=== PATIENT | female | born 1995 | race Hispanic/Latino ===

== ENCOUNTER 2022-07-09 05:54 | Emergency (ER) | payer OTHER, SELFPAY ==
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
[2022-07-09 06:00] VITALS: BP 100/67; PULSE 68; RESP 18; TEMP 36.7; O2SAT 98
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
--- NOTE | 2022-07-09 06:35 | PC.NURSE ---
verbal order for short arm splint left arm.
[2022-07-09 06:43] LABS: Basophils Percent Auto 0.6 % (0.2-1.2); Eosinophils Absolute Auto 0.1 K/mm3 (0-0.3); Eosinophils Percent Auto 1.9 % (0-4.4); Hemoglobin 12.2 g/dL (12.0-15.0); Immature Granulocyte Absolute 0.02 K/mm3 (0.00-0.031); Immature Granulocyte Percent A 0.3 % (0-0.5); Lymphocytes Absolute Auto 1.51 K/mm3 (0.9-3.2); Lymphocytes Percent Auto 23.5 % (18.3-44.2); Mean Corpuscular HGB Conc 32.1 g/dl (32-36); Mean Corpuscular Hemoglobin 30.5 pg (26-34); Mean Platelet Volume 10.9 fl (7.4-10.4); Monocytes Absolute Auto 0.7 K/mm3 (0.1-0.6); Monocytes Percent Auto 10.7 % (2.6-8.5); Platelet Count Result 208 k/mm3 (150-375); Red Cell Distribution Width 14.3 % (11.5-14.5); White Blood Count 6.4 K/mm3 (4.5-10.0)
[2022-07-09] MEDS: HYDROmorphone HCL INJ (*CRX) 1 MG/ML SYR 0.5 MG IV PUSH (06:44)
[2022-07-09 07:00] LABS: Alanine Aminotransferase 31 U/L (6-35); Albumin Level 4.2 g/dL (3.5-5.1); Alkaline Phosphatase 49 U/L (38-126); Anion Gap 11 mmol/L (8-16); Aspartate Amino Transferase 52 U/L (14-36); Bilirubin,Total 0.8 mg/dL (0.2-1.3); Blood Urea Nitrogen 12 mg/dL (7-17); Calcium 8.6 mg/dL (8.4-10.2); Carbon Dioxide 27 mmol/L (22-30); Chloride 101 mmol/L (98-107); Estimated CRCL calculation 108 ml/min; Estimated Glomerular Filt Rate > 60; Glucose 106 mg/dL (65-110); Potassium 3.9 mmol/L (3.4-5.0); Sodium 139 mmol/L (137-145)
[2022-07-09 07:12] VITALS: BP 101/70; PULSE 59; RESP 18; O2SAT 98
[2022-07-09 08:14] VITALS: BP 99/67; PULSE 88; RESP 16; O2SAT 99
== END 2022-07-09 08:15 | disposition home or self-care (01) ==
PROVIDERS: Emergency Medicine; Emergency Provider Family Medicine; PCP Registered Nurse
DX: S52.615A Nondisplaced fracture of left ulna styloid process, initial encounter for closed fracture (principal); S06.9X9A Unspecified intracranial injury with loss of consciousness of unspecified duration, initial encounter; V47.6XXA Car passenger injured in collision with fixed or stationary object in traffic accident, initial encounter
CPT/HCPCS: 29125; 36415; 70450; 71275; 73080; 73110; 74174; 80053; 81025; 85025; 96374; 99284; A4565; J1170; Q9967

== ENCOUNTER 2023-04-29 15:24 | Outpatient (CLI) | payer OTHER, SELFPAY ==
--- NOTE | ~2023-04-29 | US_ITS ---
EXAMINATION: US OB <=14 wk fetus w TV DATE: 04/29/2023 16:02 INDICATION: Spotting. First trimester . TECHNIQUE: Real-time transabdominal and transvaginal pelvic ultrasound was performed. COMPARISON: None. FINDINGS: TRANSABDOMINAL ULTRASOUND: The uterus measures 9.9 x 6.5 x 5.3 cm. TRANSVAGINAL ULTRASOUND: There is an intrauterine gestational sac. A yolk sac is identified. The fet al crown rump length measures 1.5 cm, which correlates with an estimated gestational age of 7 weeks a nd 6 day(s). heart motion is not identified by M-mode Doppler. The ovaries are not visualized. There is no free fluid in the pelvis. IMPRESSION: 1. demise. Reviewed, dictated and finalized at location L. IMPRESSION: 1. demise.
== END 2023-04-29 15:25 | disposition home or self-care (01) ==
PROVIDERS: PCP Physician Assistant; Visit Provider Obstetrics & Gynecology
DX: O26.851 Spotting complicating pregnancy, first trimester (principal); Z3A.00 Weeks of gestation of pregnancy not specified; O02.1 Missed abortion
CPT/HCPCS: 76801; 76817

== ENCOUNTER 2023-07-04 21:27 | Emergency (ER) | payer OTHER, SELFPAY ==
[2023-07-04] VITALS (9 sets, daily range): BP systolic 115–124; BP diastolic 61–76; PULSE 67–98; RESP 15–17; TEMP 36.3; O2SAT 99–100
--- NOTE | ~2023-07-04 | US_ITS ---
EXAMINATION: US OB <= 14 weeks fetus DATE: 07/04/2023 23:58 INDICATION: Pelvic pain and bleeding. . TECHNIQUE: Real-time transabdominal pelvic ultrasound was performed. COMPARISON: Ultrasound 04/29/2023 FINDINGS: The uterus measures 9.5 x 4.2 x 4.8 cm. The endometrial complex is heterogeneous with thickness of 9 mm. There is a cyst in the endometrial complex with mean diameter of 7 mm . If this finding is a gest ational sac, it correlates with an estimated gestational age of 5 weeks and 3 days +/- 3 days. No yol k sac or pole is identified. The right ovary measures 2.2 x 1.4 x 1.8 cm. The left ovary measur es 3.7 x 2.1 x 2.8 cm. There is no free fluid in the pelvis. IMPRESSION: 1. Cyst in the endometrial complex that may be a gestational sac with estimated date of delivery of 04/01/2024. Spontaneous and ectopic are not excluded. Serial beta hCGs are recommend ed. Reviewed, dictated and finalized at location E. IMPRESSION: 1. Cyst in the endometrial complex that may be a gestational sac with estimate d date of delivery of 04/01/2024. Spontaneous and ectopic are not excluded. Serial beta hCGs are recommended.
--- NOTE | 2023-07-04 21:54 | ED.PREGNANCY ---
HPI - General Chief complaint: Vaginal Bleeding <Christin Chow APRN - Last Filed: 07/05/23 03:18> Stated complaint: vaginal bleeding <Christin Chow APRN - Last Filed: 07/05/23 03:18> Time Seen by Provider: 07/04/23 21:53 <Christin Chow APRN - Last Filed: 07/05/23 03:18> Source: patient and family (spouse at bedside) <Christin Chow APRN - Last Filed: 07/05/23 03:18> Mode of arrival: ambulatory <Christin Chow APRN - Last Filed: 07/05/23 03:18> Limitations: no limitations <Christin Chow APRN - Last Filed: 07/05/23 03:18> History of Present Illness HPI Narrative: Patient is a very pleasant 27-year-old female with a past medical history of anxiety, anemia, miscarriage who presents to the emergency department today ambulatory with a steady gait with spouse for evaluation of a having an episode of vaginal bleeding with pain. Patient states that she had a miscarriage at the end of March beginning of May. She ended up having to take the pills as she could not deliver the products of conception by herself. She states that she then bleed for about 2-3 weeks on and off. She states that she did not have a cycle at all in May. She states that the small amount of bleeding started tonight after coughing along with lower abdominal discomfort. She denies any fever or chills. Denies chest pain, shortness of breath, dizziness, urinary symptoms, flank pain. <Christin Chow APRN - Last Filed: 07/05/23 03:18> Related Data Home medications: Home Medications Medication Instructions Recorded Confirmed prenat.vits,alicia,[id number] 1 tablet PO DAILY 04/22/23 05/01/23 <Christin Chow APRN - Last Filed: 07/05/23 03:18> Allergies/Adverse reactions: Allergies Allergy/AdvReac Type Severity Reaction Status Date / Time No Known Allergies Allergy Unknown Verified 07/04/23 21:31 <Christin Chow APRN - Last Filed: 07/05/23 03:18> Review of Systems Review of Systems: CONSTITUTIONAL: Denies fever, chills, or sweats. EYES: Denies visual changes, redness, or discharge. ENT: Denies rhinorrhea, congestion, sore throat, or otalgia. CARDIOVASCULAR: Denies chest pain, palpitations, or edema. RESPIRATORY: Denies cough or dyspnea. GASTROINTESTINAL: Denies, nausea, vomiting, or diarrhea. +lower abdominal cramping GENITOURINARY: Denies dysuria or hematuria. +vaginal bleeding/lower abdomen cramping. SKIN: Denies rash or itching. MUSCULOSKELETAL: Denies back pain, joint pain, or myalgia. NEUROLOGIC: Denies headache, numbness, or weakness. PSYCHIATRIC: Denies anxiety or depression. <Christin Chow APRN - Last Filed: 07/05/23 03:18> All systems reviewed & are unremarkable except as noted in HPI and below <Christin Chow APRN - Last Filed: 07/05/23 03:18> [facility] Past Medical History Medical History: Medical History Anemia Anxiety Heart disease History of miscarriage <Christin Chow APRN - Last Filed: 07/05/23 03:18> Surgical History Surgical History: Surgical History History of 2 History of cholecystectomy <Christin Chow APRN - Last Filed: 07/05/23 03:18> Family History Family History: Family History Mother Family history of diabetes mellitus in first degree relative Sibling Family history of diabetes mellitus in first degree relative <Christin Chow APRN - Last Filed: 07/05/23 03:18> Social History Social History: Social History Smoking status: Current every day smoker Tobacco type: e-cigarettes/vaping Alcohol intake: never Substance use: former Substance use type: marijuana Lack of Transportation: No Lack of Food: Never True Current Housing: I Have Housing Concerned About Future Ho
[2023-07-04 22:17] LABS: Basophils Percent Auto 0.4 % (0.2-1.2); Eosinophils Absolute Auto 0.3 K/mm3 (0-0.3); Eosinophils Percent Auto 3.1 % (0-4.4); Hematocrit 39.7 % (37.0-47.0); Hemoglobin 13.2 g/dL (12.0-15.0); Immature Granulocyte Absolute 0.03 K/mm3 (0.00-0.031); Immature Granulocyte Percent A 0.3 % (0-0.5); Lymphocytes Absolute Auto 2.85 K/mm3 (0.9-3.2); Lymphocytes Percent Auto 31.4 % (18.3-44.2); Mean Corpuscular HGB Conc 33.2 g/dl (32-36); Mean Corpuscular Hemoglobin 30.5 pg (26-34); Mean Corpuscular Volume 91.7 fl (80-100); Mean Platelet Volume 10.6 fl (7.4-10.4); Monocytes Absolute Auto 0.6 K/mm3 (0.1-0.6); Monocytes Percent Auto 6.5 % (2.6-8.5); Neutrophils Absolute Auto 5.3 K/mm3 (1.3-6.7); Neutrophils Percent Auto 58.3 % (45.5-73.1); Platelet Count Result 253 k/mm3 (150-375); Red Blood Count 4.33 M/mm3 (4.2-5.4); Red Cell Distribution Width 13.1 % (11.5-14.5); White Blood Count 9.1 K/mm3 (4.5-10.0)
[2023-07-04 22:29] LABS: Alanine Aminotransferase 63 U/L (6-35); Albumin Level 4.6 g/dL (3.5-5.1); Alkaline Phosphatase 62 U/L (38-126); Anion Gap 10 mmol/L (8-16); Aspartate Amino Transferase 46 U/L (14-36); Bilirubin,Total 0.4 mg/dL (0.2-1.3); Blood Urea Nitrogen 10 mg/dL (7-17); Calcium 9.5 mg/dL (8.4-10.2); Carbon Dioxide 27 mmol/L (22-30); Chloride 101 mmol/L (98-107); Estimated CRCL calculation 122 ml/min; Estimated Glomerular Filt Rate > 60; Glucose 114 mg/dL (65-110); Potassium 3.6 mmol/L (3.4-5.0); Sodium 138 mmol/L (137-145)
[2023-07-04 23:04] LABS: Bacteria Urine None Seen /hpf; Non Pathogenic Casts 0-2; RBC Urine >100 /hpf (0-2); Squamous Epithelial Cell Urine None seen /hpf (Few)
[2023-07-04 23:18] LABS: Appearance Urine Turbid (Clear); Bilirubin Urine Negative (Negative); Blood Urine 3+ (Negative); Color Urine Orange (Yellow); Glucose Urine UA Negative (Negative); Ketones Urine Negative (Negative); Leukocyte Esterase Ur 1+ LEU/UL (Negative); Nitrate Urine Negative (Negative); Protein Urine 1+ mg/dL (Negative); Specific Grav Ur 1.023 (1.001-1.035)
--- NOTE | 2023-07-04 23:18 | PC.NURSE ---
Patient taken to ultrasound at this time via w/c.
[2023-07-04 23:19] LABS: Add Urine Microscopic? YES
[2023-07-05] VITALS (23 sets, daily range): BP systolic 99–123; BP diastolic 64–79; PULSE 58–90; RESP 14–17; O2SAT 98–100
[2023-07-05] MEDS: ACETAMINOPHEN 500 MG TABLET 1000 MG PO (01:33)
[2023-07-05] MEDS: LACTATED RINGERS 1,000 ML 999 ML IV CONT (02:01)
== END 2023-07-05 07:06 | disposition home or self-care (01) ==
PROVIDERS: Nurse Practitioner; Emergency Provider Emergency Medicine; PCP Physician Assistant
DX: O20.0 Threatened abortion (principal); O99.411 Diseases of the circulatory system complicating pregnancy, first trimester; I51.9 Heart disease, unspecified; O99.331 Smoking (tobacco) complicating pregnancy, first trimester; F17.290 Nicotine dependence, other tobacco product, uncomplicated; Z86.2 Personal history of diseases of the blood and blood-forming organs and certain disorders involving the immune mechanism; Z90.49 Acquired absence of other specified parts of digestive tract; Z3A.01 Less than 8 weeks gestation of pregnancy
CPT/HCPCS: 36415; 76801; 80053; 81001; 84702; 85025; 85461; 86850; 86900; 86901; 87077; 87086; 87186; 96360; 99284; A9270; J7120

== ENCOUNTER 2023-08-21 09:33 | Outpatient (CLI) | payer OTHER, SELFPAY ==
[2023-08-21 11:08] LABS: Beta HCG Quantitative < 2.39 mIU/ML
== END 2023-08-21 09:34 | disposition home or self-care (01) ==
LOC: ANHLAB 09:34
PROVIDERS: PCP Physician Assistant; Visit Provider Emergency Medicine
DX: O20.0 Threatened abortion (principal); Z3A.00 Weeks of gestation of pregnancy not specified
CPT/HCPCS: 36415; 84702

== ENCOUNTER 2023-10-19 03:18 | Emergency (ER) | payer OTHER, SELFPAY ==
[2023-10-19 03:25] VITALS: BP 117/67; PULSE 91; RESP 18; TEMP 36.7; O2SAT 99
--- NOTE | 2023-10-19 06:07 | PC.NURSE ---
0548 - Pt called for room, no answer 0607 - pt called for room, no answer
== END 2023-10-19 06:16 | disposition left against medical advice (07) ==
LOC: ANHED 06:09
PROVIDERS: PCP Physician Assistant
DX: J02.9 Acute pharyngitis, unspecified (principal)
CPT/HCPCS: 99199

== ENCOUNTER 2023-10-22 15:03 | Outpatient (CLI) | payer OTHER, SELFPAY ==
[2023-10-22 15:47] LABS: Alanine Aminotransferase 21 U/L (6-35); Albumin Level 4.2 g/dL (3.5-5.1); Alkaline Phosphatase 76 U/L (38-126); Anion Gap 8 mmol/L (8-16); Aspartate Amino Transferase 25 U/L (14-36); Bilirubin,Total 0.5 mg/dL (0.2-1.3); Blood Urea Nitrogen 9 mg/dL (7-17); Calcium 8.7 mg/dL (8.4-10.2); Carbon Dioxide 26 mmol/L (22-30); Chloride 106 mmol/L (98-107); Estimated Glomerular Filt Rate > 60; Glucose 100 mg/dL (65-110); Potassium 3.9 mmol/L (3.4-5.0); Sodium 140 mmol/L (137-145)
[2023-10-22 16:54] LABS: Thyroid Stimulating Hormone Reflex 0.915 uIU/mL (0.465-4.68)
[2023-10-29 10:50] LABS: Anti Cardio Antibody IgM <2.0 MPL-U/mL (<20.0); Anti Cardiolipin Antibody IgA <2.0 APL-U/mL (<20.0); Anti Cardiolipin Antibody IgG <2.0 GPL-U/mL (<20.0)
== END 2023-10-22 15:04 | disposition home or self-care (01) ==
LOC: ANHLAB 15:04
PROVIDERS: PCP Physician Assistant; Visit Provider Obstetrics & Gynecology
DX: N96 Recurrent pregnancy loss (principal)
CPT/HCPCS: 36415; 80053; 84443; 86147

== ENCOUNTER 2024-02-03 11:16 | Outpatient (CLI) | payer OTHER, SELFPAY ==
[2024-02-07 07:45] LABS: Progesterone 43.7 ng/mL (***)
== END 2024-02-03 11:17 | disposition home or self-care (01) ==
LOC: ANHLAB 11:17
PROVIDERS: PCP Physician Assistant; Visit Provider Nurse Practitioner Family
DX: N91.2 Amenorrhea, unspecified (principal)
CPT/HCPCS: 36415; 84144; 84702

== ENCOUNTER 2024-02-03 11:32 | Emergency (ER) | payer OTHER, SELFPAY ==
--- NOTE | ~2024-02-03 | US_ITS ---
CORRECTED REPORT corrected examination description [facility] [place] 02/04/24 This report was recreated on 02/04/24. 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 The interpreting radiologist was not present for the study. COMPARISON: None. FINDINGS: The uterus measures 8.9 x 4.9 x 5.5 cm. There is an intrauterine gestational sac with double decidual sign but no discernible internal yolk sac or pole likely due to early stage of .The mean sac diameter measures 5 mm which correlates with an estimated gestational age of 5 weeks and 2 days. Several anechoic nabothian cysts at the cervix the largest measuring up to 1 cm in maximal diameter. Likely section scar at the anterior lower uterine segment. The right ovary measures 2.7 x 2.1 x 3.1 cm. The left ovary measures 2.9 x 1.4 x 3.4 cm. After flow identified at both ovaries on color Doppler. There is small amount of anechoic free fluid in the cul-de-sac and at the right adnexa. IMPRESSION: 1. Single intrauterine gestational sac without evident yolk sac or pole likely due to early stage of . 2. Gestational age by ultrasound based on mean sac diameter of 5 weeks 2 day(s) +/- 3 day(s) with ultrasound estimated date of delivery (SUNDAY) of 10/03/2024. 3. Small amount of likely physiologic free fluid in the cul-de-sac and at the right adnexa. Reviewed, dictated and finalized at location A. TING SUPERVISOR MTDD IMPRESSION: 1. Single intrauterine gestational sac without evident yolk sac or pole l ikely due to early stage of . 2. Gestational age by ultrasound based on mean sac diameter of 5 weeks 2 day(s ) +/- 3 day(s) with ultrasound estimated date of delivery (SUNDAY) of 10/03/2024. 3. Small amount of likely physiologic free fluid in the cul-de-sac and at the r ight adnexa.
[2024-02-03 11:44] VITALS: BP 129/72; PULSE 71; RESP 20; TEMP 36.2; O2SAT 100
[2024-02-03 13:19] LABS: Basophils Percent Auto 0.4 % (0.2-1.2); Eosinophils Absolute Auto 0.2 K/mm3 (0-0.3); Eosinophils Percent Auto 2.1 % (0-4.4); Hematocrit 39.7 % (37.0-47.0); Hemoglobin 12.9 g/dL (12.0-15.0); Immature Granulocyte Absolute 0.04 K/mm3 (0.00-0.031); Immature Granulocyte Percent A 0.4 % (0-0.5); Lymphocytes Absolute Auto 2.52 K/mm3 (0.9-3.2); Lymphocytes Percent Auto 26.3 % (18.3-44.2); Mean Corpuscular HGB Conc 32.5 g/dl (32-36); Mean Corpuscular Hemoglobin 29.7 pg (26-34); Mean Corpuscular Volume 91.3 fl (80-100); Mean Platelet Volume 10.7 fl (7.4-10.4); Monocytes Absolute Auto 0.7 K/mm3 (0.1-0.6); Monocytes Percent Auto 7.5 % (2.6-8.5); Neutrophils Absolute Auto 6.1 K/mm3 (1.3-6.7); Neutrophils Percent Auto 63.3 % (45.5-73.1); Platelet Count Result 269 k/mm3 (150-375); Red Blood Count 4.35 M/mm3 (4.2-5.4); Red Cell Distribution Width 13.5 % (11.5-14.5); White Blood Count 9.6 K/mm3 (4.5-10.0)
--- NOTE | 2024-02-03 13:22 | ED.ABDPAIN ---
HPI - Abdominal Pain General Chief Complaint: Abdominal Pain <Fernando Aponte APRN - Last Filed: 02/03/24 13:26> Stated Complaint: lower abdominal pain, 4 weeks <Fernando Aponte APRN - Last Filed: 02/03/24 13:26> Time Seen by Provider: 02/03/24 13:20 <Fernando Aponte APRN - Last Filed: 02/03/24 13:26> MSE in triage was performed a 1320 Focused HPI: Alexandrea is a 28-year-old female patient presenting to the ER today with complaints of right lower quadrant abdominal pain/pelvic pain times 4-5 days. She reports that she is approximately 4 weeks . Rates pain currently a 4-5 out of 10 and is sharp in nature and comes and goes. Last menstrual period was finishing up on December 25, 2025. States she had done a urine test and it was positive. Also reporting some associated nausea, vomiting, and diarrhea. Denies any chest pain, shortness of breath, or URI symptoms. Denies any vaginal bleeding, discharge, or odor. GENERAL: Well-appearing, well-nourished, and in no acute distress. HEAD: Normocephalic, atraumatic. CHEST: Clear to auscultation. No respiratory distress. HEART: Regular rate and rhythm. NEURO: Alert and oriented x3. Abdomen: Soft, pliable, nondistended, bowel sounds present all 4 quadrants, no organomegaly, mild tenderness to palpation over the right lower quadrant/pelvis, reporting sharp pain radiating into the left lower abdomen Patient screened in triage and initial orders placed. Labs, urine, and transvaginal ultrasound ordered to rule out ectopic . Additional care and disposition to be based upon diagnostic testing and treatment. <Fernando Aponte APRN - Last Filed: 02/03/24 13:26> MSE in triage was performed a 1320 Focused HPI: Alexandrea GENERAL: Well-appearing, well-nourished, and in no acute distress. HEAD: Normocephalic, atraumatic. CHEST: Clear to auscultation. No respiratory distress. HEART: Regular rate and rhythm. NEURO: Alert and oriented x3. Abdomen: Soft, pliable, nondistended, bowel sounds present all 4 quadrants, no organomegaly, mild tenderness to palpation over the right lower quadrant/pelvis, reporting sharp pain radiating into the left lower abdomen Patient screened in triage and initial orders placed. Labs, urine, and transvaginal ultrasound ordered to rule out ectopic . Additional care and disposition to be based upon diagnostic testing and treatment. <Ashtyn Baltazar MD - Last Filed: 02/03/24 16:47> Source: patient <Fernando Aponte APRN - Last Filed: 02/03/24 13:26> Mode of arrival: ambulatory <Fernando Aponte APRN - Last Filed: 02/03/24 13:26> Limitations: no limitations <Fernando Aponte APRN - Last Filed: 02/03/24 13:26> History of Present Illness HPI narrative: Patient is a 28-year-old female who presented to the ER today with complaints of right lower quadrant abdominal pain and pelvic pain for the past 4-5 days. The pain is located on her right adnexal region and seems to be present when she sleeps on her left side however she has had an intermittent pains also on her left side in a similar location. She reports that she is approximately 4 weeks , is established with an OBGYN, has an appointment upcoming this month. Last menstrual period was finished at 12/25/23. States had a positive urine test. Denies any chest pain, shortness of breath. Denies any vaginal bleeding, discharge, or odor. No concern for STI. She has had some increased urinary frequency, no dysuria or hematuria. <Ashtyn Baltazar MD - Last Filed: 02/03/24 16:47> Related Data Allergies/Adverse Reactions: Allergies Allergy/AdvReac Type Severity Reaction Status Date / Time No Known Allergies Allergy Unknown Verified 08/28/23 13:37 <Fernando Aponte APRN - Last Filed: 02/03/24 13:26> Review of Systems Review of Systems: All systems reviewed & are unremarkable except as noted in H
[2024-02-03 13:28] LABS: Alanine Aminotransferase 22 U/L (6-35); Alkaline Phosphatase 77 U/L (38-126); Anion Gap 7 mmol/L (8-16); Aspartate Amino Transferase 26 U/L (14-36); Bilirubin,Total 0.4 mg/dL (0.2-1.3); Blood Urea Nitrogen 9 mg/dL (7-17); Calcium 8.9 mg/dL (8.4-10.2); Carbon Dioxide 22 mmol/L (22-30); Chloride 106 mmol/L (98-107); Estimated CRCL calculation 114 ml/min; Estimated Glomerular Filt Rate > 60; Glucose 136 mg/dL (65-110); Sodium 135 mmol/L (137-145)
[2024-02-03 13:35] LABS: Prothrombin Time 13.5 Seconds (11.1-14.7)
[2024-02-03 13:36] LABS: Partial Thromboplastin Time 28.1 SECONDS (22.3-36.8)
[2024-02-03 13:40] LABS: Appearance Urine Clear (Clear); Bacteria Urine 4+ /hpf; Bilirubin Urine Negative (Negative); Blood Urine Negative (Negative); Color Urine Yellow (Yellow); Glucose Urine UA Negative (Negative); Ketones Urine Negative (Negative); Leukocyte Esterase Ur 1+ LEU/UL (Negative); Need Manual Microscopic Reviewed; Nitrate Urine Positive (Negative); Non Pathogenic Casts 0-2; Protein Urine Negative (Negative); RBC Urine 0-2 /hpf (0-2); Specific Grav Ur 1.019 (1.001-1.035); Squamous Epithelial Cell Urine Occasional /hpf (Few); Urobilinogen Urine 0.2 mg/dL (<2.0); WBC Urine 0-5 /hpf
[2024-02-03 13:42] LABS: Add Urine Microscopic? YES
[2024-02-03 17:08] VITALS: BP 115/77; PULSE 88; RESP 18; TEMP 36.7; O2SAT 99
== END 2024-02-03 17:10 | disposition home or self-care (01) ==
PROVIDERS: Nurse Practitioner Family; Emergency Provider Student in an Organized Health Care Education/Training Program; PCP Physician Assistant
DX: O23.41 Unspecified infection of urinary tract in pregnancy, first trimester (principal); N39.0 Urinary tract infection, site not specified; O26.891 Other specified pregnancy related conditions, first trimester; R10.31 Right lower quadrant pain; I51.9 Heart disease, unspecified; Z86.2 Personal history of diseases of the blood and blood-forming organs and certain disorders involving the immune mechanism; Z90.49 Acquired absence of other specified parts of digestive tract; Z3A.01 Less than 8 weeks gestation of pregnancy
CPT/HCPCS: 36415; 76801; 76817; 80053; 81001; 84144; 84702; 85025; 85461; 85610; 85730; 86850; 86900; 86901; 99284

== ENCOUNTER 2024-02-05 11:50 | Outpatient (CLI) | payer OTHER, SELFPAY | END 2024-02-05 11:51 | disposition home or self-care (01) | LOC: ANHLAB 11:51 | PROVIDERS: PCP Physician Assistant; Visit Provider Nurse Practitioner Family | DX: O09.299 Supervision of pregnancy with other poor reproductive or obstetric history, unspecified trimester (principal); Z3A.00 Weeks of gestation of pregnancy not specified | CPT/HCPCS: 36415; 84702 ==

== ENCOUNTER 2024-02-11 14:33 | Outpatient (CLI) | payer OTHER, SELFPAY ==
--- NOTE | ~2024-02-11 | US_ITS ---
EXAMINATION: US OB <=14 wk fetus w TV DATE: 02/11/2024 15:45 INDICATION: with inconclusive viability. TECHNIQUE: Real-time transabdominal and transvaginal pelvic ultrasound was performed. COMPARISON: Ultrasound 02/03/2024 FINDINGS: TRANSABDOMINAL ULTRASOUND: The uterus measures 9.6 x 4.5 x 5.0 cm. TRANSVAGINAL ULTRASOUND: There is fluid in the endometrial complex with mean diameter of 8 mm. No yol k sac or pole identified. The right ovary measures 2.4 x 1.8 x 3.0 cm. The left ovary measures 2.6 x 2.2 x 1.8 cm. There is physiologic free fluid in the pelvis. IMPRESSION: 1. Fluid in the endometrial complex that may be a gestational sac with estimated gestational age of 5 weeks and 4 days. Spontaneous and ectopic are not excluded. Serial beta hCGs are recommended. Reviewed, dictated and finalized at location A. IMPRESSION: 1. Fluid in the endometrial complex that may be a gestational sac with estimat ed gestational age of 5 weeks and 4 days. Spontaneous and ectopic preg shawn are not excluded. Serial beta hCGs are recommended.
== END 2024-02-11 14:34 | disposition home or self-care (01) ==
LOC: ANHIMG 14:35
PROVIDERS: PCP Physician Assistant; Visit Provider Obstetrics & Gynecology
DX: O36.80X0 Pregnancy with inconclusive fetal viability, not applicable or unspecified (principal); Z3A.00 Weeks of gestation of pregnancy not specified; O20.9 Hemorrhage in early pregnancy, unspecified
CPT/HCPCS: 76801; 76817

== ENCOUNTER 2024-02-11 16:11 | Outpatient (CLI) | payer OTHER, SELFPAY | END 2024-02-11 16:12 | disposition home or self-care (01) | LOC: ANHLAB 16:12 | PROVIDERS: PCP Physician Assistant; Visit Provider Obstetrics & Gynecology | DX: O20.9 Hemorrhage in early pregnancy, unspecified (principal); Z3A.00 Weeks of gestation of pregnancy not specified | CPT/HCPCS: 36415; 84702 ==

== ENCOUNTER 2024-02-11 20:11 | Emergency (ER) | payer OTHER, SELFPAY ==
[2024-02-11 20:10] VITALS: BP 122/65; PULSE 62; RESP 12; O2SAT 100
--- NOTE | 2024-02-11 20:19 | ECG_ITS ---
Measurements Intervals [place] Rate: 61 P: 36 AL: 132 QRS: 60 QRSD: 102 T: 53 QT: 430 QTc: 435 Interpretive Statements SINUS RHYTHM NORMAL ECG NO PREVIOUS ECG AVAILABLE FOR COMPARISON Electronically Signed On 02-12-2024 6:19:18 CDT by Pramod Jones D.O.
[2024-02-11 20:41] LABS: Basophils Percent Auto 0.3 % (0.2-1.2); Eosinophils Absolute Auto 0.2 K/mm3 (0-0.3); Eosinophils Percent Auto 1.5 % (0-4.4); Hematocrit 36.3 % (37.0-47.0); Immature Granulocyte Absolute 0.04 K/mm3 (0.00-0.031); Immature Granulocyte Percent A 0.3 % (0-0.5); Lymphocytes Absolute Auto 2.46 K/mm3 (0.9-3.2); Lymphocytes Percent Auto 21.4 % (18.3-44.2); Mean Corpuscular HGB Conc 33.1 g/dl (32-36); Mean Corpuscular Hemoglobin 29.5 pg (26-34); Mean Corpuscular Volume 89.2 fl (80-100); Mean Platelet Volume 10.9 fl (7.4-10.4); Monocytes Absolute Auto 0.6 K/mm3 (0.1-0.6); Neutrophils Absolute Auto 8.2 K/mm3 (1.3-6.7); Neutrophils Percent Auto 71.5 % (45.5-73.1); Platelet Count Result 255 k/mm3 (150-375); Red Blood Count 4.07 M/mm3 (4.2-5.4); Red Cell Distribution Width 13.4 % (11.5-14.5); White Blood Count 11.5 K/mm3 (4.5-10.0)
[2024-02-11 20:53] LABS: Alanine Aminotransferase 31 U/L (6-35); Albumin Level 3.7 g/dL (3.5-5.1); Alkaline Phosphatase 69 U/L (38-126); Anion Gap 5 mmol/L (8-16); Aspartate Amino Transferase 31 U/L (14-36); Bilirubin,Total 0.4 mg/dL (0.2-1.3); Blood Urea Nitrogen 8 mg/dL (7-17); Carbon Dioxide 26 mmol/L (22-30); Chloride 105 mmol/L (98-107); Estimated CRCL calculation 115 ml/min; Estimated Glomerular Filt Rate > 60; Glucose 200 mg/dL (65-110); Potassium 3.5 mmol/L (3.4-5.0); Sodium 136 mmol/L (137-145)
--- NOTE | 2024-02-11 21:28 | ED.FEMALEGU ---
HPI - Female Genitourinary General Chief complaint: Vaginal Bleeding Stated complaint: syncope, vag bleed Time Seen by Provider: 02/11/24 21:00 History of Present Illness HPI Narrative: Patient at 6wk preg with confirmed IUP on US presenting with vaginal bleeding; she was sitting on toilet, looked down as she passed a large blood clot, and then passed out. Feeling well now; no chest pain or trouble breathing, no unilateral leg swelling/pain or h/o blood clots. Vaginal bleeding has lightened. Related Data Allergies Allergy/AdvReac Type Severity Reaction Status Date / Time No Known Allergies Allergy Unknown Verified 02/11/24 20:21 Review of Systems Review of Systems: CONST: No fever. HEENT: No sore throat C/V: No chest pain RESP: No cough GI: Reports mild pelvic cramping : vaginal bleeding M/S: No joint pain. SKIN: No rash. NEURO: Syncope PSYCH: [No depression] PMFSH Past Medical History Medical History Anemia Anxiety Heart disease History of miscarriage Surgical History Surgical History History of 2 History of cholecystectomy Family History Family History Mother Family history of diabetes mellitus in first degree relative Sibling Family history of diabetes mellitus in first degree relative Social History Social History Smoking status: Current every day smoker Tobacco type: e-cigarettes/vaping Alcohol intake: never Substance use: former Substance use type: marijuana Lack of Transportation: No Lack of Food: Never True Current Housing: I Have Housing Concerned About Future Housing: No Difficulty Paying Gas/Electric Bills: No Difficulty Paying for Meds: No Currently Unemployed: No Education: High School Diploma/GED Difficulty w/ Childcare or Family Care: No Occupation/Education: occupation Gender identity (if verbalized by the patient): Female Sexual Orientation (if Verbalized by the Patient): Straight or Heterosexual Spiritual care concerns: No Exam Narrative: EXAMINATION OF ORGAN SYSTEMS/BODY AREAS: Constitutional: Vital signs per nursing GENERAL:[No acute distress, non-toxic appearing.] HEAD: Normal with no signs of head trauma. EYES: EOMI, conjunctiva normal ENT: Hearing grossly intact LUNGS: Nonlabored breathing. HEART: [Regular rate and rhythm] ABD: [Soft], [nontender to palpation] EXT: Normal range of motion : Scant blood; no active serious hemorrhage SKIN: [No rashes or lesions.] NEURO: [Alert and oriented x 3. No gross focal sensory or strength deficits.] PSYCH: Normal affect Course Vital Signs Vital signs: Vital Signs Pulse Rate 62 02/11/24 20:10 Respiratory Rate 12 02/11/24 20:10 Blood Pressure 122/65 02/11/24 20:10 Pulse Oximetry 100 02/11/24 20:10 Oxygen Delivery Room Air 02/11/24 20:10 Pulse Rate 78 02/11/24 21:34 Respiratory Rate 22 H 02/11/24 21:34 Blood Pressure 118/57 L 02/11/24 21:34 Pulse Oximetry 100 02/11/24 21:34 Oxygen Delivery Room Air 02/11/24 20:10 MDM - Female Genitourinary MDM Narrative Medical decision making narrative: 1) Differential diagnosis: Vasovagal syncope, unlikely cardiac syncope, (threatened) miscarriage 2) Comorbidities: n/a 3) External notes reviewed: Prior OB note 4) History sources independently obtained from: Patient, 5) Discussion of management with: n/a 6) Independent interpretation of: EKG showing normal sinus rhythm rate 61, normal KS, QRS, QTC intervals, normal axis. No acute ischemia or arrhythmia. 7) Diagnostic tests or therapies considered but not ordered: n/a 8) Social determinants of health: n/a 9) Shared decision makinF p/w VB, threatened miscarriage; her bHcg has decreased from la
[2024-02-11 21:34] VITALS: BP 118/57; PULSE 78; RESP 22; O2SAT 100
[2024-02-11] MEDS: LACTATED RINGERS 1,000 ML 999 ML IV CONT (21:35)
[2024-02-11 22:36] VITALS: BP 100/53; PULSE 80; RESP 22; O2SAT 100
== END 2024-02-11 22:36 | disposition home or self-care (01) ==
LOC: ANHED 21:47
PROVIDERS: Emergency Medicine; Emergency Provider Emergency Medicine; PCP Physician Assistant
DX: O03.9 Complete or unspecified spontaneous abortion without complication (principal)
CPT/HCPCS: 36415; 76801; 76817; 80053; 84702; 85025; 86850; 86900; 86901; 93005; 96360; 99284; J7120

== ENCOUNTER 2024-02-14 15:36 | Emergency (ER) | payer OTHER, SELFPAY ==
--- NOTE | ~2024-02-14 | US_ITS ---
CORRECTED REPORT corrected examination description [facility] 02/18/24 This report was recreated on 02/18/24. Original report was EXAMINATION: US OB transvaginal INDICATION: vaginal bleeding TECHNIQUE: Sonography of the pelvis was performed by field comp techniques. COMPARISON: 02/11/2024. RESULT: Uterus: 9.5 x 4.2 x 5.2 cm. Anteverted. Homogenous myometrium. Intrauterine gestational sac: Not seen. Right ovary: 2.5 x 1.7 x 1.4 cm. Vascular flow is present. No adnexal mass. Left ovary: Not visualized. Pelvis free fluid: None. IMPRESSION: No intrauterine gestational sac visualized. Findings represent of unknown location. Differential diagnosis includes early normal, failed early, or ectopic . Failed early is favored, given the possible gestational sac identified in the prior study. Recommend correlation with and follow-up serial beta-hCG values. Ultrasound follow-up should be considered as clinically warranted. Reviewed, dictated and finalized at location K. MTDD IMPRESSION: No intrauterine gestational sac visualized. Findings represent of un known location. Differential diagnosis includes early normal, failed early, or ectopic . Failed early is favored, given the possible gesta tional sac identified in the prior study. Recommend correlation with and follow -up serial beta-hCG values. Ultrasound follow-up should be considered as clini clarke warranted.
[2024-02-14 16:35] VITALS: BP 115/75; PULSE 90; RESP 18; TEMP 36.3; O2SAT 99
--- NOTE | 2024-02-14 18:31 | ED.FEMALEGU ---
HPI - Female Genitourinary General Chief complaint: Vaginal Bleeding Stated complaint: 7 weeks preg with bleeding Time Seen by Provider: 02/14/24 18:21 History of Present Illness HPI Narrative: Patient is a , expected to be approximately 7 weeks from LMP here with vaginal bleeding. On 02/02 patient was seen in this emergency department for lower abdominal pain and a home positive test. She was found to have an intrauterine gestational sac and a correlating beta hCG. She was advised pelvic rest and close follow-up with her OBGYN, Dr. Swartz. They performed an HCG in the clinic on 02/10 which appeared to be appropriately increasing. On 02/10 she began having abdominal cramping and passage of clots. She presented to this emergency department, had a repeat ultrasound performed which continues to show a possible intrauterine gestational sac however her beta-hCG had decreased significantly. She was told she had a threatened are expected miscarriage, was advised to follow-up with her OBGYN. On and Friday she had minimal bleeding, today she began having some increased bleeding, filling about 1/2 of a pad in approximately 2 hours this afternoon. She has been feeling a pressure-like sensation as well as cramping abdominal pain. Since arrival to the emergency department her cramping and pain have significantly improved. She notes that her current vaginal bleeding is minimal at this time. Her pain is well controlled. Denies any lightheadedness or near-syncope today. Related Data Allergies Allergy/AdvReac Type Severity Reaction Status Date / Time No Known Allergies Allergy Unknown Verified 02/14/24 16:39 Review of Systems Review of Systems: All systems reviewed & are unremarkable except as noted in HPI and below PMFSH Past Medical History Medical History Anemia Anxiety Heart disease History of miscarriage Surgical History Surgical History History of 2 History of cholecystectomy Family History Family History Mother Family history of diabetes mellitus in first degree relative Sibling Family history of diabetes mellitus in first degree relative Social History Social History Smoking status: Current every day smoker Tobacco type: e-cigarettes/vaping Alcohol intake: never Substance use: former Substance use type: marijuana Lack of Transportation: No Lack of Food: Never True Current Housing: I Have Housing Concerned About Future Housing: No Difficulty Paying Gas/Electric Bills: No Difficulty Paying for Meds: No Currently Unemployed: No Education: High School Diploma/GED Difficulty w/ Childcare or Family Care: No Occupation/Education: occupation Gender identity (if verbalized by the patient): Female Sexual Orientation (if Verbalized by the Patient): Straight or Heterosexual Spiritual care concerns: No Exam Narrative: GENERAL: Well-appearing, well-nourished, and in no acute distress. HEAD: Normocephalic, atraumatic. EYES: PERRLA and EOMI. ENT: Nares clear. Mucous membranes moist. NECK: Supple. CHEST: Clear to auscultation. No respiratory distress. HEART: Regular rate and rhythm. Normal peripheral pulses. ABDOMEN: Soft, mild suprapubic tenderness, no rebound or guarding, nondistended. EXTREMITIES: Normal range of motion. No edema. SKIN: Warm, dry, no rash. NEURO: No focal deficits. Alert and oriented x3. PSYCH: Normal mood and affect. Course Course Emergency Course: Chart review performed. Patient here with vaginal bleeding. Triage vitals normal. She was seen here on 02/11/24. She is a with confirmed IUP, had been seen for vaginal bleeding. bHCG was downtrending at that visit. US showed gestational sac with estimated
[2024-02-14 18:39] VITALS: BP 108/69; PULSE 70; RESP 14; TEMP 36.8; O2SAT 99
[2024-02-14 19:06] LABS: Basophils Absolute Auto 0.1 K/mm3 (0.0-0.1); Basophils Percent Auto 0.5 % (0.2-1.2); Eosinophils Absolute Auto 0.2 K/mm3 (0-0.3); Eosinophils Percent Auto 1.5 % (0-4.4); Hemoglobin 12.5 g/dL (12.0-15.0); Immature Granulocyte Absolute 0.02 K/mm3 (0.00-0.031); Immature Granulocyte Percent A 0.2 % (0-0.5); Lymphocytes Percent Auto 20.9 % (18.3-44.2); Mean Corpuscular HGB Conc 33.8 g/dl (32-36); Mean Corpuscular Hemoglobin 30.3 pg (26-34); Mean Corpuscular Volume 89.8 fl (80-100); Mean Platelet Volume 10.8 fl (7.4-10.4); Monocytes Percent Auto 8.8 % (2.6-8.5); Neutrophils Absolute Auto 7.5 K/mm3 (1.3-6.7); Neutrophils Percent Auto 68.1 % (45.5-73.1); Platelet Count Result 251 k/mm3 (150-375); Red Blood Count 4.12 M/mm3 (4.2-5.4); Red Cell Distribution Width 13.4 % (11.5-14.5)
--- NOTE | 2024-02-14 19:15 | PC.NURSE ---
Report given to Cat RN, all questions answered
[2024-02-14 19:21] LABS: Alanine Aminotransferase 42 U/L (6-35); Albumin Level 4.3 g/dL (3.5-5.1); Alkaline Phosphatase 76 U/L (38-126); Anion Gap 9 mmol/L (8-16); Aspartate Amino Transferase 44 U/L (14-36); Bilirubin,Total 0.4 mg/dL (0.2-1.3); Blood Urea Nitrogen 14 mg/dL (7-17); Calcium 9.1 mg/dL (8.4-10.2); Carbon Dioxide 25 mmol/L (22-30); Chloride 106 mmol/L (98-107); Estimated CRCL calculation 88 ml/min; Estimated Glomerular Filt Rate > 60; Glucose 101 mg/dL (65-110); Potassium 3.7 mmol/L (3.4-5.0); Sodium 140 mmol/L (137-145)
--- NOTE | 2024-02-14 19:26 | PC.NURSE ---
Report received from YANNA Martin. Assumed care of patient at this time.
[2024-02-14 19:37] VITALS: BP 120/69; PULSE 74; RESP 17; O2SAT 98
== END 2024-02-14 20:30 | disposition home or self-care (01) ==
PROVIDERS: Emergency Provider Student in an Organized Health Care Education/Training Program; PCP Obstetrics & Gynecology
DX: O03.9 Complete or unspecified spontaneous abortion without complication (principal); I51.9 Heart disease, unspecified; F17.290 Nicotine dependence, other tobacco product, uncomplicated; Z86.2 Personal history of diseases of the blood and blood-forming organs and certain disorders involving the immune mechanism; Z90.49 Acquired absence of other specified parts of digestive tract
CPT/HCPCS: 36415; 76801; 76817; 80053; 84702; 85025; 99284

== ENCOUNTER 2024-02-18 15:28 | Outpatient (CLI) | payer OTHER, SELFPAY ==
[2024-02-18 16:21] LABS: Beta HCG Quantitative 125.22 mIU/ML
== END 2024-02-18 15:29 | disposition home or self-care (01) ==
LOC: ANHLAB 15:28
PROVIDERS: PCP Obstetrics & Gynecology; Visit Provider Obstetrics & Gynecology
DX: O03.9 Complete or unspecified spontaneous abortion without complication (principal); Z3A.00 Weeks of gestation of pregnancy not specified
CPT/HCPCS: 36415; 84702

== ENCOUNTER 2024-11-22 11:53 | Outpatient (CLI) | payer OTHER, SELFPAY ==
[2024-11-23 07:58] LABS: Progesterone 5.1 ng/mL
== END 2024-11-22 11:54 | disposition home or self-care (01) ==
LOC: ANHLAB 11:56
PROVIDERS: PCP Physician Assistant; Visit Provider Obstetrics & Gynecology
DX: O09.299 Supervision of pregnancy with other poor reproductive or obstetric history, unspecified trimester (principal); Z3A.00 Weeks of gestation of pregnancy not specified
CPT/HCPCS: 36415; 84144; 84702

== ENCOUNTER 2024-12-07 16:52 | Outpatient (CLI) | payer OTHER, SELFPAY ==
--- NOTE | ~2024-12-07 | US_ITS ---
EXAMINATION: US OB <=14 wk fetus w TV DATE: 12/07/2024 21:53 MILITARY ADMINISTRATIVE TECHNICIAN INDICATION: Amenorrhea COMPARISON: None TECHNIQUE: Real-time transabdominal obstetric ultrasound. FINDINGS: 6 para 2 Last menstrual period is unknown. The uterus measures 12.5 x 5.9 x 7.1 cm. The uterus is retroverted and retroflexed. A gestational sac is identified within the fundus of the uterus with a mean sac diameter of 4.05 cm. A yolk sac is not visualized. Anterior to the gestational sac is an irregular focus of decreased echogenicity measuring 2.4 x 1.5 x 2.2 cm, consistent with a perigestational hemorrhage. A pole is identified, with a crown-rump length that measures 3.03 cm, corresponding to an appro ximate gestational age of 10 weeks and 0 days. cardiac activity is identified at a rate of 167 bpm. The right ovary measures 4.9 x 2.8 x 2.4 cm. Despite prolonged interrogation, the left ovary was not visualized. Estimated date of delivery by ultrasound is 07/05/2025 IMPRESSION: Single intrauterine gestation with an approximate gestational age of 10 weeks and 0 days, with cardiac activity identified. Perigestational hemorrhage measuring 2.4 cm in greatest dimension, for which short-term follow-up is recommended, to ensure resolution. Reviewed, dictated and finalized at location A. TARY ADMINISTRATIVE TECHNICIAN IMPRESSION: Single intrauterine gestation with an approximate gestational age of 10 weeks a nd 0 days, with cardiac activity identified. Perigestational hemorrhage measuring 2.4 cm in greatest dimension, for which sh ort-term follow-up is recommended, to ensure resolution.
== END 2024-12-07 16:53 | disposition home or self-care (01) ==
LOC: ANHIMG 16:53
PROVIDERS: PCP Physician Assistant; Visit Provider Nurse Practitioner Obstetrics & Gynecology
DX: N91.2 Amenorrhea, unspecified (principal)
CPT/HCPCS: 76801; 76817

== ENCOUNTER 2024-12-22 10:41 | Outpatient (CLI) | payer OTHER, SELFPAY ==
[2024-12-22 11:13] LABS: Basophils Percent Auto 0.3 % (0.2-1.2); Eosinophils Absolute Auto 0.2 K/mm3 (0-0.3); Eosinophils Percent Auto 1.7 % (0-4.4); Hemoglobin 12.3 g/dL (12.0-15.0); Immature Granulocyte Absolute 0.03 K/mm3 (0.00-0.031); Immature Granulocyte Percent A 0.3 % (0-0.5); Lymphocytes Absolute Auto 2.38 K/mm3 (0.9-3.2); Mean Corpuscular HGB Conc 33.2 g/dl (32-36); Mean Corpuscular Hemoglobin 29.2 pg (26-34); Mean Corpuscular Volume 87.9 fl (80-100); Mean Platelet Volume 10.9 fl (7.4-10.4); Monocytes Absolute Auto 0.6 K/mm3 (0.1-0.6); Monocytes Percent Auto 6.1 % (2.6-8.5); Neutrophils Absolute Auto 6.7 K/mm3 (1.3-6.7); Neutrophils Percent Auto 67.6 % (45.5-73.1); Platelet Count Result 239 k/mm3 (150-375); Red Blood Count 4.21 M/mm3 (4.2-5.4); White Blood Count 9.9 K/mm3 (4.5-10.0)
[2024-12-22 11:19] LABS: Add Urine Microscopic? YES; Appearance Urine Clear (Clear); Bacteria Urine Rare /hpf; Bilirubin Urine Negative (Negative); Blood Urine Negative (Negative); Color Urine Yellow (Yellow); Glucose Urine UA Negative (Negative); Ketones Urine Negative (Negative); Leukocyte Esterase Ur Trace LEU/UL (Negative); Nitrate Urine Negative (Negative); Non Pathogenic Casts 0-2; Protein Urine Trace mg/dL (Negative); RBC Urine 0-2 /hpf (0-2); Specific Grav Ur 1.023 (1.001-1.035); Squamous Epithelial Cell Urine Few /hpf (Few); Urobilinogen Urine 0.2 mg/dL (<2.0); WBC Urine 0-5 /hpf (0-3)
[2024-12-22 12:04] LABS: HIV 1/2 Ab P24 Ag Result Negative (Negative)
[2024-12-22 12:06] LABS: Hepatitis B Surface Antigen Negative (Negative)
[2024-12-22 12:23] LABS: Hepatitis C Virus Antibody Negative (Negative)
[2024-12-22 12:43] LABS: Rapid Plasma Reagin Non-Reactive (NonReactive)
[2024-12-23 21:19] LABS: Varicella IgG Antibody 6.35 S/CO
[2024-12-24 00:54] LABS: Hematocrit 37.3 % (35.0-45.0); Hemoglobin 12.3 g/dL (11.7-15.5); MCH 29.2 pg (27.0-33.0); MCV 88.6 fL (80.0-100.0); RDW 14.2 % (11.0-15.0); Red Blood Cell Count 4.21 Million/uL (3.80-5.10)
== END 2024-12-22 10:42 | disposition home or self-care (01) ==
LOC: ANHLAB 10:42
PROVIDERS: PCP Physician Assistant; Visit Provider Obstetrics & Gynecology
DX: O09.299 Supervision of pregnancy with other poor reproductive or obstetric history, unspecified trimester (principal); Z3A.00 Weeks of gestation of pregnancy not specified
CPT/HCPCS: 36415; 81001; 83021; 84702; 85025; 86592; 86703; 86762; 86787; 86803; 86850; 86900; 86901; 87086; 87340; G0432

== ENCOUNTER 2025-01-12 15:11 | Emergency (ER) | payer OTHER, SELFPAY ==
--- OUTSIDE RECORDS SUMMARY | 2025-01-12 15:13 | XMS_ITS | Clinical Summary ---
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 Gender Identity Not on file Sexual Orientation Not on file Plan of Treatment Upcoming Encounters Date Type Department Care Team (Late st Contact Info) Description 02/24/2025 3:00 PM CDT Appointment [facility] [address] [place] [address] Jez Swartz MD [address] [facility] [address] [facility] [address] [place] [address] Health Maintenance Due Date Last Done Comments DTAP/TDAP/TD VACCINES (1 - Tdap) 2015 HEPATITIS B VACCINES (1 of 3 - 19+ 3-dose series) 2015 Preventative Visit-Managed Medicaid 2015 CERVICAL CANCER SCREENING 2017 INFLUENZA VACCINE (#1) 2024 HPV VACCINES Aged Out No longer eligi ble based on patient's age to complete this topic Insurance PLAN MEDICAID Care Teams Fuel Operator Relationship Specialty Start Date End Date Karla Godfrey NP [address] [place] [address] PCP - General NURSE PRACTITIONER 02/09/15
--- OUTSIDE RECORDS SUMMARY | 2025-01-12 15:13 | XMS_ITS | Continuity of Care Document ---
Author Organization [facility] Address [address] [place] [address] Phone Care Team Providers Care Stereotype Caster Name Role Phone Unavailable Unavailable Unavailable Advance Directives Directive Yes / No Effective Date File Name No Information Encounters Encounter Description Practice Location Reason(s) For Visit Diagnoses Date Provider Providers Copied on Encounter [facility], [address] [facility], [place], [place], [id number], [place] tel:[phone] [facility] No Information No Information Referring Provider: REFERRAL SELF. Family History Family Member Type Diagnosis Age At Onset No Information Payers Payer name Insurance type Covered constitution party ID Authoriza joseph(s) Eve [employer] [place] [id number] CI [id number] Social History Type Description Quantity Date Captured Comments Sex Female Smoking Status No Information Chief Complaint And Reason For Visit No Information History Of Present Illness Encounter Date Complaint History Of Prese nt Illness No Information Instructions Date Instruction Additional Infor mation No Information Assessments Type Assessment Date No Information
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
--- OUTSIDE RECORDS SUMMARY | 2025-01-12 15:13 | XMS_ITS | Continuity of Care Document ---
Author Organization [facility] Address [address] [place] [address] Care Team Providers Care Delivery Associate Name Role Phone Liza HANSON, Afsaneh Unavailable Unavailable Allergies, Adverse Reactions, Alerts Substance Reaction Status Criticality No Known Allergies Active No Inform ation Medications Medication Instructions Dosage Effective Dates (start - stop) Status Comments Control Pills take 1 tablet by ora l route every day - Active Procedures Procedure Date Offic/outpt E&m Estab Complex e/m visit add on MRI W & W/o Contrast Cardiac MRI For Velocity Flow Mapping Mri Angio Chest W/wo Contrast Offic/outpt E&m [facility] Complex e/m visit add on Echo Ecg-routine 12 Lead; Intrpt & Advance Directives Directive Yes / No Effective Date File Name No Information Encounters Encounter Description Practice Location Reason(s) For Visit Diagnoses Date Provider Providers Copied on Encounter [facility], [address] [place] [address], [address], [facility] Office, [address] No Information 2 Liza Shelby. [address] [place] [address] [facility] [address], [place], [place], [id number], . tel:[phone] Offic/outpt E&m Estab [facility], [address] [place] [address], [address], [facility] Office [address] Freeform HPI (chief complaint) Nonrheumatic aortic (valve) stenosis 1 De Jesus Afsaneh. [address], [place] [facility] [address], [place], [place], [id number], [place]. tel:[phone] Referring Provider: Dung Mazariegos, [address] [place], [address]. tel:[phone] [facility], [address] [place] [address], [address], [place] [facility] [place] [address] No Information 1 Ronn Webb. [address] [facility], [address], [place], [address], [place]. tel:[phone] Referring Provider: Afsaneh De Jesus, [address] [place] [address], [place], [address]. tel:[phone] Offic/outpt E&m [facility], [address] [place] [address], [address], [place] [facility] [address] *Cardiovasc ular Evaluation (chief complaint)F reeform HPI (chief complaint) Nonrheumatic aortic (valve) stenosis 1 Liza Shelby. [address] [facility] [address], [place] [address], [place], [place], [id number], [place]. tel:[phone] Referring Provider: Dung Mazariegos, [address] [place], [address]. tel:[phone] [facility], [address] [place] [address], [address], [place] [facility] No Information 1 Talia Lugo. [address], [address], [address], [place]. tel:[phone] Referring Provider: Parish Melgar, [address], [address]. tel:[phone] [facility], [address] [place] [address], [place], [address], [place] [facility] No Information Abhijeet Quinonez. [address] [facility], [address], [place], [address], [place]. tel:[phone] Referring Provider: Bhavin Matthews, [address] [facility], [place], [address]. tel:[phone] Family History Family Member Type Diagnosis Age At Onset No Information Payers Payer name Insurance type Covered constitution party ID Authoriza joseph(s) [employer] POS [id number] Social History Type Description Quantity Date Captured Comments Alcohol Use Details Unknown Caffeine Use Details Unknown Tobacco Use Status Smoking Status No Information Sex Female Chief Complaint And Reason For Visit No Information Reason For Referral Reason For Referral No Information History Of Present Illness Encounter Date Complaint History Of Prese nt Illness Freeform HPI 26yo F with A hi story of bicuspid aortic valve who is being seen for cardiac evaluation.Patient had echocardiogram completed with concern for bicuspid aortic valve and mild (peak velocity 2.8 m/s, MG 17mmHg). No obvious aortic pathology. 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 No aortic pathology.She describes some dizziness after working out and when riding roller coasters. Describes some chest pain while vaping which has gone away after stopping.Two brothers with no cardiac symptoms. Has two healthy children.Current smoke marijuana every night. No alcohol use.EKG NSR with no ST changes. *Cardiovascular Evaluation Freeform HPI 25yo F with no k nown history who is being seen for cardiac evaluation.Patient had echocardiogram completed with concern for bicuspid aortic valve and mild (peak velocity 2.8 m/s, MG 17mmHg). No obvious aortic pathology.She describes some dizziness after working out and when riding roller coasters. Describes some chest pain while vaping which has gone away after stopping. describes shocks and stabbing pain with exercising. No palpitations. Two brothers with no cardiac symptoms. Has two healthy children.Current smoke marijuana every night. No alcohol use.EKG NSR with no ST changes. Functional Status Date Functional Assessmen t No Information Instructions Date Instruction Additional Infor mation No Information Assessments Type Assessment Date No Information Patient Care Teams Name Effective Dates (start - stop) Status Members No Information
--- OUTSIDE RECORDS SUMMARY | 2025-01-12 15:13 | XMS_ITS | Data Portability ---
Author Organization [facility] [place] Address [address] [place] [address] [place] [address] Assessment No assessment recorded. Plan of Treatment Reminders Order Date Submit Date Provider Last Modified By Organization Details Last Modified Time Details Appointments None recorded . Lab urinalys is, dipstick 2021 [facility], [address], [address], [place], [address], 17:14:20 [facility]anc [facility] test, [email or web address] [address], [place], [address], 17:14:19 pregnanc y test, urine 2021 [email or web address] [place], [facility] [address], [place], [address], 11:01:29 Referral None recorded . Procedures None recorded . Surgeries None recorded . Imaging US, pelvis, complete 2021 ROMMEL [place], [address], [address], [place], [address], 10:44:44 US, pelvis 2021 022 [email or web address] [place], [place], [address], 21:44:59 US, devin inal 2021 [email or web address] [place], [address], [address], [place], [address], 21:44:59 Medication Orders Macrobid 100 mg capsule 2021 [email or web address] [id number], [address] [place], [address], 10:50:11 Slynd 4 mg (28) tablet 2021 llamay [id number], [address] [place], [address], 13:28:08 Patient TargetsNo targets recorded. Patient InstructionsNo instructions recorded. Reason for Referral None Reported. Results Created Date Observation Date Name Description Value Unit Range Abnormal Flag Note LastModifiedBy Organization Detail LastModifiedTime 11/12/2011/12/2022 CT/GC AND TRICH OMONA S VAGIN KAYLEE (RRNA ), URINE chlamydia trachomatis, PCR Negati ve negati ve Not Available [facility] (Lab) [address] , [place], [address], 11/15/2022 10:16:16 11/12/20 22 11/12/2022 CT/GC AND TRICH OMONA S VAGIN KAYLEE (RRNA ), URINE neisseria gonorrhoeae, PCR Negati ve negati ve Not Available [facility] (Lab) [address] , [place], [address], 11/15/2022 10:16:16 11/12/20 22 11/12/2022 CT/GC AND TRICH OMONA S VAGIN KAYLEE (RRNA ), URINE trichomonas vaginalis ribosomal RNA (rrna) Negati ve negati ve Not Available [facility] (Lab) [address], [place], [address], 11/15/2022 10:16:16 11/12/20 22 11/12/2022 CULTU RE: URINE result report SEE RESULT S BELOW abnormal Test: Cultu re: Urine Speci men Sourc e: Urine - Clean Catch Speci men Type: Urine Speci men Date: 11/12 4:34 PM Resul t Date: 11/15 9:13 AM Resul t Statu s: Final resul t Abnor mal: Yes Resul barak Lab: [facility] [address] [facility] [address] Tel: CULTU RE ----- ----- ----- --- >100, 000 CFU/m l Esche olvin a coli (Abno rmal) SUSCE PTIBI LITY ----- ----- ----- --- Esche olvin a coli METHO D RODOLFO ----- ----- ----- ----- ----- ---- ----- ----- ----- ----- ----- AMIKA QUENTIN <=16 ug/mL Susce ptibl e AMPIC ILLIN <=8 ug/mL Susce ptibl e AMPIC ILLIN /SULB ACTAM <=1 ug/mL Susce ptibl e AZTRE ONAM <=4 ug/mL Susce ptibl e CEFAZ SARY <=2 ug/mL Susce ptibl e CEFEP MINNIE <=2 ug/mL Susce ptibl e CEFOX ITIN <=8 ug/mL Susce ptibl e CEFTA ZIDIM E <=1 ug/mL Susce ptibl e CEFTR IAXON E <=1 ug/mL Susce ptibl e CIPRO FLOXA QUENTIN <=1 ug/mL Susce ptibl e GENTA MICIN <=1 ug/mL Susce ptibl e LEVOF LOXAC IN <=0.2 5 ug/mL Susce ptibl e MEROP ENEM <=1 ug/mL Susce ptibl e NITRO FURAN TOIN <=32 ug/mL Susce ptibl e PIPER ACILL IN/TA ZOBAC CRUZ <=4 ug/mL Susce ptibl e TOBRA MYCIN <=1 ug/mL Susce ptibl e TRIME THOPR IM/SEGURA LFAME THOXA ZOLE <=2 ug/mL Susce ptibl e Not Available [facility] (Lab) [address], [place], [address], 11/15/2022 10:16:17 11/12/20 22 11/12/2022 urina lysis , dipst ick Leukocytes tr Not Available [facility] yumi [address], [place], [address], 11/12/2022 17:13:23 11/12/20 22 11/12/2022 urina lysis , dipst ick Nitrite + Not Available [place] [address], [place], [address], 11/12/2022 17:13:23 11/12/20 22 11/12/2022 urina lysis , dipst ick Urobilinogen neg Not Available [facility] mar [address], [place], [address], 11/12/2022 17:13:23 11/12/20 22 11/12/2022 urina lysis , dipst ick Protein neg Not Available [place] [address], [place], [address], 11/12/2022 17:13:23 11/12/20 22 11/12/2022 urina lysis , dipst ick pH 8 Not Available [place] [address], [place], [address], 11/12/2022 17:13:23 11/12/20 22 11/12/2022 urina lysis , dipst ick Blood +++ Not Available [place] [address], [place], [address], 11/12/2022 17:13:23 11/12/20 22 11/12/2022 urina lysis , dipst ick Specific Alpine 1.015 Not Available Romina roque [address], [place], [address], 11/12/2022 17:13:23 11/12/20 22 11/12/2022 urina lysis , dipst ick Ketone neg Not Available [place] [address], [place], [address], 11/12/2022 17:13:23 11/12/20 22 11/12/2022 urina lysis , dipst ick Bilirubin neg Not Available Albert navarro [address], [place], [address], 11/12/2022 17:13:23 11/12/20 22 11/12/2022 urina lysis , dipst ick Glucose neg Not Available [place] [address], [place], [address], 11/12/2022 17:13:23 11/12/20 22 11/12/2022 urina lysis , dipst ick Appearance clear Not Available Layton eason [address], [place], [address], 11/12/2022 17:13:23 11/12/20 22 11/12/2022 urina lysis , dipst ick Color yellow Not Available [place] [address], [place], [address], 11/12/2022 17:13:23 11/12/20 22 11/12/2022 pregn katty test, urine HCG negati ve Not Available [place] [address], [place], [address], 11/12/2022 17:13:01 11/27/20 22 11/27/2022 pregn katty test, urine HCG negati ve Not Available [place] [address], [place], [address], 11/27/2022 11:01:23 11/20/20 22 11/20/2022 US, pelvi s, compl ete No observ ation record ed. varsha [place] [address], [place], [address], 11/21/2022 10:44:45 11/20/20 22 11/20/2022 US, pelvi s No observ ation record ed. nina [place] [address], [place], [address], 11/20/2022 13:50:09 11/20/20 22 11/20/2022 US, trans vagin al No observ ation record ed. [email or web address] [place] [address] [address], [place], [address], 11/20/2022 13:50:00 Result Notes None recorded. Procedures Surgical History Date Name Laterality Status Provider Name and Address Organization Details Recorded Time IUD Removal completed CATHI Riddle [address], [place], [address], [place] [facility] 11/27/2022 13:25:22 Caesarean Section completed Sheron Aguilar [facility] 11/12/2022 16:20:18 Imaging Results Imaging Date Name Status LastModified by Organization Details LastModified Time 11/20/2022 US, pelvis, complete completed varsha [place] [address], [place], [address], 11/21/2022 10:44:45 11/20/2022 US, pelvis completed nina [place] [address], [place], [address], 11/20/2022 13:50:09 11/20/2022 US, transvaginal completed [email or web address] Albert e [address], [place], [address], 11/20/2022 13:50:00 Procedure Notes None recorded. Medical Equipment None Reported. Allergies No known drug allergies Medications Name Sig Start Date Stop Date Status Note LastModified by Organization Details LastModified Time cyclobenzapr ine 10 mg tablet TAKE 1 TABLET BY MOUTH 3 TIMES A DAY FOR 5 DAYS NEEDED FOR MUSCLE SPASMS 11/12 completed Not Available Not Available Not Available doxycycline hyclate 100 mg capsule TAKE 1 CAPSULE BY MOUTH TWICE A DAY 11/12 completed Not Available Not Available Not Available hydrocodone 5 mg-acetamino phen 325 mg tablet TAKE 1 TABLET BY MOUTH EVERY 4 HOURS FOR ACUTE PAIN 11/12 completed Not Available Not Available Not Available metronidazol e 500 mg tablet TAKE 1 TABLET BY MOUTH TWICE DAILY FOR 7 DAYS 11/12 completed Not Available Not Available Not Available ibuprofen 600 mg tablet TAKE 1 TABLET BY MOUTH EVERY 8 HOURS NEEDED 11/12 completed Not Available Not Available Not Available nitrofuranto in monohydrate/ macrocrystal s 100 mg capsule TAKE 1 CAPSULE BY MOUTH EVERY 12 HOURS FOR 7 DAYS 11/27 completed Not Available Not Available Not Available Slynd 4 mg (28) tablet Take 1 tablet every day by oral route. 2021 active [id number] 05/20 24 Not Available Not Available Not Available Vitals Date Recorded Body height Body mass index (BMI) Body weight Systolic blood pressure Diastolic blood pressure Provider Name and Address Organization Details Last Updated DateTime 11/12/2022 154.94 cm 30.3 kg/m2 81209.5 g 118 mm[Hg] 76 mm[Hg] Sheron Aguilar [facility] 16:19:59 Date Recorded Body height Body mass index (BMI) Body weight Systolic blood pressure Diastolic blood pressure Provider Name and Address Organization Details Last Updated DateTime 11/27/2022 154.94 cm 30.3 kg/m2 96822.5 g 109 mm[Hg] 70 mm[Hg] Sheron Aguilar [facility] 10:50:02 Social History Question Answer Notes LastModified by Organizat ion Details LastModified Time Tobacco Smoking Status Current Every Day Smoker Selene Blanchard anjana, [facility] 11/27/2022 10:40:38 What Is Your Level Of Alcohol Consumption? None Information not available 11/12/2022 How Many Years Have You Consumed Alcohol? 5 Information not available 11/12/2022 Are You Blind Or Do You Have Difficulty Seeing? No Information n ot available 11/12/2022 What Is Your Level Of Caffeine Consumption? Moderate Information not available 11/12/2022 How Much Tobacco Do You Chew? None Information not available 11/12/2022 In The 14 Days Before Symptom Onset, Have You Had Close Contact With A Laboratory-confirm ed COVID-19 While That Case Was Ill? No Information n ot available 11/12/2022 In The 14 Days Before Symptom Onset, Have You Had Close Contact With A Person Who Is Under Investigation For COVID-19 While That Person Was Ill? No Information not available 11/12/2022 Have You Been To An Area Known To Be High Risk For COVID-19? No Information not available 11/12/2022 Are You Deaf Or Do You Have Serious Difficulty Hearing? No Information not available 11/12/2022 What Type Of Diet Are You Following? REGULAR Information n ot available 11/12/2022 What Is The Highest Grade Or Level Of School You Have Completed Or The Highest Degree You Have Received? [id number] Information not available 11/12/2022 Are There Any Guns Present In Your Home? No Information not available 11/12/2022 Do You Use Protection During Sex? Usually Information not available 11/12/2022 Do You Use Your Seat Belt Or Car Seat Routinely? Yes Information not available 11/12/2022 Do You Have Smoke And Carbon Monoxide Detectors In Your Home? Yes Information not available 11/12/2022 At What Age Did You Start Smoking Tobacco? 21 Information not available 11/12/2022 How Much Tobacco Do You Smoke? 1 PPW Information not available 11/12/2022 Do You Feel Stressed (tense, Restless, Nervous, Or Anxious, Or Unable To Sleep At Night)? [id number] Information not available 11/12/2022 Do You Use Any Illicit Or Recreational Drugs? No Information not available 11/12/2022 Do You Use Sunscreen Routinely? No Information not available 11/12/2022 How Many Years Have You Smoked Tobacco? 6 Information not available 11/12/2022 Have You Used IV Drugs? No Information not available 11/12/2022 Sex: Unknown Functional Status Question Answer Note LastModified by Organizat ion Details LastModified Time Do you have difficulty walking or climbing stairs? No [email or web address] Information not available 11/27/2022 Are you able to walk? YESWOREST Information not available 11/12/2022 Are you able to care for yourself? Yes [email or web address] Information not available 11/27/2022 Do you have difficulty dressing or bathing? No Information not available 11/27/2022 What is your exercise level? None Information not available 11/12/2022 Mental Status None recorded. Family History Relationship Description Onset Age of this Age Resolved Age Notes LastModified by Organization Details LastModified Time Maternal Aunt Diabetes mellitus [email or web address] Not available 10/31 16:20:03 Maternal Aunt Depressive disorder vschroedter Not available 10/31 16:20:03 Maternal Grandmother Diabetes mellitus vschroedter Not available 10/31 16:20:03 Maternal Grandmother Depressive disorder vschroedter Not available 10/31 16:20:03 Mother Diabetes mellitus vschroedter Not available 10/31 16:20:03 Brother Diabetes mellitus vschroedter Not available 10/31 16:20:03 Medical History Condition Response Anxiety Disorder Y Heart Problems Y Anemia Y Depression/ depression Y Gynecological History Statement/Question Response Flow Light Date of LMP 11/11/2022 On BCP's at Conception? N N STIs/STDs Y HPV Vaccine N Current Control Method IUD Date of control 07/13/2020 Sexually Active? Y IUD Menses Monthly Y Date of Last Pap Smear Sexual Problems? N Desired Control Method IUD LMP Unknown N Obstetrics History GPAL:G 3 P 2 0 1 2 Type Value Full Term 2 Spontaneous 1 Living 2 Total 3 Past Encounters Encounter ID Performer Location Encounter Start Date Encounter Closed Date Diagnosis/Indication Diagnosis SNOMED-CT Code Diagnosis ICD10 Code Diagnosis Note [id number] CATHI Riddle [place] [address],[place] [address] 11/12/2022 16:00:33 11/13/2022 17:46:43 Contraception care management 211096105 Z30.9 Urinary symptoms 5071897 08 R39.9 Pain in pelvis 59375029 R10.2 Today we reviewed the various causes of pelvic pain and need for further evaluation Pelvic u/s orderedSTI testing sentUPT (- )UA today suggestive of possible UTI. Cx sent. Will start treatment for UTI based on UA and symptoms.I UD strings not visualized on exam today, although technicall y difficult exam due to patient uncomforta ble with speculum insertion. ED precaution s discussed (heavy vaginal bleeding, worsening pain, n/v, etc)RTC for pelvic u/s and f/u appointmen t - desires IUD removal. Can do at f/u appointmen t Time spent in visit is a total of 30 mins with at least 50% of visit consisting of counseling and review of plan of care. Venereal d isease screening 112278132 Z11.3 [id number] Mali Aldridge [place] [address],[facility] [address] 11/20/2022 11:31:05 11/21/2022 14:19:17 Pain in pelvis 98567087 R10.2 [id number] CATHI Riddle [place] [address] [address] 11/27/2022 10:40:30 11/27/2022 14:32:40 Screening procedure 32838098 Z13.9 Removal of intrauterine device 36492539 Z30.432 Today we reviewed recent pelvic u/s result - Malpositio n IUD, IUD seen in c/s Valentino agreed to move forward with IUD removalUPT (-), consent reviewed and signedIUD removed without any immediate complicati ons Discussed all control options in great detail. Pt would like to start POP. She is aware of the risks and benefits. She has contraindi cations to use of OCP or other estrogen containing hormonal therapy. Pt will start her pills on the first friday following the start of her period. She is aware it is not effective for control the first month. She is also aware of the importance of taking at the same time every day. Encouraged use of condoms as the pill does not protect against STD's. Will return in 3 months for med check. Consent was read and signed. Pt verbalized understand ing.Slynd samples given x 4 monthsDeni es hx of DVT/PE, HTN, Stroke/DC, cancer, or liver diseaseShe does have a hx of a heart murmur - has not seen cardiologi st recently due to moving, would like referral.R TC for med check in 3 months Time spent in visit is a total of 25 mins with at least 50% of visit consisting of counseling and review of plan of care. [facility] ion care management 211114758 Z30.9 Health Concerns Section Related Observation LastModified by Organization Detai ls LastModified Time None Recorded Concern Status LastModified by Organization Details LastModified Time None Recorded Advance Directives Directive None Recorded Payers Encounter Date Sequence Insurance Name Policy Number Policy Maya Covered Member ID Maya Member ID Guarantor Name 11/12/2022 1 [facility] (MEDICAID HMO) [id number] Alexandrea Krause [id number] Alexandrea Krause 11/20/2022 1 [facility] (MEDICAID HM) [id number] Alexandrea Krause [id number] Alexandrea Krause 11/27/2022 1 [facility] (MEDICAID HM) [id number] 0003 Alexandrea Krause [id number] Alexandrea Krause Notes Date Note Type Note Provider Name and Address Organization Details Recorded Time 11/12/2022 text/html 27yo Presents fo r evaluation of pelvic painPain started yesterday, right sided cramping sensation that comes and goes. She started her period yesterday as well. This pain happened around 2 months ago as well, resolved on its own after a few days.Has noticed frequent urinationSkyla IUD for BC - inserted 08/2020. Monthly periods with Laura. She would like the IUD removed and use an OCP instead.Hx of chlamydia 1 year ago, treatedShe denies any vaginal discharge, odors, itching, N/V, fevers, flu-like symptoms, or urinary painNormal daily bowel movementsSA with steady partner CATHI Riddle [address], [place], [address], [facility] 11/12/2022 18:00:37 11/27/2022 text/html Patient presents for u/s f/uu/s done due to pelvic painCompleted antibiotic course for UTINo current symptoms today CATHI Riddle [address], [place], [address], [facility] 11/27/2022 13:29:05 OBGyn Episode Ob Episode Information Episode Created Date Number of Fetuses Patient Bloodtype Patient rh Status Prepregnancy Weight lbs Domestic Partner Domestic Partner Phone Father Name Manager Utilization Review Status 11/12/20 22 1 CLOSED Fetus Data First Name Last Name Admitted to NICU Weight (g) Sex Living Outcome Pediatric Complications Fetus ID Race Codes Race Delivery Type 3883.65 [id number] M Full Term [id number] Lorenzo Calculation Initial Lorenzo Date Initial Exam Date Initial Exam Provider Initial Ultrasound Date Last Menstrual Period Date Ultra Sound Weeks Gestation 0 Eighteen To Twenty Week Lorenzo Update Ultra Sound Date Fundal Height At Umbil Quickening Date Ultra Sound Latest Weeks Gestation Final Lorenzo Confirmed By Final Lorenzo Confirmed Date Final Lorenzo Date Ultra Sound Latest Days Gestation 0 0 Menstrual History Last Menstrual Date Menses Monthly On Bcp Conception Prior Menses Frequency Hcg Plus Date Menarche Onset Age Delivery Information Delivery Date Delivery Type Labor Anesthesia Weeks Gestation Incision Type Labor Labor Length Hrs Delivered By Post Complications Tubal Sterilization Discharge Date Comments 4 Discharge Information Feeding Method Contraceptive Method Maternal HG B and HCT Levels Ob Episode Information Episode Created Date Number of Fetuses Patient Bloodtype Patient rh Status Prepregnancy Weight lbs Domestic Partner Domestic Partner Phone Father Name Manager Utilization Review Status 11/12/20 22 1 CLOSED Fetus Data First Name Last Name Admitted to NICU Weight (g) Sex Living Outcome Pediatric Complications Fetus ID Race Codes Race Delivery Type 2891.64 9 F Full Term [id number] Lorenzo Calculation Initial Lorenzo Date Initial Exam Date Initial Exam Provider Initial Ultrasound Date Last Menstrual Period Date Ultra Sound Weeks Gestation 0 Eighteen To Twenty Week Lorenzo Update Ultra Sound Date Fundal Height At Umbil Quickening Date Ultra Sound Latest Weeks Gestation Final Lorenzo Confirmed By Final Lorenzo Confirmed Date Final Lorenzo Date Ultra Sound Latest Days Gestation 0 0 Menstrual History Last Menstrual Date Menses Monthly On Bcp Conception Prior Menses Frequency Hcg Plus Date Menarche Onset Age Delivery Information Delivery Date Delivery Type Labor Anesthesia Weeks Gestation Incision Type Labor Labor Length Hrs Delivered By Post Complications Tubal Sterilization Discharge Date Comments 5 Discharge Information Feeding Method Contraceptive Method Maternal HG B and HCT Levels Ob Episode Information Episode Created Date Number of Fetuses Patient Bloodtype Patient rh Status Prepregnancy Weight lbs Domestic Partner Domestic Partner Phone Father Name Manager Utilization Review Status 11/12/20 22 1 CLOSED Fetus Data First Name Last Name Admitted to NICU Weight (g) Sex Living Outcome Pediatric Complications Fetus ID Race Codes Race Delivery Type , Spontane ous [id number] Lorenzo Calculation Initial Lorenzo Date Initial Exam Date Initial Exam Provider Initial Ultrasound Date Last Menstrual Period Date Ultra Sound Weeks Gestation 0 Eighteen To Twenty Week Lorenzo Update Ultra Sound Date Fundal Height At Umbil Quickening Date Ultra Sound Latest Weeks Gestation Final Lorenzo Confirmed By Final Lorenzo Confirmed Date Final Lorenzo Date Ultra Sound Latest Days Gestation 0 0 Menstrual History Last Menstrual Date Menses Monthly On Bcp Conception Prior Menses Frequency Hcg Plus Date Menarche Onset Age Delivery Information Delivery Date Delivery Type Labor Anesthesia Weeks Gestation Incision Type Labor Labor Length Hrs Delivered By Post Complications Tubal Sterilization Discharge Date Comments 7 Discharge Information Feeding Method Contraceptive Method Maternal HG B and HCT Levels
--- OUTSIDE RECORDS SUMMARY | 2025-01-12 15:13 | XMS_ITS | Continuity of Care Document ---
Author Organization [facility] Address [address] [place] [address] Phone Care Team Providers Care Yard Rigger Name Role Phone Unavailable Unavailable Unavailable Advance Directives Directive Yes / No Effective Date File Name No Information Encounters Encounter Description Practice Location Reason(s) For Visit Diagnoses Date Provider Providers Copied on Encounter [facility], [address] [facility], [place], [place], [id number], [place] tel:[phone] [facility] OUT[facility]IENT No Information No Information Referring Provider: REFERRAL SELF. Family History Family Member Type Diagnosis Age At Onset No Information Payers Payer name Insurance type Covered constitution party ID Authoriza tigloria(s) [employer] [facility] [place] [id number] CI [id number] Social History Type Description Quantity Date Captured Comments Sex Female Smoking Status No Information Chief Complaint And Reason For Visit No Information History Of Present Illness Encounter Date Complaint History Of Prese nt Illness No Information Instructions Date Instruction Additional Infor mation No Information Assessments Type Assessment Date No Information
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
--- OUTSIDE RECORDS SUMMARY | 2025-01-12 15:13 | XMS_ITS | Clinical Summary ---
Author Organization [facility] [address] Address [address] [place] [address] Care Team Providers Care Human Resources Designate Name Role Phone Jez Swartz MD Primary Care Provider [phone] Allergies No known active allergies Medications metroNIDAZOLE (FLAGYL) 500 mg tablet Take 1 tablet (500 mg total) by mouth every 12 (twelve) hours for 7 days 05/15/2023 Active PNV with [id number]-[id number]-JI 27 mg iron- 1 mg tablet Take 1 tablet by mouth daily Active Active Problems No known active problems Medical History Medical History Date Comments Heart murmur Motion sickness Family History Medical History Relation Name Comments Diabetes Brother Diabetes Mother Hyperlipidemia Mother Hypertension Mother Diabetes Mother's Sister Hyperlipidemia Mother's Sister Hypertension Mother's Sister Relation Name Status Comments Brother Mother Mother's Sister Social History Tobacco Use Types Packs/Day Years Used Date Smoking Tobacco: Every Day Cigarettes Vaping Smokeless Tobacco: Never Tobacco Cessation:Ready to Q uit: Not Asked; Counseling Given: Not Answered AUDIT-C Answer Date Recorded Frequency of Alcohol Consumption Not on file 11/20/2023 Q2: How many drinks containi ng alcohol do you have on a typical day when you are drinking? Patient does not drink Frequency of Binge Drinking Not on file 11/01 Personal Safety Answer Date Recorded Have you ever been in or are you currently in a harmful physical or emotional relationship or is someone making you feel afraid or unsafe? 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 Gender Identity Not on file Sexual Orientation Not on file Obstetrics History Last Filed Vital Signs Vital Sign Reading Time Taken Comments Blood Pressure 114/69 11/20/2023 1:55 PM FIELD MAP EDITOR Pulse 64 11/20/2023 2:00 PM FIELD MAP EDITOR Temperature 36.9 C (98.4 F) 11/20/2023 11:01 AM FIELD MAP EDITOR Respiratory Rate 20 11/20/2023 11:01 AM FIELD MAP EDITOR Oxygen Saturation 100% 11/20/2023 2:00 PM FIELD MAP EDITOR Inhaled Oxygen Concentration - - Weight 78.2 kg (172 lb 8 oz) 11/20/2023 11:01 AM FIELD MAP EDITOR Height 154.9 cm (5' 1 ) 11/20/2023 11:01 AM FIELD MAP EDITOR Body Mass Index 32.59 11/20/2023 11:01 AM FIELD MAP EDITOR Plan of Treatment Health Maintenance Due Date Last Done Comments Cervical Cancer Screening 1996 Depression Screening 1996 Hepatitis C Screening 1996 Pneumococcal vaccine <65 (1 of 2 - PCV) 2002 Varicella Vaccines (1 of 2 - 13+ 2-dose series) 2009 Regular Well Visit/Exam 18-64 2014 Influenza Vaccine (#1) 2024 09/04/2011 DTaP/Tdap/Td Vaccine (10 - T d or Tdap) 12/01/2026 12/01/2016, 06/23/2015, 05/09/2014, Additional history exists HPV Vaccines Completed 03/17/2008, 10/31, 09/09/2007 Insurance [facility] [address] [facility] Care Teams Human Resources Designate Relationship Specialty Start Date End Date Jez Swartz MD [address] [place] [address] PCP - General Obstetrics and Gynecology 04/23/23
--- OUTSIDE RECORDS SUMMARY | 2025-01-12 15:13 | XMS_ITS | Referral Summary ---
Author Organization [facility] [address] Address [address] [place] [address] Care Team Providers Care Vessel Scrapper Name Role Phone Jez Swartz MD Primary Care Provider [phone] Allergies No known active allergies Medications metroNIDAZOLE (FLAGYL) 500 mg tablet Take 1 tablet (500 mg total) by mouth every 12 (twelve) hours for 7 days 05/15/2023 Active PNV with ewyvgol-bjbu-AH 27 mg iron- 1 mg tablet Take 1 tablet by mouth daily Active Active Problems No known active problems Social History Tobacco Use Types Packs/Day Years [...] on file 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 Gender Identity Not on file Sexual Orientation Not on file Last Filed Vital Signs Vital Sign Reading Time Taken Comments Blood Pressure 114/69 11/20/2023 1:55 PM MOTORCYCLE DELIVERY DRIVER Pulse 64 11/20/2023 2:00 PM MOTORCYCLE DELIVERY DRIVER Temperature 36.9 C (98.4 F) 11/20/2023 11:01 AM MOTORCYCLE DELIVERY DRIVER Respiratory Rate 20 11/20/2023 11:01 AM MOTORCYCLE DELIVERY DRIVER Oxygen Saturation 100% 11/20/2023 2:00 PM MOTORCYCLE DELIVERY DRIVER Inhaled Oxygen Concentration - - Weight 78.2 kg (172 lb 8 oz) 11/20/2023 11:01 AM MOTORCYCLE DELIVERY DRIVER Height 154.9 cm (5' 1 ) 11/20/2023 11:01 AM MOTORCYCLE DELIVERY DRIVER Body Mass Index 32.59 11/20/2023 11:01 AM MOTORCYCLE DELIVERY DRIVER Plan of Treatment Not on file Insurance Care Teams Vessel Scrapper Relationship Specialty Start Date End Date Jez Swartz MD [address] [facility] [address] [place] [address] PCP - General Obstetrics and Gynecology 04/23/23
[2025-01-12 15:28] VITALS: BP 112/65; PULSE 76; RESP 16; TEMP 36.6; O2SAT 100
--- OUTSIDE RECORDS SUMMARY | 2025-01-12 16:26 | XMS_ITS | Referral Summary ---
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 Gender Identity Not on file Sexual Orientation Not on file Last Filed Vital Signs Vital Sign Reading Time Taken Comments Blood Pressure 114/69 11/20/2023 1:55 PM CRIME SCENE ANALYST Pulse 64 11/20/2023 2:00 PM CRIME SCENE ANALYST Temperature 36.9 C (98.4 F) 11/20/2023 11:01 AM CRIME SCENE ANALYST Respiratory Rate 20 11/20/2023 11:01 AM CRIME SCENE ANALYST Oxygen Saturation 100% 11/20/2023 2:00 PM CRIME SCENE ANALYST Inhaled Oxygen Concentration - - Weight 78.2 kg (172 lb 8 oz) 11/20/2023 11:01 AM CRIME SCENE ANALYST Height 154.9 cm (5' 1 ) 11/20/2023 11:01 AM CRIME SCENE ANALYST Body Mass Index 32.59 11/20/2023 11:01 AM CRIME SCENE ANALYST Plan of Treatment Not on file Insurance Care Teams Oceanic Sciences Professor Relationship Specialty Start Date End Date Jez Swartz MD [address] [facility] [address] [place] [address] PCP - General Obstetrics and Gynecology 04/23/23
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
--- OUTSIDE RECORDS SUMMARY | 2025-01-12 16:27 | XMS_ITS | Clinical Summary ---
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 [address] [facility] [address] [place] [address] Health Maintenance Due Date Last Done Comments DTAP/TDAP/TD VACCINES (1 - Tdap) 2015 HEPATITIS B VACCINES (1 of 3 - 19+ 3-dose series) 2015 Preventative Visit-Managed Medicaid 2015 CERVICAL CANCER SCREENING 2017 INFLUENZA VACCINE (#1) 2024 HPV VACCINES Aged Out No longer eligi ble based on patient's age to complete this topic Insurance PLAN MEDICAID Care Teams Parcel Contractor Relationship Specialty Start Date End Date Karla Godfrey NP [address] [place] [address] PCP - General NURSE PRACTITIONER 02/09/15
--- OUTSIDE RECORDS SUMMARY | 2025-01-12 16:27 | XMS_ITS | Continuity of Care Document ---
Author Organization [facility] Address [address] [place] [address] Phone Care Team Providers Care Supervisor Lathing Name Role Phone Unavailable Unavailable Unavailable Advance Directives Directive Yes / No Effective Date File Name No Information Encounters Encounter Description Practice Location Reason(s) For Visit Diagnoses Date Provider Providers Copied on Encounter [facility], [address] [facility], [place], [place], [id number], [place] tel:[phone] [facility] OUTPATIENT No Information No Information Referring Provider: REFERRAL SELF. Family History Family Member Type Diagnosis Age At Onset No Information Payers Payer name Insurance type Covered alliance party ID Authoriza tigloria(s) [employer] [facility] PLAN [facility] [place] [id number] CI [id number] Social History Type Description Quantity Date Captured Comments Sex Female Smoking Status No Information Chief Complaint And Reason For Visit No Information History Of Present Illness Encounter Date Complaint History Of Prese nt Illness No Information Instructions Date Instruction Additional Infor mation No Information Assessments Type Assessment Date No Information
--- OUTSIDE RECORDS SUMMARY | 2025-01-12 16:27 | XMS_ITS | Continuity of Care Document ---
Author Organization [facility] Address [address] [place] [address] Care Team Providers Care Cosmetic Manager Name Role Phone Liza HANSON, Afsaneh Unavailable [...] Mri Angio Chest W/wo Contrast Offic/outpt E&m [facility] Complex e/m visit add on Echo Ecg-routine 12 Lead; Intrpt & Advance Directives Directive Yes / No Effective Date File Name No Information Encounters Encounter Description Practice Location Reason(s) For Visit Diagnoses Date Provider Providers Copied on Encounter [facility], [address] [place] [address], [address], [facility] Office, [address] No Information 2 Liza Shelby. [address] [place] [address] [facility] [address], [place], [place], [id number], . tel:[phone] Offic/outpt E&m [facility], [address] [place] [address], [address], [facility] Office [address] Freeform HPI (chief complaint) Nonrheumatic aortic (valve) stenosis 1 De Jesus Afsaneh. [address], [place] [facility] [address], [place], [place], [id number], [place]. tel:[phone] Referring Provider: Dung Mazariegos, [address] [place], [address]. tel:[phone] [facility], [address] [place] [address], [address], [place] [facility] [place] [address] No Information 1 Ronn Webb. [address] [facility], [address], [place], [address], [place]. tel:[phone] Referring Provider: Afsaneh De Jesus, [address] [place] [address], [place], [address]. tel:[phone] Offic/outpt E&m [facility], [address] [place] [address], [address], [place] [facility] [address] *Cardiovasc ular Evaluation (chief complaint)F reeform HPI (chief complaint) Nonrheumatic aortic (valve) stenosis 1 Liza Shelby. [address] [facility] [address], [place] [address], [place], [place], [id number], [place]. tel:[phone] Referring Provider: Dung Mazariegos, [address] [place], [address]. tel:[phone] [facility], [address] [place] [address], [address], [place] [facility] No Information 1 Talia Lugo. [address], [address], [address], [place]. tel:[phone] Referring Provider: Parish Melgar, [address], [address]. tel:[phone] [facility], [address] [place] [address], [place], [address], [place] [facility] No Information Abhijeet Quinonez. [address] [facility], [address], [place], [address], [place]. tel:[phone] Referring Provider: Bhavin Matthews, [address] [facility], [place], [address]. tel:[phone] Family History Family Member Type Diagnosis Age At Onset No Information Payers Payer name Insurance type Covered democrat ID Authoriza joseph(s) [employer] [id number] CI [id number] Social History Type Description Quantity Date Captured [...]
--- OUTSIDE RECORDS SUMMARY | 2025-01-12 16:27 | XMS_ITS | Clinical Summary ---
Author Organization [facility] [address] Address [address] [place] [address] Care Team Providers Care Concierge Name Role Phone Jez Swartz MD Primary Care Provider [phone] Allergies No known active allergies Medications metroNIDAZOLE (FLAGYL) 500 mg tablet Take 1 tablet (500 mg total) by mouth every 12 (twelve) hours for 7 days 05/15/2023 Active PNV with [id number] 27 mg iron- 1 mg tablet Take [...] on file Legal Sex Female 7:59 PM BELL STAFF Gender Identity Not on file Sexual Orientation Not on file Obstetrics History Last Filed Vital Signs Vital Sign Reading Time Taken Comments Blood Pressure 114/69 11/20/2023 1:55 PM BELL STAFF Pulse 64 11/20/2023 2:00 PM BELL STAFF Temperature 36.9 C (98.4 F) 11/20/2023 11:01 AM BELL STAFF Respiratory Rate 20 11/20/2023 11:01 AM BELL STAFF Oxygen Saturation 100% 11/20/2023 2:00 PM BELL STAFF Inhaled Oxygen Concentration - - Weight 78.2 kg (172 lb 8 oz) 11/20/2023 11:01 AM BELL STAFF Height 154.9 cm (5' 1 ) 11/20/2023 11:01 AM BELL STAFF Body Mass Index 32.59 11/20/2023 11:01 AM BELL STAFF Plan of Treatment Health Maintenance Due Date [...] HPV Vaccines Completed 03/17/2008, 10/31, 09/09/2007 Insurance [facility] [address] MARIE [address] [facility] Care Teams Concierge Relationship Specialty Start Date End Date Jez Swartz MD [address] [facility] [address] [place] [address] PCP - General Obstetrics and Gynecology 04/23/23
--- OUTSIDE RECORDS SUMMARY | 2025-01-12 16:27 | XMS_ITS | Data Portability ---
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 Osteoporosis N Gynecological History Statement/Question Response Flow Heavy Date of LMP 08/31/2024 Frequency of Cycle (Q days) 57 On BCP's at Conception? N Menses Monthly N Duration of Flow (days) 15 Age at Menarche 10 Current Control Method Condoms Age at First Child 18 LMP Definite Obstetrics History GPAL:G 0 P 0 0 0 0 Past Encounters Encounter ID Performer Location Encounter Start Date Encounter Closed Date Diagnosis/Indication Diagnosis SNOMED-CT Code Diagnosis ICD10 Code Diagnosis Note [id number] Rakesh Moe, [facility] [address] [place], [place] [address] 12/19/2015 14:40:11 12/20/2015 17:08:08 Acute and chronic cholecystitis 869402368 K81.2 Right uppe r quadrant pain 298458038 R10.11 [id number] [facility] [address] [place] [address] 01/30/2016 14:18:17 02/02/2016 11:46:47 Right upper quadrant pain 034010633 R10.11 Gallstone 154790463 K80. 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 Offered EMS, however she declined and stated she would drive herself directly to [facility]. Urine test negative today. UA positive only for nitrates today. Chest pain 64067605 R07. 9 Sent patient directly to ER. Offered EMS, however she declined and stated she would drive herself directly to [facility]. Health Concerns Section Related Observation LastModified by Organization Detai ls LastModified Time None Recorded Concern Status LastModified by Organization Details LastModified Time None Recorded Advance Directives Directive Y: Payers Encounter Date Sequence Insurance Name Policy Number Policy Myaa Covered Member ID Maya Member ID Guarantor Name 12/19/2015 SLIDING FEE SCHEDULE - DISCOUNT Nayeli Krause 01/30/2016 1 [place] [employer] [place] Nayeli Krause [id number] Nayeli Krause 03/01/2016 1 [facility] - DOS PRIOR TO 2021 (MEDICAID REPLACEMENT - HMO) Nayeli Krause [id number] Nayeli Krause 09/30/2024 1 [facility] (MEDICAID HMO) [id number] Nayeli Krause [id number] Nayeli Krause Notes Date Note Type Note Provider Name and Address Organization Details Recorded Time 6 text/html Abdominal PainReported bypatient.Location:RUQ; radiating; epigastric Quality:pain;bloating;glynn p;tender Severity:pain level 6/10 Duration:intermittent; this current episode started yesterday following CHICKEN Onset/Timing:wax/wane Context:food; spicy foods Modifying Factors:moving bowels; not eating helps Associated Symptoms:chills;nausea;vom iting;decreased appetite Other:denies possible ; LMP101/18/2015; does not use control; took 3 preg test at home=negative; uses condoms occasionallyEmergency Room Follow-Up RecordReported bypatient.Notes:She received a telephone call from E?R in [place] indicating a problem with liver. She was seen twice at E/R with abdominal pain in a span of 3 months. The patient was seen in the emergency room for abd pain RUQ which radiates to right back. She has been having these s/s on and off since august. SHe had a GB u/S and CT scan. Reports she was told she has gallstones and something with the liver but she is not sure what it was--awaiting e/r records. The patient currently has no insurance. SHe has reapplied for Med[employer] and wishes to be referred to see GI for this problem once she gets her insurance. MARCUS Reza Attn: [address] [place], [address], [facility] 12/19/2015 16:20:07 6 text/html Abdominal PainReported bypatient.Location:RUQ; radiating; epigastric Quality:pain;bloating;glynn p;tender Severity:pain level 6/10 Duration:intermittent; this current episode started yesterday following coffee Onset/Timing:better; wax/wane Context:food; spicy foods Modifying Factors:moving bowels; not eating helps Associated Symptoms:chills;nausea;vom iting;decreased appetite Other:denies possible ; 12/19/2014; does not use control; took 3 preg test at home=negative; uses condoms occasionallyEmergency Room Follow-Up RecordReported bypatient.Notes:She received a telephone call from E/R in [place] indicating a problem with liver. She was seen twice at E/ with abdominal pain in a span of 3 months. She was seen again 01/02 at [facility] and was told once again she has gallstones. The patient was seen in the emergency room again 01/02 for abd pain RUQ which radiates to right back. She has been having these s/s on and off since august. SHe had a GB u/S and CT scan in [place]. She has now had a repeat CT ABD and Pelvis which showed Gallstones only nothing with the liver. she has gallstones and needs to see Surgeon for cholecystectomy--she now has insurance. SHe currently is taking pain medication for occasional pain from E/R prescription ASHLEY Reza Attn: [address] [place], [address], [facility] 01/31/2016 13:58:30 6 text/html reevaluation--patient had lap joanne on 02/15/2016 she feels a lot better. CUrrently c/o mid epigastric burning--she was not given all of the triple therapy medications. MARCUS Reza Attn: Account[address] [place], [address], [facility] 03/04/2016 12:09:51 4 text/html Nayeli presents unaccompanied today with several complaints, including urinary urgency and frequency, painful urination, and burning with urination.She additionally reports abdominal pain that feels similar to when she had an ovarian cyst in the past.She reports a 2 week long mentrual period that ended on 09/25/24. Denies any chance she could be . Denies discharge or concern for STDs. Reports on monogamous male partner. Denies history of STDs. She reports 3 miscarraiges in the past and would like OBGYN referral.She denies fevers or recent illness.She additionally reports a history of a heart murmur and onset of chest pain this morning. GOKUL WALTON NP Attn: [address] [place], [address], [place] [facility] 09/30/2024 13:12:32 OBGyn Episode No OBEpisode recorded.
--- OUTSIDE RECORDS SUMMARY | 2025-01-12 16:27 | XMS_ITS | Continuity of Care Document ---
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 Family History Family Member Type Diagnosis Age At Onset No Information Payers Payer name Insurance type Covered democrat ID Authoriza joseph(s) [employer] [place] [id number] CI [id number] Social History Type Description Quantity Date Captured Comments Sex Female Smoking Status No Information Chief Complaint And Reason For Visit No Information History Of Present Illness Encounter Date Complaint History Of Prese nt Illness No Information Instructions Date Instruction Additional Infor mation No Information Assessments Type Assessment Date No Information
[2025-01-12] MEDS: ACETAMINOPHEN 500 MG TABLET 1000 MG PO (16:31)
[2025-01-12 16:50] LABS: Add Urine Microscopic? YES; Appearance Urine Clear (Clear); Bacteria Urine Rare /hpf; Bilirubin Urine Negative (Negative); Blood Urine Negative (Negative); Color Urine Yellow (Yellow); Glucose Urine UA Trace mg/dL (Negative); Ketones Urine Negative (Negative); Leukocyte Esterase Ur 1+ LEU/UL (Negative); Need Manual Microscopic Reviewed; Nitrate Urine Negative (Negative); Non Pathogenic Casts 0-2; Protein Urine Negative (Negative); RBC Urine 0-2 /hpf (0-2); Specific Grav Ur 1.018 (1.001-1.035); Squamous Epithelial Cell Urine Occasional /hpf (Few); Urobilinogen Urine 0.2 mg/dL (<2.0); WBC Urine 0-5 /hpf (0-3)
--- NOTE | 2025-01-12 17:07 | ED_ITS ---
HPI - Abdominal Pain General Chief Complaint: Abdominal Pain Stated Complaint: 14 wks , abd pain Time Seen by Provider: 01/12/25 16:08 History of Present Illness HPI narrative: Patient presenting here at 14 weeks , has confirmed IUP, occasionally for the last week or so she has noticed some pain to her lower pelvis especially with different movements and sitting up. No fevers or chills, nausea vomiting, or loss of appetite no vaginal bleeding or discharge, no dysuria Related Data Home Medications ?Medication ?Instructions ?Recorded ?Confirmed ?Last Taken ?Type vitamin#30 30 mg iron-10 cap PO 11/19/24 11/19/24 Unknown History mg iron-folic acid 1 mg-omg3 capsule Allergies Allergy/AdvReac Type Severity Reaction Status Date / Time No Known Allergies Allergy Unknown Verified 12/22/24 10:01 Review of Systems Review of Systems: All systems reviewed & are unremarkable except as noted in HPI and below PMFSH Past Medical History Medical History History of miscarriage Heart disease Anxiety Anemia Surgical History Surgical History History of 2 History of cholecystectomy Family History Family History Mother Family history of diabetes mellitus in first degree relative Sibling Family history of diabetes mellitus in first degree relative Social History Social History Smoking status: Current every day smoker Tobacco type: e-cigarettes/vaping Alcohol intake: never Substance use: former Substance use type: marijuana Lack of Transportation: No Lack of Food: Never True Current Housing: I Have Housing Concerned About Future Housing: No Difficulty Paying Gas/Electric Bills: No Difficulty Paying for Meds: No Currently Unemployed: No Education: High School Diploma/GED Difficulty w/ Childcare or Family Care: No Occupation/Education: occupation Gender identity (if verbalized by the patient): Female Sexual Orientation (if Verbalized by the Patient): Straight or Heterosexual Spiritual care concerns: No Exam Narrative: EXAMINATION OF ORGAN SYSTEMS/BODY AREAS: Constitutional: Vital signs per nursing GENERAL:[No acute distress, non-toxic appearing.] HEAD: Normal with no signs of head trauma. EYES: EOMI, conjunctiva normal ENT: Hearing grossly intact LUNGS: Nonlabored breathing. HEART: [Regular rate and rhythm] ABD: [Soft], [nontender to palpation]; no right lower quadrant tenderness. EXT: Normal range of motion SKIN: [No rashes or lesions.] NEURO: [Alert and oriented x 3. No gross focal sensory or strength deficits.] PSYCH: Normal affect Course Vital Signs Vital signs: Vital Signs Temperature 97.8 F 01/12/25 15:28 Pulse Rate 76 01/12/25 15:28 Respiratory Rate 16 01/12/25 15:28 Blood Pressure 112/65 01/12/25 15:28 Pulse Oximetry 100 01/12/25 15:28 Oxygen Delivery Room Air 01/12/25 15:28 Temperature 97.8 F 01/12/25 15:28 Pulse Rate 76 01/12/25 15:28 Respiratory Rate 16 01/12/25 15:28 Blood Pressure 112/65 01/12/25 15:28 Pulse Oximetry 100 01/12/25 15:28 Oxygen Delivery Room Air 01/12/25 15:28 MDM - Abdominal Pain MDM Narrative Medical decision making narrative: Patient presenting here at 14 weeks , has confirmed IUP, occasionally for the last week or so she has noticed some pain to her lower pelvis especially with different movements and sitting up. No fevers or chills, nausea vomiting, or loss of appetite no vaginal bleeding or discharge, no dysuria I did consider possible appendicitis however she has no right lower quadrant tenderness at all, no nausea vomiting or fevers or chills. I did perform bedside ultrasound which shows intrauterine , normal movement and heart rate. Urinalysis does not show any UTI, I did check a recent culture for her and that was also negative. She is given Tylenol, she is very well-appearing here, strict return precautions provided, asked to follow-up to her OB, I do feel she is stable for discharge at this time Lab Data Labs: Lab Results 01/12/25 Range/Units 16:26 Urine Color Yellow (Yellow) Urine Appearance Clear (Clear) Urine pH 6.0 (5.0-9.0) Ur Specific Jewell 1.018 (1.001-1.035) Urine Protein Negative (Negative) mg/dL Urine Glucose (UA) Trace H (Negative) mg/dL Urine Ketones Negative (Negative) mg/dL Ur Blood (Man) Negative (Negative) Urine Nitrate Negative (Negative) Urine Bilirubin Negative (Negative) Urine Urobilinogen 0.2 (<2.0) mg/dL Add Ur Microanalysis Reviewed Leukocyte Esterase Rfl 1+ H (Negative) GIL/UL Urine RBC 0-2 (0-2) /hpf Urine WBC 0-5 (0-3) /hpf Ur Squamous Epith Cells Occasional (Few) /hpf Urine Bacteria Rare /hpf Urine Casts 0-2 Discharge Plan Discharge Clinical Impression: related bilateral lower abdominal pain, antepartum Patient Disposition: Home, Self-Care Condition: Stable Instructions: Abdominal Pain in (ED) Additional Instructions: Please follow up with your OB; you can take Tylenol as needed, if your pain gets much worse, especially if you start having any nausea or vomiting, difficulty keeping anything down, fevers or chills, come back to the emergency room immediately so that you can be checked for appendicitis. Patient Language: Portuguese Prescriptions: New acetaminophen [Tylenol Extra Strength] 500 mg tablet 1,000 mg PO Q6H PRN (Reason: pain) Qty: 50 0RF No Action PNV #[id number] 30 mg iron-10 mg iron-1 mg capsule PO progesterone micronized 100 mg capsule 100 mg PO DAILY Qty: 30 0RF Follow-up/Referrals: Jez Swartz MD [Primary Care Provider] - 2 Days
[2025-01-12 17:17] VITALS: BP 118/68; PULSE 70; RESP 14; O2SAT 100
== END 2025-01-12 17:19 | disposition home or self-care (01) ==
PROVIDERS: Emergency Provider Emergency Medicine; PCP Obstetrics & Gynecology
DX: O26.892 Other specified pregnancy related conditions, second trimester (principal); R10.32 Left lower quadrant pain; R10.31 Right lower quadrant pain; O99.412 Diseases of the circulatory system complicating pregnancy, second trimester; I51.9 Heart disease, unspecified; O99.332 Smoking (tobacco) complicating pregnancy, second trimester; F17.290 Nicotine dependence, other tobacco product, uncomplicated; Z3A.14 14 weeks gestation of pregnancy; Z90.49 Acquired absence of other specified parts of digestive tract; Z86.2 Personal history of diseases of the blood and blood-forming organs and certain disorders involving the immune mechanism
CPT/HCPCS: 81001; 87086; 99283; A9270

== ENCOUNTER 2025-02-23 17:51 | Observation (INO) | payer OTHER, SELFPAY ==
[2025-02-23] VITALS (23 sets, daily range): BP systolic 97–106; BP diastolic 61–72; PULSE 78–105; TEMP 36.9; O2SAT 100; BMI 35.2
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
--- OUTSIDE RECORDS SUMMARY | 2025-02-23 17:57 | XMS_ITS | Clinical Summary ---
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 Gender Identity Not on file Sexual Orientation Not on file Plan of Treatment Upcoming Encounters Date Type Department Care Team (Late st Contact Info) Description 02/24/2025 8:15 AM CDT Hospital Encounter [facility] Maternal and Health [facility] [address] [place] [address] Jez Swartz MD [address] [place] [address] Health Maintenance Due Date Last Done Comments DTAP/TDAP/TD VACCINES (1 - Tdap) 2015 HEPATITIS B VACCINES (1 of 3 - 19+ 3-dose series) 2015 Preventative Visit-Managed Medicaid 2015 CERVICAL CANCER SCREENING 2017 PAP SMEAR 2017 PAP SMEAR 2017 INFLUENZA VACCINE (#1) 2024 HPV VACCINES Aged Out No longer eligi ble based on patient's age to complete this topic Insurance [employer] Care Teams [facility] Relationship Specialty Start Date End Date Karla Godfrey NP [facility], [place] [address] PCP - General NURSE PRACTITIONER 02/09/15
--- OUTSIDE RECORDS SUMMARY | 2025-02-23 17:57 | XMS_ITS | Data Portability ---
Author Organization [facility] [place] Address [address] [place] [place] [address] [place] [address] Assessment No assessment recorded. Plan of Treatment Reminders Order Date Submit Date Provider Last Modified By Organization Details Last Modified Time Details Appointments None recorded . Lab pregnanc y test, urine 2021 varsha [place] [facility] [address], [place], [address], 11:01:29 urinalys is, dipstick 2021 [facility], [facility] [place] [address], [place], [address], 17:14:20 pregnanc y test, urine 2021 [facility], [facility] [place] [address], [place], [address], 17:14:19 Referral None recorded . Procedures None recorded . Surgeries None recorded . Imaging US, pelvis 2021 [address], [address], [place], [address], 21:44:59 US, transvag inal 2021 [address], [address], [place], [address], 21:44:59 US, pelvis, complete 2021 022 ROMMEL [place], [address], [place], [address], 10:44:44 Medication Orders Slynd 4 mg (28) tablet 2021 022 llamay [facility][id number], [address] [place], [address], 13:28:08 Macrobid 100 mg capsule 2021 022 [email or web address] [facility] #[id number], [address] [place], [address], 10:50:11 Patient TargetsNo targets recorded. Patient InstructionsNo instructions recorded. Reason for Referral None Reported. Results Created Date Observation Date Name Description Value Unit Range Abnormal Flag Note LastModifiedBy Organization Detail LastModifiedTime 11/12/2011/12/2022 CT/GC AND TRICH OMONA S VAGIN KAYLEE (RRNA ), URINE chlamydia trachomatis, PCR Negati ve negati ve Not Available [facility] (Lab) [address] , [place], [address], 11/15/2022 10:16:16 11/12/20 22 11/12/2022 CT/GC AND TRICH OMONA S VAGIN KAYLEE (RRNA ), URINE neisseria gonorrhoeae, PCR Negati ve negati ve Not Available [facility] (Lab) [address] , [place], [address], 11/15/2022 10:16:16 11/12/20 22 11/12/2022 CT/GC AND TRICH OMONA S VAGIN KAYLEE (RRNA ), URINE trichomonas vaginalis ribosomal RNA (rrna) Negati ve negati ve Not Available [facility] (Lab) [address], [place], [address], 11/15/2022 10:16:16 11/12/20 22 11/12/2022 CULTU RE: URINE result report SEE RESULT S BELOW abnormal Test: Cultu re: Urine Speci men Sourc e: Urine - Clean Catch Speci men Type: Urine Speci men Date: 11/12 4:34 PM Resul t Date: 11/15 9:13 AM Resul t Statu s: Final resul t Abnor mal: Yes Resul barak Lab: [facility] [address] [facility] [address] Tel: CULTU RE ----- ----- ----- --- [...] <=2 ug/mL Susce ptibl e Not Available [facility] (Lab) [address], [place], [address], 11/15/2022 10:16:17 11/12/20 22 11/12/2022 urina lysis , dipst ick Leukocytes tr Not Available [facility] yumi [address], [place], [address], 11/12/2022 17:13:23 11/12/20 22 11/12/2022 urina lysis , dipst ick Nitrite + Not Available [place] [address], [place], [address], 11/12/2022 17:13:23 11/12/20 22 11/12/2022 urina lysis , dipst ick Urobilinogen neg Not Available [facility] mar [address], [place], [address], 11/12/2022 17:13:23 11/12/20 22 11/12/2022 urina lysis , dipst ick Protein neg Not Available [place] [address], [place], [address], 11/12/2022 17:13:23 11/12/20 22 11/12/2022 urina lysis , dipst ick pH 8 Not Available [place] [address], [place], [address], 11/12/2022 17:13:23 11/12/20 22 11/12/2022 urina lysis , dipst ick Blood +++ Not Available [place] [address], [place], [address], 11/12/2022 17:13:23 11/12/20 22 11/12/2022 urina lysis , dipst ick Specific [place] 1.015 Not Available Romina roque [address], [place], [address], 11/12/2022 17:13:23 11/12/20 22 11/12/2022 urina lysis , dipst ick Ketone neg Not Available [place] [address], [place], [address], 11/12/2022 17:13:23 11/12/20 22 11/12/2022 urina lysis , dipst ick Bilirubin neg Not Available Albert navarro [address], [place], [address], 11/12/2022 17:13:23 11/12/20 22 11/12/2022 urina lysis , dipst ick Glucose neg Not Available [place] [address], [place], [address], 11/12/2022 17:13:23 11/12/20 22 11/12/2022 urina lysis , dipst ick Appearance clear Not Available Layton eason [address], [place], [address], 11/12/2022 17:13:23 11/12/20 22 11/12/2022 urina lysis , dipst ick Color yellow Not Available [place] [address], [place], [address], 11/12/2022 17:13:23 11/12/20 22 11/12/2022 pregn katty test, urine HCG negati ve Not Available [place] [address], [place], [address], 11/12/2022 17:13:01 11/27/20 22 11/27/2022 pregn katty test, urine HCG negati ve Not Available [place] [address], [place], [address], 11/27/2022 11:01:23 11/20/20 22 11/20/2022 US, pelvi s, compl ete No observ ation record ed. varsha [place] [address], [place], [address], 11/21/2022 10:44:45 11/20/20 22 11/20/2022 US, pelvi s No observ ation record ed. nina [place] [address], [place], [address], 11/20/2022 13:50:09 11/20/20 22 11/20/2022 US, trans vagin al No observ ation record ed. [email or web address] [place] [address] [address], [place], [address], 11/20/2022 13:50:00 Result Notes None recorded. Procedures Surgical History Date Name Laterality Status Provider Name and Address Organization Details Recorded Time IUD Removal completed CATHI Riddle [address], [place], [address], [place] [facility] 11/27/2022 13:25:22 Caesarean Section completed Sheron Aguilar [facility] 11/12/2022 16:20:18 Imaging Results Imaging Date Name Status LastModified by Organization Details LastModified Time 11/20/2022 US, pelvis, complete completed varsha [place] [address], [place], [address], 11/21/2022 10:44:45 11/20/2022 US, pelvis completed nina [place] [address], [place], [address], 11/20/2022 13:50:09 11/20/2022 US, transvaginal completed [email or web address] Albert e [address], [place], [address], 11/20/2022 13:50:00 Procedure Notes None recorded. Medical [...] Updated DateTime 11/12/2022 154.94 cm 30.3 kg/m2 92466.5 g 118 mm[Hg] 76 mm[Hg] Sheron Aguilar [facility] 16:19:59 Date Recorded Body height Body mass index (BMI) Body weight Systolic blood pressure Diastolic blood pressure Provider Name and Address Organization Details Last Updated DateTime 11/27/2022 154.94 cm 30.3 kg/m2 27851.5 g 109 mm[Hg] 70 mm[Hg] Sheron Aguilar [facility] 10:50:02 Social History Question Answer Notes LastModified by Organizat ion Details LastModified Time Tobacco Smoking Status Current Every Day Smoker Selene Blanchard anjana, [facility] 11/27/2022 10:40:38 What Is Your [...] Or The Highest Degree You Have Received? [id number] Information not available 11/12/2022 Are There Any [...] Anxious, Or Unable To Sleep At Night)? [id number] Information not available 11/12/2022 Do You Use [...] have difficulty walking or climbing stairs? No [email or web address] Information not available 11/27/2022 Are you able to walk? YESWOREST Information not available 11/12/2022 Are you able to care for yourself? Yes Information not available 11/27/2022 Do you have difficulty dressing or bathing? No [email or web address] Information not available 11/27/2022 What is your [...] SNOMED-CT Code Diagnosis ICD10 Code Diagnosis Note [id number] CATHI Riddle [place] [address],[place] [address] 11/12/2022 16:00:33 11/13/2022 17:46:43 Contraception care management 552502399 Z30.9 Urinary symptoms 5238913 08 R39.9 Pain in pelvis 75645813 R10.2 Today we reviewed the various causes [...] plan of care. Venereal d isease screening 847784847 Z11.3 [id number] Mali Aldridge [place] [address],[facility] [place] [address] 11/20/2022 11:31:05 11/21/2022 14:19:17 Pain in pelvis 60526838 R10.2 [id number] CATHI Riddle [place] [address] [address] 11/27/2022 10:40:30 11/27/2022 14:32:40 Screening procedure 08770557 Z13.9 Removal of intrauterine device 60470491 Z30.432 Today we reviewed recent pelvic u/s [...] 4 monthsDeni es hx of DVT/PE, HTN, Stroke/IA, cancer, or liver diseaseShe does have a hx of a heart murmur - has not seen cardiologi st recently due to moving, would like referral.R TC for med check in 3 months Time spent in visit is a total of 25 mins with at least 50% of visit consisting of counseling and review of plan of care. [facility] ion care management [id number] Z30.9 Health Concerns Section Related Observation LastModified by Organization Detai ls LastModified Time None Recorded Concern Status LastModified by Organization Details LastModified Time None Recorded Advance Directives Directive None Recorded Payers Encounter Date Sequence Insurance Name Policy Number Policy Maya Covered Member ID Maya Member ID Guarantor Name 11/12/2022 1 [facility] (MEDICAID HMO) [id number] Alexandrea Krause [id number] Alexandrea Krause 11/20/2022 1 [facility] (MEDICAID HM) [id number] Alexandrea Krause [id number] lAexandrea Krause 11/27/2022 1 [facility] (MEDICAID HM) [id number] 0003 Alexandrea Krause [id number] Alexandrea Krause Notes Date Note Type Note [...] steady partner CATHI Riddle [address], [place], [address], [facility] 11/12/2022 18:00:37 11/27/2022 text/html Patient presents for u/s f/uu/s done due to pelvic painCompleted antibiotic course for UTINo current symptoms today CATHI Riddle [address], [place], [address], [facility] 11/27/2022 13:29:05 OBGyn Episode Ob Episode Information Episode Created Date Number of Fetuses Patient Bloodtype Patient rh Status Prepregnancy Weight lbs Domestic Partner Domestic Partner Phone Father Name Salvager Status 11/12/20 22 1 CLOSED Fetus Data First Name Last Name Admitted to NICU Weight (g) Sex Living Outcome Pediatric Complications Fetus ID Race Codes Race Delivery Type 3883.65 4704 M Full Term [id number] Lorenzo Calculation Initial Lorenzo Date Initial Exam [...] Domestic Partner Domestic Partner Phone Father Name Salvager Status 11/12/20 22 1 CLOSED Fetus Data First Name Last Name Admitted to NICU Weight (g) Sex Living Outcome Pediatric Complications Fetus ID Race Codes Race Delivery Type 2891.64 9 F Full Term [id number] Lorenzo Calculation Initial Lorenzo Date Initial Exam [...] Domestic Partner Domestic Partner Phone Father Name Salvager Status 11/12/20 22 1 CLOSED Fetus Data First Name Last Name Admitted to NICU Weight (g) Sex Living Outcome Pediatric Complications Fetus ID Race Codes Race Delivery Type , Spontane ous [id number] Lorenzo Calculation Initial Lorenzo Date Initial Exam [...]
--- OUTSIDE RECORDS SUMMARY | 2025-02-23 17:57 | XMS_ITS | Clinical Summary ---
Author Organization [facility] Address [address] [place] [address] Care Team Providers Care Devops Consultant Name Role Phone Nikole Godinez Primary Care Provider [phone] Allergies No known active allergies Medications HYDROcodone-acet aminophen (NORCO) 5-325 MG tabletIndication s:Acute Pain < 3 Day Supply Take 1 tablet by mouth every 4 (four) hours. Indications : Acute Pain < 3 Day Supply 12 tablet 07/10/2022 Active Vit-Fe Fumarate-FA (/FOLIC ACID) Tab Take 1 tablet by mouth daily. 30 tablet 04/15/2023 Active Social History Tobacco Use Types Packs/Day Years [...] Comments Blood Pressure 115/73 11/22/2024 9:19 PM DIGITAL CAMPAIGN MANAGER Pulse 63 11/22/2024 9:19 PM DIGITAL CAMPAIGN MANAGER Temperature 36.9 C (98.4 F) 11/22/2024 7:30 PM DIGITAL CAMPAIGN MANAGER Respiratory Rate 18 11/22/2024 9:19 PM DIGITAL CAMPAIGN MANAGER Oxygen Saturation 100% 11/22/2024 9:19 PM DIGITAL CAMPAIGN MANAGER Inhaled Oxygen Concentration - - Weight 81.2 kg (179 lb 0.2 oz) 11/22/2024 5:09 P M DIGITAL CAMPAIGN MANAGER Height 154.9 cm (5' 1 ) 11/22/2024 5:09 PM DIGITAL CAMPAIGN MANAGER Body Mass Index 33.82 11/22/2024 5:09 PM DIGITAL CAMPAIGN MANAGER Plan of Treatment Health Maintenance Due Date [...] patient's age to complete this topic Insurance [employer] Care Teams Devops Consultant Relationship Specialty Start Date End Date Nikole Godinez PA [address] [place] [address] PCP - General PHYSICIAN MANAGER SIX SIGMA 04/15/23
--- OUTSIDE RECORDS SUMMARY | 2025-02-23 17:57 | XMS_ITS | Clinical Summary ---
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 Gender Identity Not on file Sexual Orientation Not on file Obstetrics History Last Filed Vital Signs Vital Sign Reading Time Taken Comments Blood Pressure 114/69 11/20/2023 1:55 PM [employer] POWER PLANT ENGINEER Pulse 64 11/20/2023 2:00 PM CARBON CAPTURE POWER PLANT ENGINEER Temperature 36.9 C (98.4 F) 11/20/2023 11:01 AM [employer] CAPT[employer] POWER PLANT ENGINEER Respiratory Rate 20 11/20/2023 11:01 AM [employer] CAPTURE POWER PLANT ENGINEER Oxygen Saturation 100% 11/20/2023 2:00 PM [employer] CAPT[employer] POWER PLANT ENGINEER Inhaled Oxygen Concentration - - Weight 78.2 kg (172 lb 8 oz) 11/20/2023 11:01 AM [employer] CAPTURE POWER PLANT ENGINEER Height 154.9 cm (5' 1 ) 11/20/2023 11:01 AM [employer] POWER PLANT ENGINEER Body Mass Index 32.59 11/20/2023 11:01 AM [employer] POWER PLANT ENGINEER Plan of Treatment Health Maintenance Due Date Last Done Comments Cervical Cancer Screening 1996 Depression Screening 1996 Hepatitis C Screening 1996 Varicella Vaccines (1 of 2 - 13+ 2-dose series) 2009 Regular Well Visit/Exam 18-64 2014 Pneumococcal vaccine <65 (1 of 2 - PCV) 2015 Influenza Vaccine (#1) 2024 09/04/2011 DTaP/Tdap/Td Vaccine (10 - T d or Tdap) 12/01/2026 12/01/2016, 06/23/2015, 05/09/2014, Additional history exists Hepatitis B Screening Completed 04/21/1997 , 01/28/1997, 1996 HPV Vaccines Completed 03/17/2008, 10/31, 09/09/[address] [place] [address] [facility] Care Teams Computer Lab Aide Relationship Specialty Start Date End Date Jez Swartz MD [address] [facility] [place] [address] [place] [address] PCP - General Obstetrics and Gynecology 04/23/23
--- OUTSIDE RECORDS SUMMARY | 2025-02-23 17:57 | XMS_ITS | Referral Summary ---
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 Gender Identity Not on file Sexual Orientation Not on file Last Filed Vital Signs Vital Sign Reading Time Taken Comments Blood Pressure 114/69 11/20/2023 1:55 PM SERVICE CAR OPERATOR Pulse 64 11/20/2023 2:00 PM SERVICE CAR OPERATOR Temperature 36.9 C (98.4 F) 11/20/2023 11:01 AM SERVICE CAR OPERATOR Respiratory Rate 20 11/20/2023 11:01 AM SERVICE CAR OPERATOR Oxygen Saturation 100% 11/20/2023 2:00 PM SERVICE CAR OPERATOR Inhaled Oxygen Concentration - - Weight 78.2 kg (172 lb 8 oz) 11/20/2023 11:01 AM SERVICE CAR OPERATOR Height 154.9 cm (5' 1 ) 11/20/2023 11:01 AM SERVICE CAR OPERATOR Body Mass Index 32.59 11/20/2023 11:01 AM SERVICE CAR OPERATOR Plan of Treatment Not on file Insurance Care Teams Trouble Lineman Relationship Specialty Start Date End Date Jez Swartz MD [address] [facility] [address] [place] [address] PCP - General Obstetrics and Gynecology 04/23/23
--- OUTSIDE RECORDS SUMMARY | 2025-02-23 17:57 | XMS_ITS | Data Portability ---
Author Organization [facility] Address [address] [place] [address] Care Team Providers Care Rv Repairer Name Role Phone RAKESH MOE Primary Care Provider Unavailabl e Assessment No assessment recorded. Plan of Treatment Reminders Order Date Submit Date Provider Last Modified By Organization Details Last Modified Time Details Appointments None recorded. Lab urinalysis , dipstick 2023 024 ROMMEL In-Office Order, Internal Use Only DO Not Attach Compendium DO Not Attach Compendium, Do Not Delete/merge, [id number] 14:55:22 test, urine 2023 024 ROMMEL In-Office Order, Internal Use Only DO Not Attach Compendium DO Not Attach Compendium, Do Not Delete/merge, [id number] 4 12:54:44 test, urine 2015 016 ROMMEL In-Office Order, Internal Use Only DO Not Attach Compendium DO Not Attach Compendium, Do Not Delete/merge, [id number] 6 15:33:01 Referral ambulatory surgical center referral - 20 y/o HF with cholecysti tis--needs surgical consultati on 2015 016 ROMMEL Not available 6 15:36:25 Procedures None recorded. Surgeries None recorded. Imaging None recorded. Medication Orders omeprazole 20 mg tablet,del ayed release 2015 016 INTERFACE [facility], [address] [facility], [place], [address], 6 11:30:03 amoxicilli n 500 mg tablet [address] [facility], [address] [place], [address], 6 11:09:14 Biaxin 500 mg tablet [address] [facility], [address] [place], [address], 6 11:09:14 omeprazole 20 mg tablet,del ayed release [address] [facility], [address] [place], [address], 6 11:09:14 ranitidine 150 mg tablet [address] [facility], [address] [place], [address], 6 11:09:14 Patient TargetsNo targets recorded. Patient Instructions Encounter Date Encounter Id Patient Instructions Last Modified By Organization Details Last Modified Time 12/19/2015 [id number] learning about gallstones juan Not available 12/19/2015 15:27:31 low-fat diet for gallbladder disease: care instructions yauz Not available 12/19/2015 15:27:31 avoid spicy grea sy foods follow a bland diet if abd pain becomes worse untolerable to E/R immediately yarauz Not available 12/19/2015 15:25:15 01/30/2016 [id number] diet and weight loss for fatty liver yarauz Not available 01/30/2016 15:29:45 needs triple therapy for H. Pylori infection for 10 days avoid fatty/spicy foods most likely fatty liver is what was seen on CT in [place] 10/2015 CT here 2/2 normal schedule to see surgeon for Gall stones may need to see GI later/may need to get a liver u/s juan Not available 01/30/2016 15:29:45 03/01/2016 [id number] will check on Biaxin with pharmacy yarauz Not available 03/01/2016 11:29:58 09/30/2024 [id number] A healthy lifestyle: care instructions Not available 09/30/2024 12:35:18 Patient to proce ed directly to ER at [facility]. Patient declined EMS transport today. Patient [...] DO Not Attach Compendium, Do Not Delete/merge, [id number] 12/19/2015 15:25:16 09/25/2009/25/2022 GENIT AL CULTU RE header [facility] [place] [address] Patie nt:NAYELI GUTIERREZ 1546 Med Rec#: [id number] Order ing MD: LORI BARROW : [birth year] Sex: F Locat ion: SEOER Test: GENIT AL CULTU RE Colle ct Date: 09-25 11:51 Acces aiden #: [id number] Not Available [facility] (Lab) [facility], [place], [address], 09/28/2022 08:29:37 09/25/20 22 09/25/2022 GENIT AL [...] STATU S - FINAL 09/28 Not Available [facility] (Lab) [facility], [place], [address], 09/28/2022 08:29:37 09/25/20 22 09/25/2022 [facility]U [facility] [place] [address] Patie nt:NAYELI GUTIERREZ Jessica 1546 Med Rec#: [id number] Order ing MD: LORI BARROW : [birth year] Sex: F Locat ion: SEOER Test: URINE CULTU RE Colle ct Date: 09-25 09:20 Acces aiden #: [id number] Not Available [facility] (Lab) [facility], [place], [address], 09/27/2022 09:34:28 09/25/20 22 09/25/2022 URINE CULTU [...] - <=16 SUSCE PTIBL E Not Available [facility] (Lab) [facility], [place], [address], 09/27/2022 09:34:28 09/30/20 24 09/30/2024 urina lysis , dipst ick Leukocytes Negati ve Not Available In-Office Order Internal Use Only DO Not Attach Compendium DO Not Attach Compendium, Do Not Delete/merge, [id number] 09/30/2024 12:34:00 09/30/20 24 09/30/2024 urina lysis , dipst ick Nitrite positi ve Not Available In-Office Order Internal Use Only DO Not Attach Compendium DO Not Attach Compendium, Do Not Delete/merge, [id number] 09/30/2024 12:34:00 09/30/20 24 09/30/2024 urina lysis , dipst ick Urobilinogen .2 Not Available In-Of fice Order Internal Use Only DO Not Attach Compendium DO Not Attach Compendium, Do Not Delete/merge, [id number] 09/30/2024 12:34:00 09/30/20 24 09/30/2024 urina lysis , dipst ick Protein Negati ve Not Available In-Office Order Internal Use Only DO Not Attach Compendium DO Not Attach Compendium, Do Not Delete/merge, [id number] 09/30/2024 12:34:00 09/30/20 24 09/30/2024 urina lysis , dipst ick pH 5.5 Not Available In-Office Order Internal Use Only DO Not Attach Compendium DO Not Attach Compendium, Do Not Delete/merge, [id number] 09/30/2024 12:34:00 09/30/20 24 09/30/2024 urina lysis , dipst ick Blood Negati ve Not Available In-Office Order Internal Use Only DO Not Attach Compendium DO Not Attach Compendium, Do Not Delete/merge, 09/30/2024 12:34:00 09/30/20 24 09/30/2024 urina lysis , dipst ick Specific [place] 1.030 Not Available In-Off ice Order Internal [...] DO Not Attach Compendium, Do Not Delete/merge, [id number] 09/30/2024 12:34:01 01/10/20 16 01/02/2016 imagi ng/di [...] trime ster No observ ation record ed. [email or web address] [place] [address], [address], 03/16/2018 12:44:37 07/09/20 22 07/09/2022 XR, wrist No observ ation record ed. [address], [address], 07/09/2022 14:23:25 07/09/20 22 07/09/2022 XR, elbow , 2 view No observ ation record ed. [address], [address], 07/09/2022 15:12:28 07/09/20 22 07/09/2022 CT, brain , w/o contr ast No observ ation record ed. [address], [address], 07/09/2022 15:12:57 07/09/20 22 07/09/2022 CT, angio gram, chest + abdom en + pelvi s, w/ contr ast No observ ation record ed. [facility] [address], [place], [address], 07/09/2022 15:13:14 07/10/[address], chest , w/o contr ast [facility] [address] [facility] [place] [address] Examin ation: CT CHEST WO CON Clinic [...] By: Felix Alonzo MD, 7:16 PM juan [facility] [address], [place], [address], 07/11/2022 13:44:03 09/25/[address] ABD+p el W con [facility] [address] [place] [address] PROCED URE: CT ABD+PE L W CON [...] AM [address] [facility] [address] [facility], [place], [address], 09/25/2022 13:46:01 Result Notes None recorded. Problems Name Problem SNOMED Code Status Onset Date Resolution Date Notes Provider Name and Address Organization Details Recorded Time Gallstone 289131633 Active 2014 seen in [place] SAR[place]AK [place] - [facility] 4 12:13:01 Acute and chronic cholecystiti s 031414650 Active [place]THAK [place] - [facility] 4 12:12:58 Right upper quadrant pain 187237431 Active SAR[place]AK [place] - [facility] 4 12:13:09 Steatosis of liver 685963888 [place] [facility] 4 12:13:14 Helicobacter -associated gastritis 25368362 Active SARTHAK [place] - [facility] 4 12:13:07 Problem Notes None recorded. Procedures Surgical History Date Name Laterality Status Provider Name and Address Organization Details Recorded Time 016 Cholecystectomy completed Hannah Lawler [place] - [facility] 03/01/2016 11:09:14 015 Caesarean Section completed MARCUS Reza Attn: Accounting,[address] [place], [address], [facility] - [facility] 12/19/2015 15:14:06 014 Caesarean Section completed MARCUS Reza Attn: Accounting,[address] [place], [address], [facility] - [facility] 12/19/2015 15:14:06 Imaging Results Imaging Date Name Status LastModified by Organiz [facility] Details LastModified Time 01/02/2016 imaging/diagno stic result [...] 17:50:57 03/11/2018 US, obstetric, 1st trimester completed [address], [address], 03/16/2018 12:44:37 07/09/2022 XR, wrist completed [facility] [address] [place] [address], [address], 07/09/2022 14:23:25 07/09/2022 XR, elbow, 2 view completed [address], [address], 07/09/2022 15:12:28 07/09/2022 CT, brain, w/o contrast completed [address], [address], 07/09/2022 15:12:57 07/09/2022 CT, angiogram, chest + abdomen + pelvis, w/ contrast completed [address], [address], 07/09/2022 15:13:14 07/10/2022 CT, chest, w/o contrast completed [address], [address], 07/11/2022 13:44:03 09/25/2022 CT ABD+pel W con completed [address], [address], 09/25/2022 13:46:01 Procedure Notes None recorded. Medical [...] 6 30.5 kg/m2 154.94 cm 98.6 [degF] 66736.1 31149 g 120 mm[Hg] 70 mm[Hg] Hannah shi [place] - [facility] 6 14:59:00 Date Recorded Body height Body mass index (BMI) Body weight Oxygen saturation Oxygen saturation in Arterial blood by Pulse oximetry Heart rate Respiratory rate Body temperature Systolic blood pressure Diastolic blood pressure Provider Name and Address Organization Details Last Updated DateTime 4 154.94 cm 33.3 kg/m2 44252.9 6 g 100 % 100 % 58 /min 18 /min 97.6 [degF] 128 mm[Hg] 81 mm[Hg] Melia Haq MA [facility] 4 12:10:28 Date Recorded Body height Body temperature Body weight Body mass index (BMI) Systolic blood pressure Diastolic blood pressure Provider Name and Address Organization Details Last Updated DateTime 6 154.94 cm 97 [degF] 68164.5 14952 g 31.5 kg/m2 100 mm[Hg] 70 mm[Hg] Hannah Betanamitatessa jose guadalupe [facility] 6 14:40:20 Date Recorded Body height Body weight Body mass index (BMI) Body temperature Systolic blood pressure Diastolic blood pressure Provider Name and Address Organization Details Last Updated DateTime 6 154.94 cm 77562.1 14310 g 31.7 kg/m2 98.1 [degF] 98 mm[Hg] 60 mm[Hg] Hannah Antonettenamitatessa [facility] 6 11:10:32 Social History Question Answer Notes LastModified by [email or web address] ion Details LastModified Time Tobacco Smoking Status Never Smoker Hannah yeung [facility] 12/19/2015 14:59:00 Do You Have An Advance [...] Anxious, Or Unable To Sleep At Night)? [id number] Information not available 09/30/2024 Do You Use [...] Atrial Fibrillation N High Blood Pressure N Kidney or Bladder Problems N Thyroid Problems N GI Problems N Depression N COPD N Blood Clots N Have you had a mammogram in the last yea r? N Eating Disorder N Skin Problems N Anemia Y Heart Attack ([place]) N Anxiety Disorder N Diabetes N Muscle, [...] Liver Disease Y Schizophrenia N Headaches N Osteoporosis N Heart Failure N Gynecological History Statement/Question Response Flow Heavy [...] SNOMED-CT Code Diagnosis ICD10 Code Diagnosis Note [id number] Rakesh Moe, [facility] [address] [place], [place] [address] 12/19/2015 14:40:11 12/20/2015 17:08:08 Acute and chronic cholecystitis 415229303 K81.2 Right uppe r quadrant pain 110041070 R10.11 [id number] [facility] [address] [place] [address] 01/30/2016 14:18:17 02/02/2016 11:46:47 Right upper quadrant pain 931465958 R10.11 Gallstone 517585732 K80. 20 Steatosis of liver 1007 K76.0 Helicobact er-associat ed gastritis 44905748 B96.81 [id number] [facility] [address] [place] [address] 03/01/2016 10:37:09 03/06/2016 11:16:31 Right upper quadrant pain 144508604 R10.11 Since having cholecyste ctomy a lot better Helicobact er-associat ed gastritis 87993271 B96.81 Steatosis of liver 1007 K76.0 [id number] GOKUL WALTON NP [address] [address] 09/30/2024 11:25:35 10/01/2024 12:05:29 Obesity 927586506 E66.9 Abdominal pain 76705587 R10.9 Sent patient directly to ER. Offered EMS, however she declined and stated she would drive herself directly to [facility]. Urine test negative today. UA positive only for nitrates today. Chest pain 25855251 R07. 9 Sent patient directly to ER. Offered EMS, however she declined and stated she would drive herself directly to [facility]. Health Concerns Section Related Observation LastModified by Organization Detai ls LastModified Time None Recorded Concern Status LastModified by Organization Details LastModified Time None Recorded Advance Directives Directive Y: Payers Encounter Date Sequence Insurance Name Policy Number Policy Maya Covered Member ID Maya Member ID Guarantor Name 12/19/2015 SLIDING FEE SCHEDULE - DISCOUNT Nayeli Krause 01/30/2016 1 [place] [employer] [place] [employer] Nayeli Krause [id number] Nayeli Krause 03/01/2016 1 [facility] - DOS PRIOR TO 2021 (MEDICAID REPLACEMENT - HMO) Nayeli Krause [id number] Nayeli Krause 09/30/2024 1 [facility] (MEDICAID HMO) [id number] Nayeli Krause [id number] Nayeli Krause Notes Date Note Type Note [...] received a telephone call from E?R in [place] indicating a problem with liver. She was [...] her insurance. MARCUS Reza Attn: Accounting,[address] [place], [address], [facility] - [facility] 12/19/2015 16:20:07 6 text/html Abdominal [...] received a telephone call from E/R in [place] indicating a problem with liver. She was seen twice at E/ with abdominal pain in a span of 3 months. She was seen again 01/02 at [place] and was told once again she has gallstones. The patient was seen in the emergency room again 01/02 for abd pain RUQ which radiates to right back. She has been having these s/s on and off since august. SHe had a GB u/S and CT scan in [place]. She has now had a repeat CT ABD and Pelvis which showed Gallstones only nothing with the liver. she has gallstones and needs to see Surgeon for cholecystectomy--she now has insurance. SHe currently is taking pain medication for occasional pain from E/R prescription ASHLEY Reza Attn: Accounting,[address] [place], [address], [facility] 01/31/2016 13:58:30 6 text/html reevaluation--patient had lap joanne on 02/15/2016 she feels a lot better. CUrrently c/o mid epigastric burning--she was not given all of the triple therapy medications. MARCUS Reza Attn: Accounting,[address] [place], [address], [facility] 03/04/2016 12:09:51 4 text/html Nayeli presents unaccompanied [...] morning. GOKUL WALTON NP Attn: Accounting,[address] [place], [address], [place] [facility] 09/30/2024 13:12:32 OBGyn Episode No OBEpisode recorded.
[2025-02-23 18:32] LABS: Add Urine Microscopic? YES; Appearance Urine Clear (Clear); Bacteria Urine Rare /hpf; Bilirubin Urine Negative (Negative); Blood Urine Negative (Negative); Color Urine Yellow (Yellow); Glucose Urine UA Negative (Negative); Ketones Urine Negative (Negative); Leukocyte Esterase Ur Trace LEU/UL (Negative); Nitrate Urine Negative (Negative); Non Pathogenic Casts 0-2; Protein Urine Negative (Negative); RBC Urine 0-2 /hpf (0-2); Specific Grav Ur 1.009 (1.001-1.035); Squamous Epithelial Cell Urine Occasional /hpf (Few); Urobilinogen Urine 0.2 mg/dL (<2.0); WBC Urine 0-5 /hpf (0-3)
--- NOTE | 2025-02-23 18:35 | PC.NURSE ---
heart tones doppled for one minute 142 bpm.
--- NOTE | 2025-02-23 18:41 | OBADM ---
This patient, Alexandrea Krause, admitted to the OB room OB Post 116 for observation. Patient/family oriented to hospital policies and general routines including ID bracelet, bed and alarms, visiting hours, pain management, procedures, bathroom and other care routines, personal items, smoking policy, room service/diet, and visiting hours. Patient/Family are encouraged to report perceived risks to care and to ask questions if they do not understand what they are told or what they should do.
--- NOTE | 2025-02-23 19:29 | PC.NURSE ---
Dr. Swartz called, update on pt, dizziness, lightheadedness, headache that has subsided, heart tones doppled 135-150, and blood pressure. Orders received to discharge pt with instructions to take benadryl, try the Samantha Maneuver, keep next scheduled appointment, and when to return to the unit.
--- NOTE | 2025-02-23 19:56 | PC.NURSE ---
Pt discharged with instructions to take benadryl, try Samantha Maneuver, keep next scheduled appointment, and when to return to the unit, pt verbalizes understanding.
--- NOTE | 2025-03-10 10:52 | PM.OBTRLD ---
OB - Triage/Final Diagnosis Visit Information Comments/Additional reasons for admission: I have assessed the risk for this patient, Alexandrea Krause, and determined that she would benefit from observation care. Evaluation Laboratory results: Laboratory Tests 02/23/25 18:11 Urine Color Yellow Urine Appearance Clear Urine pH 7.0 Ur Specific [place] 1.009 Urine Protein Negative Urine Glucose (UA) Negative Urine Ketones Negative Ur Blood (Man) Negative Urine Nitrate Negative Urine Bilirubin Negative Urine Urobilinogen 0.2 Leukocyte Esterase Rfl Trace H Urine RBC 0-2 Urine WBC 0-5 Ur Squamous Epith Cells Occasional Urine Bacteria Rare Urine Casts 0-2 Final Diagnosis (1) Vertigo: Code(s): R42 - Dizziness and giddiness Status: Acute
== END 2025-02-23 19:56 | disposition home or self-care (01) ==
PROVIDERS: Admitting Provider Obstetrics & Gynecology; PCP Obstetrics & Gynecology; Visit Provider Obstetrics & Gynecology
DX: O26.892 Other specified pregnancy related conditions, second trimester (principal); R42 Dizziness and giddiness; Z3A.20 20 weeks gestation of pregnancy
CPT/HCPCS: 81001; G0378; G0379

== ENCOUNTER 2025-03-24 09:25 | Outpatient (CLI) | payer OTHER, SELFPAY ==
--- OUTSIDE RECORDS SUMMARY | 2025-03-24 10:15 | XMS_ITS | Encounter Summary ---
Author Organization [facility] Address [address] [place] [address] Care Team Providers Care Qualitative Field Project Manager Name Role Phone Kitty Godfreykristinerobby Godfrey MUHAMMAD Primary Care Provider Reason for Referral * Radiology Services (Routine) - Closed Specialty Diagnoses / Procedures Referred By Ai shi Referred To Contact Diagnoses screening for malformation using ultrasonics Subchorionic hemorrhage in second trimester Procedures US OB FOLLOW UP PER FETUS Jez Alvarez MD [address] [address] Phone: tel: fax: [facility] [address] [place] [address] Phone: tel: fax: Referral ID Status Reason Start Date Expiration Date Visits Re quested Visits Authorized [id number] Closed 02/24/2025 03/27/2026 1 1 Reason for Visit * Radiology Services (Routine) - Closed Specialty Diagnoses / Procedures Referred By Ai shi Referred To Contact Diagnoses screening for malformation using ultrasonics Subchorionic hemorrhage in second trimester Procedures US OB FOLLOW UP PER FETUS Jez Alvarez MD [address] [address] Phone: tel: fax: [facility] [address] [place] [address] Phone: tel: fax: Referral ID Status Reason Start Date Expiration Date Visits Re quested Visits Authorized [id number] Closed 02/24/2025 03/27/2026 1 1 Encounter Details Date Type Department Care Team (Late st Contact Info) Description 03/24/2025 7:45 AM CDT Hospital Encounter [facility] Maternal and Health [facility] [address] [place] [address] Clarke Hong MD [address] [place] [address] Arrived Social History Tobacco Use Types Packs/Day Years Used Date Smoking Tobacco: Never Assessed Feeling Safe Answer Date Recorded Are you in a relationship wi th someone who hurts you emotionally and/or physically? 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 Gender Identity Not on file Sexual Orientation Not on file documented as of this encounter Plan of Treatment Not on file documented as of this encounter Procedures Procedure Name Priority Date/Time Associated Diagnosis Comments US OB FOLLOW UP PER FETUS Routine 03/24/2025 8:26 AM CDT screening for malformation using ultrasonics Subchorionic hemorrhage in second trimester documented in this encounter Results * US OB FOLLOW UP PER FETUS (03/24/2025 8:26 AM CDT) Anatomical Region Laterality Modality Pelvis Ultrasound 03/24/2025 8:03 AM CDT Narrative 03/24/2025 8:28 AM CDT STL FOLLOW UP ----- Pat. Name: NAYELI HERNANDEZ Study Date: 03/24/2025 8:03am Pat. NO: [id number] Referring MD: JEZ ALVAREZ MD Site: [place] Manager Validation: Mariza Russell RDMS : 1995 Age: 29 ----- INDICATION ----- Screening Follow-Up Maternal Obesity (BMI<40) Complicating Cervical Shortening, Confirmed cerclage placed 03/11 CODING ----- Diagnoses Z3A.24: Weeks of gestation O99.212: Obesity complicating O26.872: Cervical shortening Z3A.24: Weeks of gestation O26.872: Cervical shortening O99.212: Obesity complicating Z3A.24: Weeks of gestation Z36.2: Encounter for other screening follow-up O26.872: Cervical shortening O99.212: Obesity complicating Procedures 85529: Ultrasound, uterus, real time with image documentation, follow up, transabdominal approach per fetus HISTORY ----- OB History 6. Para 2 Hess children born living (T) 2. Miscarriages 3 T2A3L2 1. live . Details: MATERNAL ASSESSMENT ----- Physical Exam Weight 84 kg. Initial weight 79 kg, 175 lb. BMI 35.14 kg/m . Initial BMI 33.07 kg/m . Weight gain 5 kg, 11 lb METHOD ----- Transabdominal ultrasound examination ----- Hess . Number of fetuses: 1 DATING ----- LMP on: 09/14/2024 Cycle: regular cycle GA by LMP 27 w + 2 d SUNDAY by LMP: 06/21/2025 GA by prior assessment 24 w + 4 d SUNDAY by prior assessment: 07/10/2025 Ultrasound examination on: 03/24/2025 GA by U/S based upon: AC, BPD, EFW, Femur, HC GA by U/S 25 w + 6 d SUNDAY by U/S: 07/01/2025 Method of dating: Restore dating from previous exam Assigned: based on stated SUNDAY, selected on 02/24/2025 Assigned GA 24 w + 4 d Assigned SUNDAY: 07/10/2025 BIOMETRY ----- BPD 63.5 mm 25w 5d 81% Hadlock OFD 84.6 mm 27w 3d >99% Anitha HC 235.8 mm 25w 4d 69% Hadlock AC 224.8 mm 26w 6d 95% Hadlock Femur 46.5 mm 25w 3d 66% Hadlock HC / AC 1.05 10% Nicolaides Weight Calculation: EFW 904 g 26w 0d 96% Hadlock EFW (lb,oz) 2 lb 0 oz EFW by Hadlock ([id number]) Extremities / Bony Struc Biometry: FL / BPD 0.73 FL / HC 0.20 FL / AC 0.21 GENERAL EVALUATION ----- Cardiac activity present. FHR 143 bpm. movements: present. Presentation: breech Placenta: Placental site: anterior Umbilical cord: Cord vessels: 3 vessel cord Amniotic fluid: Amount of AF: normal amount. MVP 5.3 cm. ANDRE 15.2 cm. Q1 5.3 cm, Q2 3.1 cm, Q3 2.5 cm, Q4 4.3 cm ANATOMY ----- The following structures appear normal: Head / Neck Cranium. Lateral ventricles. Choroid plexus. Midline falx. Cavum septi pellucidi. Cerebellum. Cisterna magna. Heart / Thorax 4-chamber view. RVOT view. LVOT view. 3-vessel view. Cardiac rhythm. Diaphragm. Abdomen Stomach. Kidneys. Bladder. Extremities / Left foot. Skeleton sex: male. GROWTH OVERVIEW ----- Exam date GA BPD (mm) HC (mm) AC (mm) FL (mm) HL (mm) EFW (g) 02/24/2025 20w 4d 50.1 73% 185.5 56% 186.0 99% 37.3 84% 36.4 97% 507 >99% 03/24/2025 24w 4d 63.5 81% 235.8 69% 224.8 95% 46.5 66% 904 96% COMMENT ----- Patient's name and date of were verified by the badger distiller operator prior to the exam IMPRESSION ----- -Single living fetus with a gestational age of 24w 4d based on the reported dates. -breech presentation. -The EFW is 904 g which is at the 96%. The abdominal circumference is at the 95%. -Unremarkable limited anatomy noted to extent of ultrasound views. Left foot and diaphragm visualized. -The amniotic fluid is normal for gestational age. (ANDRE of 15.2 cm, MVP of 5.3 cm) -The placenta is anterior Recommend: Follow up growth at 28-30 weeks Thank you for allowing us to participate in the care of this patient. Procedure Note Sanket Greco MD - 03/24/2025 STL FOLLOW UP ----- Pat. Name:Anushka HERNANDEZ Date:03/24/2025 8:03am Pat. NO: [id number] MD:JEZ ALVAREZ [facility]Mar[facility] RDMS :1995Age:29 ----- INDICATION ----- Screening Follow-Up Maternal Obesity (BMI<40) Complicating Cervical Shortening, Confirmed cerclage placed03/11 CODING ----- Diagnoses Z3A.24: Weeks of gestation O99.212: Obesity complicating O26.872: Cervical shortening Z3A.24: Weeks of gestation O26.872: Cervical shortening O99.212: Obesity complicating Z3A.24: Weeks of gestation Z36.2: Encounter for other screeningfollow-up O26.872: Cervical shortening O99.212: Obesity complicating Procedures 03861: Ultrasound, uterus, real time withimage documentation, follow up, transabdominal approach per fetus HISTORY ----- OB History 6. Para 2 Hess children born living (T) 2. Miscarriages3 T2A3L2 1. live . Details: MATERNAL ASSESSMENT ----- Physical Exam Weight 84 kg. Initial weight 79 kg, 175 lb. BMI35.14 kg/m . Initial BMI 33.07 kg/m . Weight gain 5 kg, 11 lb METHOD ----- Transabdominal ultrasound examination ----- Hess . Number of fetuses: 1 DATING ----- LMP on:09/14/2024 Cycle:regular cycle GA by LMP27 w + 2 d SUNDAY by LMP:06/21/2025 GA by prior [email or web address] w + 4 d SUNDAY by prior assessment:07/10/2025 Ultrasound examination on:03/24/2025 GA by U/S based upon:AC, BPD, EFW, Femur, HC GA by U/S25 w + 6 d SUNDAY by U/S:07/01/2025 Method of dating:Restore dating from previous exam Assigned:based on stated SUNDAY, selected on 02/24/2025 Assigned GA24 w + 4 d Assigned SUNDAY:07/10/2025 BIOMETRY ----- BPD 63.5 mm 25w 5d 81%Hadlock OFD 84.6 mm 27w 3d >99%Anitha HC 235.8 mm 25w 4d 69%Hadlock AC 224.8 mm 26w 6d 95%Hadlock Femur 46.5 mm 25w 3d 66%Hadlock HC / AC 1.05 10%Nicolaides Weight Calculation: EFW 904 g 26w 0d 96%Hadlock EFW (lb,oz) 2 lb 0 oz EFW by Hadlock ([id number]) Extremities / Bony Struc Biometry: FL / BPD 0.73 FL / HC 0.20 FL / AC 0.21 GENERAL EVALUATION ----- Cardiac activity present. FHR 143 bpm. movements: present.Presentation: breech Placenta: Placental site: anterior Umbilical cord: Cord vessels: 3 vessel cord Amniotic fluid: Amount of AF: normal amount. MVP 5.3 cm. ANDRE 15.2 cm. Q15.3 cm, Q2 3.1 cm, Q3 2.5 cm, Q4 4.3 cm ANATOMY ----- The following structures appear normal: Head / Neck Cranium. Lateral ventricles. Choroid plexus.Midline falx. Cavum septi pellucidi. Cerebellum. Cisterna magna. Heart / Thorax 4-chamber view. RVOT view. LVOT view. 3-vesselview. Cardiac rhythm. Diaphragm. Abdomen Stomach. Kidneys. Bladder. Extremities / Left foot. Skeleton sex: male. GROWTH OVERVIEW ----- Exam date GA BPD (mm) HC (mm) AC (mm) FL(mm) HL (mm) EFW (g) 02/24/2025 20w 4d 50.1 73% 185.5 56% 186.0 99%37.3 84% 36.4 97% 507 >99% 03/24/2025 24w 4d 63.5 81% 235.8 69% 224.8 95%46.5 66% 904 96% COMMENT ----- Patient's name and date of were verified by the badger distiller operator prior tothe exam IMPRESSION ----- -Single living fetus with a gestational age of 24w 4d based on thereported dates. -breech presentation. -The EFW is 904 g which is at the 96%. The abdominal circumference is atthe 95%. -Unremarkable limited anatomy noted to extent of ultrasound views.Left foot and diaphragm visualized. -The amniotic fluid is normal for gestational age. (ANDRE of 15.2 cm, MVP of5.3 cm) -The placenta is anterior Recommend: Follow up growth at 28-30 weeks Thank you for allowing us to participate in the care of this patient. us Clarke Hong MD ORDERABLES Final Re sult documented in this encounter Visit Diagnoses Diagnosis screening for malformation using ultrasonics Encounter for routine screening for malformation using ultrasonics Subchorionic hemorrhage in second trimester documented in this encounter Care Teams Qualitative Field Project Manager Relationship Specialty Start Date End Date Karla Godfrey NP [facility] [address] [address] PCP - General NURSE PRACTITIONER 02/09/15 documented as of this encounter
--- OUTSIDE RECORDS SUMMARY | 2025-03-24 10:15 | XMS_ITS | Encounter Summary ---
Author Organization [facility] Address 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
--- OUTSIDE RECORDS SUMMARY | 2025-03-24 10:15 | XMS_ITS | Clinical Summary ---
Author Organization [facility] Address [address] [place] [phone] Phone Care Team Providers Care Core Shaper Top Name Role Phone Karla Godfrey RESEARCH QUALITY ASSURANCE ANALYST Primary Care Provider Allergies No known active allergies Medications progesterone micronized (Prometrium) 200 mg Capsule Insert 1 Capsule (200 mg) vaginally daily. 200 mg Prometrium per vagina each night at bedtime. 30 Capsule 5 5 Active indomethacin (INDOCIN) 25 mg capsule Take 1 Capsule (25 mg) by mouth every 6 hours for 2 days. 8 Capsule 03/11/2025 1:51 PM CDT 5 03/13/20 25 Active Problems Problem Noted Date Diagnosed Date 22 weeks gestation of 03/11/2025 Short cervix affecting 03/10/2025 Estimated Date of Delivery Comme nts Yes 07/10/2025 Based on Other B asis Encounters Date Type Department Care Team Description 03/24/2025 7:45 AM CDT Hospital Encounter [facility] Maternal and Health [facility] Holger Cordon 3rd [place] [address] Clarke Hong MD Arrived 03/22/2025 External Device Data STL ABSTRACTION Provider, Abstract 03/22/2025 External Device Data STL ABSTRACTION Provider, Abstract 03/22/2025 External Device Data STL ABSTRACTION Provider, Abstract 03/15/2025 External Device Data STL ABSTRACTION Provider, Abstract 03/15/2025 External Device Data STL ABSTRACTION Provider, Abstract 03/15/2025 External Device Data STL ABSTRACTION Provider, Abstract 03/11/2025 10:35 AM CDT Anesthesia Event [facility] Labor & [address] [place] [address] La Rivas MD 03/11/2025 10:30 AM CDT - 03/11/2025 11:28 AM CDT Surgery [facility] Labor & [address] [place] [address] Georgia Muir MD CERVICAL CERCLAGE 03/10/2025 10:21 AM CDT - 03/11/2025 2:15 PM CDT Hospital Encounter [facility] Labor & [address] [place] [address] Ernesto Alvarez MD Conner, Shayna N, MD Short cervix affecting Discharge Disposition: Home or Self Care 03/10/2025 8:00 AM CDT - 03/10/2025 11:59 PM CDT Hospital Encounter [facility] Holger Cordon [address] [place] [phone] Clarke Hong MD Discharge Disposition: Home or Self Care 03/10/2025 Travel 03/03/2025 8:30 AM CDT - 03/03/2025 11:59 PM CDT Hospital Encounter [facility] Holger Cordon [address] [place] [phone] Clarke Hong MD Discharge Disposition: Home or Self Care 03/01/2025 External Device Data STL ABSTRACTION Provider, Abstract 03/01/2025 External Device Data STL ABSTRACTION Provider, Abstract 03/01/2025 External Device Data STL ABSTRACTION Provider, Abstract 02/24/2025 8:10 AM CDT - 02/24/2025 11:59 PM CDT Hospital Encounter [facility] Holger Cordon [address] [place] [phone] Jez Alvarez MD Discharge Disposition: Home or Self Care 02/24/2025 [facility] [address] [place] [address] [place] [address] Danay Deleon RN Question 02/24/2025 Orders Only Jayleen Maternal and Ground Floor S [facility] [place] [address] [place] [address] Clarke Hong MD from Last 3 Months Social History Tobacco [...] on file 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 Gender Identity Not on file Sexual Orientation Not on file Last Filed Vital Signs Vital Sign Reading Time Taken Comments Blood Pressure 120/70 03/11/2025 1:54 PM CDT Pulse 65 03/11/2025 1:15 PM CDT Temperature 37.1 C (98.8 F) 03/11/2025 11:23 AM CDT Respiratory Rate 21 03/11/2025 1:15 PM CDT Oxygen Saturation 100% 03/11/2025 1:15 PM CDT Inhaled Oxygen Concentration - - Weight 84.4 kg (186 lb) 03/10/2025 11:14 AM CDT Height 154.9 cm (5' 1 ) 03/10/2025 11:14 AM CDT Body Mass Index 35.14 03/10/2025 11:14 AM CDT Plan of Treatment Health Maintenance Due Date Last Done Comments HEPATITIS B VACCINES (1 of 3 - 19+ 3-dose series) 2015 CERVICAL CANCER SCREENING 2017 HPV/Cotest (21-29) 2017 PAP SMEAR 2017 DTAP/TDAP/TD VACCINES (2 - T d or Tdap) 05/09/2024 05/09/2014 INFLUENZA VACCINE (#1) 2024 HPV VACCINES Aged Out No longer eligi ble based on patient's age to complete this topic RSV VACCINE (60+ or ) (No Doses Required) Completed Procedures Procedure Name Priority Date/Time Associated Diagnosis Comments US OB FOLLOW UP PER FETUS Routine 03/24/2025 8:26 AM CDT screening for malformation using ultrasonics Subchorionic hemorrhage in second trimester TELEMETRY REPORT 03/16/2025 12:3 1 PM CDT ID ANESTHESIA BLOCK PB PLACEHOLDER CHARGE Routine 03/11/2025 10:56 AM CDT ID CERCLAGE CERVIX VAGINAL 03/11/2025 10:30 AM CDT SUNDAY 07/10 VERIFICATION BLOOD GROUP Stat 03/10/2025 1:19 PM CDT Encounter for blood typing TYPE AND SCREEN, Stat 03/10/2025 12:36 PM CDT HEPATITIS C ANTIBODY Stat 03/10/2025 12:36 PM CDT HIV DETECTION W/REFLX CONFIRMATION Stat 03/10/2025 12:36 PM CDT RUBELLA IGG Stat 03/10/2025 12:36 PM CDT RPR Stat 03/10/2025 12:36 PM CDT HEPATITIS B SURFACE ANTIGEN Stat 03/10/2025 12:36 PM CDT CBC WITH DIFFERENTIAL Stat 03/10/2025 12:36 PM CDT OBSTETRIC PANEL Stat 03/10/2025 12:36 PM CDT US OB LTD 1 OR MORE FETUS + TV Routine 03/10/2025 8:57 AM CDT screening for malformation using ultrasonics Subchorionic hemorrhage in second trimester Cervical shortening affecting in second trimester US OB LTD 1 OR MORE FETUS + TV Routine 03/03/2025 9:46 AM CDT screening for malformation using ultrasonics Subchorionic hemorrhage in second trimester Cervical shortening affecting in second trimester US OB DETAIL SINGLE GEST Routine 02/24/2025 9:41 AM CDT screening for malformation using ultrasonics Subchorionic hemorrhage in second trimester from Last 3 Months Results * US OB FOLLOW UP PER FETUS (03/24/2025 8:26 AM CDT) Anatomical Region Laterality Modality Pelvis Ultrasound 03/24/2025 8:03 AM CDT Narrative 03/24/2025 8:28 AM CDT STL FOLLOW UP ----- Pat. Name: NAYELI HERNANDEZ Study Date: 03/24/2025 8:03am Pat. NO: [id number] Referring MD: JEZ ALVAREZ MD Site: [employer]: Mariza Russell RDMS : 1995 Age: 29 ----- INDICATION ----- Screening Follow-Up Maternal Obesity (BMI<40) Complicating Cervical Shortening, Confirmed cerclage placed 03/11 CODING ----- Diagnoses Z3A.24: Weeks of gestation O99.212: Obesity complicating O26.872: Cervical shortening Z3A.24: Weeks of gestation O26.872: Cervical shortening O99.212: Obesity complicating Z3A.24: Weeks of gestation Z36.2: Encounter for other screening follow-up O26.872: Cervical shortening O99.212: Obesity complicating Procedures 45064: Ultrasound, uterus, real time with image documentation, [...] 2 lb 0 oz EFW by Hadlock ([id number]) Extremities / Bony Struc Biometry: FL / [...] and date of were verified by the court advocate prior to the exam IMPRESSION ----- -Single [...] Pat. Name:Anushka HERNANDEZ Date:03/24/2025 8:03am Pat. NO: [id number] MD:JEZ ALVAREZ MD [facility]Mar[facility] Russell RDMS :1995Age:29 ----- INDICATION ----- Screening Follow-Up Maternal Obesity (BMI<40) Complicating Cervical Shortening, Confirmed cerclage placed4/11 CODING ----- Diagnoses Z3A.24: Weeks of gestation O99.212: Obesity complicating O26.872: Cervical shortening Z3A.24: Weeks of gestation O26.872: Cervical shortening O99.212: Obesity complicating Z3A.24: Weeks of gestation Z36.2: Encounter for other screeningfollow-up O26.872: Cervical shortening O99.212: Obesity complicating Procedures 47840: Ultrasound, uterus, real time withimage documentation, follow [...] d SUNDAY by LMP:06/21/2025 GA by prior [id number] w + 4 d SUNDAY by prior [...] 2 lb 0 oz EFW by Hadlock ([id number]) Extremities / Bony Struc Biometry: FL / [...] and date of were verified by the court advocate prior tothe exam IMPRESSION ----- -Single living [...] of this patient. us Clarke Hong MD US ORDERABLES Final Re sult * TELEMETRY REPORT (03/16/2025 12:31 PM CDT) us Provider Scanning ECG ORDERABLES Final Result * ID ANESTHESIA BLOCK PB PLACEHOLDER CHARGE (03/11/2025 10:56 AM CDT) Narrative Lnio Mercer CRNA - 03/11/2025 10:56 AM CDT Lino Mercer CRNA 03/11/2025 10:57 AM Spinal Block Patient location during procedure: OB Reason for block: primary anesthetic Staffing Performed: ANT/CAA Authorized by: La Rivas MD Performed by: Lino Mercer CRNA Preanesthetic Checklist Completed: patient identified, IV checked, risks and benefits discussed, monitors and equipment checked, pre-op evaluation and timeout performed Spinal Hand hygiene performed prior to procedure Patient was prepped and draped in usual sterile fashion Time out performed Mask worn Patient position: Sitting Prep: ChloraPrep and site prepped and draped Local Anesthetic: Lidocaine 1% without epinephrine Patient monitoring: Continuous pulse oximetry, EKG and Non-invasive blood pressure Approach: Midline Location: L4-5 (Lumbar) Injection Technique: Single-shot [place] Identification: palpation technique Number of Attempts: 2 Spinal Needle Needle type: Pencil-tip Needle gauge: 25 G Needle length: 10 cmCSF visualized Assessment No paresthesia Events: easy and well tolerated Outcome: A full evaluation is pending Additional Notes First attempt by Selena Mercer CRNA unsuccessful. Second attempt by Remy Woodard succcessful. La Rivas MD PROCEDURE/MINOR SURGICAL ORDERAB LES Final Result * VERIFICATION BLOOD GROUP (03/10/2025 1:19 PM CDT) Pathologist [facility] ABO GROUP A 03/10/2025 2:31 PM CDT [facility] RH (D) TYPE Positive 03/10/2025 2:31 PM CDT [facility] Blood Venipuncture / Unknown 03/10/2025 1:19 PM CDT 03/10/2025 1:37 PM CDT us Gwen Santana MD BLOOD BANK ORDERABLES Final Result [facility]# [id number] 5 [facility] [place] [address] * HIV DETECTION W/REFLX CONFIRMATION (03/10/2025 12:36 PM CDT) Pathologist [facility] HIV-1 AND 2 ABS AND HIV-1 AG Non-reacti ve Non-reacti ve 03/10/2025 1:44 PM CDT [facility] Blood Venipuncture / Unknown 03/10/2025 12:36 PM CDT 03/10/2025 12:50 PM CDT Charo Fallon MD CHEMISTRY ORDERABLES Final Re sult Performing Organization Address [facility]/ZIP Co de Phone Number [facility] CLIA# [id number] [address] [place] [address] * TYPE AND SCREEN, (03/10/2025 12:36 PM CDT) [facility] ABO GROUP A 03/10/2025 1:47 PM CDT [facility] RH (D) TYPE Positive 03/10/2025 1:47 PM CDT [facility] ANTIBODY SCREEN Negative 03/10/2025 1:47 PM CDT [facility] -[facility] Blood Venipuncture / Unknown 03/10/2025 12:36 PM CDT 03/10/2025 12:50 PM CDT Charo Fallon MD BLOOD BANK ORDERABLES Edited Result - Final Performing Organization Address [facility] Co de Phone Number [facility]# [id number] [address] [place] [address] * HEPATITIS B SURFACE ANTIGEN (03/10/2025 12:36 PM CDT) [facility] HEPATITIS B SURFACE AG NON-REACT GARY Non-react gary 03/10/2025 1:33 PM CDT [facility] Comment:A non-reactive test result does not exclude the possibility of exposure to or infection with hepatitis B. Blood Venipuncture / Unknown 03/10/2025 12:36 PM CDT 03/10/2025 12:50 PM CDT Charo Fallon MD CHEMISTRY ORDERABLES Final Re sult [facility] CLIA# [id number] [address] [place] [address] * RUBELLA IGG (03/10/2025 12:36 PM CDT) RUBELLA IGG IMMUNE Immune - Positive 03/10/2025 1:30 PM CDT [facility] Blood Venipuncture / Unknown 03/10/2025 12:36 PM CDT 03/10/2025 12:50 PM CDT Narrative [facility] - 03/10/2025 1:30 PM CDT A positive result suggests response to immunization or prior exposure to the virus. Result [facility] Charo Fallon MD CHEMISTRY ORDERABLES Final Re sult Performing Organization Address [facility] Co de Phone Number [facility]# [id number] [address] [place] [address] * HEPATITIS C ANTIBODY W REFLEX (03/10/2025 12:36 PM CDT) Pathologist [facility] HEPATITIS C AB NON-REACT GARY Non-react gary 03/10/2025 1:33 PM CDT [facility] Comment:Antibodies to HCV we re not detected, does not exclude the possibility of exposure to HCV. Blood Venipuncture / Unknown 03/10/2025 12:36 PM CDT 03/10/2025 12:50 PM CDT Result [facility] Charo Fallon MD CHEMISTRY ORDERABLES Final Re sult [facility] [employer] [facility] CLIA# [id number] [address] [place] [address] * (ABNORMAL) CBC WITH DIFFERENTIAL (03/10/2025 12:36 PM CDT) [facility] Signature WBC 10.7(H) 4.0 - 9.8 K/uL 03/10/2025 1:03 PM CDT [facility] RBC 4.23 3.90 - 4.90 M/uL 03/10/2025 1:03 PM CDT [facility] HEMOGLOBIN 12.3 11.8 - 14.8 g/dL 03/10/2025 1:03 PM CDT [facility] HEMATOCRIT 38.2 35.5 - 44.0 % 03/10/2025 1:03 PM CDT [facility] MCV 90.3 82.0 - 99.0 fL 03/10/2025 1:03 PM CDT [facility] MCH 29.1 27.2 - 32.6 pg 03/10/2025 1:03 PM CDT [facility] MCHC 32.2 31.5 - 35.5 g/dL 03/10/2025 1:03 PM CDT [facility] RDW 13.3 11.5 - 14.5 % 03/10/2025 1:03 PM CDT [facility] RDW-STDEV 43.8 37.1 - 48.7 fL 03/10/2025 1:03 PM CDT [facility] PLATELETS 273 140 - 350 K/uL 03/10/2025 1:03 PM CDT [facility] MPV 10.9 9.3 - 12.4 fL 03/10/2025 1:03 PM CDT [facility] NEUTROPHILS 68 % 03/10/2025 1:03 PM CDT [facility] . [facility] LYMPHOCYTES 23 % 03/10/2025 1:03 PM CDT [facility] - . [facility] MONOCYTES 7 % 03/10/2025 1:03 PM CDT [facility] - . [facility] EOSINOPHILS 1 % 03/10/2025 1:03 PM CDT [facility] BASOPHILS 0 % 03/10/2025 1:03 PM CDT [facility] IMMATURE GRANULOCYTES 1 % 03/10/2025 1:03 PM CDT [facility] Comment:IG (Immature Granulo cyte) count includes Metamyelocytes, Myelocytes, and Promyelocytes NEUTROPHIL ABSOLUTE 7.22(H) 1.90 - 7.00 K/uL 03/10/2025 1:03 PM CDT [facility] LYMPHOCYTE ABSOLUTE 2.50 0.70 - 4.50 K/uL 03/10/2025 1:03 PM CDT [facility] MONOCYTE ABSOLUTE 0.72 0.10 - 1.30 K/uL 03/10/2025 1:03 PM CDT [facility] EOSINOPHIL ABSOLUTE 0.15 0.00 - 0.70 K/uL 03/10/2025 1:03 PM CDT [facility] BASOPHILS ABSOLUTE 0.03 0.00 - 0.20 K/uL 03/10/2025 1:03 PM CDT [facility] IMMATURE GRANULOCYTES ABSOLUTE 0.05(H) 0.00 - 0.03 K/uL 03/10/2025 1:03 PM CDT [facility] Blood Venipuncture / Unknown 03/10/2025 12:36 PM CDT 03/10/2025 12:50 PM CDT us Charo Fallon MD HEMATOLOGY ORDERABLES Final R esult [facility]# [id number] [address] [place] [address] * RPR (03/10/2025 12:36 PM CDT) RPR NON-REACTI VE Non-Reacti ve 03/11/2025 8:34 AM CDT [facility] Blood Venipuncture / Unknown 03/10/2025 12:36 PM CDT 03/10/2025 12:50 PM CDT us Charo Fallon MD CHEMISTRY ORDERABLES Final Re sult [facility]# [id number] [address] [place] [address] * US OB LTD 1 OR MORE FETUS + TV (03/10/2025 8:57 AM CDT) Only the most recent of2 resultswithin the time period is included. Anatomical Region Laterality Modality Pelvis Ultrasound 03/10/2025 8:19 AM CDT Narrative 03/10/2025 9:08 AM CDT STL LIMITED ----- Pat. Name: NAYELI HERNANDEZ Study Date: 03/10/2025 8:19am Pat. NO: [id number] Referring MD: JEZ ALVAREZ MD Site: [employer]: Mariza Russell RDMS : 1995 Age: 29 ----- INDICATION ----- Maternal Obesity (BMI<40) Complicating Cervical Shortening, Confirmed CODING ----- Diagnoses Z3A.22: Weeks of gestation O99.212: Obesity complicating O26.872: Cervical shortening Z3A.22: Weeks of gestation O26.872: Cervical shortening O99.212: Obesity complicating Procedures 83273: Ultrasound, uterus, real time with image documentation, limited one or more fetuses 75637: Ultrasound, uterus, real time with image documentation HISTORY ----- OB History 6. Para 2 Hess children born living (T) 2. Miscarriages 3 T2A3L2 1. live . Details: MATERNAL ASSESSMENT ----- Physical Exam Weight 86 kg. Initial weight 79 kg, 175 lb. BMI 35.90 kg/m . Initial BMI 33.07 kg/m . Weight gain 7 kg, 15 lb METHOD ----- Transabdominal and transvaginal ultrasound examination ----- Hess . Number of fetuses: 1 DATING ----- LMP on: 09/14/2024 Cycle: regular cycle GA by LMP 25 w + 2 d SUNDAY by LMP: 06/21/2025 GA by prior assessment 22 w + 4 d SUNDAY by prior assessment: 07/10/2025 Method of dating: Restore dating from previous exam Assigned: based on stated SUNDAY, selected on 02/24/2025 Assigned GA 22 w + 4 d Assigned SUNDAY: 07/10/2025 GENERAL EVALUATION ----- Cardiac activity present. FHR 124 bpm. movements: present. Presentation: breech Placenta: Placental site: anterior Umbilical cord: Cord vessels: 3 vessel cord Amniotic fluid: Amount of AF: normal amount. MVP 4.6 cm. ANDRE 10.6 cm. Q1 3.5 cm, Q2 0.0 cm, Q3 2.5 cm, Q4 4.6 cm ANATOMY ----- The following structures appear normal: Face Palate. Heart / Thorax 4-chamber view. RVOT view. LVOT view. 3-vessel view. 3-rqtlax-dsewyhc view. Cardiac rhythm. Abdomen Stomach. Kidneys. Bladder. sex: male. MATERNAL STRUCTURES ----- Cervix Normal Approach - Transvaginal: Cervical length 13.0 mm GROWTH OVERVIEW ----- Exam date GA BPD (mm) HC (mm) AC (mm) FL (mm) HL (mm) EFW (g) 02/24/2025 20w 4d 50.1 73% 185.5 56% 186.0 99% 37.3 84% 36.4 97% 507 >99% COMMENT ----- Patient's name and date of were verified by the court advocate prior to the exam. Steph Duvall was present for the transvaginal ultrasound and served as a requisition approver. IMPRESSION ----- 1. Single living fetus with a gestational age of 22w 4d based on the reported clinical dates. 2. Limited anatomy appears grossly unremarkable. 3. Cervical length is 13.4mm, which is normal for gestational age. A V-shaped funnel is noted with minimal debris at the the level of the internal cervical os. 4. Amniotic fluid volume is normal for gestational age. Comments: I had the pleasure of seeing your patient in follow-up for the above mentioned indications. We reviewed the overall sonographic findings and the limitations associated with ultrasound evaluations. Specifically we reviewed the finding of a shorter cervix. We reviewed her options including both continuation of the vaginal progesterone nightly until 36 completed weeks versus consideration for a cerclage procedure given a TVU-CL <15mm. We reviewed the risks related to the procedure, including but not limited to, bleeding, infection, injury to surrounding organs, sepsis and in rare cases maternal . The patient expressed understanding and elected to pursue a cerclage procedure. Last PO intake was 0800. Patient instructed to remain NPO at this time. Dr. Alvarez notified. [facility] on service, Dr Fallon, notified. [facility] Nurse notified. All pertinent questions were addressed over the telephone. Recommendations: - Resume routine surveillance . - Continue nightly vaginal progesterone. Thank you for allowing us to participate in the care of this patient. Procedure Note Georgia Muir MD - 03/10/2025 STL LIMITED ----- Jammie. Name:Anushka HERNANDEZ Date:03/10/2025 8:19am Pat. NO: [id number] MD:JEZ ALVAREZ MD [facility] RD[facility] :1995Age:29 ----- INDICATION ----- Maternal Obesity (BMI<40) Complicating Cervical Shortening, Confirmed CODING ----- Diagnoses Z3A.22: Weeks of gestation O99.212: Obesity complicating O26.872: Cervical shortening Z3A.22: Weeks of gestation O26.872: Cervical shortening O99.212: Obesity complicating Procedures 99171: Ultrasound, uterus, real time withimage documentation, limited one or more fetuses 98389: Ultrasound, uterus, real time withimage documentation HISTORY ----- OB History 6. Para 2 Hess children born living (T) 2. Miscarriages3 T2A3L2 1. live . Details: MATERNAL ASSESSMENT ----- Physical Exam Weight 86 kg. Initial weight 79 kg, 175 lb. BMI35.90 kg/m . Initial BMI 33.07 kg/m . Weight gain 7 kg, 15 lb METHOD ----- Transabdominal and transvaginal ultrasound examination ----- Hess . Number of fetuses: 1 DATING ----- LMP on:09/14/2024 Cycle:regular cycle GA by LMP25 w + 2 d SUNDAY by LMP:06/21/2025 GA by prior [id number] w + 4 d SUNDAY by prior assessment:07/10/2025 Method of dating:Restore dating from previous exam Assigned:based on stated SUNDAY, selected on 02/24/2025 Assigned GA22 w + 4 d Assigned SUNDAY:07/10/2025 GENERAL EVALUATION ----- Cardiac activity present. FHR 124 bpm. movements: present.Presentation: breech Placenta: Placental site: anterior Umbilical cord: Cord vessels: 3 vessel cord Amniotic fluid: Amount of AF: normal amount. MVP 4.6 cm. ANDRE 10.6 cm. Q13.5 cm, Q2 0.0 cm, Q3 2.5 cm, Q4 4.6 cm ANATOMY ----- The following structures appear normal: Face Palate. Heart / Thorax 4-chamber view. RVOT view. LVOT view. 3-vesselview. 1-emwgxl-wflsprg view. Cardiac rhythm. Abdomen Stomach. Kidneys. Bladder. sex: male. MATERNAL STRUCTURES ----- Cervix Normal Approach - Transvaginal: Cervical length 13.0 mm GROWTH OVERVIEW ----- Exam date GA BPD (mm) HC (mm) AC (mm) FL(mm) HL (mm) EFW (g) 02/24/2025 20w 4d 50.1 73% 185.5 56% 186.0 99%37.3 84% 36.4 97% 507 >99% COMMENT ----- Patient's name and date of were verified by the court advocate prior tothe exam. Steph Duvall was present for the transvaginal ultrasound and served as achaperone. IMPRESSION ----- 1. Single living fetus with a gestational age of 22w 4d based on thereported clinical dates. 2. Limited anatomy appears grossly unremarkable. 3. Cervical length is 13.4mm, which is normal for gestational age. AV-shaped funnel is noted with minimal debris at the the level of the internal cervical os. 4. Amniotic fluid volume is normal for gestational age. Comments: I had the pleasure of seeing your patient in follow-up for theabove mentioned indications. We reviewed the overall sonographic findings and the limitations associated with ultrasoundevaluations. Specifically we reviewed the finding of a shorter cervix. We reviewed her options including both continuation of thevaginal progesterone nightly until 36 completed weeks versus consideration for a cerclage procedure given a TVU-CL <15mm. Wereviewed the risks related to the procedure, including but not limited to, bleeding, infection, injury to surrounding organs, sepsisand in rare cases maternal . The patient expressed understanding and elected to pursue a cerclage procedure. Last PO intake was 0800. Patient instructed to remain NPO at this time. Dr. Alvarez notified. [facility] on service, Dr Fallon, notified. [facility] Charge Nurse notified. All pertinent questions were addressed over the telephone. Recommendations: - Resume routine surveillance . - Continue nightly vaginal progesterone. Thank you for allowing us to participate in the care of this patient. us Clarke Hong MD US ORDERABLES Final Re sult * US OB DETAIL SINGLE GEST (02/24/2025 9:41 AM CDT) Anatomical Region Laterality Modality Pelvis Ultrasound 02/24/2025 8:23 AM CDT Narrative 02/24/2025 1:56 PM CDT STL COMP ----- Pat. Name: NAYELI HERNANDEZ Study Date: 02/24/2025 8:23am Pat. NO: [id number] Referring MD: JEZ ALVAREZ MD Site: [employer]: Lucille Infante RDMS : 1995 Age: 29 ----- INDICATION ----- Anatomy Survey LR NIPT MALE per pt Maternal Obesity (BMI<40) Complicating CODING ----- Diagnoses Z3A.20: Weeks of gestation O99.212: Obesity complicating Z36.3: Encounter for screening for malformations Procedures 08335: Ultrasound, uterus, real time with image documentation, and maternal evaluation plus detailed anatomic examination, transabdominal approach HISTORY ----- OB History 6. Para 2 Hess children born living (T) 2. Miscarriages 3 T2A3L2 1. live . Details: MATERNAL ASSESSMENT ----- Physical Exam Weight 79 kg. Initial weight 79 kg, 175 lb. BMI 33.07 kg/m . Initial BMI 33.07 kg/m . Weight gain 0 kg, 0 lb METHOD ----- Transabdominal ultrasound examination ----- Hess . Number of fetuses: 1 DATING ----- LMP on: 09/14/2024 Cycle: regular cycle GA by LMP 23 w + 2 d SUNDAY by LMP: 06/21/2025 Method of dating: based on stated SUNDAY GA by prior assessment 20 w + 4 d SUNDAY by prior assessment: 07/10/2025 Ultrasound examination on: 02/24/2025 GA by U/S based upon: AC, BPD, EFW, Femur, HC GA by U/S 21 w + 6 d SUNDAY by U/S: 07/01/2025 Assigned: based on stated SUNDAY, selected on 02/24/2025 Assigned GA 20 w + 4 d Assigned SUNDAY: 07/10/2025 BIOMETRY ----- BPD 50.1 mm 21w 1d 73% Hadlock OFD 65.0 mm 22w 0d 91% Anitha HC 185.5 mm 20w 6d 56% Hadlock Cerebellum tr 23.4 mm 22w 4d 93% Ha Nuchal fold 4.1 mm AC 186.0 mm 23w 3d 99% Hadlock Femur 37.3 mm 21w 6d 84% Hadlock Humerus 36.4 mm 22w 5d 97% Anitha HC / AC 1.00 <1% Nicolaides Weight Calculation: EFW 507 g 22w 2d >99% Hadlock EFW (lb,oz) 1 lb 2 oz EFW by Hadlock ([id number]) Head / Face / Neck Biometry: Barge Master 5.9 mm CM 8.1 mm 99% Nicolaides Inner IOD 14.5 mm Nasal 7.6 mm bone Extremities / Bony Struc Biometry: FL / BPD 0.74 79% Hadlock FL / HC 0.20 85% Hadlock FL / AC 0.20 6% Hadlock GENERAL EVALUATION ----- Cardiac activity present. FHR 133 bpm. movements: visualized. Presentation: breech Placenta: Placental site: anterior Umbilical cord: Cord vessels: 3 vessel cord. Insertion site: placental insertion: normal Amniotic fluid: Amount of AF: normal amount. MVP 6.1 cm ANATOMY ----- The following structures appear normal: Head / Neck Cranium. Lateral ventricles. Choroid plexus. Midline falx. Cavum septi pellucidi. Cerebellum. Cisterna magna. Nuchal fold. Face Lips. Profile. Nose. Orbits. Heart / Thorax RVOT view. LVOT view. 3-vessel view. 7-bqqvkj-reqdmie view. Situs. Aortic arch view. Ductal arch view. Superior vena cava. Inferior vena cava. High short axis view. Cardiac rhythm. Abdomen Abdominal wall. Cord insertion. Stomach. Kidneys. Bladder. Genitals. Spine Cervical spine. Thoracic spine. Lumbar spine. Sacral spine. Extremities / Arms. Right hand. Left hand. Legs. Right foot. Skeleton The following structures could not be adequately visualized: Face Palate. Heart / Thorax 4-chamber view. Diaphragm. Extremities / Left foot. Skeleton sex: male. MATERNAL STRUCTURES ----- Cervix Visualized Approach - Transabdominal: Cervical length 18.4 mm Right Ovary Normal Size 29 mm x 23 mm x 15 mm. Vol 5.2 cm Left Ovary Normal Size 37 mm x 13 mm x 15 mm. Vol 3.8 cm GROWTH OVERVIEW ----- Exam date GA BPD (mm) HC (mm) AC (mm) FL (mm) HL (mm) EFW (g) 02/24/2025 20w 4d 50.1 73% 185.5 56% 186.0 99% 37.3 84% 36.4 97% 507 >99% COMMENT ----- Patient's name and date of were confirmed by the court advocate prior to the exam IMPRESSION ----- Viable at 20 weeks gestation complicated by maternal obesity. Patient had low risk NIPT. The biometry is consistent with the established gestational age No structural malformations were identified Anatomic survey could not be completed as detailed above Amniotic fluid volume is normal Anterior placenta with normal placental cord insertion appreciated; placenta is not low-lying Transvaginal ultrasound was performed to assess cervical length. There is funneling at the internal os with a residual cervical length of approximately 18 mm. Ultrasound findings were discussed with patient on the phone. Limitations of ultrasound were discussed. Ultrasound cannot identify all structural malformations. We also discussed the decreased cervical length which can be a risk factor for . Risk of may be 30 to 40% with a decrease cervical length. Her previous obstetrical history includes 2 term deliveries and 3 first trimester miscarriages which is reassuring. We discussed that the risk of can be decreased with vaginal progesterone. Vaginal progesterone does not prevent all births in the context of cervical shortening. We discussed that for patients with very short cervix or those patients who have further significant cervical shortening despite use of vaginal progesterone, cervical cerclage may be indicated. Patient and group was agreeable to starting vaginal progesterone. Questions were addressed Recommendations: -Patient was started vaginal Prometrium 2 mg once daily at bedtime -Follow-up cervical length scheduled in 1 week -We discussed appropriate activity levels. Recommend pelvic rest and avoiding any extreme exertion, etc. -Follow-up ultrasound was scheduled in 4 weeks to complete anatomic survey ADDENDUM ----- RETRIGGER Procedure Note Clarke Hong MD - 02/24/2025 STL COMP ----- Pat. Name:Anushka HERNANDEZ Date:02/24/2025 8:23am Pat. NO: [id number] MD:JEZ ALVAREZ MD [facility]LucilleGricelda MACKPA :1995Age:29 ----- INDICATION ----- Anatomy Survey LR NIPT MALE per pt Maternal Obesity (BMI<40) Complicating CODING ----- Diagnoses Z3A.20: Weeks of gestation O99.212: Obesity complicating Z36.3: Encounter for screening formalformations Procedures 46032: Ultrasound, uterus, real time withimage documentation, and maternal evaluation plus detailed anatomic examination,transabdominal approach HISTORY ----- OB History 6. Para 2 Hess children born living (T) 2. Miscarriages3 T2A3L2 1. live . Details: MATERNAL ASSESSMENT ----- Physical Exam Weight 79 kg. Initial weight 79 kg, 175 lb. BMI33.07 kg/m . Initial BMI 33.07 kg/m . Weight gain 0 kg, 0 lb METHOD ----- Transabdominal ultrasound examination ----- Hess . Number of fetuses: 1 DATING ----- LMP on:09/14/2024 Cycle:regular cycle GA by LMP23 w + 2 d SUNDAY by LMP:06/21/2025 Method of dating:based on stated SUNDAY GA by prior w + 4 d SUNDAY by prior assessment:07/10/2025 Ultrasound examination on:02/24/2025 GA by U/S based upon:AC, BPD, EFW, Femur, HC GA by U/S21 w + 6 d SUNDAY by U/S:07/01/2025 Assigned:based on stated SUNDAY, selected on 02/24/2025 Assigned GA20 w + 4 d Assigned SUNDAY:07/10/2025 BIOMETRY ----- BPD 50.1 mm 21w 1d73% Hadlock OFD 65.0 mm 22w 0d91% Anitha HC 185.5 mm 20w 6d56% Hadlock Cerebellum tr 23.4 mm 22w 4d93% Ha Nuchal fold 4.1 mm AC 186.0 mm 23w 3d99% Hadlock Femur 37.3 mm 21w 6d84% Hadlock Humerus 36.4 mm 22w 5d97% Anitha HC / AC 1.00 <1%Nicolaides Weight Calculation: EFW 507 g 22w 2d >99%Hadlock EFW (lb,oz) 1 lb 2 oz EFW by Hadlock ([id number]) Head / Face / Neck Biometry: Barge Master 5.9 mm CM 8.1 mm 99%Nicolaides Inner IOD 14.5 mm Nasal 7.6 mm bone Extremities / Bony Struc Biometry: FL / BPD 0.74 79%Hadlock FL / HC 0.20 85%Hadlock FL / AC 0.20 6%Hadlock GENERAL EVALUATION ----- Cardiac activity present. FHR 133 bpm. movements: visualized.Presentation: breech Placenta: Placental site: anterior Umbilical cord: Cord vessels: 3 vessel cord. Insertion site: placentalinsertion: normal Amniotic fluid: Amount of AF: normal amount. MVP 6.1 cm ANATOMY ----- The following structures appear normal: Head / Neck Cranium. Lateral ventricles. Choroid plexus.Midline falx. Cavum septi pellucidi. Cerebellum. Cisterna magna. Nuchal fold. Face Lips. Profile. Nose. Orbits. Heart / Thorax RVOT view. LVOT view. 3-vessel view.6-snmzae-xlagmig view. Situs. Aortic arch view. Ductal arch view. Superior vena cava. Inferior vena cava. High shortaxis view. Cardiac rhythm. Abdomen Abdominal wall. Cord insertion. Stomach. Kidneys.Bladder. Genitals. Spine Cervical spine. Thoracic spine. Lumbar spine.Sacral spine. Extremities / Arms. Right hand. Left hand. Legs. Right foot. Skeleton The following structures could not be adequately visualized: Face Palate. Heart / Thorax 4-chamber view. Diaphragm. Extremities / Left foot. Skeleton sex: male. MATERNAL STRUCTURES ----- Cervix Visualized Approach - Transabdominal: Cervical length 18.4mm Right Ovary Normal Size 29 mm x 23 mm x 15 mm. Vol 5.2 cm Left Ovary Normal Size 37 mm x 13 mm x 15 mm. Vol 3.8 cm GROWTH OVERVIEW ----- Exam date GA BPD (mm) HC (mm) AC (mm) FL(mm) HL (mm) EFW (g) 02/24/2025 20w 4d 50.1 73% 185.5 56% 186.0 99%37.3 84% 36.4 97% 507 >99% COMMENT ----- Patient's name and date of were confirmed by the court advocate priorto the exam IMPRESSION ----- Viable at 20 weeks gestation complicated by maternal obesity.Patient had low risk NIPT. The biometry is consistent with the established gestational age No structural malformations were identified Anatomic survey could not be completed as detailed above Amniotic fluid volume is normal Anterior placenta with normal placental cord insertion appreciated;placenta is not low-lying Transvaginal ultrasound was performed to assess cervical length. There isfunneling at the internal os with a residual cervical length of approximately 18 mm. Ultrasound findings were discussed with patient on the phone. Limitationsof ultrasound were discussed. Ultrasound cannot identify all structural malformations. We also discussed the decreasedcervical length which can be a risk factor for . Risk of may be 30 to 40% with a decrease cervicallength. Her previous obstetrical history includes 2 term deliveries and 3 first trimester miscarriages which is reassuring. Wediscussed that the risk of can be decreased with vaginal progesterone. Vaginal progesterone does not prevent allpreterm births in the context of cervical shortening. We discussed that for patients with very short cervix or those patients whohave further significant cervical shortening despite use of vaginal progesterone, cervical cerclage may be indicated. Patient andgroup was agreeable to starting vaginal progesterone. Questions were addressed Recommendations: -Patient was started vaginal Prometrium 2 mg once daily at bedtime -Follow-up cervical length scheduled in 1 week -We discussed appropriate activity levels. Recommend pelvic rest andavoiding any extreme exertion, etc. -Follow-up ultrasound was scheduled in 4 weeks to complete anatomicsurvey ADDENDUM ----- RETRIGGER Jez Alvarez MD ORDERABLES Edited Result - Final from Last 3 Months Insurance [employer] [place] [facility] [employer] [place] [employer] (INTERNAL) [facility] Internal Plans Advance Directives For more information, please contact: [phone] * Full Code (Latest Code Status on File) Date Activated Date Inactivated Comments 03/10/2025 12:14 PM 03/11/2025 5:19 PM Care Teams Core Shaper Top Relationship Specialty Start Date End Date Karla Godfrey NP [address] [address] PCP - General NURSE PRACTITIONER 02/09/15
--- OUTSIDE RECORDS SUMMARY | 2025-03-24 10:15 | XMS_ITS | Clinical Summary ---
Author Organization [facility] [address] Address [address] [place] [address] Care Team Providers Care Auricular Acupuncturist Name Role Phone Jez Swartz MD Primary Care Provider [phone] Allergies No known active allergies Medications metroNIDAZOLE (FLAGYL) 500 mg tablet Take 1 tablet (500 mg total) by mouth every 12 (twelve) hours for 7 days 05/15/2023 Active PNV with [id number] 27 mg iron- 1 mg tablet Take [...] on file Legal Sex Female 7:59 PM PROJECT DEVELOPMENT LEADER Gender Identity Not on file Sexual Orientation Not on file Obstetrics History Last Filed Vital Signs Vital Sign Reading Time Taken Comments Blood Pressure 114/69 11/20/2023 1:55 PM PROJECT DEVELOPMENT LEADER Pulse 64 11/20/2023 2:00 PM PROJECT DEVELOPMENT LEADER Temperature 36.9 C (98.4 F) 11/20/2023 11:01 AM PROJECT DEVELOPMENT LEADER Respiratory Rate 20 11/20/2023 11:01 AM PROJECT DEVELOPMENT LEADER Oxygen Saturation 100% 11/20/2023 2:00 PM PROJECT DEVELOPMENT LEADER Inhaled Oxygen Concentration - - Weight 78.2 kg (172 lb 8 oz) 11/20/2023 11:01 AM PROJECT DEVELOPMENT LEADER Height 154.9 cm (5' 1 ) 11/20/2023 11:01 AM PROJECT DEVELOPMENT LEADER Body Mass Index 32.59 11/20/2023 11:01 AM PROJECT DEVELOPMENT LEADER Plan of Treatment Health Maintenance Due Date Last Done Comments Cervical Cancer Screening 1996 Depression Screening 1996 Hepatitis C Screening 1996 Varicella Vaccines (1 of 2 - 13+ 2-dose series) 2009 Regular Well Visit/Exam 18-64 2014 Pneumococcal vaccine <65 (1 of 2 - PCV) 2015 Influenza Vaccine (Season Ended) 2025 09/04/20 11 DTaP/Tdap/Td Vaccine (10 - T d or Tdap) 12/01/2026 12/01/2016, 06/23/2015, 05/09/2014, Additional history exists Hepatitis B Screening Completed 04/21/1997 , 01/28/1997, 1996 HPV Vaccines Completed 03/17/2008, 10/31, 09/09/[address] [place] [address] [facility] Care Teams Auricular Acupuncturist Relationship Specialty Start Date End Date eJz Swartz MD [address] [facility] [address] [place] [address] PCP - General Obstetrics and Gynecology 04/23/23
--- OUTSIDE RECORDS SUMMARY | 2025-03-24 10:15 | XMS_ITS | Referral Summary ---
Author Organization [facility] [address] Address [address] [place] [address] Care Team Providers Care Nut Processing Supervisor Name Role Phone Jez Swartz MD Primary Care Provider [phone] Allergies No known active allergies Medications metroNIDAZOLE (FLAGYL) 500 mg tablet Take 1 tablet (500 mg total) by mouth every 12 (twelve) hours for 7 days 05/15/2023 Active PNV with [id number] 27 mg iron- 1 mg tablet Take [...] on file Legal Sex Female 7:59 PM PREPRINT ANALYST Gender Identity Not on file Sexual Orientation Not on file Last Filed Vital Signs Vital Sign Reading Time Taken Comments Blood Pressure 114/69 11/20/2023 1:55 PM PREPRINT ANALYST Pulse 64 11/20/2023 2:00 PM PREPRINT ANALYST Temperature 36.9 C (98.4 F) 11/20/2023 11:01 AM PREPRINT ANALYST Respiratory Rate 20 11/20/2023 11:01 AM PREPRINT ANALYST Oxygen Saturation 100% 11/20/2023 2:00 PM PREPRINT ANALYST Inhaled Oxygen Concentration - - Weight 78.2 kg (172 lb 8 oz) 11/20/2023 11:01 AM PREPRINT ANALYST Height 154.9 cm (5' 1 ) 11/20/2023 11:01 AM PREPRINT ANALYST Body Mass Index 32.59 11/20/2023 11:01 AM PREPRINT ANALYST Plan of Treatment Not on file Insurance Care Teams Nut Processing Supervisor Relationship Specialty Start Date End Date Jez Swartz MD [address] [facility] [address] [place] [address] PCP - General Obstetrics and Gynecology 04/23/23
[2025-03-24 10:51] LABS: Hematocrit 34.9 % (37.0-47.0); Hemoglobin 11.4 g/dL (12.0-15.0); Mean Corpuscular HGB Conc 32.7 g/dl (32-36); Mean Corpuscular Hemoglobin 29.3 pg (26-34); Mean Corpuscular Volume 89.7 fl (80-100); Mean Platelet Volume 10.7 fl (7.4-10.4); Platelet Count Result 276 k/mm3 (150-375); Red Blood Count 3.89 M/mm3 (4.2-5.4); Red Cell Distribution Width 14.1 % (11.5-14.5); White Blood Count 10.7 K/mm3 (4.5-10.0)
[2025-03-24 11:03] LABS: Glucose 1 Hour PP 50gm Dose 245 mg/dL
== END 2025-03-24 09:26 | disposition home or self-care (01) ==
LOC: ANHLAB 09:27
PROVIDERS: PCP Physician Assistant; Visit Provider Nurse Practitioner Obstetrics & Gynecology
DX: Z34.90 Encounter for supervision of normal pregnancy, unspecified, unspecified trimester (principal); Z3A.00 Weeks of gestation of pregnancy not specified
CPT/HCPCS: 36415; 82947; 85027

== ENCOUNTER 2025-06-07 13:40 | Outpatient (CLI) | payer OTHER, SELFPAY ==
--- OUTSIDE RECORDS SUMMARY | 2025-06-07 13:44 | XMS_ITS | Clinical Summary ---
Author Organization [facility] [address] Address [address] [place] [address] Care Team Providers Care Freelance Patternmaker Name Role Phone Jez Swartz MD Primary Care Provider [phone] Allergies No known active allergies Medications metroNIDAZOLE (FLAGYL) 500 mg tablet Take 1 tablet (500 mg total) by mouth every 12 (twelve) hours for 7 days 05/15/2023 Active PNV with [id number]-[id number] 27 mg iron- 1 mg tablet Take [...] on file Legal Sex Female 7:59 PM TRAFFIC SIGNAL MECHANIC Gender Identity Not on file Sexual Orientation Not on file Obstetrics History Last Filed Vital Signs Vital Sign Reading Time Taken Comments Blood Pressure 114/69 11/20/2023 1:55 PM TRAFFIC SIGNAL MECHANIC Pulse 64 11/20/2023 2:00 PM TRAFFIC SIGNAL MECHANIC Temperature 36.9 C (98.4 F) 11/20/2023 11:01 AM TRAFFIC SIGNAL MECHANIC Respiratory Rate 20 11/20/2023 11:01 AM TRAFFIC SIGNAL MECHANIC Oxygen Saturation 100% 11/20/2023 2:00 PM TRAFFIC SIGNAL MECHANIC Inhaled Oxygen Concentration - - Weight 78.2 kg (172 lb 8 oz) 11/20/2023 11:01 AM TRAFFIC SIGNAL MECHANIC Height 154.9 cm (5' 1) 11/20/2023 11:01 AM TRAFFIC SIGNAL MECHANIC Body Mass Index 32.59 11/20/2023 11:01 AM TRAFFIC SIGNAL MECHANIC Plan of Treatment Health Maintenance Due Date Last Done Comments Cervical Cancer Screening 1996 Depression Screening 1996 Hepatitis C Screening 1996 Varicella Vaccines (1 of 2 - 13+ 2-dose series) 2009 Regular Well Visit/Exam 18-64 2014 Pneumococcal vaccine <65 (1 of 2 - PCV) 2015 Influenza Vaccine (#1) 2025 09/04/2011 DTaP/Tdap/Td Vaccine (10 - T d or Tdap) 12/01/2026 12/01/2016, 06/23/2015, 05/09/2014, Additional history exists Hepatitis B Screening Completed 04/21/1997 , 01/28/1997, 1996 HPV Vaccines Completed 03/17/2008, 10/31, 09/09/[address] [place] [address] [facility] Care Teams Freelance Patternmaker Relationship Specialty Start Date End Date Jez Swartz MD [address] [facility] [address] [place] [address] PCP - General Obstetrics and Gynecology 04/23/23
--- OUTSIDE RECORDS SUMMARY | 2025-06-07 13:44 | XMS_ITS | Referral Summary ---
Author Organization [facility] [address] Address [address] [place] [address] Care Team Providers Care Local Delivery Truck Driver Name Role Phone Jez Swartz MD Primary Care Provider [phone] Allergies No known active allergies Medications metroNIDAZOLE (FLAGYL) 500 mg tablet Take 1 tablet (500 mg total) by mouth every 12 (twelve) hours for 7 days 05/15/2023 Active PNV with elahxpq-trab-GV 27 mg iron- 1 mg tablet Take [...] on file Legal Sex Female 7:59 PM THERAPEUTIC RECREATION SPECIALIST Gender Identity Not on file Sexual Orientation Not on file Last Filed Vital Signs Vital Sign Reading Time Taken Comments Blood Pressure 114/69 11/20/2023 1:55 PM THERAPEUTIC RECREATION SPECIALIST Pulse 64 11/20/2023 2:00 PM THERAPEUTIC RECREATION SPECIALIST Temperature 36.9 C (98.4 F) 11/20/2023 11:01 AM THERAPEUTIC RECREATION SPECIALIST Respiratory Rate 20 11/20/2023 11:01 AM THERAPEUTIC RECREATION SPECIALIST Oxygen Saturation 100% 11/20/2023 2:00 PM THERAPEUTIC RECREATION SPECIALIST Inhaled Oxygen Concentration - - Weight 78.2 kg (172 lb 8 oz) 11/20/2023 11:01 AM THERAPEUTIC RECREATION SPECIALIST Height 154.9 cm (5' 1) 11/20/2023 11:01 AM THERAPEUTIC RECREATION SPECIALIST Body Mass Index 32.59 11/20/2023 11:01 AM THERAPEUTIC RECREATION SPECIALIST Plan of Treatment Not on file Insurance Care Teams Local Delivery Truck Driver Relationship Specialty Start Date End Date Jez Swartz MD [address] [facility] [address] [place] [address] PCP - General Obstetrics and Gynecology 04/23/23
--- OUTSIDE RECORDS SUMMARY | 2025-06-07 13:44 | XMS_ITS | Encounter Summary ---
Author Organization [facility] Address [address] [place] [address] Care Team Providers Care Electromedical Equipment Technician Name Role Phone Karla Godfrey NP Primary Care Provider Reason for Referral * Radiology Services (Routine) - Closed Specialty Diagnoses / Procedures Referred By Ai shi Referred To Contact Diagnoses Insulin controlled gestational diabetes mellitus (GDM) in second trimester Cervical cerclage suture present in second trimester Bicuspid aortic valve 27 weeks gestation of Supervision of high risk in second trimester Procedures US OB LIMITED + NST CA NONSTRESS TEST CHG US UTERUS LIMITED 1/> FETUSES Leslie Winters NP [address] [address] Phone: tel: fax: [facility] Maternal and Ground Floor S [facility] [address] [place] [address] Phone: tel: fax: Referral ID Status Reason Start Date Expiration Date Visits Re quested Visits Authorized [id number] Closed 04/20/2025 05/21/2026 1 1 Reason for Visit * Radiology Services (Routine) - Closed Specialty Diagnoses / Procedures Referred By Ai shi Referred To Contact Diagnoses Insulin controlled gestational diabetes mellitus (GDM) in second trimester Cervical cerclage suture present in second trimester Bicuspid aortic valve 27 weeks gestation of Supervision of high risk in second trimester Procedures US OB LIMITED + NST CA NONSTRESS TEST CHG US UTERUS LIMITED 1/> FETUSES Leslie Winters NP [address] [facility] [address], [place] [address] Phone: tel: fax: Do Maternal and Ground Floor S [facility] [address] [facility] [place] [address] Phone: tel: fax: Referral ID Status Reason Start Date Expiration Date Visits Re quested Visits Authorized [id number] Closed 04/20/2025 05/21/2026 1 1 Encounter Details Date Type Department Care Team (Latest Contact Info) Description 06/06/2025 9:15 AM CDT - 06/06/2025 11:59 PM CDT Hospital Encounter Do Maternal and Ground Floor [facility] [place] [address] Leslie Winters NP [address] [facility] [place] [address] Arrived Discharge Disposition: Home or Self Care Social History Tobacco Use Types Packs/Day Years Used Date Smoking Tobacco: Former Cigarettes Smokeless Tobacco: Never Alcohol Use Standard Drinks/Week Comments Not Currently 0 (1 standard drink = 0.6 oz pur e alcohol) Feeling Safe Answer Date Recorded Are you [...] on file 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 Replace sensor every 15 days. 2 Each 5 04/26/2025 Contour Plus Test Strip StripIndications: Insulin controlled gestational diabetes mellitus (GDM) during , antepartum Use to test blood sugar 4 times daily as directed 150 Strip 4 04/26/2025 Se-Gayatri 19 29 mg iron- 1 mg Tablet Take 1 Tablet by mouth daily. 03/16/2025 insulin glargine (Lantus Solostar U-100 Insulin) 100 unit/mL pen syringeIndication s:Insulin controlled gestational diabetes mellitus (GDM) in second trimester Inject 16 units SQ qHS. Max dose 50U/day 15 mL 4 04/15/2025 TRUEplus Pen Needle 31 gauge x 02/13 NeedleIndications :Insulin controlled gestational diabetes mellitus (GDM) in second trimester Use to administer insulin as directed 100 Each 5 04/15/2025 Microlet Lancet 1 Each 4 times daily before meals and at bedtime. 03/31/2025 progesterone micronized (Prometrium) 200 mg Capsule Insert 1 Capsule (200 mg) vaginally daily. 200 mg Prometrium per vagina each night at bedtime. 30 Capsule 5 02/24/2025 documented as of this encounter Plan of Treatment Upcoming Encounters Date Type Department Care Team (Late st Contact Info) Description 06/09/2025 9:15 AM CDT Appointment [facility] Maternal and Ground Floor S [facility] [address] [place] [phone] Leslie Winters NP [address] [facility] [address] [address] 06/09/2025 2:30 PM CDT Video Visit [facility] Maternal and Medicine - Medical [place] [facility] [address] [facility] [address], [place] [address] Danay Butler NP [address] [facility] [address] [address] 06/13/2025 9:15 AM CDT Appointment [facility] Maternal and Ground Floor [address] [place] [address] [place] [id number] Vianey Leslie, LENS INSERTER [address] [facility] [place] [address] 06/13/2025 9:45 AM CDT Appointment Do Maternal and Ground Floor [address] [place] [place] [phone] VianeySarahLeslie, LENS INSERTER [address] [facility] [place] [address] 06/16/2025 9:15 AM CDT Appointment Do Maternal and Ground Floor [address] [place] [address] [place] [phone] Leslie Winters, LENS INSERTER [address] [facility] [place] [address] documented as of this encounter Procedures Procedure Name Priority Date/Time Associated Diagnosis Comments US OB LIMITED + NST Routine 06/06/2025 1 1:21 AM CDT Insulin controlled gestational diabetes mellitus (GDM) in second trimester Cervical cerclage suture present in second trimester Bicuspid aortic valve 27 weeks gestation of Supervision of high risk in second trimester documented in this encounter Results * US OB LIMITED + NST (06/06/2025 11:21 AM CDT) Anatomical Region Laterality Modality Pelvis Ultrasound 06/06/2025 9:51 AM CDT Narrative 06/06/2025 11:23 AM CDT MODIFIED [facility] STUDY ----- Pat. Name: NAYELI HERNANDEZ Study Date: 06/06/2025 9:51am Pat. NO: [id number] Referring MD: ABRAM ALVAREZ MD Site: [facility] Key Account Coordinator: : 1995 Age: 29 ----- INDICATION ----- Maternal Obesity (BMI<40) Complicating Cervical Shortening, Confirmed Gestational Diabetes, Insulin Controlled Maternal Cardiac Disease, Congenital, Specify Condition Cervix, Incompetent with or without Cerclage cerclage placed 03/11/25 CODING ----- Diagnoses Z3A.35: Weeks of gestation O99.213: Obesity complicating O26.873: Cervical shortening O99.413: Diseases of the circulatory system complicating O24.414: Gestational diabetes mellitus in , insulin controlled O34.33: Maternal care for cervical incompetence Procedures 99250: NST/ monitoring 91964: Limited 1 or more - ANDRE, FHR, position (modifier 59 for MBPP) HISTORY ----- OB History 6. Para 2 Hess children born living (T) 2. Miscarriages 3 T2A3L2 1. live . Details: MATERNAL ASSESSMENT ----- Physical Exam Initial weight 79 kg, 175 lb. Initial BMI 33.07 kg/m . Blood pressure 116/74 mmHg. Heart rate 74 bpm METHOD ----- EFM, Transabdominal ultrasound examination. View: Good view ----- Hess . Number of fetuses: 1 DATING ----- LMP on: 09/14/2024 Cycle: regular cycle GA by LMP 37 w + 6 d SUNDAY by LMP: 06/21/2025 GA by prior assessment 35 w + 1 d SUNDAY by prior assessment: 07/10/2025 Method of dating: Restore dating from previous exam Assigned: based on stated SUNDAY, selected on 05/23/2025 Assigned GA 35 w + 1 d Assigned SUNDAY: 07/10/2025 GENERAL EVALUATION ----- Cardiac activity present. FHR 141 bpm. movements: visualized. Presentation: cephalic NON STRESS TEST ----- NST interpretation: reactive. Test duration 22 min. Baseline FHR 135 bpm. Baseline variability: moderate. Accelerations: Present. Decelerations: absent. Uterine activity: absent AMNIOTIC FLUID ASSESSMENT ----- Amount of AF: normal amount MVP 5.5 cm. ANDRE 12.9 cm. Q1 2.6 cm, Q2 5.5 cm, Q3 1.7 cm, Q4 3.0 cm COMMENT ----- Nurses Notes: Patient reports positive movement and no bleeding, leaking of fluid or dandy. Patient scheduled twice weekly. IMPRESSION ----- Reassuring modified BPP Procedure Note Clarke Hong MD - 06/06/2025 MODIFIED BPP STUDY ----- Pat. Name:Anushka HERNANDEZ Date:06/06/2025 9:51am Pat. NO: [id number] :ABRAM ALVAREZ MD [facility]1995Age:29 ----- INDICATION ----- Maternal Obesity (BMI<40) Complicating Cervical Shortening, Confirmed Gestational Diabetes, Insulin Controlled Maternal Cardiac Disease, Congenital, Specify Condition Cervix, Incompetent with or without Cerclage cerclage placed03/11/25 CODING ----- Diagnoses Z3A.35: Weeks of gestation O99.213: Obesity complicating O26.873: Cervical shortening O99.413: Diseases of the circulatory systemcomplicating O24.414: Gestational diabetes mellitus inpregnancy, insulin controlled O34.33: Maternal care for cervical incompetence Procedures 22698: NST/ monitoring 73509: Limited 1 or more - ANDRE, FHR, position(modifier 59 for MBPP) HISTORY ----- OB History 6. Para 2 Hess children born living (T) 2. Miscarriages3 T2A3L2 1. live . Details: MATERNAL ASSESSMENT ----- Physical Exam Initial weight 79 kg, 175 lb. Initial BMI 33.07kg/m . Blood pressure 116/74 mmHg. Heart rate 74 bpm METHOD ----- EFM, Transabdominal ultrasound examination. View: Good view ----- Hess . Number of fetuses: 1 DATING ----- LMP on:09/14/2024 Cycle:regular cycle GA by LMP37 w + 6 d SUNDAY by LMP:06/21/2025 GA by prior [id number] w + 1 d SUNDAY by prior assessment:07/10/2025 Method of dating:Restore dating from previous exam Assigned:based on stated SUNDAY, selected on 05/23/2025 Assigned GA35 w + 1 d Assigned SUNDAY:07/10/2025 GENERAL EVALUATION ----- Cardiac activity present. FHR 141 bpm. movements: visualized.Presentation: cephalic NON STRESS TEST ----- NST interpretation: reactive. Test duration 22 min. Baseline FHR 135 bpm.Baseline variability: moderate. Accelerations: Present. Decelerations: absent. Uterine activity: absent AMNIOTIC FLUID ASSESSMENT ----- Amount of AF: normal amount MVP 5.5 cm. ANDRE 12.9 cm. Q1 2.6 cm, Q2 5.5 cm, Q3 1.7 cm, Q4 3.0 cm COMMENT ----- Nurses Notes: Patient reports positive movement and no bleeding,leaking of fluid or dandy. Patient scheduled twice weekly. IMPRESSION ----- Reassuring modified BP us Leslie Winters NP ORDERABLES Final Result documented in this encounter Visit Diagnoses Diagnosis Insulin controlled gestational diabetes mellitus (GDM) in second trimester Cervical cerclage suture present in second trimester Bicuspid aortic valve Congenital insufficiency of aortic valve 27 weeks gestation of state, incidental Supervision of high risk in second trimester Unspecified high-risk documented in this encounter Care Teams Electromedical Equipment Technician Relationship Specialty Start Date End Date Karla Godfrey NP [address] [place] [address] PCP - General NURSE PRACTITIONER 02/09/15 documented as of this encounter
--- OUTSIDE RECORDS SUMMARY | 2025-06-07 13:44 | XMS_ITS | Clinical Summary ---
Author Organization [facility] Address [address] [place] [address] Care Team Providers Care Bus And Trolley Inspecting Dispatcher Name Role Phone Nikole Godinez Primary Care Provider [phone] Allergies No known active allergies Medications HYDROcodone-acet [...] Comments Blood Pressure 115/73 11/22/2024 9:19 PM NC MANAGER Pulse 63 11/22/2024 9:19 PM NC MANAGER Temperature 36.9 C (98.4 F) 11/22/2024 7:30 PM NC MANAGER Respiratory Rate 18 11/22/2024 9:19 PM NC MANAGER Oxygen Saturation 100% 11/22/2024 9:19 PM NC MANAGER Inhaled Oxygen Concentration - - Weight 81.2 kg (179 lb 0.2 oz) 11/22/2024 5:09 P M NC MANAGER Height 154.9 cm (5' 1) 11/22/2024 5:09 PM NC MANAGER Body Mass Index 33.82 11/22/2024 5:09 PM NC MANAGER Plan of Treatment Health Maintenance Due Date Last Done Comments Annual Physical 1999 Hepatitis C 2014 COVID-19 Vaccine ( season) 2024 Cervical Cancer Screening Pap Smear (Age 21 [...] 5 Years) and At-Risk Patients (6 to 49 Years) Aged Out No longer eligible based on patient's age to complete this topic RSV Immunizations Under 20 Months Aged Out No longer eligible based on patient's age to complete this topic Insurance [employer] Care Teams Bus And Trolley Inspecting Dispatcher Relationship Specialty Start Date End Date Nikole Godinez PA [address] [place] [address] PCP - General PHYSICIAN RAILROAD SIGNAL AND SWITCH OPERATOR 04/15/23
--- OUTSIDE RECORDS SUMMARY | 2025-06-07 13:44 | XMS_ITS | Clinical Summary ---
Author Organization [facility] Address [address] [place] [phone] Phone Care Team Providers Care Order Administrator Name Role Phone Karla Godfrey NP Primary Care Provider Allergies No known active allergies Medications progesterone micronized (Prometrium) 200 mg Capsule Insert 1 Capsule (200 mg) vaginally daily. 200 mg Prometrium per vagina each night at bedtime. 30 Capsule 5 5 Active Microlet Lancet 1 Each 4 times daily before meals and at bedtime. 5 Active Se-Gayatri 19 29 mg iron- 1 mg Tablet Take 1 Tablet by mouth daily. 5 Active insulin glargine (Lantus Solostar U-100 Insulin) 100 unit/mL pen syringeIndicati ons:Insulin controlled gestational diabetes mellitus (GDM) in second trimester Inject 16 units SQ qHS. Max dose 50U/day 15 mL 4 5 Active Additional Information Patient taking differently: StoppedInject 16 units SQ qHS. Max dose 50U/day, Reported on 05/06/2025 TRUEplus Pen Needle 31 gauge x 16 NeedleIndicatio ns:Insulin controlled gestational diabetes mellitus (GDM) in second trimester Use to administer insulin as directed 100 Each 5 5 Active FreeStyle Ashley 3 Plus Sensor DeviceIndicatio ns:Insulin controlled gestational diabetes mellitus (GDM) during , antepartum Use to monitor glucose continuously. Replace sensor every 15 days. 2 Each 5 5 Active Contour Plus Test Strip StripIndication s:Insulin controlled gestational diabetes mellitus (GDM) during , antepartum Use to test blood sugar 4 times daily as directed 150 Strip 4 Active Active Problems Problem Noted Date Diagnosed Date 27 weeks gestation of 04/15/2025 Cervical cerclage suture present in second trime ster 04/15/2025 Bicuspid aortic valve 04/15/2025 22 weeks gestation of 03/11/2025 Short cervix affecting 03/10/2025 Gestational diabetes 04/19/2014 Supervision of other high ri sk pregnancies, unspecified trimester 04/19/2014 Overview (04/14/2025): GBS: negative Estimated Date of Delivery Comme nts Yes 07/10/2025 Based on Other B asis Encounters Date Type Department Care Team Description 06/06/2025 9:15 AM CDT - 06/06/2025 11:59 PM CDT [facility] [address] [place] [address] Leslie Winters NP Arrived Discharge Disposition: Home or Self Care 06/02/2025 9:11 AM CDT - 06/02/2025 11:59 PM CDT Hospital En[facility] [address] [place] [address] Leslie Winters NP Discharge Disposition: Home or Self Care 05/31/2025 External Device Data STL ABSTRACTION Provider, Abstract 05/30/2025 9:15 AM CDT - 05/30/2025 11:59 PM CDT Hospital En[facility] [address] [place] [address] Leslie Winters NP Discharge Disposition: Home or Self Care 05/26/2025 9:15 AM CDT - 05/26/2025 11:59 PM CDT Hospital En[facility] [address] [place] [address] Leslie Winters NP Discharge Disposition: Home or Self Care 05/24/2025 Telephone [facility] - [facility] [place] [facility] [address] [place] [phone] Diabetes 05/23/2025 9:00 AM CDT - 05/23/2025 11:59 PM CDT Hospital En[facility] [address] [place] [address] Leslie Winters NP Discharge Disposition: Home or Self Care 05/19/2025 8:00 AM CDT - 05/19/2025 11:59 PM CDT [facility] [address] [place] [address] Leslie Winters NP Discharge Disposition: Home or Self Care 05/16/2025 10:32 AM CDT - 05/16/2025 11:59 PM CDT Hospital Encounter [facility] [address] [place] [address] Leslie Winters NP Discharge Disposition: Home or Self Care 05/16/2025 10:30 AM CDT - 05/16/2025 11:59 PM CDT Hospital Encounter [facility] [address] [place] [address] Leslie Winters NP Discharge Disposition: Home or Self Care 05/11/2025 Telephone [facility] [place] [facility] [address] [facility] [place] [phone] Jade Hernández Follow Up 05/06/2025 11:30 AM CDT Video Visit [facility] [address] [facility] [address] [place] [phone] Georgia Muir MD High risk , antepartum (Primary Dx); Insulin controlled gestational diabetes mellitus (GDM) in third trimester; History of delivery; Short cervical length during , third trimester; Bicuspid aortic valve; 30 weeks gestation of 04/27/2025 Telephone [facility] [address] [place] [address] Alana Barclay MD Insurance Issues 04/26/2025 Orders Only [facility] [place] [facility] [address] [place] [address] Alana Barclay MD Insulin controlled gestational diabetes mellitus (GDM) during , antepartum (Primary Dx) 04/26/2025 Telephone [facility] [place] [facility] [address] [place] [address] Alana Barclay MD Gestational Diabetes 04/15/2025 11:00 AM CDT Video Visit [facility] [address] [place] [address] Leslie Winters NP Insulin controlled gestational diabetes mellitus (GDM) in second trimester (Primary Dx); Cervical cerclage suture present in second trimester; Bicuspid aortic valve; 27 weeks gestation of 04/15/2025 Orders Only [facility] [address] [place] [address] Leslie Winters NP Insulin controlled gestational diabetes mellitus (GDM) in second trimester (Primary Dx); Cervical cerclage suture present in second trimester; Bicuspid aortic valve; 27 weeks gestation of ; Supervision of high risk in second trimester 04/14/2025 Abstract [facility] [place] [facility] [address] [place] [address] Jade Hernández 04/07/2025 9:00 AM CDT Office Visit [facility] [place] [facility] [address] [place] [address] Diet controlled gestational diabetes mellitus (GDM) in second trimester (Primary Dx); 26 weeks gestation of 04/07/2025 Telephone [facility] [place] [facility] [address] [place] [address] Shauna Alfonso No Show 04/06/2025 Orders Only [facility] [place] [facility] [address] [place] [address] Alana Barclay MD Diet controlled gestational diabetes mellitus (GDM) in second trimester (Primary Dx) 04/06/2025 Abstract [facility] [place] [facility] [address] [place] [address] Jade Hernández 03/24/2025 7:45 AM CDT - 03/24/2025 11:59 PM CDT Hospital Encounter [facility] [address] [place] [address] Clarke Hong MD Discharge Disposition: Home or Self Care 03/22/2025 External Device Data STL ABSTRACTION Provider, Abstract 03/22/2025 External Device Data STL ABSTRACTION Provider, Abstract 03/22/2025 External Device Data STL ABSTRACTION Provider, Abstract 03/15/2025 External Device Data STL ABSTRACTION Provider, Abstract 03/15/2025 External Device Data STL ABSTRACTION Provider, Abstract 03/15/2025 External Device Data STL ABSTRACTION Provider, Abstract 03/11/2025 10:35 AM CDT Anesthesia Event [facility] Labor & [address] [place] [address] La Rivas MD 03/11/2025 10:30 AM CDT - 03/11/2025 11:28 AM CDT Surgery [facility] Labor & [address] [place] [address] Georgia Muir MD CERVICAL CERCLAGE 03/10/2025 10:21 AM CDT - 03/11/2025 2:15 PM CDT Hospital Encounter [facility] Labor & [address] [place] [facility] [place] [address] Ernesto Alvarez MD Conner, Shayna N, MD Short cervix affecting Discharge Disposition: Home or Self Care 03/10/2025 8:00 AM CDT - 03/10/2025 11:59 PM CDT Hospital Encounter [facility] [address] [place] [address] Clarke Hong MD Discharge Disposition: Home or Self Care 03/10/2025 Travel from Last 3 Months Family History Medical History Relation Name Comments No Known Problems Father No Known Problems Mother Relation Name Status Comments Father Alive Mother Alive Social History Tobacco Use Types Packs/Day Years Used Date Smoking Tobacco: Former Cigarettes Smokeless Tobacco: Never Tobacco Cessation:Counseling Given: Not [...] on file 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 Gender Identity Not on file Sexual Orientation Not on file Last Filed Vital Signs Vital Sign Reading Time Taken Comments Blood Pressure 120/70 03/11/2025 1:54 PM CDT Pulse 65 03/11/2025 1:15 PM CDT Temperature 37.1 C (98.8 F) 03/11/2025 11:23 AM CDT Respiratory Rate 21 03/11/2025 1:15 PM CDT Oxygen Saturation 100% 03/11/2025 1:15 PM CDT Inhaled Oxygen Concentration - - Weight 87.5 kg (193 lb) 04/14/2025 2:16 PM CDT Height 154.9 cm (5' 1) 04/14/2025 2:16 PM CDT Body Mass Index 36.47 04/14/2025 2:16 PM CDT Plan of Treatment Upcoming Encounters Date Type Department Care Team (Late st Contact Info) Description 06/09/2025 9:15 AM CDT [facility]ointment [facility] [address] [place] [address] Leslie Winters, SABINA [address] [facility] [address] [facility] [place] [address] 06/09/2025 2:30 PM CDT Video Visit [facility] [place] [facility] [address] [place] [address] Danay Butler NP [address] [place] [address] 06/13/2025 9:15 AM CDT Appointment [facility] [address] [place] [address] Leslie Winters NP [address] [facility] [place] [address] 06/13/2025 9:45 AM CDT Appointment [facility] [address] [place] [address] Leslie Winters, SABINA [address] [facility] [address] [place] [address] 06/16/2025 9:15 AM CDT Appointment [facility] [address] [place] [address] Leslie Winters, SABINA [address] [facility] [place] [address] Health Maintenance Due Date Last Done Comments HEPATITIS B VACCINES (1 of 3 - 19+ 3-dose series) 2015 Preventative Visit-Managed Medicaid 2015 CERVICAL CANCER SCREENING 2017 HPV/Cotest (21-29) 2017 PAP SMEAR 2017 DTAP/TDAP/TD VACCINES (2 - T d or Tdap) 05/09/2024 05/09/2014 INFLUENZA VACCINE (#1) 2025 HPV VACCINES Aged Out No longer eligi ble based on patient's age to complete this topic RSV VACCINE (60+ or ) (No Doses Required) Completed Procedures Procedure Name Priority Date/Time Associated Diagnosis Comments OB LIMITED + NST Routine 06/06/2025 1 1:21 AM CDT Insulin controlled gestational diabetes mellitus (GDM) in second trimester Cervical cerclage suture present in second trimester Bicuspid aortic valve 27 weeks gestation of Supervision of high risk in second trimester OB LIMITED + NST Routine 06/02/2025 1 0:49 AM CDT Insulin controlled gestational diabetes mellitus (GDM) in second trimester Cervical cerclage suture present in second trimester Bicuspid aortic valve 27 weeks gestation of Supervision of high risk in second trimester OB LIMITED + NST Routine 05/30/2025 1 0:37 AM CDT Insulin controlled gestational diabetes mellitus (GDM) in second trimester Cervical cerclage suture present in second trimester Bicuspid aortic valve 27 weeks gestation of Supervision of high risk in second trimester US OB LIMITED + NST Routine 05/26/2025 1 0:21 AM CDT Insulin controlled gestational diabetes mellitus (GDM) in second trimester Cervical cerclage suture present in second trimester Bicuspid aortic valve 27 weeks gestation of Supervision of high risk in second trimester OB LIMITED + NST Routine 05/23/2025 1 1:18 AM CDT Insulin controlled gestational diabetes mellitus (GDM) in second trimester Cervical cerclage suture present in second trimester Bicuspid aortic valve 27 weeks gestation of Supervision of high risk in second trimester US OB LIMITED + NST Routine 05/19/2025 9 :43 AM CDT Insulin controlled gestational diabetes mellitus (GDM) in second trimester Cervical cerclage suture present in second trimester Bicuspid aortic valve 27 weeks gestation of US OB FOLLOW UP PER FETUS Routine 05/16/2025 12:16 PM CDT Insulin controlled gestational diabetes mellitus (GDM) in second trimester Cervical cerclage suture present in second trimester Bicuspid aortic valve 27 weeks gestation of Supervision of high risk in second trimester US MONITORING NST Routine 05/16/2025 11:37 AM CDT Insulin controlled gestational diabetes mellitus (GDM) in second trimester Cervical cerclage suture present in second trimester Bicuspid aortic valve 27 weeks gestation of Supervision of high risk in second trimester US OB FOLLOW UP PER FETUS Routine 03/24/2025 8:26 AM CDT screening for malformation using ultrasonics Subchorionic hemorrhage in second trimester TELEMETRY REPORT 03/16/2025 12:3 1 PM CDT MI ANESTHESIA BLOCK PB PLACEHOLDER CHARGE Routine 03/11/2025 10:56 AM CDT MI CERCLAGE CERVIX VAGINAL 03/11/2025 10:30 AM CDT [...] trimester Cervical shortening affecting in second trimester from Last 3 Months Results * US OB LIMITED + NST (06/06/2025 11:21 AM CDT) Only the most recent of6 resultswithin the time period is included. Anatomical Region Laterality Modality Pelvis Ultrasound 06/06/2025 9:51 AM CDT Narrative 06/06/2025 11:23 AM CDT MODIFIED [facility] STUDY ----- Pat. Name: NAYELI HERNANDEZ Study Date: 06/06/2025 9:51am Pat. NO: [id number] Referring MD: ABRAM ALVAREZ MD Site: [facility] Inspector Golf Ball: : 1995 Age: 29 ----- INDICATION ----- [...] O34.33: Maternal care for cervical incompetence Procedures 60396: NST/ monitoring 24622: Limited 1 or more - ANDRE, FHR, [...] Pat. Name:Anushka HERNANDEZ Date:06/06/2025 9:51am Pat. NO: [id number] :ABRAM ALVAREZ MD [facility] :1995Age:29 ----- INDICATION ----- Maternal Obesity (BMI<40) Complicating Cervical Shortening, Confirmed Gestational Diabetes, Insulin Controlled Maternal Cardiac Disease, Congenital, Specify Condition Cervix, Incompetent with or without Cerclage cerclage placed03/11/25 CODING ----- Diagnoses Z3A.35: Weeks of gestation O99.213: Obesity complicating O26.873: Cervical shortening O99.413: Diseases of the circulatory systemcomplicating O24.414: Gestational diabetes mellitus inpregnancy, insulin controlled O34.33: Maternal care for cervical incompetence Procedures 24085: NST/ monitoring 66333: Limited 1 or more - ANDRE, FHR, [...] d SUNDAY by LMP:06/21/2025 GA by prior [id number] w + 1 d SUNDAY by prior [...] twice weekly. IMPRESSION ----- Reassuring modified BPP us Leslie Winters NP US ORDERABLES Final Result * US OB FOLLOW UP PER FETUS (05/16/2025 12:16 PM CDT) Only the most recent of2 resultswithin the time period is included. Anatomical Region Laterality Modality Pelvis Ultrasound 05/16/2025 11:4 0 AM CDT Narrative 05/16/2025 1:07 PM CDT STL FOLLOW UP ----- Pat. Name: NAYELI HERNANDEZ Study Date: 05/16/2025 11:40am Pat. NO: [id number] Referring MD: ABRAM ALVAREZ MD Site: [facility] Inspector Golf Ball: Michael Vernon RDMS : 1995 Age: 29 ----- INDICATION ----- Screening Follow-Up Maternal Obesity (BMI<40) Complicating Cervical Shortening, Confirmed CODING ----- Diagnoses Z3A.32: Weeks of gestation O99.213: Obesity complicating O26.873: Cervical shortening Z3A.32: Weeks of gestation O26.873: Cervical shortening O99.213: Obesity complicating Z3A.32: Weeks of gestation Z36.2: Encounter for other screening follow-up O26.873: Cervical shortening O99.213: Obesity complicating Procedures 88109: Ultrasound, uterus, real time with image documentation, follow up, transabdominal approach per fetus HISTORY ----- OB History 6. Para 2 Hess children born living (T) 2. Miscarriages 3 T2A3L2 1. live . Details: MATERNAL ASSESSMENT ----- Physical Exam Weight 88 kg. Initial weight 79 kg, 175 lb. BMI 36.47 kg/m . Initial BMI 33.07 kg/m . Weight gain 8 kg, 18 lb METHOD ----- Transabdominal ultrasound examination ----- Hess . Number of fetuses: 1 DATING ----- LMP on: 09/14/2024 Cycle: regular cycle GA by LMP 34 w + 6 d SUNDAY by LMP: 06/21/2025 GA by prior assessment 32 w + 1 d SUNDAY by prior assessment: 07/10/2025 Ultrasound examination on: 05/16/2025 GA by U/S based upon: AC, BPD, EFW, Femur, HC GA by U/S 34 w + 2 d SUNDAY by U/S: 06/25/2025 Method of dating: Restore dating from previous exam Assigned: based on stated SUNDAY, selected on 05/16/2025 Assigned GA 32 w + 1 d Assigned SUNDAY: 07/10/2025 BIOMETRY ----- BPD 81.7 mm 32w 6d 63% Hadlock OFD 101.8 mm 33w 0d 72% Anitha HC 292.6 mm 32w 2d 17% Hadlock AC 344.9 mm 38w 3d >99% Hadlock Femur 62.6 mm 32w 3d 44% Hadlock HC / AC 0.85 <1% Nicolaides Weight Calculation: EFW 2,735 g 35w 4d >99% Hadlock EFW (lb,oz) 6 lb 0 oz EFW by Hadlock ([id number]) Extremities / Bony Struc Biometry: FL / BPD 0.77 FL / HC 0.21 FL / AC 0.18 GENERAL EVALUATION ----- Cardiac activity present. FHR 135 bpm. movements: present. Presentation: cephalic Placenta: Placental site: anterior Umbilical cord: Cord vessels: 3 vessel cord. Amniotic fluid: Amount of AF: normal amount. MVP 4.6 cm. ANDRE 13.5 cm. Q1 4.6 cm, Q2 3.5 cm, Q3 3.5 cm, Q4 2.0 cm ANATOMY ----- The following structures appear normal: Head / Neck Cranium. Midline falx. Heart / Thorax 4-chamber view. Diaphragm. Abdomen Stomach. Kidneys. Bladder. sex: male. GROWTH OVERVIEW ----- Exam date GA BPD (mm) HC (mm) AC (mm) FL (mm) HL (mm) EFW (g) 02/24/2025 20w 4d 50.1 73% 185.5 56% 186.0 99% 37.3 84% 36.4 97% 507 >99% 03/24/2025 24w 4d 63.5 81% 235.8 69% 224.8 95% 46.5 66% 904 96% 05/16/2025 32w 1d 81.7 63% 292.6 17% 344.9 >99% 62.6 44% 2,735 >99% COMMENT ----- Patient's name and date of were verified by the semiconductor lab technician prior to the exam IMPRESSION ----- Viable at 32 weeks gestation complicated by maternal obesity Cephalic presentation The biometry is consistent with LGA growth Estimated weight is greater than 99th percentile with a abdominal circumference greater than the 99th percentile No structural malformations were identified within the limitations of a late ultrasound Amniotic fluid volume is normal Anterior placenta. Normal placental cord insertion previously documented. Placenta is not low-lying. Nonstress test to follow Recommendations: - Consider repeat GCT - Twice-weekly modified biophysical profile scheduled - Follow-up growth ultrasound scheduled in 4 weeks Procedure Note Clarke Hong MD - 05/16/2025 STL FOLLOW UP ----- Pat. Name:Anushka HERNANDEZ Date:05/16/2025 11:40am Pat. NO: [id number] :ABRAM ALVAREZ MD [facility]:Michael Vernon RDMS :1995Age:29 ----- INDICATION ----- Screening Follow-Up Maternal Obesity (BMI<40) Complicating Cervical Shortening, Confirmed CODING ----- Diagnoses Z3A.32: Weeks of gestation O99.213: Obesity complicating O26.873: Cervical shortening Z3A.32: Weeks of gestation O26.873: Cervical shortening O99.213: Obesity complicating Z3A.32: Weeks of gestation Z36.2: Encounter for other screeningfollow-up O26.873: Cervical shortening O99.213: Obesity complicating Procedures 28878: Ultrasound, uterus, real time withimage documentation, follow up, transabdominal approach per fetus HISTORY ----- OB History 6. Para 2 Hess children born living (T) 2. Miscarriages3 T2A3L2 1. live . Details: MATERNAL ASSESSMENT ----- Physical Exam Weight 88 kg. Initial weight 79 kg, 175 lb. BMI36.47 kg/m . Initial BMI 33.07 kg/m . Weight gain 8 kg, 18 lb METHOD ----- Transabdominal ultrasound examination ----- Hess . Number of fetuses: 1 DATING ----- LMP on:09/14/2024 Cycle:regular cycle GA by LMP34 w + 6 d SUNDAY by LMP:06/21/2025 GA by prior [id number] w + 1 d SUNDAY by prior assessment:07/10/2025 Ultrasound examination on:05/16/2025 GA by U/S based upon:AC, BPD, EFW, Femur, HC GA by U/S34 w + 2 d SUNDAY by U/S:06/25/2025 Method of dating:Restore dating from previous exam Assigned:based on stated SUNDAY, selected on 05/16/2025 Assigned GA32 w + 1 d Assigned SUNDAY:07/10/2025 BIOMETRY ----- BPD 81.7 mm 32w 6d 63%Hadlock OFD 101.8 mm 33w 0d 72%Anitha HC 292.6 mm 32w 2d 17%Hadlock AC 344.9 mm 38w 3d >99%Hadlock Femur 62.6 mm 32w 3d 44%Hadlock HC / AC 0.85 <1%Nicolaides Weight Calculation: EFW 2,735 g 35w 4d>99% Hadlock EFW (lb,oz) 6 lb 0 oz EFW by Hadlock ([id number]) Extremities / Bony Struc Biometry: FL / BPD 0.77 FL / HC 0.21 FL / AC 0.18 GENERAL EVALUATION ----- Cardiac activity present. FHR 135 bpm. movements: present.Presentation: cephalic Placenta: Placental site: anterior Umbilical cord: Cord vessels: 3 vessel cord. Amniotic fluid: Amount of AF: normal amount. MVP 4.6 cm. ANDRE 13.5 cm. Q14.6 cm, Q2 3.5 cm, Q3 3.5 cm, Q4 2.0 cm ANATOMY ----- The following structures appear normal: Head / Neck Cranium. Midline falx. Heart / Thorax 4-chamber view. Diaphragm. Abdomen Stomach. Kidneys. Bladder. sex: male. GROWTH OVERVIEW ----- Exam date GA BPD (mm) HC (mm) AC (mm)FL (mm) HL (mm) EFW (g) 02/24/2025 20w 4d 50.1 73% 185.5 56% 186.0 99%37.3 84% 36.4 97% 507 >99% 03/24/2025 24w 4d 63.5 81% 235.8 69% 224.8 95%46.5 66% 904 96% 05/16/2025 32w 1d 81.7 63% 292.6 17% 344.9 >99%62.6 44% 2,735 >99% COMMENT ----- Patient's name and date of were verified by the semiconductor lab technician prior tothe exam IMPRESSION ----- Viable at 32 weeks gestation complicated by maternal obesity Cephalic presentation The biometry is consistent with LGA growth Estimated weight is greater than 99th percentile with a abdominalcircumference greater than the 99th percentile No structural malformations were identified within the limitationsof a late ultrasound Amniotic fluid volume is normal Anterior placenta. Normal placental cord insertion previously documented.Placenta is not low-lying. Nonstress test to follow Recommendations: - Consider repeat GCT - Twice-weekly modified biophysical profile scheduled - Follow-up growth ultrasound scheduled in 4 weeks us Leslie Winters NP US ORDERABLES Final Result * US MONITORING NST (05/16/2025 11:37 AM CDT) Anatomical Region Laterality Modality Ultrasound 05/16/2025 11:3 3 AM CDT Narrative 05/16/2025 11:38 AM CDT [facility] NST ----- Pat. Name: NAYELI HERNANDEZ Study Date: 05/16/2025 11:33am Pat. NO: [id number] Referring MD: ABRAM ALVAREZ MD Site: [facility] Inspector Golf Ball: : 1995 Age: 29 ----- INDICATION ----- Screening Follow-Up Maternal Obesity (BMI<40) Complicating Cervical Shortening, Confirmed CODING ----- Diagnoses Z3A.32: Weeks of gestation O99.213: Obesity complicating O26.873: Cervical shortening Procedures 41883: NST/ monitoring HISTORY ----- OB History 6. Para 2 Hess children born living (T) 2. Miscarriages 3 T2A3L2 1. live . Details: MATERNAL ASSESSMENT ----- Physical Exam Initial weight 79 kg, 175 lb. Initial BMI 33.07 kg/m . Blood pressure 133/62 mmHg. Heart rate 80 bpm METHOD ----- EFM ----- Hess . Number of fetuses: 1 DATING ----- LMP on: 09/14/2024 Cycle: regular cycle GA by LMP 34 w + 6 d SUNDAY by LMP: 06/21/2025 Method of dating: based on stated SUNDAY GA by prior assessment 32 w + 1 d SUNDAY by prior assessment: 07/10/2025 Assigned: based on stated SUNDAY, selected on 05/16/2025 Assigned GA 32 w + 1 d Assigned SUNDAY: 07/10/2025 NON STRESS TEST ----- NST interpretation: reactive. Test duration 45 min. Baseline FHR 135 bpm. Baseline variability: moderate. Accelerations: Present. Decelerations: Not present. Uterine activity: absent COMMENT ----- Nursing notes: Patient reports positive movement with no bleeding, leaking or dandy. US after NST. IMPRESSION ----- Reactive NST. Procedure Note Flora Polo MD - 05/16/2025 [facility] NST ----- Pat. Name:Anushka HERNANDEZ Date:05/16/2025 11:33am Pat. NO: [id number] MD:ABRAM ALVAREZ [facility]1995Age:29 ----- INDICATION ----- Screening Follow-Up Maternal Obesity (BMI<40) Complicating Cervical Shortening, Confirmed CODING ----- Diagnoses Z3A.32: Weeks of gestation O99.213: Obesity complicating O26.873: Cervical shortening Procedures 37134: NST/ monitoring HISTORY ----- OB History 6. Para 2 Hess children born living (T) 2. Miscarriages3 T2A3L2 1. live . Details: MATERNAL ASSESSMENT ----- Physical Exam Initial weight 79 kg, 175 lb. Initial BMI 33.07kg/m . Blood pressure 133/62 mmHg. Heart rate 80 bpm METHOD ----- EFM ----- Hess . Number of fetuses: 1 DATING ----- LMP on:09/14/2024 Cycle:regular cycle GA by [id number] w + 6 d SUNDAY by LMP:06/21/2025 Method of dating:based on stated SUNDAY GA by prior [id number] w + 1 d SUNDAY by prior assessment:07/10/2025 Assigned:based on stated SUNDAY, selected on 05/16/2025 Assigned GA32 w + 1 d Assigned SUNDAY:07/10/2025 NON STRESS TEST ----- NST interpretation: reactive. Test duration 45 min. Baseline FHR 135 bpm.Baseline variability: moderate. Accelerations: Present. Decelerations: Not present. Uterine activity: absent COMMENT ----- Nursing notes: Patient reports positive movement with no bleeding,leaking or dandy. US after NST. IMPRESSION ----- Reactive NST. us Leslie Winters NP US ORDERABLES Final Result * TELEMETRY REPORT (03/16/2025 12:31 PM CDT) us Provider Scanning ECG ORDERABLES Final Result * MI ANESTHESIA BLOCK PB PLACEHOLDER CHARGE (03/11/2025 10:56 AM CDT) Narrative Lino Mercer, CONSERVATION EDUCATOR - 03/11/2025 10:56 AM CDT Lino Mercer CRNA 03/11/2025 10:57 AM Spinal Block Patient location during procedure: OB Reason for block: primary anesthetic Staffing Performed: ANT/PABLO Authorized by: La Rivas MD Performed by: [...] Midline Location: L4-5 (Lumbar) Injection Technique: Single-shot [place] Identification: palpation technique Number of Attempts: 2 Spinal Needle Needle type: Pencil-tip Needle gauge: 25 G Needle length: 10 cmCSF visualized Assessment No paresthesia Events: easy and well tolerated Outcome: A full evaluation is pending Additional Notes First attempt by Selena Mercer CRNA unsuccessful. Second attempt by Remy Woodard succcessful. us La Rivas MD PROCEDURE/MINOR SURGICAL ORDERAB LES Final Result * VERIFICATION BLOOD GROUP (03/10/2025 1:19 PM CDT) ABO GROUP A 03/10/2025 2:31 PM CDT [facility] RH (D) TYPE Positive 03/10/2025 2:31 PM CDT [facility] Blood Venipuncture / Unknown 03/10/2025 1:19 PM CDT 03/10/2025 1:37 PM CDT us Gwen Santana MD BLOOD BANK ORDERABLES Final Result [facility] CLIA# [id number] 5 [facility] [place] [address] * HIV DETECTION W/REFLX CONFIRMATION (03/10/2025 12:36 PM CDT) [facility] HIV-1 AND 2 ABS AND HIV-1 AG Non-reacti ve Non-reacti ve 03/10/2025 1:44 PM CDT [facility] Blood Venipuncture / Unknown 03/10/2025 12:36 PM CDT 03/10/2025 12:50 PM CDT Charo Fallon MD CHEMISTRY ORDERABLES Final Re sult [facility] CLIA# [id number] [address] [place] [address] * TYPE AND SCREEN, (03/10/2025 12:36 PM CDT) [facility] ABO GROUP A 03/10/2025 1:47 PM CDT [facility] RH (D) TYPE Positive 03/10/2025 1:47 PM CDT [facility] ANTIBODY SCREEN Negative 03/10/2025 1:47 PM CDT [facility] Blood Venipuncture / Unknown 03/10/2025 12:36 PM CDT 03/10/2025 12:50 PM CDT Charo Fallon MD BLOOD BANK ORDERABLES Edited Result - Final [facility] CLIA# [id number] [address] [place] [address] * HEPATITIS B SURFACE ANTIGEN (03/10/2025 12:36 PM CDT) [facility] HEPATITIS B SURFACE AG NON-REACT GARY Non-react gary 03/10/2025 1:33 PM CDT [facility] Comment:A non-reactive test result does not exclude the possibility of exposure to or infection with hepatitis B. Blood Venipuncture / Unknown 03/10/2025 12:36 PM CDT 03/10/2025 12:50 PM CDT Charo Fallon MD CHEMISTRY ORDERABLES Final Re sult Performing Organization Address [facility]/ZIP Co de Phone Number [facility] CLIA# [id number] [address] [place] [address] * RUBELLA IGG (03/10/2025 12:36 PM CDT) [facility] IMMUNE Immune - Positive 03/10/2025 1:30 PM CDT [facility] Blood Venipuncture / Unknown 03/10/2025 12:36 PM CDT 03/10/2025 12:50 PM CDT Narrative [facility] - 03/10/2025 1:30 PM CDT A positive result suggests response to immunization or prior exposure to the virus. Result [facility] Charo Fallon MD CHEMISTRY ORDERABLES Final Re sult Performing Organization Address [facility] de Phone Number [facility] Mel[facility] CLIA# [id number] [address] [place] [address] * HEPATITIS C ANTIBODY W REFLEX (03/10/2025 12:36 PM CDT) Pathologist [facility] [place] HEPATITIS C AB NON-REACT GARY Non-react gary 03/10/2025 1:33 PM CDT [facility] Comment:Antibodies to HCV we re not detected, does not exclude the possibility of exposure to HCV. Blood Venipuncture / Unknown 03/10/2025 12:36 PM CDT 03/10/2025 12:50 PM CDT Charo Fallon MD CHEMISTRY ORDERABLES Final Re sult Performing Organization Address City/[facility]/ZIP Co de Phone Number [facility] CLIA# [id number] [address] [place] [address] * (ABNORMAL) CBC WITH DIFFERENTIAL (03/10/2025 12:36 PM CDT) WBC 10.7(H) 4.0 - 9.8 K/uL 03/10/2025 1:03 PM CDT [facility] RBC 4.23 3.90 - 4.90 M/uL 03/10/2025 1:03 PM CDT [facility] HEMOGLOBIN 12.3 11.8 - 14.8 g/dL 03/10/2025 1:03 PM CDT [facility] HEMATOCRIT 38.2 35.5 - 44.0 % 03/10/2025 1:03 PM CDT [facility] MCV 90.3 82.0 - 99.0 fL 03/10/2025 1:03 PM CDT [facility] MCH 29.1 27.2 - 32.6 pg 03/10/2025 1:03 PM CDT [facility] MCHC 32.2 31.5 - 35.5 g/dL 03/10/2025 1:03 PM CDT [facility] RDW 13.3 11.5 - 14.5 % 03/10/2025 1:03 PM CDT [facility] RDW-STDEV 43.8 37.1 - 48.7 fL 03/10/2025 1:03 PM CDT [facility] PLATELETS 273 140 - 350 K/uL 03/10/2025 1:03 PM CDT [facility] MPV 10.9 9.3 - 12.4 fL 03/10/2025 1:03 PM CDT [facility] NEUTROPHILS 68 % 03/10/2025 1:03 PM CDT [facility] LYMPHOCYTES 23 % 03/10/2025 1:03 PM CDT [facility] MONOCYTES 7 % 03/10/2025 1:03 PM CDT [facility] EOSINOPHILS 1 % 03/10/2025 1:03 PM CDT [facility] BASOPHILS 0 % 03/10/2025 1:03 PM CDT [facility] IMMATURE GRANULOCYTES 1 % 03/10/2025 1:03 PM CDT [facility] Comment:IG (Immature Granulo cyte) count includes Metamyelocytes, Myelocytes, and Promyelocytes NEUTROPHIL ABSOLUTE 7.22(H) 1.90 - 7.00 K/uL 03/10/2025 1:03 PM CDT [facility] LYMPHOCYTE ABSOLUTE 2.50 0.70 - 4.50 K/uL 03/10/2025 1:03 PM CDT [facility] MONOCYTE ABSOLUTE 0.72 0.10 - 1.30 K/uL 03/10/2025 1:03 PM CDT [facility] EOSINOPHIL ABSOLUTE 0.15 0.00 - 0.70 K/uL 03/10/2025 1:03 PM CDT [facility] BASOPHILS ABSOLUTE 0.03 0.00 - 0.20 K/uL 03/10/2025 1:03 PM CDT [facility] IMMATURE GRANULOCYTES ABSOLUTE 0.05(H) 0.00 - 0.03 K/uL 03/10/2025 1:03 PM CDT [facility] Blood Venipuncture / Unknown 03/10/2025 12:36 PM CDT 03/10/2025 12:50 PM CDT us Charo Fallon MD HEMATOLOGY ORDERABLES Final R esult [facility] CLIA# [id number] [address] [place] [address] * RPR (03/10/2025 12:36 PM CDT) RPR NON-REACTI VE Non-Reacti ve 03/11/2025 8:34 AM CDT [facility] Blood Venipuncture / Unknown 03/10/2025 12:36 PM CDT 03/10/2025 12:50 PM CDT us Charo Fallon MD CHEMISTRY ORDERABLES Final Re sult [facility]# [id number] [address] [place] [address] * US OB LTD 1 OR MORE FETUS + TV (03/10/2025 8:57 AM CDT) Anatomical Region Laterality Modality Pelvis Ultrasound 03/10/2025 8:19 AM CDT Narrative 03/10/2025 9:08 AM CDT [facility] LIMITED ----- Pat. Name: NAYELI HERNANDEZ Study Date: 03/10/2025 8:19am Pat. NO: [id number] Referring MD: ABRAM ALVAREZ MD Site: [employer]: Mariza Russell RDMS : 1995 Age: 29 ----- INDICATION ----- Maternal Obesity (BMI<40) Complicating Cervical Shortening, Confirmed CODING ----- Diagnoses Z3A.22: Weeks of gestation O99.212: Obesity complicating O26.872: Cervical shortening Z3A.22: Weeks of gestation O26.872: Cervical shortening O99.212: Obesity complicating Procedures 79886: Ultrasound, uterus, real time with image documentation, limited one or more fetuses 75307: Ultrasound, uterus, real time with image documentation [...] view. RVOT view. LVOT view. 3-vessel view. 7-dokphk-vywleew view. Cardiac rhythm. Abdomen Stomach. Kidneys. Bladder. [...] and date of were verified by the semiconductor lab technician prior to the exam. Steph Duvall was present for the transvaginal ultrasound and served as a insurance agent. IMPRESSION ----- 1. Single living fetus with [...] NPO at this time. Dr. Alvarez notified. [facility] on service, Dr Fallon, notified. [facility] Charge Nurse notified. All pertinent questions were addressed over the telephone. Recommendations: - Resume routine surveillance . - Continue nightly vaginal progesterone. Thank you for allowing us to participate in the care of this patient. Procedure Note Georgia Muir MD - 03/10/2025 [facility] LIMITED ----- Pat. Name:Anushka HERNANDEZ Date:03/10/2025 8:19am Pat. NO: [id number] :ABRAM ALVAREZ [facility]Mariza Russell RDMS :1995Age:29 ----- INDICATION ----- Maternal Obesity (BMI<40) Complicating Cervical Shortening, Confirmed CODING ----- Diagnoses Z3A.22: Weeks of gestation O99.212: Obesity complicating O26.872: Cervical shortening Z3A.22: Weeks of gestation O26.872: Cervical shortening O99.212: Obesity complicating Procedures 28506: Ultrasound, uterus, real time withimage documentation, limited one or more fetuses 66705: Ultrasound, uterus, real time withimage documentation HISTORY [...] d SUNDAY by LMP:06/21/2025 GA by prior [id number] w + 4 d SUNDAY by prior [...] 4-chamber view. RVOT view. LVOT view. 3-vesselview. 9-jpoxsf-jqewugm view. Cardiac rhythm. Abdomen Stomach. Kidneys. Bladder. sex: male. MATERNAL STRUCTURES ----- Cervix Normal Approach - Transvaginal: Cervical length 13.0 mm GROWTH OVERVIEW ----- Exam date GA BPD (mm) HC (mm) AC (mm) FL(mm) HL (mm) EFW (g) 02/24/2025 20w 4d 50.1 73% 185.5 56% 186.0 99%37.3 84% 36.4 97% 507 >99% COMMENT ----- Patient's name and date of were verified by the semiconductor lab technician prior tothe exam. Steph Duvall was present [...] NPO at this time. Dr. Alvarez notified. [facility] on service, Dr Fallon, notified. [facility] Nurse notified. All pertinent questions were addressed over the telephone. Recommendations: - Resume routine surveillance . - Continue nightly vaginal progesterone. Thank you for allowing us to participate in the care of this patient. us Clarke Hong MD ORDERABLES Final Re sult from Last 3 Months Insurance [employer] [place] RX [facility] [employer] [place] [employer] (INTERNAL) [facility] Internal Plans Advance Directives For more information, please contact: [phone] * Full Code (Latest Code Status on File) Date Activated Date Inactivated Comments 03/10/2025 12:14 PM 03/11/2025 5:19 PM Care Teams Order Administrator Relationship Specialty Start Date End Date Karla Godfrey NP [address] [place] [address] PCP - General NURSE PRACTITIONER 02/09/15
[2025-06-07 14:18] LABS: Hematocrit 36.2 % (37.0-47.0); Hemoglobin 11.8 g/dL (12.0-15.0); Mean Corpuscular HGB Conc 32.6 g/dl (32-36); Mean Corpuscular Hemoglobin 27.9 pg (26-34); Mean Corpuscular Volume 85.6 fl (80-100); Platelet Count Result 251 k/mm3 (150-375); Red Blood Count 4.23 M/mm3 (4.2-5.4); White Blood Count 8.1 K/mm3 (4.5-10.0)
[2025-06-07 14:51] LABS: Syphilis IgG/IgM Antibody Non-Reactive (Nonreactive)
[2025-06-07 15:05] LABS: HIV 1/2 Ab P24 Ag Result Negative (Negative)
== END 2025-06-07 13:41 | disposition home or self-care (01) ==
LOC: ANHLAB 13:42
PROVIDERS: PCP Physician Assistant; Visit Provider Obstetrics & Gynecology
DX: Z34.90 Encounter for supervision of normal pregnancy, unspecified, unspecified trimester (principal); Z3A.00 Weeks of gestation of pregnancy not specified
CPT/HCPCS: 36415; 85027; 86593; 86703; G0432

== ENCOUNTER 2025-06-19 19:24 | Observation (INO) | payer OTHER, SELFPAY ==
--- OUTSIDE RECORDS SUMMARY | 2025-06-19 19:34 | XMS_ITS | Clinical Summary ---
Author Organization [facility] Address [address] [place] [phone] Phone Care Team Providers Care Property Field Adjuster Name Role Phone Karla Godfrey NP Primary Care Provider Allergies No known active allergies Medications progesterone micronized (Prometrium) 200 mg Capsule Insert 1 Capsule (200 mg) vaginally daily. 200 mg Prometrium per vagina each night at bedtime. 30 Capsule 5 02/25/20 25 Active Microlet Lancet 1 Each 4 times daily before meals and at bedtime. 03/31/20 25 Active Se- 19 29 mg iron- 1 mg Tablet Take 1 Tablet by mouth daily. 03/16/20 25 Active insulin glargine (Lantus Solostar U-100 Insulin) 100 unit/mL pen syringeIndicat ions:Insulin controlled gestational diabetes mellitus (GDM) in second trimester Inject 16 units SQ qHS. Max dose 50U/day 15 mL 4 04/15/20 25 Active Additional Information Patient taking differently: StoppedInject 16 units SQ qHS. Max dose 50U/day, Reported on 05/06/2025 FreeStyle Ashley 3 Plus Sensor DeviceIndicati ons:Insulin controlled gestational diabetes mellitus (GDM) during , antepartum Use to monitor glucose continuously. Replace sensor every 15 days. 2 Each 5 04/26/20 25 Active Contour Plus Test Strip StripIndicatio ns:Insulin controlled gestational diabetes mellitus (GDM) during , antepartum Use to test blood sugar 4 times daily as directed 150 Strip 4 04/26/20 25 Active insulin lispro (HumaLOG KwikPen Insulin) 100 unit/mL pen syringeIndicat ions:Insulin controlled gestational diabetes mellitus (GDM) in third trimester Inject 6 Units by subcutaneous injection daily with supper. Max dose of 50U/day 15 mL 1 06/09/20 Active TRUEplus Pen Needle 31 gauge x 16 NeedleIndicati ons:Insulin controlled gestational diabetes mellitus (GDM) in third trimester Use to administer insulin as directed 100 Each 5 06/09/20 25 Active TRUEplus Pen Needle 31 gauge x 316 NeedleIndicati ons:Insulin controlled gestational diabetes mellitus (GDM) in second trimester Use to administer insulin as directed 100 Each 04/15/20 25 2024 Discontinued Active Problems Problem Noted Date Diagnosed Date [...] Encounters Date Type Department Care Team Description 06/13/2025 9:30 AM CDT - 06/13/2025 11:59 PM CDT Hospital Encounter [facility] Maternal and Ground Floor [address] [place] [address] [place] [address] Leslie Winters NP Discharge Disposition: Home or Self Care 06/13/2025 9:15 AM CDT - 06/13/2025 11:59 PM CDT Hospital Encounter [facility] Maternal and Ground Floor [address] [place] [address] [place] [address] Leslie Winters NP Discharge Disposition: Home or Self Care 06/09/2025 2:30 PM CDT Video Visit [facility] Maternal and Medicine - [facility] [place] [address] [place] [address] Danay Butler NP Insulin controlled gestational diabetes mellitus (GDM) in third trimester (Primary Dx); Macrosomia of fetus affecting management of mother in third trimester, single or unspecified fetus; Bicuspid aortic valve; Cervical cerclage suture present in third trimester; 35 weeks gestation of 06/09/2025 9:15 AM CDT - 06/09/2025 11:59 PM CDT Hospital Encounter Do Maternal and Ground Floor [place] [address] [place] [address] Leslie Winters NP Discharge Disposition: Home or Self Care 06/06/2025 9:15 AM CDT - 06/06/2025 11:59 PM CDT Hospital Encounter [facility] Maternal and Ground Floor [place] [address] [place] [address] Leslie Winters NP Discharge Disposition: Home or Self Care 06/02/2025 9:11 AM CDT - 06/02/2025 11:59 PM CDT Hospital Encounter [facility] Maternal and Ground Floor [address] [place] [address] [place] [address] Leslie Winters NP Discharge Disposition: Home or Self Care 05/31/2025 External Device Data STL ABSTRACTION Provider, Abstract 05/30/2025 9:15 AM CDT - 05/30/2025 11:59 PM CDT Hospital Encounter [facility] Maternal and Ground Floor [address] [place] [address] [place] [address] Leslie Winters NP Discharge Disposition: Home or Self Care 05/26/2025 9:15 AM CDT - 05/26/2025 11:59 PM CDT Hospital Encounter [facility] Maternal and Ground Floor [place] [address] [place] [address] Leslie Winters NP Discharge Disposition: Home or Self Care 05/24/2025 Telephone [facility] Maternal and Medicine - [facility] [place] [address] [place] [address] [address] Diabetes 05/23/2025 9:00 AM CDT - 05/23/2025 11:59 PM CDT Hospital Encounter Do Maternal and Ground Floor [address] [place] [address] [address] [place] [address] Leslie Winters NP Discharge Disposition: Home or Self Care 05/19/2025 8:00 AM CDT - 05/19/2025 11:59 PM CDT Hospital Encounter Do Maternal and Ground Floor [address] [place] [address] [place] [address] Leslie Winters NP Discharge Disposition: Home or Self Care 05/16/2025 10:32 AM CDT - 05/16/2025 11:59 PM CDT Hospital Encounter Do Maternal and Ground Floor [address] [place] [place] [address] Leslie Winters NP Discharge Disposition: Home or Self Care 05/16/2025 10:30 AM CDT - 05/16/2025 11:59 PM CDT Hospital Encounter Do Maternal and Ground Floor [address] [place] [address] Leslie Winters NP Discharge Disposition: Home or Self Care 05/11/2025 Telephone [facility] M[facility] and Medicine - [facility] [place] [facility] [address] [facility] [address] [place] [phone] Jade Hernández Follow Up 05/06/2025 11:30 AM CDT Video Visit [facility] Maternal Medicine [address] [facility] [address] [address] [facility] [address] [place] [address] Georgia Muir MD High risk , antepartum (Primary Dx); Insulin controlled gestational diabetes mellitus (GDM) in third trimester; History of delivery; Short cervical length during , third trimester; Bicuspid aortic valve; 30 weeks gestation of 04/27/2025 Telephone [facility] Maternal Medicine [address] [facility] [address] [facility] [address] [place] [address] Alana Barclay MD Insurance Issues 04/26/2025 Orders Only [facility] M[facility] and Medicine - [facility] [place] [address] [place] [address] Alana Barclay MD Insulin controlled gestational diabetes mellitus (GDM) during , antepartum (Primary Dx) 04/26/2025 Telephone [facility] M[facility] and Medicine - [facility] [place] [address] [place] [address] Alana Barclay MD Gestational Diabetes 04/15/2025 11:00 AM CDT Video Visit [facility] Maternal Medicine [address] [place] [address] Leslie Winters NP Insulin controlled gestational diabetes mellitus (GDM) in second trimester (Primary Dx); Cervical cerclage suture present in second trimester; Bicuspid aortic valve; 27 weeks gestation of 04/15/2025 Orders Only [facility] Maternal Medicine [address] [place] [address] Leslie Winters NP Insulin controlled gestational diabetes mellitus (GDM) in second trimester (Primary Dx); Cervical cerclage suture present in second trimester; Bicuspid aortic valve; 27 weeks gestation of ; Supervision of high risk in second trimester 04/14/2025 Abstract [facility] M[facility] and Medicine - [facility] [place] [address] [place] [address] Jade Hernández 04/07/2025 9:00 AM CDT Office Visit [facility] Maternal and Medicine - [facility] [place] [address] [place] [address] Diet controlled gestational diabetes mellitus (GDM) in second trimester (Primary Dx); 26 weeks gestation of 04/07/2025 Telephone [facility] Maternal and Medicine - [facility] [place] [address] [place] [address] Shauna Alfonso No Show 04/06/2025 Orders Only [facility] Maternal and Medicine - [facility] [address] [address] [place] [address] Alana Barclay MD Diet controlled gestational diabetes mellitus (GDM) in second trimester (Primary Dx) 04/06/2025 Abstract [facility] Maternal and Medicine [facility] [address] [place] [address] Jade Hernández 03/24/2025 7:45 AM CDT - 03/24/2025 11:59 PM CDT Hospital Encounter [facility] Maternal and Health [facility] [address] 3[address] [place] [address] Clarke Hong MD Discharge Disposition: Home or Self Care 03/22/2025 External Device Data STL ABSTRACTION Provider, Abstract 03/22/2025 External Device Data STL ABSTRACTION Provider, Abstract 03/22/2025 External Device Data STL ABSTRACTION Provider, Abstract from Last 3 Months Family History Medical [...] drink = 0.6 oz pur e alcohol) Estimated Date of Delivery Comme nts Yes 07/10/2025 Based on Other B asis Sex and Gender Information Value Date Recorded Sex Assigned at Not on file Legal Sex Female 10:53 AM 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 Gender Identity Not on file Sexual [...] Care Team (Late st Contact Info) Description 06/20/2025 1:15 PM CDT Appointment [facility] and Ground [facility] [address] [place] [address] [place] [address] Capri Perez MD [address] [place] [address] 06/22/2025 8:30 AM CDT Video Visit [facility] Maternal and Medicine - [facility] [place] [address] [place] [address] Viola Gaffney, [facility] [address] [place] [address] 06/23/2025 1:15 PM CDT Appointment [facility] Maternal and Ground Floor [address] [place] [address] Capri Perez MD [address], [place] [address] 06/27/2025 1:15 PM CDT Appointment [facility] Ground [facility] [address] [place] [address] [place] [address] Capri Perez MD [address] [address] 06/30/2025 2:00 PM CDT Appointment [facility] and Ground Floor [address] [address] [place] [address] Capri Perez MD [address] [place] [address] 07/04/2025 1:45 PM CDT Appointment [facility] and Ground [facility] [address] [place] [address] [place] [address] Capri Perez MD [address] [place] [address] Health Maintenance Due Date Last Done Comments HPV VACCINES (1 - 3-dose series) 2011 HEPATITIS B VACCINES (1 of 3 - 19+ 3-dose series) 2015 CERVICAL CANCER SCREENING 2017 HPV/Cotest (21-29) 2017 PAP SMEAR 2017 INFLUENZA VACCINE (#1) 2025 DTAP/TDAP/TD VACCINES (3 - Td or Tdap) 12/01/2026, 05/09/2014 RSV VACCINE (60+ or ) (No Doses Required) Completed Procedures Procedure Name Priority Date/Time Associated Diagnosis Comments US MONITORING NST Routine 06/13/2025 10:55 AM CDT Insulin controlled gestational diabetes mellitus (GDM) in second trimester Cervical cerclage suture present in second trimester Bicuspid aortic valve 27 weeks gestation of Supervision of high risk in second trimester US OB FOLLOW UP PER FETUS Routine 06/13/2025 10:04 AM CDT Insulin controlled gestational diabetes mellitus (GDM) in second trimester Cervical cerclage suture present in second trimester Bicuspid aortic valve 27 weeks gestation of Supervision of high risk in second trimester US OB LIMITED + NST Routine 06/09/2025 1 0:31 AM CDT Insulin controlled gestational diabetes mellitus (GDM) in second trimester Cervical cerclage suture present in second trimester Bicuspid aortic valve 27 weeks gestation of US OB LIMITED + NST Routine 06/06/2025 1 1:21 AM CDT Insulin controlled gestational diabetes mellitus (GDM) in second trimester Cervical cerclage suture present in second trimester Bicuspid aortic valve 27 weeks gestation of Supervision of high risk in second trimester US OB LIMITED + NST Routine 06/02/2025 1 0:49 AM CDT Insulin controlled gestational diabetes mellitus (GDM) in second trimester Cervical cerclage suture present in second trimester Bicuspid aortic valve 27 weeks gestation of Supervision of high risk in second trimester US OB LIMITED + NST Routine 05/30/2025 1 [...] trimester US OB LIMITED + NST Routine 05/23/2025 1 [...] from Last 3 Months Results * US MONITORING NST (06/13/2025 10:55 AM CDT) Only the most recent of2 resultswithin the time period is included. Anatomical Region Laterality Modality Ultrasound 06/13/2025 10:4 6 AM CDT Narrative 06/13/2025 10:52 AM CDT [facility] NST ----- Pat. Name: NAYELI HERNANDEZ Study Date: 06/13/2025 10:46am Pat. NO: [id number] Referring MD: ABRAM ALVAREZ MD Site: [facility] Condenser Winder: : 1995 Age: 29 ----- INDICATION ----- Maternal Obesity (BMI<40) Complicating Cervical Shortening, Confirmed Gestational Diabetes, Insulin Controlled Maternal Cardiac Disease, Congenital, Specify bicuspid aortic valve Condition Cervix, Incompetent with or without Cerclage cerclage in place 03/11 CODING ----- Diagnoses Z3A.36: Weeks of gestation O99.213: Obesity complicating O26.873: Cervical shortening O99.413: Diseases of the circulatory system complicating O24.414: Gestational diabetes mellitus in , insulin controlled O34.33: Maternal care for cervical incompetence Procedures 11011: NST/ monitoring HISTORY ----- OB History 6. Para 2 Sel[place] children born living (T) 2. Miscarriages 3 T2A3L2 1. live . Details: MATERNAL ASSESSMENT ----- Physical Exam Initial weight 79 kg, 175 lb. Initial BMI 33.07 kg/m . Blood pressure 107/73 mmHg. Heart rate 85 bpm METHOD ----- EFM ----- Selby . Number of fetuses: 1 DATING ----- LMP on: 09/14/2024 Cycle: regular cycle GA by LMP 38 w + 6 d SUNDAY by LMP: 06/21/2025 GA by prior assessment 36 w + 1 d SUNDAY by prior assessment: 07/10/2025 Method of dating: Restore dating from previous exam Assigned: based on stated SUNDAY, selected on 05/23/2025 Assigned GA 36 w + 1 d Assigned SUNDAY: 07/10/2025 NON STRESS TEST ----- NST interpretation: reactive. Test duration 31 min. Baseline FHR 130 bpm. Baseline variability: moderate. Accelerations: Present. Decelerations: Not present. Uterine activity: present, irregular COMMENT ----- Nursing notes: Patient reports positive movement with no bleeding, leaking or dandy. Patient scheduled twice weekly IMPRESSION ----- Viable selby gestation at 36w 1d, based on reported clinical dates. Nonstress test is reactive and reassuring for gestational age. Recommendations: - Continue current surveillance plan. Thank you for allowing us to participate in the care of this patient. Procedure Note Capri Perez MD - 06/13/2025 [facility] ----- Pat. Name:Anushka HERNANDEZ Date:06/13/2025 10:46am Pat. NO: [id number] :ABRAM ALVAREZ MD [facility]1995Age:29 ----- INDICATION ----- Maternal Obesity (BMI<40) Complicating Cervical Shortening, Confirmed Gestational Diabetes, Insulin Controlled Maternal Cardiac Disease, Congenital, Specify bicuspid aorticvalve Condition Cervix, Incompetent with or without Cerclage cerclage in place03/11 CODING ----- Diagnoses Z3A.36: Weeks of gestation O99.213: Obesity complicating O26.873: Cervical shortening O99.413: Diseases of the circulatory systemcomplicating O24.414: Gestational diabetes mellitus inpregnancy, insulin controlled O34.33: Maternal care for cervical incompetence Procedures 29674: NST/ monitoring HISTORY ----- OB History 6. Para 2 [place] children born living (T) 2. Miscarriages3 T2A3L2 1. live . Details: MATERNAL ASSESSMENT ----- Physical Exam Initial weight 79 kg, 175 lb. Initial BMI 33.07kg/m . Blood pressure 107/73 mmHg. Heart rate 85 bpm METHOD ----- EFM ----- [place]by . Number of fetuses: 1 DATING ----- LMP on:09/14/2024 Cycle:regular cycle GA by [id number] w + 6 d SUNDAY by LMP:06/21/2025 GA by prior [id number] w + 1 d SUNDAY by prior assessment:07/10/2025 Method of dating:Restore dating from previous exam Assigned:based on stated SUNDAY, selected on 05/23/2025 Assigned GA36 w + 1 d Assigned SUNDAY:07/10/2025 NON STRESS TEST ----- NST interpretation: reactive. Test duration 31 min. Baseline FHR 130 bpm.Baseline variability: moderate. Accelerations: Present. Decelerations: Not present. Uterine activity: present, irregular COMMENT ----- Nursing notes: Patient reports positive movement with no bleeding,leaking or dandy. Patient scheduled twice weekly IMPRESSION ----- Viable selby gestation at 36w 1d, based on reported clinical dates. Nonstress test is reactive and reassuring for gestational age. Recommendations: - Continue current surveillance plan. Thank you for allowing us to participate in the care of this patient. us Leslie Winters NP US ORDERABLES Final Result * US OB FOLLOW UP PER FETUS (06/13/2025 10:04 AM CDT) Only the most recent of3 resultswithin the time period is included. Anatomical Region Laterality Modality Pelvis Ultrasound 06/13/2025 9:41 AM CDT Narrative 06/13/2025 10:24 AM CDT STL FOLLOW UP ----- Pat. Name: NAYELI HERNANDEZ Study Date: 06/13/2025 9:41am Pat. NO: [id number] Referring MD: ABRAM ALVAREZ MD Site: [facility] Condenser Winder: Radha Espinoza RDMS : 1995 Age: 29 ----- INDICATION ----- Maternal Obesity (BMI<40) Complicating Cervical Shortening, Confirmed Gestational Diabetes, Insulin Controlled Maternal Cardiac Disease, Congenital, Specify Condition Cervix, Incompetent with or without Cerclage CODING ----- Diagnoses Z3A.36: Weeks of gestation O99.213: Obesity complicating O26.873: Cervical shortening O99.413: Diseases of the circulatory system complicating O24.414: Gestational diabetes mellitus in , insulin controlled O34.33: Maternal care for cervical incompetence Procedures 51181: Ultrasound, uterus, real time with image documentation, follow up, transabdominal approach per fetus HISTORY ----- OB History 6. Para 2 [place] children born living (T) 2. Miscarriages 3 T2A3L2 1. live . Details: MATERNAL ASSESSMENT ----- Physical Exam Weight 88 kg. Initial weight 79 kg, 175 lb. BMI 36.47 kg/m . Initial BMI 33.07 kg/m . Weight gain 8 kg, 18 lb METHOD ----- Transabdominal ultrasound examination ----- [place] . Number of fetuses: 1 DATING ----- LMP on: 09/14/2024 Cycle: regular cycle GA by LMP 38 w + 6 d SUNDAY by LMP: 06/21/2025 GA by prior assessment 36 w + 1 d SUNDAY by prior assessment: 07/10/2025 Ultrasound examination on: 06/13/2025 GA by U/S based upon: BPD, Femur, HC GA by U/S 37 w + 6 d SUNDAY by U/S: 06/28/2025 Method of dating: Restore dating from previous exam Assigned: based on stated SUNDAY, selected on 05/23/2025 Assigned GA 36 w + 1 d Assigned SUNDAY: 07/10/2025 BIOMETRY ----- BPD 89.9 mm 36w 3d 67% Hadlock OFD 121.4 mm -/- >99% Anitha HC 336.7 mm 38w 4d 79% Hadlock AC 389.0 mm -/- >99% Hadlock Femur 75.2 mm 38w 3d 93% Hadlock HC / AC 0.87 <1% Nicolaides Weight Calculation: EFW 4,141 g -/- >99% Hadlock EFW (lb,oz) 9 lb 2 oz EFW by Hadlock ([id number]) Extremities / Bony Struc Biometry: FL / BPD 0.84 FL / HC 0.22 FL / AC 0.19 GENERAL EVALUATION ----- Cardiac activity present. FHR 154 bpm. movements: present. Presentation: cephalic Placenta: Placental site: anterior Umbilical cord: Cord vessels: 3 vessel cord. Insertion site: placental insertion: normal Amniotic fluid: Amount of AF: normal amount. MVP 7.0 cm. ANDRE 15.6 cm. Q1 7.0 cm, Q2 0.0 cm, Q3 4.7 cm, Q4 3.9 cm ANATOMY ----- The following structures appear normal: Head / Neck Cranium. Cavum septi pellucidi. Heart / Thorax Cardiac rhythm. Diaphragm. Abdomen Stomach. Kidneys. Bladder. sex: male. [...] 17% 344.9 >99% 62.6 44% 2,735 >99% 06/13/2025 36w 1d 89.9 67% 336.7 79% 389.0 >99% 75.2 93% 4,141 >99% COMMENT ----- Patient's name and date of were verified by the fuel system maintenance supervisor prior to the exam IMPRESSION ----- Impression: - Selby viable intrauterine at 36w 1d in cephalic presentation. - Estimated weight is 4141 g (>99%ile) with abdominal circumference at the >99%ile, consistent with LGA growth - Amniotic fluid volume is normal (Amniotic fluid index = 15.6 cm, maximum vertical pocket = 7 cm) - No major malformations identified within the limitations of ultrasound Recommendations: - Continue testing as scheduled Thank you for inviting us to participate in your patient's care. Procedure Note Capri Perez MD - 06/13/2025 STL FOLLOW UP ----- Pat. Name:Anushka HERNANDEZ Date:06/13/2025 9:41am Pat. NO: [id number] :ABRAM ALVAREZ MD [facility]Radhaenrique Espinoza RDMS :1995Age:29 ----- INDICATION ----- Maternal Obesity (BMI<40) Complicating Cervical Shortening, Confirmed Gestational Diabetes, Insulin Controlled Maternal Cardiac Disease, Congenital, Specify Condition Cervix, Incompetent with or without Cerclage CODING ----- Diagnoses Z3A.36: Weeks of gestation O99.213: Obesity complicating O26.873: Cervical shortening O99.413: Diseases of the circulatory systemcomplicating O24.414: Gestational diabetes mellitus inpregnancy, insulin controlled O34.33: Maternal care for cervical incompetence Procedures 33093: Ultrasound, uterus, real time withimage documentation, follow up, transabdominal approach per fetus HISTORY ----- OB History 6. Para 2 Sel[place] children born living (T) 2. Miscarriages3 T2A3L2 1. live . Details: MATERNAL ASSESSMENT ----- Physical Exam Weight 88 kg. Initial weight 79 kg, 175 lb. BMI36.47 kg/m . Initial BMI 33.07 kg/m . Weight gain 8 kg, 18 lb METHOD ----- Transabdominal ultrasound examination ----- [place] . Number of fetuses: 1 DATING ----- LMP on:09/14/2024 Cycle:regular cycle GA by [id number] w + 6 d SUNDAY by LMP:06/21/2025 GA by prior [id number] w + 1 d SUNDAY by prior assessment:07/10/2025 Ultrasound examination on:06/13/2025 GA by U/S based upon:BPD, Femur, HC GA by U/S37 w + 6 d SUNDAY by U/S:06/28/2025 Method of dating:Restore dating from previous exam Assigned:based on stated SUNDAY, selected on 05/23/2025 Assigned GA36 w + 1 d Assigned SUNDAY:07/10/2025 BIOMETRY ----- BPD 89.9 mm 36w 3d 67%Hadlock OFD 121.4 mm -/- >99%Anitha HC 336.7 mm 38w 4d 79%Hadlock AC 389.0 mm -/- >99%Hadlock Femur 75.2 mm 38w 3d 93%Hadlock HC / AC 0.87 <1%Nicolaides Weight Calculation: EFW 4,141 g -/- >99%Hadlock EFW (lb,oz) 9 lb 2 oz EFW by Hadlock ([id number]) Extremities / Bony Struc Biometry: FL / BPD 0.84 FL / HC 0.22 FL / AC 0.19 GENERAL EVALUATION ----- Cardiac activity present. FHR 154 bpm. movements: present.Presentation: cephalic Placenta: Placental site: anterior Umbilical cord: Cord vessels: 3 vessel cord. Insertion site: placentalinsertion: normal Amniotic fluid: Amount of AF: normal amount. MVP 7.0 cm. ANDRE 15.6 cm. Q17.0 cm, Q2 0.0 cm, Q3 4.7 cm, Q4 3.9 cm ANATOMY ----- The following structures appear normal: Head / Neck Cranium. Cavum septi pellucidi. Heart / Thorax Cardiac rhythm. Diaphragm. Abdomen Stomach. Kidneys. Bladder. sex: male. GROWTH OVERVIEW ----- Exam date GA BPD (mm) HC (mm) AC (mm)FL (mm) HL (mm) EFW (g) 02/24/2025 20w 4d 50.1 73% 185.5 56% 186.0 99%37.3 84% 36.4 97% 507 >99% 03/24/2025 24w 4d 63.5 81% 235.8 69% 224.8 95%46.5 66% 904 96% 05/16/2025 32w 1d 81.7 63% 292.6 17% 344.9 >99%62.6 44% 2,735 >99% 06/13/2025 36w 1d 89.9 67% 336.7 79% 389.0 >99%75.2 93% 4,141 >99% COMMENT ----- Patient's name and date of were verified by the fuel system maintenance supervisor prior tothe exam IMPRESSION ----- Impression: - Sel[place] viable intrauterine at 36w 1d in cephalicpresentation. - Estimated weight is 4141 g (>99%ile) with abdominal circumferenceat the >99%ile, consistent with LGA growth - Amniotic fluid volume is normal (Amniotic fluid index = 15.6 cm, maximumvertical pocket = 7 cm) - No major malformations identified within the limitations of ultrasound Recommendations: - Continue testing as scheduled Thank you for inviting us to participate in your patient's care. us Leslie Winters NP US ORDERABLES Final Result * US OB LIMITED + NST (06/09/2025 10:31 AM CDT) Only the most recent of7 resultswithin the time period is included. Anatomical Region Laterality Modality Pelvis Ultrasound 06/09/2025 9:44 AM CDT Narrative 06/09/2025 10:28 AM CDT MODIFIED [facility] STUDY ----- Name: NAYELI HERNANDEZ Study Date: 06/09/2025 9:44am Pat. NO: [id number] Referring MD: ABRAM ALVAREZ MD Site: [facility] Condenser Winder: : 1995 Age: 29 ----- INDICATION ----- Maternal Obesity (BMI<40) Complicating Cervical Shortening, Confirmed Gestational Diabetes, Insulin Controlled Maternal Cardiac Disease, Congenital, Specify Condition Cervix, Incompetent with or without Cerclage CODING ----- Diagnoses Z3A.35: Weeks of gestation O99.213: Obesity complicating O26.873: Cervical shortening O99.413: Diseases of the circulatory system complicating O24.414: Gestational diabetes mellitus in , insulin controlled O34.33: Maternal care for cervical incompetence Procedures 98221: NST/ monitoring 78600: Limited 1 or more - ANDRE, FHR, position (modifier 59 for MBPP) HISTORY ----- OB History 6. Para 2 [place] children born living (T) 2. Miscarriages 3 T2A3L2 1. live . Details: MATERNAL ASSESSMENT ----- Physical Exam Initial weight 79 kg, 175 lb. Initial BMI 33.07 kg/m . Blood pressure 96/69 mmHg. Heart rate 79 bpm METHOD ----- EFM, Transabdominal ultrasound examination. View: Good view ----- [place] . Number of fetuses: 1 DATING ----- LMP on: 09/14/2024 Cycle: regular cycle GA by LMP 38 w + 2 d SUNDAY by LMP: 06/21/2025 GA by prior assessment 35 w + 4 d SUNDAY by prior assessment: 07/10/2025 Method of dating: Restore dating from previous exam Assigned: based on stated SUNDAY, selected on 05/23/2025 Assigned GA 35 w + 4 d Assigned SUNDAY: 07/10/2025 GENERAL EVALUATION ----- Cardiac activity present. movements: visualized. Presentation: cephalic NON STRESS TEST ----- NST interpretation: reactive. Test duration 30 min. Baseline FHR 135 bpm. Baseline variability: moderate. Accelerations: Present. Decelerations: absent. Uterine activity: present, irregular AMNIOTIC FLUID ASSESSMENT ----- Amount of AF: normal amount MVP 4.3 cm. ANDRE 11.9 cm. Q1 4.3 cm, Q2 2.0 cm, Q3 2.4 cm, Q4 3.2 cm COMMENT ----- Nurses Notes: Patient reports positive movement and no bleeding, leaking of fluid or dandy. Patient scheduled twice weekly. IMPRESSION ----- IUP at 35w 4d cephalic presentation Normal amniotic fluid volume, ANDRE 11.9 cm, MVP 4.3 cm NST reactive and reassuring for gestational age. Recommendations: - Continue current surveillance plan. - Daily kick counts are encouraged Procedure Note Charo Fallon MD - 06/09/2025 MODIFIED [facility] STUDY ----- Pat. Name:Anushka HERNANDEZ Date:06/09/2025 9:44am Pat. NO: [id number] :ABRAM ALVAREZ MD [facility]1995Age:29 ----- INDICATION ----- Maternal Obesity (BMI<40) Complicating Cervical Shortening, Confirmed Gestational Diabetes, Insulin Controlled Maternal Cardiac Disease, Congenital, Specify Condition Cervix, Incompetent with or without Cerclage CODING ----- Diagnoses Z3A.35: Weeks of gestation O99.213: Obesity complicating O26.873: Cervical shortening O99.413: Diseases of the circulatory systemcomplicating O24.414: Gestational diabetes mellitus inpregnancy, insulin controlled O34.33: Maternal care for cervical incompetence Procedures 81502: NST/ monitoring 80018: Limited 1 or more - ANDRE, FHR, position(modifier 59 for MBPP) HISTORY ----- OB History 6. Para 2 [place] children born living (T) 2. Miscarriages3 T2A3L2 1. live . Details: MATERNAL ASSESSMENT ----- Physical Exam Initial weight 79 kg, 175 lb. Initial BMI 33.07kg/m . Blood pressure 96/69 mmHg. Heart rate 79 bpm METHOD ----- EFM, Transabdominal ultrasound examination. View: Good view ----- [place] . Number of fetuses: 1 DATING ----- LMP on:09/14/2024 Cycle:regular cycle GA by LMP38 w + 2 d SUNDAY by LMP:06/21/2025 GA by prior [id number] w + 4 d SUNDAY by prior assessment:07/10/2025 Method of dating:Restore dating from previous exam Assigned:based on stated SUNDAY, selected on 05/23/2025 Assigned GA35 w + 4 d Assigned SUNDAY:07/10/2025 GENERAL EVALUATION ----- Cardiac activity present. movements: visualized. Presentation:cephalic NON STRESS TEST ----- NST interpretation: reactive. Test duration 30 min. Baseline FHR 135 bpm.Baseline variability: moderate. Accelerations: Present. Decelerations: absent. Uterine activity: present, irregular AMNIOTIC FLUID ASSESSMENT ----- Amount of AF: normal amount MVP 4.3 cm. ANDRE 11.9 cm. Q1 4.3 cm, Q2 2.0 cm, Q3 2.4 cm, Q4 3.2 cm COMMENT ----- Nurses Notes: Patient reports positive movement and no bleeding,leaking of fluid or dandy. Patient scheduled twice weekly. IMPRESSION ----- IUP at 35w 4d cephalic presentation Normal amniotic fluid volume, ANDRE 11.9 cm, MVP 4.3 cm NST reactive and reassuring for gestational age. Recommendations: - Continue current surveillance plan. - Daily kick counts are encouraged us Leslie Winters NP ORDERABLES Final Result from Last 3 Months Insurance [employer] [place] RX [facility] [employer] [place] [employer] (INTERNAL) [facility] Internal Plans Advance Directives For more information, please contact: [phone] * Full Code (Latest Code Status on File) Date Activated Date Inactivated Comments 03/10/2025 12:14 PM 03/11/2025 5:19 PM Care Teams Property Field Adjuster Relationship Specialty Start Date End Date Karla Godfrey NP [address] [address] PCP - General NURSE PRACTITIONER 02/09/15
--- OUTSIDE RECORDS SUMMARY | 2025-06-19 19:34 | XMS_ITS | Clinical Summary ---
Author Organization [facility] [address] Address [address] [place] [address] Care Team Providers Care Interpreter Translator Name Role Phone Jez Swartz MD Primary Care Provider [phone] Allergies No known active allergies Medications metroNIDAZOLE (FLAGYL) 500 mg tablet Take 1 tablet (500 mg total) by mouth every 12 (twelve) hours for 7 days 05/15/2023 Active PNV with [id number] 27 mg iron- 1 mg tablet Take [...] on file Legal Sex Female 7:59 PM PRELIMINARY SCHOOL PSYCHOLOGIST Gender Identity Not on file Sexual Orientation Not on file Obstetrics History Last Filed Vital Signs Vital Sign Reading Time Taken Comments Blood Pressure 114/69 11/20/2023 1:55 PM PRELIMINARY SCHOOL PSYCHOLOGIST Pulse 64 11/20/2023 2:00 PM PRELIMINARY SCHOOL PSYCHOLOGIST Temperature 36.9 C (98.4 F) 11/20/2023 11:01 AM PRELIMINARY SCHOOL PSYCHOLOGIST Respiratory Rate 20 11/20/2023 11:01 AM PRELIMINARY SCHOOL PSYCHOLOGIST Oxygen Saturation 100% 11/20/2023 2:00 PM PRELIMINARY SCHOOL PSYCHOLOGIST Inhaled Oxygen Concentration - - Weight 78.2 kg (172 lb 8 oz) 11/20/2023 11:01 AM PRELIMINARY SCHOOL PSYCHOLOGIST Height 154.9 cm (5' 1) 11/20/2023 11:01 AM PRELIMINARY SCHOOL PSYCHOLOGIST Body Mass Index 32.59 11/20/2023 11:01 AM PRELIMINARY SCHOOL PSYCHOLOGIST Plan of Treatment Health Maintenance Due Date [...] HPV Vaccines Completed 03/17/2008, 10/31, 09/09/[address] [place] [address] [facility] Care Teams Interpreter Translator Relationship Specialty Start Date End Date Jez Swartz MD [address] [facility] [address] [place] [address] PCP - General Obstetrics and Gynecology 04/23/23
--- OUTSIDE RECORDS SUMMARY | 2025-06-19 19:34 | XMS_ITS | Referral Summary ---
Author Organization [facility] [address] Address [address] [place] [address] Care Team Providers Care In Home Sales Consultant Name Role Phone Jez Swartz MD Primary Care Provider [phone] Allergies No known active allergies Medications metroNIDAZOLE (FLAGYL) 500 mg tablet Take 1 tablet (500 mg total) by mouth every 12 (twelve) hours for 7 days 05/15/2023 Active PNV with xipites-efof-SX 27 mg iron- 1 mg tablet Take [...] on file Legal Sex Female 7:59 PM ETHNOGRAPHER Gender Identity Not on file Sexual Orientation Not on file Last Filed Vital Signs Vital Sign Reading Time Taken Comments Blood Pressure 114/69 11/20/2023 1:55 PM ETHNOGRAPHER Pulse 64 11/20/2023 2:00 PM ETHNOGRAPHER Temperature 36.9 C (98.4 F) 11/20/2023 11:01 AM ETHNOGRAPHER Respiratory Rate 20 11/20/2023 11:01 AM ETHNOGRAPHER Oxygen Saturation 100% 11/20/2023 2:00 PM ETHNOGRAPHER Inhaled Oxygen Concentration - - Weight 78.2 kg (172 lb 8 oz) 11/20/2023 11:01 AM ETHNOGRAPHER Height 154.9 cm (5' 1) 11/20/2023 11:01 AM ETHNOGRAPHER Body Mass Index 32.59 11/20/2023 11:01 AM ETHNOGRAPHER Plan of Treatment Not on file Insurance Care Teams In Home Sales Consultant Relationship Specialty Start Date End Date Jez Swartz MD [address] [facility] [address] [place] [address] PCP - General Obstetrics and Gynecology 04/23/23
--- OUTSIDE RECORDS SUMMARY | 2025-06-19 19:35 | XMS_ITS | Clinical Summary ---
Author Organization [facility] Address [address] [place] [address] Care Team Providers Care Gravity Prospecting Operator Name Role Phone Nikole Godinez Primary Care Provider [phone] Allergies No known active allergies Medications HYDROcodone-acet [...] Comments Blood Pressure 115/73 11/22/2024 9:19 PM TECHNICAL SERVICES LIBRARIAN Pulse 63 11/22/2024 9:19 PM TECHNICAL SERVICES LIBRARIAN Temperature 36.9 C (98.4 F) 11/22/2024 7:30 PM TECHNICAL SERVICES LIBRARIAN Respiratory Rate 18 11/22/2024 9:19 PM TECHNICAL SERVICES LIBRARIAN Oxygen Saturation 100% 11/22/2024 9:19 PM TECHNICAL SERVICES LIBRARIAN Inhaled Oxygen Concentration - - Weight 81.2 kg (179 lb 0.2 oz) 11/22/2024 5:09 P M TECHNICAL SERVICES LIBRARIAN Height 154.9 cm (5' 1) 11/22/2024 5:09 PM TECHNICAL SERVICES LIBRARIAN Body Mass Index 33.82 11/22/2024 5:09 PM TECHNICAL SERVICES LIBRARIAN Plan of Treatment Health Maintenance Due Date [...] [facility] Care Teams Gravity Prospecting Operator Relationship Specialty Start Date End Date Nikole Godinez PA [address] [place] [address] PCP - General PHYSICIAN SUPERVISOR TRAIN OPERATIONS 04/15/23
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
--- OUTSIDE RECORDS SUMMARY | 2025-06-19 19:35 | XMS_ITS | Data Portability ---
Author Organization [facility] [place] Address [address] [place] [address] [place] [address] Assessment No assessment recorded. Plan of Treatment Reminders Order Date Submit Date Provider Last Modified By Organization Details Last Modified Time Details Appointments None recorded . Lab pregnanc y test, urine 2021 varsha [place] [facility] [address], [place], [address], 11:01:29 urinalys is, dipstick 2021 [facility] [address], [place], [address], 17:14:20 pregnanc y test, urine 2021 [facility], [facility] [address], [place], [address], 17:14:19 Referral None recorded . Procedures None recorded . Surgeries None recorded . Imaging US, pelvis 2021 [email or web address], [address], [place], [address], 21:44:59 US, transvag inal 2021 [email or web address], [address], [place], [address], 21:44:59 US, pelvis, complete 2021 ROMMEL Osorio, [address], [address], [place], [address], 10:44:44 Medication Orders Slynd 4 mg (28) tablet 2021 llamay [facility]/Pharmacy #[id number], [address] [place], [address], 13:28:08 Macrobid 100 mg capsule 2021 vschroedter [facility]/Pharmacy #[id number], [address] [place], [address], 10:50:11 Patient TargetsNo targets recorded. Patient InstructionsNo instructions recorded. Reason for Referral None Reported. Results Created Date Observation Date Name Description Value Unit Range Abnormal Flag Note LastModifiedBy Organization Detail LastModifiedTime 11/12/2011/12/2022 CT/GC AND TRICH OMONA S VAGIN KAYLEE (RRNA ), URINE chlamydia trachomatis, PCR Negati ve negati ve Not Available [facility] (Lab) [address], [place], [address], 11/15/2022 10:16:16 11/12/20 22 11/12/2022 CT/GC AND TRICH OMONA S VAGIN KAYLEE (RRNA ), URINE neisseria gonorrhoeae, PCR Negati ve negati ve Not Available [facility] (Lab) [address], [place], [address], 11/15/2022 10:16:16 11/12/20 22 11/12/2022 CT/GC AND TRICH OMONA S VAGIN KAYLEE (RRNA ), URINE trichomonas vaginalis ribosomal RNA (rrna) Negati ve negati ve Not Available [facility] (Lab) [address], [place], [address], 11/15/2022 10:16:16 11/12/20 22 11/12/2022 CULTU RE: URINE result report SEE RESULT S BELOW abnormal Test: Cultu re: Urine Speci men Sourc e: Urine - Clean Catch Speci men Type: Urine Speci men Date: 11/12 4:34 PM Resul t Date: 11/15 9:13 AM Resul t Statu s: Final resul t Abnor mal: Yes Resul barak Lab: [facility] [address] [facility] [address] Tel: CULTU RE ----- ----- ----- --- [...] <=2 ug/mL Susce ptibl e Not Available [facility] (Lab) [address], [place], [address], 11/15/2022 10:16:17 11/12/20 22 11/12/2022 urina lysis , dipst ick Leukocytes tr Not Available [facility] yumi [address], [place], [address], 11/12/2022 17:13:23 11/12/20 22 11/12/2022 urina lysis , dipst ick Nitrite + Not Available [place] [address], [place], [address], 11/12/2022 17:13:23 11/12/20 22 11/12/2022 urina lysis , dipst ick Urobilinogen neg Not Available [facility] [address], [place], [address], 11/12/2022 17:13:23 11/12/20 22 11/12/2022 urina lysis , dipst ick Protein neg Not Available [place] [address], [place], [address], 11/12/2022 17:13:23 11/12/20 22 11/12/2022 urina lysis , dipst ick pH 8 Not Available [place] [address], [place], [address], 11/12/2022 17:13:23 11/12/20 22 11/12/2022 urina lysis , dipst ick Blood +++ Not Available [place] [address], [place], [address], 11/12/2022 17:13:23 11/12/20 22 11/12/2022 urina lysis , dipst ick Specific [place] 1.015 Not Available Romina roque [address], [place], [address], 11/12/2022 17:13:23 11/12/20 22 11/12/2022 urina lysis , dipst ick Ketone neg Not Available [place] [address], [place], [address], 11/12/2022 17:13:23 11/12/20 22 11/12/2022 urina lysis , dipst ick Bilirubin neg Not Available Albert reyes [address], [place], [address], 11/12/2022 17:13:23 11/12/20 22 11/12/2022 urina lysis , dipst ick Glucose neg Not Available [place] [address], [place], [address], 11/12/2022 17:13:23 11/12/20 22 11/12/2022 urina lysis , dipst ick Appearance clear Not Available Layton eason [address], [place], [address], 11/12/2022 17:13:23 11/12/20 22 11/12/2022 urina lysis , dipst ick Color yellow Not Available [place] [address], [place], [address], 11/12/2022 17:13:23 11/12/20 22 11/12/2022 pregn katty test, urine HCG negati ve Not Available [place] [address], [place], [address], 11/12/2022 17:13:01 11/27/20 22 11/27/2022 pregn katty test, urine HCG negati ve Not Available [place] [address], [place], [address], 11/27/2022 11:01:23 11/20/20 22 11/20/2022 US, pelvi s, compl ete No observ ation record ed. [email or web address] [address], [place], [address], 11/21/2022 10:44:45 11/20/20 22 11/20/2022 US, pelvi s No observ ation record ed. [place] [address], [place], [address], 11/20/2022 13:50:09 11/20/20 22 11/20/2022 US, trans vagin al No observ ation record ed. [place] [address], [place], [address], 11/20/2022 13:50:00 Result Notes None recorded. Procedures Surgical History Date Name Laterality Status Provider Name and Address Organization Details Recorded Time IUD Removal completed CATHI Riddle [address], [place], [address], [facility] 11/27/2022 13:25:22 Caesarean Section completed Sheron Aguilar [facility] 11/12/2022 16:20:18 Imaging Results None recorded. Procedure Notes None [...] Body mass index (BMI) Body weight Systolic And Diastolic Provider Name and Address Organization Details Last Updated DateTime 11/12/2022 154.94 cm 30.3 kg/m2 13721.5 g 118/76 mm[Hg] Sheron Mazariegosdarien [facility] 11/12/2022 16:19:59 Date Recorded Body height Body mass index (BMI) Body weight Systolic And Diastolic Provider Name and Address Organization Details Last Updated DateTime 11/27/2022 154.94 cm 30.3 kg/m2 10288.5 g 109/70 mm[Hg] Sheron Mazariegosdarien [facility] 11/27/2022 10:50:02 Social History Question Answer Notes LastModified by Organizat ion Details LastModified Time Tobacco Smoking Status Current Every Day Smoker Selene Blanchard [facility] 11/27/2022 10:40:38 How Many Years Have You Consumed Alcohol? [...] Or The Highest Degree You Have Received? [id number] Information not available 11/12/2022 Are There Any [...] PPW Information not available 11/12/2022 Do You Use Sunscreen Routinely? No Information not available 11/12/2022 How Many Years Have You Smoked Tobacco? 6 Information not available 11/12/2022 Have You Used IV Drugs? No Information not available 11/12/2022 Do You Have Difficulty Walking Or Climbing Stairs? No [email or web address] Information not available 11/27/2022 Sex: Unknown Functional Status Question Answer Note LastModified by Organizat ion Details LastModified Time Do you use any illicit or recreational drugs? No Information not available 11/12/2022 What is your level of alcohol consumption? None Information not available 11/12/2022 Are you able to walk? YESWOREST Information not available 11/12/2022 Are you able to care for yourself? Yes Information n ot available 11/27/2022 Do you have difficulty dressing or bathing? No Information not available 11/27/2022 What is your exercise level? None Information not available 11/12/2022 Mental Status Question Answer Note LastModified by Organization D etails LastModified Time Do you feel stressed (tense, restless, nervous, or anxious, or unable to sleep at night)? [id number] Information not available 11/12/2022 Family History Relationship Description Onset Age of [...] SNOMED-CT Code Diagnosis ICD10 Code Diagnosis Note [id number] CATHI Riddle [place] [address] [address] 11/12/2022 16:00:33 11/13/2022 17:46:43 Contraception care management 720543635 Z30.9 Urinary symptoms 1624057 08 R39.9 Pain in pelvis 81730738 R10.2 Today we reviewed the various causes [...] plan of care. Venereal d isease screening [id number] Z11.3 [id number] Gregorio Carreon MD [place] [address] [address] 11/20/2022 11:31:05 11/21/2022 14:19:17 Pain in pelvis 38391879 R10.2 [id number] CATHI Riddle [place] [address] [address] 11/27/2022 10:40:30 11/27/2022 14:32:40 Screening procedure 62156530 Z13.9 Removal of intrauterine device 41654584 Z30.432 Today we reviewed recent pelvic u/s [...] 4 monthsDeni es hx of DVT/PE, HTN, Stroke/ME, cancer, or liver diseaseShe does have a hx of a heart murmur - has not seen cardiologi st recently due to moving, would like referral.R TC for med check in 3 months Time spent in visit is a total of 25 mins with at least 50% of visit consisting of counseling and review of plan of care. [facility] ion care management [id number] Z30.9 Health Concerns Section Related Observation LastModified by Organization Detai ls LastModified Time None Recorded Concern Status LastModified by Organization Details LastModified Time None Recorded Advance Directives Directive None Recorded Payers Insurance Date Sequence Insurance Name Policy Number Policy Maya Covered Member ID Maya Member ID Guarantor Name 11/26/2022 1 [facility] (MEDICAID HMO) [id number] Alexandrea Krause [id number] Alexandrea Krause Notes Date Note Type Note [...] steady partner CATHI Riddle [address], [place], [address], [facility] 11/12/2022 18:00:37 11/27/2022 text/html Patient presents for u/s f/uu/s done due to pelvic painCompleted antibiotic course for UTINo current symptoms today CATHI Riddle [address], [place], [address], [facility] 11/27/2022 13:29:05 OBGyn Episode Ob Episode Information Episode Created Date Number of Fetuses Patient Bloodtype Patient rh Status Prepregnancy Weight lbs Domestic Partner Domestic Partner Phone Father Name Buckshot Swage Operator Status 11/12/20 22 1 CLOSED Fetus Data First Name Last Name Admitted to NICU Weight (g) Sex Living Outcome Pediatric Complications Fetus ID Race Codes Race Delivery Type 3883.65 4704 M Full Term [id number] Lorenzo Calculation Initial Lorenzo Date Initial Exam [...] Domestic Partner Domestic Partner Phone Father Name Buckshot Swage Operator Status 11/12/20 22 1 CLOSED Fetus Data First Name Last Name Admitted to NICU Weight (g) Sex Living Outcome Pediatric Complications Fetus ID Race Codes Race Delivery Type 2891.64 9 F Full Term [id number] Lorenzo Calculation Initial Lorenzo Date Initial Exam [...] Domestic Partner Domestic Partner Phone Father Name Buckshot Swage Operator Status 11/12/20 22 1 CLOSED Fetus Data First Name Last Name Admitted to NICU Weight (g) Sex Living Outcome Pediatric Complications Fetus ID Race Codes Race Delivery Type , Spontane ous [id number] Lorenzo Calculation Initial Lorenzo Date Initial Exam [...]
[2025-06-19 19:39] VITALS: BP 110/82; PULSE 85
[2025-06-19 19:46] VITALS: BP 108/77; PULSE 80
[2025-06-19 20:01] VITALS: BP 110/76; PULSE 69
[2025-06-19 20:16] VITALS: BP 118/71; PULSE 69
[2025-06-19 20:31] VITALS: BP 113/75; PULSE 68
[2025-06-19 20:56] VITALS: BMI 38.7
--- NOTE | 2025-06-19 20:56 | OBADM ---
This patient, Alexandrea Krause, admitted to the OB room Labor/Delivery/Recovery 120 for observation. Patient/family oriented to hospital policies and general routines including ID bracelet, bed and alarms, visiting hours, pain management, procedures, bathroom and other care routines, personal items, smoking policy, room service/diet, and visiting hours. Patient/Family are encouraged to report perceived risks to care and to ask questions if they do not understand what they are told or what they should do.
--- NOTE | 2025-06-20 14:12 | PM.OBTRLD ---
OB - Triage/Final Diagnosis Visit Information Date of evaluation: 06/19/25 Reason for evaluation: other (trauma in ) Comments/Additional reasons for admission: I have assessed the risk for this patient, RosieKay Krause, and determined that she would benefit from observation care. Evaluation Vital signs: Vital Signs - 24 hr 06/19/25 19:39 06/19/25 19:46 06/19/25 20:01 Pulse Rate 85 80 69 Blood Pressure 110/82 108/77 110/76 06/19/25 20:16 06/19/25 20:31 Pulse Rate 69 68 Blood Pressure 118/71 113/75
== END 2025-06-19 21:20 | disposition home or self-care (01) ==
PROVIDERS: Admitting Provider Student in an Organized Health Care Education/Training Program; Visit Provider Student in an Organized Health Care Education/Training Program
DX: O9A.213 Injury, poisoning and certain other consequences of external causes complicating pregnancy, third trimester (principal); X58.XXXA Exposure to other specified factors, initial encounter; Z3A.37 37 weeks gestation of pregnancy
CPT/HCPCS: G0378; G0379

== ENCOUNTER 2025-07-02 22:49 | Observation (INO) | payer OTHER, SELFPAY ==
--- OUTSIDE RECORDS SUMMARY | 2025-07-02 22:56 | XMS_ITS | Clinical Summary ---
Author Organization [facility] Address [address] [place] [address] Care Team Providers Care Pairer Odds Name Role Phone Nikole Godinez Primary Care Provider [phone] Allergies No known active allergies Medications HYDROcodone-acet [...] Comments Blood Pressure 115/73 11/22/2024 9:19 PM CAKE MAKER Pulse 63 11/22/2024 9:19 PM CAKE MAKER Temperature 36.9 C (98.4 F) 11/22/2024 7:30 PM CAKE MAKER Respiratory Rate 18 11/22/2024 9:19 PM CAKE MAKER Oxygen Saturation 100% 11/22/2024 9:19 PM CAKE MAKER Inhaled Oxygen Concentration - - Weight 81.2 kg (179 lb 0.2 oz) 11/22/2024 5:09 P M CAKE MAKER Height 154.9 cm (5' 1) 11/22/2024 5:09 PM CAKE MAKER Body Mass Index 33.82 11/22/2024 5:09 PM CAKE MAKER Plan of Treatment Health Maintenance Due Date [...] MEDICAL REIMBURSEMENTS OF JOSE DAVID Care Teams Pairer Odds Relationship Specialty Start Date End Date Nikole Godinez PA [address] [place] [address] PCP - General PHYSICIAN LOOP DRIER OPERATOR 04/15/23
--- OUTSIDE RECORDS SUMMARY | 2025-07-02 22:56 | XMS_ITS | Referral Summary ---
Author Organization [facility] [address] Address [address] [place] [address] Care Team Providers Care Correctional Supervising Cook Name Role Phone Jez Swartz MD Primary Care Provider [phone] Allergies No known active allergies Medications metroNIDAZOLE (FLAGYL) 500 mg tablet Take 1 tablet (500 mg total) by mouth every 12 (twelve) hours for 7 days 05/15/2023 Active PNV with kuycspj-[id number]-LH 27 mg iron- 1 mg tablet Take [...] on file Legal Sex Female 7:59 PM YARD RIGGER Gender Identity Not on file Sexual Orientation Not on file Last Filed Vital Signs Vital Sign Reading Time Taken Comments Blood Pressure 114/69 11/20/2023 1:55 PM YARD RIGGER Pulse 64 11/20/2023 2:00 PM YARD RIGGER Temperature 36.9 C (98.4 F) 11/20/2023 11:01 AM YARD RIGGER Respiratory Rate 20 11/20/2023 11:01 AM YARD RIGGER Oxygen Saturation 100% 11/20/2023 2:00 PM YARD RIGGER Inhaled Oxygen Concentration - - Weight 78.2 kg (172 lb 8 oz) 11/20/2023 11:01 AM YARD RIGGER Height 154.9 cm (5' 1) 11/20/2023 11:01 AM YARD RIGGER Body Mass Index 32.59 11/20/2023 11:01 AM YARD RIGGER Plan of Treatment Not on file Insurance Care Teams Correctional Supervising Cook Relationship Specialty Start Date End Date Jez Swartz MD [address] [facility] [address] [place] [address] PCP - General Obstetrics and Gynecology 04/23/23
--- OUTSIDE RECORDS SUMMARY | 2025-07-02 22:56 | XMS_ITS | Continuity of Care Document ---
Author Organization [facility] Address [address] [place] [address] Phone Care Team Providers Care Powertrain Engineer Name Role Phone Unavailable Unavailable Unavailable Advance Directives Directive Yes / No Effective Date File Name No Information Encounters Encounter Description Practice Location Reason(s) For Visit Diagnoses Date Provider Providers Copied on Encounter [facility], [address] [facility], [place], [place], [id number], [place] tel:[phone] [facility] No Information No Information Referring Provider: REFERRAL SELF. Family History Family Member Type Diagnosis Age At Onset No Information Payers Payer name Insurance type Covered green party ID Authoriza joseph(s) [employer] [place] [id number] CI [id number] Social History Type Description Quantity Date Captured Comments Sex Female Smoking Status No Information Chief Complaint And Reason For Visit No Information History Of Present Illness Encounter Date Complaint History Of Prese nt Illness No Information Instructions Date Instruction Additional Infor mation No Information Assessments Type Assessment Date No Information
--- OUTSIDE RECORDS SUMMARY | 2025-07-02 22:56 | XMS_ITS | Clinical Summary ---
Author Organization [facility] Address [address] [place] [address] Phone Care Team Providers Care Wire Coater Name Role Phone Karla Godfrey NP Primary [...] Encounters Date Type Department Care Team Description 06/27/2025 1:15 PM CDT - 06/27/2025 11:59 PM CDT [facility] [place] [address] [place] [address] Capri Perez MD Discharge Disposition: Home or Self Care 06/23/2025 1:15 PM CDT - 06/23/2025 11:59 PM CDT Hospital En[facility] [place] [address] [place] [address] Capri Perez MD Discharge Disposition: Home or Self Care 06/20/2025 1:15 PM CDT - 06/20/2025 11:59 PM CDT Hospital En[facility] [address] [place] [address] [place] [address] Capri Perez MD Discharge Disposition: Home or Self Care 06/13/2025 9:30 AM CDT - 06/13/2025 11:59 PM CDT Hospital Encounter [facility] [address] [place] [address] [address] [place] [address] Leslie Winters NP Discharge Disposition: Home or Self Care 06/13/2025 9:15 AM CDT - 06/13/2025 11:59 PM CDT Hospital Encounter [facility] [address] [place] [address] Leslie Winters NP Discharge Disposition: Home or Self Care 06/09/2025 2:30 PM CDT Video Visit [facility] [place] [address] [place] [address] [place] [address] Danay Butler NP Insulin controlled gestational diabetes [...] [address] [address] [place] [address] Leslie Winters NP Discharge Disposition: Home or Self Care 06/06/2025 9:15 AM CDT - 06/06/2025 11:59 PM CDT [facility] [address] [place] [address] Leslie Winters NP Discharge Disposition: Home or Self Care 06/02/2025 9:11 AM CDT - 06/02/2025 11:59 PM CDT [facility] [address] [place] [address] Leslie Winters NP Discharge Disposition: Home or Self Care 05/31/2025 External Device Data [facility] ABSTRACTION Provider, Abstract 05/30/2025 9:15 AM CDT - 05/30/2025 11:59 PM CDT [facility] En[facility] [address] [place] [address] [place] [address] Lesile Winters NP Discharge Disposition: Home or Self Care 05/26/2025 9:15 AM CDT - 05/26/2025 11:59 PM CDT Hospital En[facility] [address] [place] [address] [place] [address] Leslie Winters NP Discharge Disposition: Home or Self Care 05/24/2025 [facility] - [facility] [place] [address] [place] [address] [place] [address] Elizabeth Michel, FREDERICK Diabetes 05/23/2025 9:00 AM CDT - 05/23/2025 11:59 PM CDT Hospital En[facility] [place] [address] [place] [address] Leslie Winters NP Discharge Disposition: Home or Self Care 05/19/2025 8:00 AM CDT - 05/19/2025 11:59 PM CDT [facility] [place] [address] [place] [address] Leslie Winters NP Discharge Disposition: Home or Self Care 05/16/2025 10:32 AM CDT - 05/16/2025 11:59 PM CDT [facility] [place] [address] [place] [address] Leslie Winters NP Discharge Disposition: Home or Self Care 05/16/2025 10:30 AM CDT - 05/16/2025 11:59 PM CDT Hospital En[facility] [place] [address] [place] [address] Leslie Winters NP Discharge Disposition: Home or Self Care 05/11/2025 Telephone [facility] [place] [address] [place] [address] Jade Hernández Follow Up 05/06/2025 11:30 AM CDT Video Visit [facility] [address] [place] [place] [address] Georgia Muir MD High risk , antepartum (Primary Dx); Insulin controlled gestational diabetes mellitus (GDM) in third trimester; History of delivery; Short cervical length during , third trimester; Bicuspid aortic valve; 30 weeks gestation of 04/27/2025 Telephone [facility] [address] [place] [address] Alana Barclay MD Insurance Issues 04/26/2025 Orders Only [facility] [place] [address] [place] [place] [address] Alana Barclay MD Insulin controlled gestational diabetes mellitus (GDM) during , antepartum (Primary Dx) 04/26/2025 Telephone [facility] [place] [address] [place] [place] [address] Alana Barclay MD Gestational Diabetes 04/15/2025 11:00 AM CDT Video Visit [facility] [address] [place] [place] [address] Leslie Winters NP Insulin controlled gestational diabetes mellitus (GDM) in second trimester (Primary Dx); Cervical cerclage suture present in second trimester; Bicuspid aortic valve; 27 weeks gestation of 04/15/2025 Orders Only [facility] [address] [place] [address] Leslie Winters NP Insulin controlled gestational diabetes mellitus (GDM) in second trimester (Primary Dx); Cervical cerclage suture present in second trimester; Bicuspid aortic valve; 27 weeks gestation of ; Supervision of high risk in second trimester 04/14/2025 Abstract [facility] [place] [address] [place] [place] [address] Jade Hernández 04/07/2025 9:00 AM CDT Office Visit [facility] [place] [address] [place] [place] [address] Diet controlled gestational diabetes mellitus (GDM) in second trimester (Primary Dx); 26 weeks gestation of 04/07/2025 Telephone [facility] [place] [address] [place] [place] [address] Shauna Alfonso No Show 04/06/2025 Orders Only [facility] [place] [address] [place] [place] [address] Alana Barclay MD Diet controlled gestational diabetes mellitus (GDM) in second trimester (Primary Dx) 04/06/2025 Abstract [facility] [place] [address] [place] [place] [address] Jade Hernández from Last 3 Months Family History Medical [...] on file 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 Gender Identity Not on file Sexual Orientation [...] Care Team (Late st Contact Info) Description 07/04/2025 1:45 PM CDT Appointment [facility] [address] [place] [address] Capri Perez MD [address] [facility] [address] [place] [address] Health Maintenance Due Date Last Done Comments [...] Comments US OB LIMITED + NST Routine 06/27/2025 2 :21 PM CDT Gestational diabetes mellitus (GDM) requiring insulin US OB LIMITED + NST Routine 06/23/2025 2 :30 PM CDT Gestational diabetes mellitus (GDM) requiring insulin US OB LIMITED + NST Routine 06/20/2025 2 :44 PM CDT Gestational diabetes mellitus (GDM) requiring insulin US MONITORING NST Routine 06/13/2025 10:55 AM [...] Supervision of high risk in second trimester from Last 3 Months Results * US OB LIMITED + NST (06/27/2025 2:21 PM CDT) Only the most recent of10 resultswithin the time period is included. Anatomical Region Laterality Modality Pelvis Ultrasound 06/27/2025 1:56 PM CDT Narrative 06/27/2025 2:28 PM CDT [facility] STUDY ----- Pat. Name: NAYELI HERNANDEZ Study Date: 06/27/2025 1:56pm Pat. NO: [id number] Referring MD: ABRAM ALVAREZ MD Site: [facility] Casing Mixer: : 1995 Age: 29 ----- INDICATION ----- Maternal Obesity (BMI<40) Complicating Cervical Shortening, Confirmed Gestational Diabetes, Insulin Controlled Maternal Cardiac Disease, Congenital, Specify Condition Cervix, Incompetent with or without Cerclage CODING ----- Diagnoses Z3A.38: Weeks of gestation O99.213: Obesity complicating O26.873: Cervical shortening O99.413: Diseases of the circulatory system complicating O24.414: Gestational diabetes mellitus in , insulin controlled O34.33: Maternal care for cervical incompetence Procedures 79008: NST/ monitoring 39843: Limited 1 or more - ANDRE, FHR, position (modifier 59 for MBPP) HISTORY ----- OB History 6. Para 2 [place] children born living (T) 2. Miscarriages 3 T2A3L2 1. live . Details: MATERNAL ASSESSMENT ----- Physical Exam Initial weight 79 kg, 175 lb. Initial BMI 33.07 kg/m . Blood pressure 127/63 mmHg. Heart rate 75 bpm METHOD ----- EFM, Transabdominal ultrasound examination. View: Good view ----- [place] . Number of fetuses: 1 DATING ----- LMP on: 09/14/2024 Cycle: regular cycle GA by LMP 40 w + 6 d SUNDAY by LMP: 06/21/2025 Method of dating: based on stated SUNDAY GA by prior assessment 38 w + 1 d SUNDAY by prior assessment: 07/10/2025 Assigned: based on stated SUNDAY, selected on 06/27/2025 Assigned GA 38 w + 1 d Assigned SUNDAY: 07/10/2025 GENERAL EVALUATION ----- Cardiac activity present. FHR 132 bpm. movements: visualized. Presentation: cephalic NON STRESS TEST ----- NST interpretation: reactive. Test duration 35 min. Baseline FHR 135 bpm. Baseline variability: moderate. Accelerations: Present. Decelerations: absent. Uterine activity: absent AMNIOTIC FLUID ASSESSMENT ----- Amount of AF: normal amount MVP 5.9 cm. ANDRE 11.3 cm. Q1 5.9 cm, Q2 1.8 cm, Q3 1.2 cm, Q4 2.5 cm COMMENT ----- Nurses Notes: Patient reports positive movement and no bleeding, leaking of fluid or dandy. Patient scheduled twice weekly. IMPRESSION ----- Reassuring modified BPP Procedure Note Clarke Hong MD - 06/27/2025 MODIFIED BPP STUDY ----- Pat. Name:Anushka HERNANDEZ Date:06/27/2025 1:56pm Pat. NO: [id number] :ABRAM ALVAREZ MD [facility]1995Age:29 ----- INDICATION ----- Maternal Obesity (BMI<40) Complicating Cervical Shortening, Confirmed Gestational Diabetes, Insulin Controlled Maternal Cardiac Disease, Congenital, Specify Condition Cervix, Incompetent with or without Cerclage CODING ----- Diagnoses Z3A.38: Weeks of gestation O99.213: Obesity complicating O26.873: Cervical shortening O99.413: Diseases of the circulatory systemcomplicating O24.414: Gestational diabetes mellitus inpregnancy, insulin controlled O34.33: Maternal care for cervical incompetence Procedures 70670: NST/ monitoring 25524: Limited 1 or more - ANDRE, FHR, position(modifier 59 for MBPP) HISTORY ----- OB History 6. Para 2 [place] children born living (T) 2. Miscarriages3 T2A3L2 1. live . Details: MATERNAL ASSESSMENT ----- Physical Exam Initial weight 79 kg, 175 lb. Initial BMI 33.07kg/m . Blood pressure 127/63 mmHg. Heart rate 75 bpm METHOD ----- EFM, Transabdominal ultrasound examination. View: Good view ----- [place] . Number of fetuses: 1 DATING ----- LMP on:09/14/2024 Cycle:regular cycle GA by LMP40 w + 6 d SUNDAY by LMP:06/21/2025 Method of dating:based on stated SUNDAY GA by prior [id number] w + 1 d SUNDAY by prior assessment:07/10/2025 Assigned:based on stated SUNDAY, selected on 06/27/2025 Assigned GA38 w + 1 d Assigned SUNDAY:07/10/2025 GENERAL EVALUATION ----- Cardiac activity present. FHR 132 bpm. movements: visualized.Presentation: cephalic NON STRESS TEST ----- NST interpretation: reactive. Test duration 35 min. Baseline FHR 135 bpm.Baseline variability: moderate. Accelerations: Present. Decelerations: absent. Uterine activity: absent AMNIOTIC FLUID ASSESSMENT ----- Amount of AF: normal amount MVP 5.9 cm. ANDRE 11.3 cm. Q1 5.9 cm, Q2 1.8 cm, Q3 1.2 cm, Q4 2.5 cm COMMENT ----- Nurses Notes: Patient reports positive movement and no bleeding,leaking of fluid or dandy. Patient scheduled twice weekly. IMPRESSION ----- Reassuring modified BPP us Capri Perez MD US ORDERABLES Final R esult * US MONITORING T (06/13/2025 10:55 AM CDT) Only the most recent of2 resultswithin the time period is included. Anatomical Region Laterality Modality Ultrasound 06/13/2025 10:4 6 AM CDT Narrative 06/13/2025 10:52 AM CDT [facility] ----- Pat. Name: NAYELI HERNANDEZ Study Date: 06/13/2025 10:46am Pat. NO: [id number] Referring MD: ABRAM ALVAREZ MD Site: [facility] Casing Mixer: : 1995 Age: 29 ----- INDICATION ----- [...] O34.33: Maternal care for cervical incompetence Procedures 83663: NST/ monitoring HISTORY ----- OB History 6. [...] Note Capri Perez MD - 06/13/2025 [facility] NST ----- Pat. Name:Anushka HERNANDEZ Date:06/13/2025 10:46am Pat. NO: [id number] :ABRAM ALVAREZ MD [facility]1995Age:29 ----- INDICATION ----- Maternal Obesity (BMI<40) Complicating Cervical Shortening, Confirmed Gestational Diabetes, Insulin Controlled Maternal Cardiac Disease, Congenital, Specify bicuspid aorticvalve Condition Cervix, Incompetent with or without Cerclage cerclage in place4/11 CODING ----- Diagnoses Z3A.36: Weeks of gestation O99.213: Obesity complicating O26.873: Cervical shortening O99.413: Diseases of the circulatory systemcomplicating O24.414: Gestational diabetes mellitus inpregnancy, insulin controlled O34.33: Maternal care for cervical incompetence Procedures 52468: NST/ monitoring HISTORY ----- OB History 6. [...] d SUNDAY by LMP:06/21/2025 GA by prior [id number] w + 1 d SUNDAY by prior [...] 10:04 AM CDT) Only the most recent of2 resultswithin the time period is included. Anatomical Region Laterality Modality Pelvis Ultrasound 06/13/2025 9:41 AM CDT Narrative 06/13/2025 10:24 AM CDT [facility] FOLLOW UP ----- Pat. Name: NAYELI HERNANDEZ Study Date: 06/13/2025 9:41am Pat. NO: [id number] Referring MD: ABRAM ALVAREZ MD Site: [facility] Casing Mixer: Radha Espinoza RDMS : 1995 Age: 29 [...] O34.33: Maternal care for cervical incompetence Procedures 59367: Ultrasound, uterus, real time with image documentation, [...] 9 lb 2 oz EFW by Hadlock ([id number]) Extremities / Bony Struc Biometry: FL / [...] and date of were verified by the tmd teacher prior to the exam IMPRESSION ----- Impression: [...] Note Capri Perez MD - 06/13/2025 ST FOLLOW UP ----- Pat. Name:Anushka HERNANDEZ Date:06/13/2025 9:41am Pat. NO: [id number] MD:ABRAM ALVAREZ MD [facility]:Radha Espinoza RDMS :1995Age:29 ----- INDICATION ----- Maternal Obesity (BMI<40) Complicating Cervical Shortening, Confirmed Gestational Diabetes, Insulin Controlled Maternal Cardiac Disease, Congenital, Specify Condition Cervix, Incompetent with or without Cerclage CODING ----- Diagnoses Z3A.36: Weeks of gestation O99.213: Obesity complicating O26.873: Cervical shortening O99.413: Diseases of the circulatory systemcomplicating O24.414: Gestational diabetes mellitus inpregnancy, insulin controlled O34.33: Maternal care for cervical incompetence Procedures 11803: Ultrasound, uterus, real time withimage documentation, follow [...] d SUNDAY by LMP:06/21/2025 GA by prior [id number] w + 1 d SUNDAY by prior [...] 9 lb 2 oz EFW by Hadlock ([id number]) Extremities / Bony Struc Biometry: FL / [...] and date of were verified by the tmd teacher prior tothe exam IMPRESSION ----- Impression: - [...] Leslie Winters NP US ORDERABLES Final Result from Last 3 Months Insurance [place] RX [facility] [employer] [place] PL[employer] (INTERNAL) [facility] Internal Plans Advance Directives For more information, please contact: [phone] * Full Code (Latest Code Status on File) Date Activated Date Inactivated Comments 03/10/2025 12:14 PM 03/11/2025 5:19 PM Care Teams Wire Coater Relationship Specialty Start Date End Date Karla Godfrey NP [facility] [place] [address] PCP - General NURSE PRACTITIONER 02/09/15
--- OUTSIDE RECORDS SUMMARY | 2025-07-02 22:56 | XMS_ITS | Continuity of Care Document ---
Author Organization [facility] Address [address] [place] [address] Care Team Providers Care College Sports Coach Name Role Phone Liza HANSON, Afsaneh Unavailable [...] Mri Angio Chest W/wo Contrast Offic/outpt E&m [facility] Complex e/m visit add on Echo Ecg-routine 12 Lead; Intrpt & Advance Directives Directive Yes / No Effective Date File Name No Information Encounters Encounter Description Practice Location Reason(s) For Visit Diagnoses Date Provider Providers Copied on Encounter [facility], [address] [place] [address], [address], [facility] Office, [address] No Information 2 Liza Shelby. [address] [place] [address] [facility] [address], [place], [place], [id number], . tel:[phone] Offic/outpt E&m [facility], [address] [place] [address], [address], [facility] Office [address] Freeform HPI (chief complaint) Nonrheumatic aortic (valve) stenosis 1 De Jesus Afsaneh. [address], [place]y [facility] [address], [place], [place], [id number], [place]. tel:[phone] Referring Provider: Dung Mazariegos, [address] [place], [address]. tel:[phone] [facility], [address] [place] [address], [address], [place] [facility] [place] [address] No Information 1 Ronn Webb. [address] [facility], [address], [place], [address], [place]. tel:[phone] Referring Provider: Afsaneh De Jesus, [address] [place] [address], [place], [address]. tel:[phone] Offic/outpt E&m [facility], [address] [place] [address], [address], [place] [facility] [address] *Cardiovasc ular Evaluation (chief complaint)F reeform HPI (chief complaint) Nonrheumatic aortic (valve) stenosis 1 Liza Shelby. [address], [place] [address], [place], [place], [id number], [place]. tel:[phone] Referring Provider: Dung Mazariegos, [address] [place], [address]. tel:[phone] [facility], [address] [place] [address], [address], [place] [facility] No Information 1 Talia Lugo. [address], [address], [address], [place]. tel:[phone] Referring Provider: Parish Melgar, [address], [address]. tel:[phone] [facility], [address] [place] [address], [place], [address], [place] [facility] No Information Abhijeet Quinonez. [address] [facility], [address], [place], [address], [place]. tel:[phone] Referring Provider: Bhavin Matthews, [address] [facility], [place], [address]. tel:[phone] Family History Family Member Type Diagnosis Age At Onset No Information Payers Payer name Insurance type Covered democrat ID Authoriza joseph(s) A[employer] POS [id number] CI [id number] Social History Type Description Quantity Date Captured [...]
--- OUTSIDE RECORDS SUMMARY | 2025-07-02 22:56 | XMS_ITS | Continuity of Care Document ---
Author Organization [facility] Address [address] [place] [address] Phone Care Team Providers Care Marketing Services Vice President Name Role Phone Unavailable Unavailable Unavailable Advance Directives Directive Yes / No Effective Date File Name No Information Encounters Encounter Description Practice Location Reason(s) For Visit Diagnoses Date Provider Providers Copied on Encounter [facility], [address] [facility], [place], [place], [id number], [place] tel:[phone] [facility] No Information No Information Referring Provider: REFERRAL SELF. Family History Family Member Type Diagnosis Age At Onset No Information Payers Payer name Insurance type Covered republican ID Authoriza tigloria(s) pinion-pins [facility] PLAN [facility] [place] [id number] CI [id number] Social History Type Description Quantity Date Captured Comments Sex Female Smoking Status No Information Chief Complaint And Reason For Visit No Information History Of Present Illness Encounter Date Complaint History Of Prese nt Illness No Information Instructions Date Instruction Additional Infor mation No Information Assessments Type Assessment Date No Information
--- OUTSIDE RECORDS SUMMARY | 2025-07-02 22:56 | XMS_ITS | Clinical Summary ---
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 Gender Identity Not on file Sexual Orientation Not on file Obstetrics History Last Filed Vital Signs Vital Sign Reading Time Taken Comments Blood Pressure 114/69 11/20/2023 1:55 PM GUI DEVELOPER Pulse 64 11/20/2023 2:00 PM GUI DEVELOPER Temperature 36.9 C (98.4 F) 11/20/2023 11:01 AM GUI DEVELOPER Respiratory Rate 20 11/20/2023 11:01 AM GUI DEVELOPER Oxygen Saturation 100% 11/20/2023 2:00 PM GUI DEVELOPER Inhaled Oxygen Concentration - - Weight 78.2 kg (172 lb 8 oz) 11/20/2023 11:01 AM GUI DEVELOPER Height 154.9 cm (5' 1) 11/20/2023 11:01 AM GUI DEVELOPER Body Mass Index 32.59 11/20/2023 11:01 AM GUI DEVELOPER Plan of Treatment Health Maintenance Due Date [...] HPV Vaccines Completed 03/17/2008, 10/31, 09/09/[address] [place] [address] [address] [place] [address] [facility] Care Teams Adjunct Latin Professor Relationship Specialty Start Date End Date Jez Swartz MD [address] [facility] [address] [place] [address] PCP - General Obstetrics and Gynecology 04/23/23
[2025-07-02 22:58] VITALS: BP 130/87; PULSE 83
[2025-07-02 23:01] VITALS: BP 134/87; PULSE 72
[2025-07-02 23:04] VITALS: BMI 38.9
[2025-07-02 23:14] VITALS: TEMP 36.9
[2025-07-02 23:16] VITALS: BP 118/87; PULSE 72
[2025-07-02 23:46] LABS: Add Urine Microscopic? YES; Appearance Urine Clear (Clear); Glucose Urine UA 3+ mg/dL (Negative); Leukocyte Esterase Ur Trace LEU/UL (Negative); Nitrate Urine Negative (Negative); Specific Grav Ur 1.024 (1.001-1.035)
--- NOTE | 2025-07-06 11:03 | PM.OBTRLD ---
OB - Triage/Final Diagnosis Visit Information Comments/Additional reasons for admission: I have assessed the risk for this patient, Alexandrea Krause, and determined that she would benefit from observation care. Evaluation Laboratory results: Laboratory Tests 07/02/25 23:38 Urine Color Yellow Urine Appearance Clear Urine pH 6.5 Ur Specific Parker 1.024 Urine Protein 2+ H Urine Glucose (UA) 3+ H Urine Ketones Trace H Ur Blood (Man) Negative Urine Nitrate Negative Urine Bilirubin Negative Urine Urobilinogen 1.0 Leukocyte Esterase Rfl Trace H Urine RBC 0-2 Urine WBC 6-10 H Ur Squamous Epith Cells Occasional Urine Bacteria None seen Urine Casts 3-5 Final Diagnosis (1) False labor: Code(s): O47.9 - False labor, unspecified Status: Acute
== END 2025-07-03 01:30 | disposition home or self-care (01) ==
PROVIDERS: Admitting Provider Obstetrics & Gynecology; Visit Provider Obstetrics & Gynecology
DX: O47.1 False labor at or after 37 completed weeks of gestation (principal); Z3A.38 38 weeks gestation of pregnancy
CPT/HCPCS: 81001; 87086; G0378; G0379

== ENCOUNTER 2025-07-05 04:53 | Inpatient (IN) | payer OTHER, SELFPAY ==
[2025-07-05] VITALS (98 sets, daily range): BP systolic 90–139; BP diastolic 46–89; PULSE 54–86; RESP 14–18; TEMP 36.3–37.3; O2SAT 97–100; BMI 38.9
--- OUTSIDE RECORDS SUMMARY | 2025-07-05 00:41 | XMS_ITS | Encounter Summary ---
Author Organization [facility] Address [address] [place] [address] Care Team Providers Care Quartz Cutter Name Role Phone EpifanioKitty palkristinerobby Godfrey MUHAMMAD Primary Care Provider Reason for Referral * Radiology Services (Routine) - Closed Specialty Diagnoses / Procedures Referred By Ai shi Referred To Contact Diagnoses Gestational diabetes mellitus (GDM) requiring insulin Procedures US OB LIMITED + NST CT NONSTRESS TEST CHG US UTERUS LIMITED 1/> FETUSES Capri Perez MD [address] [facility] [address], [place] [address] Phone: tel: fax: [facility] Maternal and Ground Floor [facility] [address] [place] [address] Phone: tel: fax: Referral ID Status Reason Start Date Expiration Date Visits Re quested Visits Authorized [id number] Closed 06/14/2025 07/15/2026 1 1 Reason for Visit * Radiology Services (Routine) - Closed Specialty Diagnoses / Procedures Referred By Ai shi Referred To Contact Diagnoses Gestational diabetes mellitus (GDM) requiring insulin Procedures US OB LIMITED + NST CT NONSTRESS TEST CHG US UTERUS LIMITED 1/> FETUSES Capri Perez MD [address] [facility] [address], [place] [address] Phone: tel: fax: Do Maternal and Ground Floor [address] [place] [address] [place] [address] Phone: tel: fax: Referral ID Status Reason Start Date Expiration Date Visits Re quested Visits Authorized [id number] Closed 06/14/2025 07/15/2026 1 1 Encounter Details Date Type Department Care Team (Late st Contact Info) Description 07/04/2025 1:10 PM CDT Hospital Encounter [facility] [place] [address] [place] [address] Capri Perez MD [address] [facility] [address] [place] [address] Arrived Social History Tobacco Use [...] on file 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 Name: NAYELI KRAUSE Study Date: 07/04/2025 1:52pm Pat. 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: : 1995 Age: 29 ----- INDICATION ----- Maternal Obesity (BMI<40) Complicating Cervical Shortening, Confirmed Gestational Diabetes, Insulin Controlled Maternal Cardiac Disease, Congenital, Specify Condition Cervix, Incompetent with or without Cerclage CODING ----- Diagnoses Z3A.39: Weeks of gestation O99.213: Obesity complicating O26.873: Cervical shortening O99.413: Diseases of the circulatory system complicating O24.414: Gestational diabetes mellitus in , insulin controlled O34.33: Maternal care for cervical incompetence Procedures 20758: NST/ monitoring 10639: Limited 1 or more - ANDRE, FHR, position (modifier 59 for MBPP) HISTORY ----- OB History 6. Para 2 Hess children born living (T) 2. Miscarriages 3 T2A3L2 1. live . Details: MATERNAL ASSESSMENT ----- Physical Exam Initial weight 79 kg, 175 lb. Initial BMI 33.07 kg/m . Blood pressure 115/68 mmHg. Heart rate 84 bpm METHOD ----- EFM, Transabdominal ultrasound examination. View: Good view ----- Hess . Number of fetuses: 1 DATING ----- LMP on: 09/14/2024 Cycle: regular cycle GA by LMP 41 w + 6 d SUNDAY by LMP: 06/21/2025 GA by prior assessment 39 w + 1 d SUNDAY by prior assessment: 07/10/2025 Method of dating: Restore dating from previous exam Assigned: based on stated SUNDAY, selected on 06/27/2025 Assigned GA 39 w + 1 d Assigned SUNDAY: 07/10/2025 GENERAL EVALUATION ----- Cardiac activity present. Presentation: cephalic NON STRESS TEST ----- NST interpretation: reactive. Test duration 38 min. Baseline FHR 140 bpm. Baseline variability: moderate. Accelerations: Present. Decelerations: absent. Uterine activity: present, irregular AMNIOTIC FLUID ASSESSMENT ----- Amount of AF: normal amount MVP 6.6 cm. ANDRE 8.2 cm. Q1 6.6 cm, Q2 1.6 cm, Q3 0.0 cm, Q4 0.0 cm COMMENT ----- Nurses Notes: Patient reports positive movement and no bleeding, leaking of fluid or dandy. C/S scheduled for 07/05/25. IMPRESSION ----- Reassuring modified BPP Procedure Note Clarke Hong MD - 07/04/2025 MODIFIED BPP STUDY ----- Pat. Name:Anushka KRAUSE Date:07/04/2025 1:52pm Pat. NO: [id number] :ABRAM ALVAREZ MD [facility]1995Age:29 ----- INDICATION ----- Maternal Obesity (BMI<40) Complicating Cervical Shortening, Confirmed Gestational Diabetes, Insulin Controlled Maternal Cardiac Disease, Congenital, Specify Condition Cervix, Incompetent with or without Cerclage CODING ----- Diagnoses Z3A.39: Weeks of gestation O99.213: Obesity complicating O26.873: Cervical shortening O99.413: Diseases of the circulatory systemcomplicating O24.414: Gestational diabetes mellitus inpregnancy, insulin controlled O34.33: Maternal care for cervical incompetence Procedures 85997: NST/ monitoring 25956: Limited 1 or more - ANDRE, FHR, position(modifier 59 for MBPP) HISTORY ----- OB History 6. Para 2 Hess children born living (T) 2. Miscarriages3 T2A3L2 1. live . Details: MATERNAL ASSESSMENT ----- Physical Exam Initial weight 79 kg, 175 lb. Initial BMI 33.07kg/m . Blood pressure 115/68 mmHg. Heart rate 84 bpm METHOD ----- EFM, Transabdominal ultrasound examination. View: Good view ----- Hess . Number of fetuses: 1 DATING ----- LMP on:09/14/2024 Cycle:regular cycle GA by LMP41 w + 6 d SUNDAY by LMP:06/21/2025 GA by prior [id number] w + 1 d SUNDAY by prior assessment:07/10/2025 Method of dating:Restore dating from previous exam Assigned:based on stated SUNDAY, selected on 06/27/2025 Assigned GA39 w + 1 d Assigned SUNDAY:07/10/2025 GENERAL EVALUATION ----- Cardiac activity present. Presentation: cephalic NON STRESS TEST ----- NST interpretation: reactive. Test duration 38 min. Baseline FHR 140 bpm.Baseline variability: moderate. Accelerations: Present. Decelerations: absent. Uterine activity: present, irregular AMNIOTIC FLUID ASSESSMENT ----- Amount of AF: normal amount MVP 6.6 cm. ANDRE 8.2 cm. Q1 6.6 cm, Q2 1.6 cm, Q3 0.0 cm, Q4 0.0 cm COMMENT ----- Nurses Notes: Patient reports positive movement and no bleeding,leaking of fluid or dandy. C/S scheduled for 07/05/25. IMPRESSION ----- Reassuring modified BPP us Capri Perez MD ORDERABLES Final R esult documented in this encounter Visit Diagnoses Diagnosis Gestational diabetes mellitus (GDM) requiring insulin documented in this encounter Care Teams Quartz Cutter Relationship Specialty Start Date End Date Karla Godfrey NP [address] [place] [address] PCP - General NURSE PRACTITIONER 02/09/15 documented as of this encounter
--- OUTSIDE RECORDS SUMMARY | 2025-07-05 00:41 | XMS_ITS | Referral Summary ---
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 Gender Identity Not on file Sexual Orientation Not on file Last Filed Vital Signs Vital Sign Reading Time Taken Comments Blood Pressure 114/69 11/20/2023 1:55 PM EGG FACTORY WORKER Pulse 64 11/20/2023 2:00 PM EGG FACTORY WORKER Temperature 36.9 C (98.4 F) 11/20/2023 11:01 AM EGG FACTORY WORKER Respiratory Rate 20 11/20/2023 11:01 AM EGG FACTORY WORKER Oxygen Saturation 100% 11/20/2023 2:00 PM EGG FACTORY WORKER Inhaled Oxygen Concentration - - Weight 78.2 kg (172 lb 8 oz) 11/20/2023 11:01 AM EGG FACTORY WORKER Height 154.9 cm (5' 1) 11/20/2023 11:01 AM EGG FACTORY WORKER Body Mass Index 32.59 11/20/2023 11:01 AM EGG FACTORY WORKER Plan of Treatment Not on file Insurance Care Teams Anatomic Pathology Assistant Relationship Specialty Start Date End Date Jez Swartz MD [address] [facility] [address] [place] [address] PCP - General Obstetrics and Gynecology 04/23/23
--- OUTSIDE RECORDS SUMMARY | 2025-07-05 00:41 | XMS_ITS | Clinical Summary ---
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 Gender Identity Not on file Sexual Orientation Not on file Obstetrics History Last Filed Vital Signs Vital Sign Reading Time Taken Comments Blood Pressure 114/69 11/20/2023 1:55 PM WIND ENERGY SYSTEMS INSTALLER Pulse 64 11/20/2023 2:00 PM WIND ENERGY SYSTEMS INSTALLER Temperature 36.9 C (98.4 F) 11/20/2023 11:01 AM WIND ENERGY SYSTEMS INSTALLER Respiratory Rate 20 11/20/2023 11:01 AM WIND ENERGY SYSTEMS INSTALLER Oxygen Saturation 100% 11/20/2023 2:00 PM WIND ENERGY SYSTEMS INSTALLER Inhaled Oxygen Concentration - - Weight 78.2 kg (172 lb 8 oz) 11/20/2023 11:01 AM WIND ENERGY SYSTEMS INSTALLER Height 154.9 cm (5' 1) 11/20/2023 11:01 AM WIND ENERGY SYSTEMS INSTALLER Body Mass Index 32.59 11/20/2023 11:01 AM WIND ENERGY SYSTEMS INSTALLER Plan of Treatment Health Maintenance Due Date [...] HPV Vaccines Completed 03/17/2008, 10/31, 09/09/[address] [place] [address] [facility] Care Teams Video Game Repair Technician Relationship Specialty Start Date End Date Jez Swartz MD [address] [facility] [address] [place] [address] PCP - General Obstetrics and Gynecology 04/23/23
--- OUTSIDE RECORDS SUMMARY | 2025-07-05 00:41 | XMS_ITS | Continuity of Care Document ---
Author Organization [facility] Address [address] [place] [address] Care Team Providers Care Nutrition Technician Name Role Phone Liza HANSON, Afsaneh Unavailable [...] Mri Angio Chest W/wo Contrast Offic/outpt E&m [facility] Complex e/m visit add on Echo Ecg-routine 12 Lead; Intrpt & Advance Directives Directive Yes / No Effective Date File Name No Information Encounters Encounter Description Practice Location Reason(s) For Visit Diagnoses Date Provider Providers Copied on Encounter [facility], [address] [place] [address], [address], [facility], [address] No Information 2 Liza Shelby. [address] [place] [address] [facility] [address], [place], [place], [id number], . tel:[phone] Offic/outpt E&m [facility], [address] [place] [address], [address], [facility] [address] Freeform HPI (chief complaint) Nonrheumatic aortic (valve) stenosis 1 De Jesus Afsaneh. [address], Nataly [facility] [address], [place], [place], [id number], [place]. tel:[phone] Referring Provider: Dung Mazariegos, [address] [place], [address]. tel:[phone] [facility], [address] [place] [address], [address], [place] [facility] [address] No Information 1 Ronn Webb. [address] [facility], [address], [place], [address], [place]. tel:[phone] Referring Provider: Afsaneh De Jesus, [address] [place] [address], [place], [address]. tel:[phone] Offic/outpt E&m [facility], [address] [place] [address], [address], [place] [facility] [address] *Cardiovasc ular Evaluation (chief complaint)F reeform HPI (chief complaint) Nonrheumatic aortic (valve) stenosis 1 Liza Shelby. [address] [facility] [address], [place] [address], [place], [id number], [place]. tel:[phone] Referring Provider: Dung Mazariegos, [address] [place], [address]. tel:[phone] [facility], [address] [place] [address], [address], [place] [facility] No Information 1 Talia Lugo. [address], [address], [address], [place]. tel:[phone] Referring Provider: Parish Melgar, [address], [address]. tel:[phone] [facility], [address] [place] [address], [place], [address], [place] [facility] No Information Abhijeet Quinonez. [address] [facility], [address], [place], [address], [place]. tel:[phone] Referring Provider: Bhavin Matthews, [address] [facility], [place], [address]. tel:[phone] Family History Family Member Type Diagnosis Age At Onset No Information Payers Payer name Insurance type Covered libertarian ID Authoriza joseph(s) [employer] POS [id number] CI [id number] Social History Type Description Quantity Date Captured [...]
--- OUTSIDE RECORDS SUMMARY | 2025-07-05 00:41 | XMS_ITS | Continuity of Care Document ---
Author Organization [facility] Address [address] [place] [address] Phone Care Team Providers Care Cardiac Care Nurse Name Role Phone Unavailable Unavailable Unavailable Advance Directives Directive Yes / No Effective Date File Name No Information Encounters Encounter Description Practice Location Reason(s) For Visit Diagnoses Date Provider Providers Copied on Encounter [facility], [address] [facility], [place], [place], [id number], [place] tel:[phone] [facility] No Information No Information Referring Provider: REFERRAL SELF. Family History Family Member Type Diagnosis Age At Onset No Information Payers Payer name Insurance type Covered constitution party ID Authoriza joseph(s) [email or web address] [place] [id number] CI [id number] Social History Type Description Quantity Date Captured Comments Sex Female Smoking Status No Information Chief Complaint And Reason For Visit No Information History Of Present Illness Encounter Date Complaint History Of Prese nt Illness No Information Instructions Date Instruction Additional Infor mation No Information Assessments Type Assessment Date No Information
--- OUTSIDE RECORDS SUMMARY | 2025-07-05 00:41 | XMS_ITS | Clinical Summary ---
Author Organization [facility] Address [address] [place] [address] Care Team Providers Care Head Sampler Name Role Phone Nikole Godinez Primary Care Provider [phone] Allergies No known active allergies Medications HYDROcodone-acet [...] Comments Blood Pressure 115/73 11/22/2024 9:19 PM WEIGHT CALCULATOR Pulse 63 11/22/2024 9:19 PM WEIGHT CALCULATOR Temperature 36.9 C (98.4 F) 11/22/2024 7:30 PM WEIGHT CALCULATOR Respiratory Rate 18 11/22/2024 9:19 PM WEIGHT CALCULATOR Oxygen Saturation 100% 11/22/2024 9:19 PM WEIGHT CALCULATOR Inhaled Oxygen Concentration - - Weight 81.2 kg (179 lb 0.2 oz) 11/22/2024 5:09 P M WEIGHT CALCULATOR Height 154.9 cm (5' 1) 11/22/2024 5:09 PM WEIGHT CALCULATOR Body Mass Index 33.82 11/22/2024 5:09 PM WEIGHT CALCULATOR Plan of Treatment Health Maintenance Due Date [...] MEDICAL REIMBURSEMENTS OF JOSE DAVID Care Teams Head Sampler Relationship Specialty Start Date End Date Nikole Godinez PA [address] [place] [address] PCP - General PHYSICIAN REFRIGERATION UNIT REPAIRER 04/15/23
--- OUTSIDE RECORDS SUMMARY | 2025-07-05 00:41 | XMS_ITS | Clinical Summary ---
Author Organization [facility] Address [address] [place] [phone] Phone Care Team Providers Care Prison Keeper Name Role Phone Karla Godfrey NP Primary [...] Active TRUEplus Pen Needle 31 gauge x 3/16 NeedleIndicati ons:Insulin controlled gestational diabetes mellitus (GDM) [...] Encounters Date Type Department Care Team Description 07/04/2025 1:10 PM CDT [facility] [address] [place] [address] Capri Perez MD Arrived 06/27/2025 1:15 PM CDT - 06/27/2025 11:59 PM CDT [facility] [address] [place] [address] Capri Perez MD Discharge Disposition: Home or Self Care 06/23/2025 1:15 PM CDT - 06/23/2025 11:59 PM CDT [facility] En[facility] Ground [facility] [address] [place] [address] Capri Perez MD Discharge Disposition: Home or Self Care 06/20/2025 1:15 PM CDT - 06/20/2025 11:59 PM CDT [facility] [address] [place] [address] Capri Perez MD Discharge Disposition: Home or Self Care 06/13/2025 9:30 AM CDT - 06/13/2025 11:59 PM CDT [facility] [address] [place] [address] Leslie Winters NP Discharge Disposition: Home or Self Care 06/13/2025 9:15 AM CDT - 06/13/2025 11:59 PM CDT [facility] Ground [facility] [address] [place] [address] eLslie Winters NP Discharge Disposition: Home or Self Care 06/09/2025 2:30 PM CDT Video Visit [facility] Maternal and Medicine - [facility] [place] [facility] [address] [facility] [address] [place] [address] Danay Butler NP Insulin controlled gestational diabetes mellitus (GDM) in third trimester (Primary Dx); Macrosomia of fetus affecting management of mother in third trimester, single or unspecified fetus; Bicuspid aortic valve; Cervical cerclage suture present in third trimester; 35 weeks gestation of 06/09/2025 9:15 AM CDT - 06/09/2025 11:59 PM CDT [facility] Ground [facility] [address] [place] [address] Leslie Winters NP Discharge Disposition: Home or Self Care 06/06/2025 9:15 AM CDT - 06/06/2025 11:59 PM CDT [facility] Ground [facility] [address] [place] [address] Leslie Winters NP Discharge Disposition: Home or Self Care 06/02/2025 9:11 AM CDT - 06/02/2025 11:59 PM CDT [facility] [address] [place] [address] Leslie Winters NP Discharge Disposition: Home or Self Care 05/31/2025 External Device Data ST[facility] ABSTRACTION Provider, Abstract 05/30/2025 9:15 AM CDT - 05/30/2025 11:59 PM CDT Hospital En[facility] Ground [facility] [address] [place] [address] Leslie Winters NP Discharge Disposition: Home or Self Care 05/26/2025 9:15 AM CDT - 05/26/2025 11:59 PM CDT [facility] [address] [facility] [place] [address] Leslie Winters NP Discharge Disposition: Home or Self Care 05/24/2025 [facility] Maternal and Medicine - [facility] [place] [facility] [address] [facility] [address] [facility] [place] [address] Elizabeth Michel, FREDERICK Diabetes 05/23/2025 9:00 AM CDT - 05/23/2025 11:59 PM CDT [facility] [address] [facility] [place] [address] Leslie Winters NP Discharge Disposition: Home or Self Care 05/19/2025 8:00 AM CDT - 05/19/2025 11:59 PM CDT [facility] [address] [place] [address] Leslie Winters NP Discharge Disposition: Home or Self Care 05/16/2025 10:32 AM CDT - 05/16/2025 11:59 PM CDT [facility] [address] [facility] [place] [address] Leslie Winters NP Discharge Disposition: Home or Self Care 05/16/2025 10:30 AM CDT - 05/16/2025 11:59 PM CDT Hospital Encounter [facility] Maternal and Ground Floor [address] [place] [address] Leslie Winters NP Discharge Disposition: Home or Self Care 05/11/2025 Telephone [facility] Maternal and Medicine - [facility] [place] [facility] [address] [place] [address] Jade Hernández Follow Up 05/06/2025 11:30 AM CDT Video Visit [facility] Maternal Medicine [address] [address] [address] [place] [address] Georgia Muir MD High risk , antepartum (Primary Dx); Insulin controlled gestational diabetes mellitus (GDM) in third trimester; History of delivery; Short cervical length during , third trimester; Bicuspid aortic valve; 30 weeks gestation of 04/27/2025 Telephone [facility] Maternal Medicine [address] [address] [address] [address] [place] [address] Alana Barclay MD Insurance Issues 04/26/2025 Orders Only [facility] Maternal and Medicine - [facility] [place] [facility] [address] [place] [address] Alana Barclay MD Insulin controlled gestational diabetes mellitus (GDM) during , antepartum (Primary Dx) 04/26/2025 Telephone [facility] Maternal and Medicine - [facility] [place] [address] [place] [address] Alana Barclay MD Gestational Diabetes 04/15/2025 11:00 AM CDT Video Visit [facility] Maternal Medicine [address] [address] [address] [facility] [address] [place] [address] Leslie Winters NP Insulin controlled gestational diabetes mellitus (GDM) in second trimester (Primary Dx); Cervical cerclage suture present in second trimester; Bicuspid aortic valve; 27 weeks gestation of 04/15/2025 Orders Only [facility] Maternal Medicine [address] [place] [address] Leslie Winters NP Insulin controlled gestational diabetes mellitus (GDM) in second trimester (Primary Dx); Cervical cerclage suture present in second trimester; Bicuspid aortic valve; 27 weeks gestation of ; Supervision of high risk in second trimester 04/14/2025 Abstract [facility] Maternal and Medicine - [facility] [place] [facility] [address] [place] [address] Jade Hernández 04/07/2025 9:00 AM CDT Office Visit [facility] Maternal and Medicine - [facility] [place] [facility] [address] [place] [address] Diet controlled gestational diabetes mellitus (GDM) in second trimester (Primary Dx); 26 weeks gestation of 04/07/2025 Telephone [facility] Maternal and Medicine - [facility] [place] [facility] [address] [place] [address] hSauna Alfonso No Show 04/06/2025 Orders Only [facility] Maternal and Medicine - [facility] [place] [facility] [address] [place] [address] Alana Barclay MD Diet controlled gestational diabetes mellitus (GDM) in second trimester (Primary Dx) 04/06/2025 Abstract [facility] Maternal and Medicine - [facility] [place] [facility] [address] [place] [address] Jade Hernández from Last 3 Months Family [...] on file 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 Anatomical Region Laterality Modality Pelvis Ultrasound 07/04/2025 1:52 PM CDT Narrative 07/04/2025 2:53 PM CDT MODIFIED [facility] STUDY ----- Pat. Name: NAYELI HERNANDEZ Study Date: 07/04/2025 1:52pm Pat. NO: [id number] Referring MD: ABRAM ALVAREZ MD Site: [facility] Paint Stockman: : 1995 Age: 29 ----- INDICATION ----- [...] O34.33: Maternal care for cervical incompetence Procedures 85058: NST/ monitoring 11760: Limited 1 or more - ANDRE, FHR, [...] 07/04/2025 MODIFIED [facility] STUDY ----- Pat. Name:Anushka HERNANDEZ Date:07/04/2025 1:52pm Pat. NO: [id number] :ABRAM ALVAREZ MD [facility]1995Age:29 ----- INDICATION ----- Maternal Obesity (BMI<40) Complicating Cervical Shortening, Confirmed Gestational Diabetes, Insulin Controlled Maternal Cardiac Disease, Congenital, Specify Condition Cervix, Incompetent with or without Cerclage CODING ----- Diagnoses Z3A.39: Weeks of gestation O99.213: Obesity complicating O26.873: Cervical shortening O99.413: Diseases of the circulatory systemcomplicating O24.414: Gestational diabetes mellitus inpregnancy, insulin controlled O34.33: Maternal care for cervical incompetence Procedures 27651: NST/ monitoring 46717: Limited 1 or more - ANDRE, FHR, [...] d SUNDAY by LMP:06/21/2025 [place] by prior [email or web address] w + 1 d SUNDAY by prior [...] ORDERABLES Final R esult * US MONITORING NST (06/13/2025 10:55 AM CDT) Only the most recent of2 resultswithin the time period is included. Anatomical Region Laterality Modality Ultrasound 06/13/2025 10:4 6 AM CDT Narrative 06/13/2025 10:[address] [facility] NST ----- Pat. Name: NAYELI HERNANDEZ Study Date: 06/13/2025 10:46am Pat. NO: [id number] Referring MD: ABRAM ALVAREZ MD Site: [facility] [place]: : 1995 Age: 29 ----- INDICATION ----- [...] O34.33: Maternal care for cervical incompetence Procedures 77927: NST/ monitoring HISTORY ----- OB History 6. [...] Procedure Note Capri Perez MD - 06/13/2025 [facility] NST ----- Pat. Name:Anushka HERNANDEZ Date:06/13/2025 10:46am Pat. NO: [id number] MD:ABRAM ALVAREZ [facility]1995Age:29 ----- INDICATION ----- Maternal Obesity (BMI<40) [...] O34.33: Maternal care for cervical incompetence Procedures 10201: NST/ monitoring HISTORY ----- OB History 6. [...] d SUNDAY by LMP:06/21/2025 [place] by prior [email or web address] w + 1 d SUNDAY by prior [...] the care of this patient. us Leslie Vianey HIGH SCHOOL LIBRARIAN US ORDERABLES Final Result * US OB FOLLOW UP PER [facility]ETUS (06/13/2025 10:04 AM CDT) Only the most recent of2 resultswithin the time period is included. Anatomical Region Laterality Modality Pelvis Ultrasound 06/13/2025 9:41 AM CDT Narrative 06/13/2025 10:24 AM CDT [facility] FOLLOW UP ----- Jammie. Name: NAYELI HERNANDEZ Study Date: 06/13/2025 9:41am Pat. NO: [id number] Referring MD: ABRAM ALVAREZ MD Site: [facility] [place]: Radha Espinoza RDMS : 1995 Age: 29 [...] O34.33: Maternal care for cervical incompetence Procedures 01300: Ultrasound, uterus, real time with image documentation, [...] 9 lb 2 oz EFW by Hadlock ([id number]) Extremities / Bony Struc Biometry: FL / [...] and date of were verified by the shell molder prior to the exam IMPRESSION ----- Impression: [...] Procedure Note Capri Perez MD - 06/13/2025 [facility] FOLLOW UP ----- Pat. Name:Anushka HERNANDEZ Date:06/13/2025 9:41am Pat. NO: [id number] MD:ABRAM ALVAREZ MD [facility]Radha Espinoza RDMS :1995Age:29 ----- INDICATION ----- Maternal Obesity (BMI<40) Complicating Cervical Shortening, Confirmed Gestational Diabetes, Insulin Controlled Maternal Cardiac Disease, Congenital, Specify Condition Cervix, Incompetent with or without Cerclage CODING ----- Diagnoses Z3A.36: Weeks of gestation O99.213: Obesity complicating O26.873: Cervical shortening O99.413: Diseases of the circulatory systemcomplicating O24.414: Gestational diabetes mellitus inpregnancy, insulin controlled O34.33: Maternal care for cervical incompetence Procedures 62828: Ultrasound, uterus, real time withimage documentation, follow [...] d SUNDAY by LMP:06/21/2025 [place] by prior [email or web address] w + 1 d SUNDAY by prior [...] 9 lb 2 oz EFW by Hadlock ([id number]) Extremities / Bony Struc Biometry: FL / [...] and date of were verified by the shell molder prior tothe exam IMPRESSION ----- Impression: - [...] Advance Directives For more information, please contact: [phone] * Full Code (Latest Code Status on File) Date Activated Date Inactivated Comments 03/10/2025 12:14 PM 03/11/2025 5:19 PM Care Teams Prison Keeper Relationship Specialty Start Date End Date Karla Godfrey NP [facility] [place] [address] PCP - General NURSE PRACTITIONER 02/09/15
--- OUTSIDE RECORDS SUMMARY | 2025-07-05 00:41 | XMS_ITS | Continuity of Care Document ---
Author Organization [facility] Address [address] [place] [address] Phone Care Team Providers Care Complaints Coordinator Name Role Phone Unavailable Unavailable Unavailable Advance Directives Directive Yes / No Effective Date File Name No Information Encounters Encounter Description Practice Location Reason(s) For Visit Diagnoses Date Provider Providers Copied on Encounter [facility], [address] [facility], [place], [place], [id number], [place] tel:[phone] [facility] OUTPATIENT No Information No Information Referring Provider: REFERRAL SELF. Family History Family Member Type Diagnosis Age At Onset No Information Payers Payer name Insurance type Covered green party ID Authoriza tigloria(s) [employer] [facility] [place]/POS [id number] CI [id number] Social History Type Description Quantity Date Captured Comments Sex Female Smoking Status No Information Chief Complaint And Reason For Visit No Information History Of Present Illness Encounter Date Complaint History Of Prese nt Illness No Information Instructions Date Instruction Additional Infor mation No Information Assessments Type Assessment Date No Information
--- NOTE | 2025-07-05 06:07 | LDADM ---
This patient, Alexandrea Krause, was admitted to Labor/Delivery/Recovery 119 on 07/05/25 at 04:53. Plans for labor, pain management and were discussed with patient. Patient/family oriented to hospital policies and general routines including ID bracelet, bed and alarms, visiting hours, pain management, procedures, bathroom and other care routines, personal items, smoking policy, room service/diet and guest tray routines, security routines, and visiting hours. Patient/Family are encouraged to report perceived risks to care and to ask questions if they do not understand what they are told or what they should do. See OBIX for further documentation.
[2025-07-05 06:43] LABS: Hematocrit 35.1 % (37.0-47.0); Hemoglobin 11.4 g/dL (12.0-15.0); Immature Granulocyte Percent A 0.4 % (0-0.5); Lymphocytes Absolute Auto 2.66 K/mm3 (0.9-3.2); Mean Corpuscular HGB Conc 32.5 g/dl (32-36); Mean Corpuscular Hemoglobin 27.8 pg (26-34); Mean Corpuscular Volume 85.6 fl (80-100); Nucleated Red Blood Cells Absolute Auto 0.000 K/mm3 (0.0-0.012); Nucleated Red Blood Cells Perc 0.0 % (0.0-0.2); Platelet Count Result 246 k/mm3 (150-375); Red Blood Count 4.10 M/mm3 (4.2-5.4); White Blood Count 10.6 K/mm3 (4.5-10.0)
[2025-07-05] MEDS: LACTATED RINGERS 1,000 ML 125 ML IV CONT ×2 (06:48→07:27)
[2025-07-05] MEDS: ACETAMINOPHEN 500 MG TABLET 1000 MG PO ×3 (06:51→20:52)
--- NOTE | 2025-07-05 07:20 | PM.IMHP ---
H&P: HPI History of Present Illness Date/Time: 07/05/25 07:20 Chief Complaint: Elective repeat section Narrative: 29 /o at 39 weeks admitted for elective repeat section and removal of cerclage. PNC significant for: Prior section x 2. H/o early second trimester cervical shortening, Cerclage placed- 03/11, insulin controlled gestational diabetes, LGA, h/o bicuspid aortic valve she had cardiology evaluation and echo and recommendation for follow up six months. She plans on using Depo-Provera for contraception. She has been informed of risk benefit of repeat section and risk of attempting , she has opted for repeat cesrean section and removal of cerclage. Blood sugar this am 99. Review of Systems Review of Systems: All systems reviewed & are unremarkable except as noted in HPI and below Constitutional: Constitutional: Reports no additional constitutional complaints and Denies headache(s) Eyes: Eyes: Denies spots in vision ENT: Reports system reviewed and no additional complaints, except as documented and Denies headache(s) Cardiovascular: Cardiovascular: Denies chest pain and Denies dyspnea Respiratory: Respiratory: Denies dyspnea Gastrointestinal: Gastrointestinal: Reports no additional gastrointestinal complaints Genitourinary: Genitourinary: Reports amenorrhea Musculoskeletal: Musculoskeletal: Reports no additional musculoskeletal complaints Integumentary/Breasts: Skin/Breast: Denies breast mass and Denies rash Neurologic: Denies headache(s) Psychiatric: Psychiatric: Reports no additional psychiatric complaints [facility] Past Medical History Medical History H/O bicuspid aortic valve History of miscarriage Heart disease Anxiety Anemia Surgical History Surgical History History of cervical cerclage History of 2 History of cholecystectomy Family History Family History Mother Family history of diabetes mellitus in first degree relative Sibling Family history of diabetes mellitus in first degree relative Social History Social History Smoking status: Former smoker Tobacco type: e-cigarettes/vaping Alcohol intake: never Substance use: never Substance use type: marijuana Do You Feel Safe in your Home?: Yes Lack of Transportation: No Lack of Food: Never True Current Housing: I Have Housing Concerned About Future Housing: No Difficulty Paying Gas/Electric Bills: No Difficulty Paying for Meds: No Currently Unemployed: No Education: Grade School Difficulty w/ Childcare or Family Care: No Occupation/Education: occupation Gender identity (if verbalized by the patient): Female Sexual Orientation (if Verbalized by the Patient): Straight or Heterosexual Spiritual care concerns: No Meds Home Medications and Allergies Home Medications ?Medication ?Instructions ?Recorded ?Confirmed ?Type acetaminophen 500 mg tablet 1,000 mg (2 x 500 mg) PO Q6H PRN 01/12/25 07/02/25 Rx (Tylenol Extra Strength) pain #50 tabs vitamin#30 30 mg iron-10 1 cap PO DAILY #30 caps 03/16/25 07/02/25 Rx mg iron-folic acid 1 mg-omg3 capsule lancets 33 gauge #100 ea 03/24/25 06/15/25 Rx Contour Plus Test Strip (blood #50 ea 03/29/25 06/15/25 Rx sugar diagnostic) blood-glucose meter (Contour Plus #1 ea 03/30/25 06/15/25 Rx Blue Meter) insulin NPH isoph U-100 human 100 10 unit (0.1 mL) subcut QPM #15 mL 04/06/25 07/02/25 Rx unit/mL (3 mL) subcutaneous pen (Humulin N NPH U-100 Insulin KwikPen) pen needle, diabetic 32 gauge x #100 ea 04/06/25 06/15/25 Rx 5/32 (Concepción Pen Needle) blood-glucose sensor (FreeStyle #1 ea 06/15/25 06/15/25 History Ashley 3 Plus Sensor device) insulin lispro 100 unit/mL subcut 06/15/25 06/15/25 History subcutaneous pen Allergies Allergy/AdvReac Type Severity Reaction Status Date / Time No Known Allergies Allergy Unknown Verified 07/02/25 23:15 Vital Signs Vital Signs - 24 hr 07/05/25 05:19 07/05/25 05:27 07/05/25 05:28 Temperature 97.8 F 97.3 F L Pulse Rate 77 Blood Pressure 118/80 Pulse Oximetry 100 Oxygen Delivery 07/05/25 05:30 07/05/25 05:32 07/05/25 05:37 Temperature Pulse Rate Blood Pressure Pulse Oximetry 100 100 Oxygen Delivery Room Air 07/05/25 05:42 07/05/25 05:46 07/05/25 05:47 Temperature Pulse Rate 74 Blood Pressure 118/69 Pulse Oximetry 100 100 Oxygen Delivery 07/05/25 05:52 07/05/25 05:57 07/05/25 06:01 Temperature Pulse Rate 69 Blood Pressure 113/81 Pulse Oximetry 100 100 Oxygen Delivery 07/05/25 06:02 07/05/25 06:07 07/05/25 06:12 Temperature Pulse Rate Blood Pressure Pulse Oximetry 100 100 100 Oxygen Delivery 07/05/25 06:16 07/05/25 06:17 07/05/25 06:22 Temperature Pulse Rate 66 Blood Pressure 130/86 Pulse Oximetry 100 100 Oxygen Delivery 07/05/25 06:27 07/05/25 06:31 07/05/25 06:32 Temperature Pulse Rate 58 L Blood Pressure 127/89 Pulse Oximetry 100 99 Oxygen Delivery 07/05/25 06:37 07/05/25 06:42 07/05/25 06:46 Temperature Pulse Rate 67 Blood Pressure 139/86 Pulse Oximetry 100 100 Oxygen Delivery 07/05/25 06:47 07/05/25 06:52 07/05/25 06:55 Temperature Pulse Rate Blood Pressure Pulse Oximetry 100 100 100 Oxygen Delivery 07/05/25 07:00 07/05/25 07:01 07/05/25 07:05 Temperature Pulse Rate 65 Blood Pressure 132/86 Pulse Oximetry 100 100 Oxygen Delivery 07/05/25 07:10 07/05/25 07:15 Temperature Pulse Rate Blood Pressure Pulse Oximetry 100 100 Oxygen Delivery Exam Const: General: no acute distress Eyes: General: appearance normal, both eyes and all related structures Resp: Effort & Inspection: normal respiratory effort Cardio: Rate: regular rate GI: Other: Gravid no fundal tenderness no right upper quadrant pain Skin: General skin exam: no rashes or lesions noted Neuro: Cognition (Neuro): normal cognition Extrem: General: normal to inspection Psych: Mental Status: mental status grossly normal H&P: Results Labs Labs: Short CBC 07/05/25 Range/Units 06:22 WBC 10.6 H (4.5-10.0) K/mm3 Hgb 11.4 L (12.0-15.0) g/dL Hct 35.1 L (37.0-47.0) % Plt Count 246 (150-375) k/mm3 Assessment and Plan Assessment and plan (1) Delivery by elective section: Code(s): O82 - Encounter for delivery without indication Status: Acute Assessment and Plan: She has been counseled regarding risk benefit of and agrees with repeat section.Will proceed with repeat section. (2) Cervical cerclage suture present: Code(s): O34.30 - Maternal care for cervical incompetence, unspecified trimester Status: Acute Assessment and Plan: Will remove (3) Gestational diabetes: Code(s): O24.419 - Gestational diabetes mellitus in , unspecified control Status: Acute
[2025-07-05 07:29] LABS: Syphilis IgG/IgM Antibody Non-Reactive (Nonreactive)
--- NOTE | 2025-07-05 07:29 | WPDHPUPDATE1 ---
History and Physical Update Update Date/Time: 07/05/25 07:29 History and Physical has been reviewed, including an updated exam of the patient. There are NO changes in the patient's condition. Risks, benefits, and alternatives have been discussed and questions answered. Patient agrees to proceed with procedure.
[2025-07-05] MEDS: FAMOTIDINE 20 MG/2 ML VIAL IV PUSH (07:35)
[2025-07-05] MEDS: ONDANSETRON INJ 4 MG/2 ML VIAL IV PUSH (07:35)
[2025-07-05] MEDS: ceFAZolin 2 GM in SODIUM CHLORIDE 0.9% IV 50 ML 100 ML IVPB (07:42)
--- NOTE | 2025-07-05 08:23 | S_PTH ---
PATIENT: Alexandrea Krause LOC: [facility] U#:[id number] AGE/SX: 29/F ROOM: 282 RE07/05/[address]: Jez Swartz MD : 1995 BED: 00 DIS: 07/08/2025 SPEC #: [id number] RECD: 07/06/25 14:20 STATUS: LUCILLE REQ #: [id number] CB: 07/05/25 08:[address]: Jez Swartz DEPT: [facility] Surgical RECD BY: Annette Garcia ENTERED: 07/06/25 14:20 SP TYPE: Surgical OTHR DR: Ernesto Tapia, DO MAKEUP SALES CONSULTANT PHYSICIAN Tissues: A - Placenta Procedures: Hematoxylin and Eosin Stain Gross and Microscopic Level 5
[2025-07-05] MEDS: OXYTOCIN 30 UNITS/NS 500 ML 30 UNITS/500 ML BAG 125 UNITS IV CONT (10:31)
[2025-07-05] MEDS: LIDOCAINE 5% PATCH 1 PATCH TRANSDERM (10:44)
--- NOTE | 2025-07-05 11:12 | W.PM.PROC2 ---
Procedure Note - Detailed Date of Procedure 07/05/25 Pre-op Diagnosis , h/o cerclage Post-op Diagnosis Same Procedure Performed Repeat low transverse section Removal of cerclage Surgeon Jez Swartz MD Anesthesia Spinal Indications Cerclage suture removed intact Previous section x 2 Findings Male infant [id number], 8,9 apgars, nuchal cord x 2, occiput transverse position Description of Procedure After informed consent, risks and benefits of the procedure was discussed with the patient. The patient was taken to the operating room where she was placed in the dorsal lithotomy position with leftward tilt. After the prior placed epidural anesthesia was found to be adequate, speculum was inserted and cerclage was removed, full suture removed. She was then prepped and draped in the usual sterile fashion. A Pfannenstiel skin incision was made with a scalpel and carried through to the underlying layer of fascia. The fascia was then nicked in the midline, extending bilaterally. The fascia was dissected off the rectus muscles bluntly and sharply, superiorly and inferiorly. The rectus muscles were in the midline, and peritoneum was identified and entered bluntly. The pelvic organs were visualized. The bladder blade was then inserted. The vesicouterine peritoneum was identified and entered sharply with Metzenbaum scissors and extended bilaterally and then the bladder flap was created digitally. The low transverse uterine incision was then made with the scalpel and extended with bilateral index fingers in a crescent-shaped fashion. The head was delivered and the rest of the infant was delivered. The cord was wrapped around the neck twice and was manually removed. The nose and mouth suctioned. The cord was clamped twice and cut. The infant was then handed off to the awaiting pediatric staff. The placenta was then delivered manually. The uterine cavity was sponge curetted. The uterus was then exteriorized. The uterine incision was then closed with 0 vicryl in a running locked fashion. A second layer of interrupted figure of eight stitches was performed. Hemostasis noted. The uterus was then returned to the abdomen. Bilateral gutters were cleared off all clots and debris. The uterine incision was noted to be hemostatic. Interceed placed on uterine incision and vertically on front of uterus. The muscle bellies were inspected and noted to be hemostatic. The peritoneum was approximated with 3.0 vicryl. The subfascial layer was noted to be hemostatic, and the fascia was closed with 0 Vicryl in a running fashion. The subcutaneous layer was then approximated with 3-0 Vicryl in a subcutaneous fashion. The skin was closed with Ensorb elaine. Dermabond applied at incision. All instruments, needle, and lap counts were correct x3. The patient was taken to the recovery room in stable condition. Estimated Blood Loss 765 Urine Output 200 Drains No Packing No Pathology Yes (placenta and cord) Complications No immediate complications Condition Stable Disposition Floor [facility] Billing Surgery - Charge Forward: Surgery Billing
--- NOTE | 2025-07-05 12:07 | OBPPTRN ---
Patient transferred to post room #282 via stretcher. Support person present. Oriented to unit, room, information board, rooming in, admission packet and security measures. Patient verbalizes understanding.
--- NOTE | 2025-07-05 13:00 | PC.NURSE ---
Infant blood sugar check within normal limits so he is taken to mom to breastfeed. Baby made some rooting and sucking cues when we began the feeding attempt. Mom prefers the football hold due to her incision. Positioning was difficult due to 's large size. He made a few attempts to latch but never opened wide enough to take the nipple in his mouth. Mom asks about using a nipple shield because she used one with one of her other children. Her areola tends to wrinkle when the breast is compressed which makes latching difficult. Nipple shield provided and mother shown how to apply and clean between uses. Baby is able to latch to the shield without difficulty but only suckles in short bursts with stimulation. Dad is present and voices that he thinks baby prefers the bottle to the breast. Mom states that she really wants to breastfeed. We reviewed that it doesn't have to be all or nothing. She can put baby to breast first at each feeding and then supplement with formula after if desired. Mom requests a bottle after we tried for about 20 minutes and got maybe 5 minutes of nursing. Mom has a breast pump here and we discussed pumping with the nipple shield and expected milk production immediately after delivery. She will call for help setting up her pump or to request a hospital pump when she is ready. Father is instructed to feed 15-20ml of formula and to call out if he is unable to get baby to eat. Primary RN notified.
[2025-07-05] MEDS: SIMETHICONE 80 MG TAB.CHEW PO ×2 (14:08→17:48)
[2025-07-05] MEDS: KETOROLAC 15 MG/ML VIAL (*BKC) IV PUSH ×2 (14:08→20:52)
[2025-07-05] MEDS: DEXTROSE 5%/0.45% SOD CHL 1,000 ML 125 ML IV CONT (14:59)
--- NOTE | 2025-07-05 15:45 | PC.NURSE ---
Breast pump set up due to ineffective and maternal preference. Baby latched for a short time with the nipple shield but did not have an effective feeding at breast. Baby has taken formula bottles at each feeding. Patient has her own Zomee pump. She has one side set up and she is shown how to pump both breasts at once. She knows to adjust her suction to the highest comfortable setting. She is using a 24mm flange and states that she is comfortable and does not have any pain. Instructions given on cleaning, care, usage, that there should be no pain, pumping schedule for milk production, collection, and storage of human milk. Patient was assessed for correct placement, flange size, to for adequate milk production every 3 hours (8 times in 24 hours) 1-2 times at night. Patient says that she really does want to breastfeed so she is supported to find a routine that works for her. Suggested attempting at breast each feeding and then supplementing and pumping as needed.?Mother voiced understanding of the education shared along with mom/baby guide for additional resource information. Reported to the Primary RN.
[2025-07-05] MEDS: DOCUSATE SODIUM 100 MG CAPSULE PO (17:48)
[2025-07-06 00:09] VITALS: BP 95/58; PULSE 76; RESP 16; TEMP 37.2; O2SAT 97
[2025-07-06] MEDS: KETOROLAC 15 MG/ML VIAL (*BKC) IV PUSH (02:42)
[2025-07-06] MEDS: ACETAMINOPHEN 500 MG TABLET 1000 MG PO ×4 (02:43→23:18)
[2025-07-06 05:44] LABS: Hematocrit 23.3 % (37.0-47.0); Hemoglobin 7.4 g/dL (12.0-15.0); Immature Granulocyte Percent A 0.5 % (0-0.5); Lymphocytes Absolute Auto 2.37 K/mm3 (0.9-3.2); Mean Corpuscular HGB Conc 31.8 g/dl (32-36); Mean Corpuscular Hemoglobin 28.1 pg (26-34); Mean Corpuscular Volume 88.6 fl (80-100); Nucleated Red Blood Cells Absolute Auto 0.000 K/mm3 (0.0-0.012); Nucleated Red Blood Cells Perc 0.0 % (0.0-0.2); Platelet Count Result 162 k/mm3 (150-375); Red Blood Count 2.63 M/mm3 (4.2-5.4); White Blood Count 10.6 K/mm3 (4.5-10.0)
[2025-07-06] MEDS: MULTIVIT/MIN/PREN/FOL AC/IRON TABLET 1 TAB PO (07:49)
[2025-07-06] MEDS: SIMETHICONE 80 MG TAB.CHEW PO ×3 (07:50→15:46)
[2025-07-06] MEDS: DOCUSATE SODIUM 100 MG CAPSULE PO ×2 (07:50→15:46)
[2025-07-06] MEDS: TETANUS,DIPHTHERIA,AC PERTUSSIS ADULT (0.5 ML) BOOSTRIX IM (07:51)
--- NOTE | 2025-07-06 07:56 | WPDANLDPN2 ---
Anes-Prog Note L&D Date/Time: 07/06/25 07:56 Neuro status: Neuro function grossly intact. Cardiovascular status: normal Respiratory status: normal Airway patency: baseline Mental status: baseline Post-Op hydration status: normal Vital Signs: Last Vital Signs Temp 37.2 C 07/06/25 00:09 Pulse 76 07/06/25 00:09 Resp 16 07/06/25 00:09 BP 95/58 L 07/06/25 00:09 Pulse Ox 97 07/06/25 00:09 O2 Del Method Room Air 07/05/25 16:57 Pain score (VAS): 0 I/O: Intake & Output 07/05/25 07/05/25 07/06/25 15:59 23:59 07:59 Intake Total 600 800 Output Total 0968 7727 0840 Balance -8013 -9085 -683 Post-procedural complaints: none Patient feedback: Patient satisfied with anesthetic care.
--- NOTE | 2025-07-06 07:56 | WPDANLDNPN2 ---
Anes-Prog Note L&D-Neuraxial Date/Time: 07/06/25 07:56 Patient feedback: Patient satisfied with post-operative pain management.
[2025-07-06] MEDS: oxyCODONE HCL (*CRX) 5 MG TAB IR PO ×3 (08:09→19:50)
[2025-07-06 09:05] VITALS: BP 105/53; PULSE 78; RESP 16; TEMP 37.1; O2SAT 97
[2025-07-06] MEDS: IBUPROFEN 600 MG TABLET PO ×3 (09:37→23:18)
[2025-07-06] MEDS: IRON SUCROSE COMPLEX 400 MG, IRON SUCROSE COMPLEX 100 MG in SODIUM CHLORIDE 0.9% IV 250 ML 78.57 MG IVPB (09:41)
[2025-07-06] MEDS: LIDOCAINE 5% PATCH 1 PATCH TRANSDERM (13:51)
--- NOTE | 2025-07-06 14:12 | P.PNOB_ITS ---
OB - PN: Subj Subjective Date/time seen: 07/06/25 0820 Interval history: She states adequate pain control, she ambulated to restroom today without problem, denies lightheadedness, dizziness, SOB or CP, or leg pain. Lochia light. Baby doing well. Pumping. OB - PN: Obj Data Labs 07/06/25 04:05 Labs: Laboratory Results - last 24 hr 07/06/25 04:05 WBC 10.6 H RBC 2.63 L Hgb 7.4 L D Hct 23.3 L MCV 88.6 MCH 28.1 MCHC 31.8 L RDW 13.7 Plt Count 162 MPV 11.4 H Immature Gran % (Auto) 0.5 Neut % (Auto) 70.8 Lymph % (Auto) 22.3 [place] % (Auto) 5.3 Eos % (Auto) 0.9 Baso % (Auto) 0.2 Lymph # (Auto) 2.37 [place] # (Auto) 0.6 Eos # (Auto) 0.1 Baso # (Auto) 0.0 Abs Immat Gran (auto) 0.05 H Absolute Neuts (auto) 7.5 H Absolute Nucleated RBC 0.000 Nucleated RBC % 0.0 OB - PN A/P Assessment and Plan (1) Delivery by section: Status: Acute Assessment and Plan: Doing well. Asymptomatic anemia. No signs or symptoms of active bleeding. Will start iron infusion and continue oral iron. CBC in am. Routine post-op care. Time Spent With Patient Time: Total time spent is greater than 50% in coordination of care (as documented) at patient's floor/unit and/or counseling patient: Exam 2 Const: General: comfortable and no acute distress Resp: Effort & Inspection: normal respiratory effort Auscultation: clear to auscultation bilaterally Psych: Mental Status: mental status grossly normal Affect: normal affect
--- NOTE | 2025-07-06 14:15 | PM.OBDSVD ---
DS: Admitting Diagnosis Discharge Date 07/08/25 <Wendy Arroyo APRN - Last Filed: 07/08/25 08:03> Admitting Diagnosis Elective repeat section <Jez Swartz MD - Last Filed: 07/18/25 08:21> DS: Discharge Diagnosis Discharge Diagnosis (1) Gestational diabetes: Code(s): O24.419 - Gestational diabetes mellitus in , unspecified control <Jez Swartz MD - Last Filed: 07/18/25 08:21> Status: Acute <Jez Swartz MD - Last Filed: 07/18/25 08:21> (2) Delivery by section: Status: Acute <Jez Swartz MD - Last Filed: 07/18/25 08:21> OB - DS: Summary Hospital Course Hospital Course: She was admiitted for repeat section. She had an uncomplicated section. She had anemia on POD1 h/h, she was asymptomatic. She received iron infusion. She did not have any hypovolemic symptoms. On POD 1 she was ambulating without problems, had adequate pain control, tolerating regular diet and baby was doing well. POD2 H/H increased. She was doing well on post op day 3. Discharged to home on day 3. Discharge precautions discussed. <Jez Swartz MD - Last Filed: 07/18/25 08:21> OB Procedures : Ultrasound <Jez Swartz MD - Last Filed: 07/18/25 08:21> OB Procedures Intrapartum: <Wendy Arroyo APRN - Last Filed: 07/08/25 08:03> OB Procedures: : None <Jez Swartz MD - Last Filed: 07/18/25 08:21> Peripartum Data Procedures: Procedures Operation Date: 07/05/25 07:30 Actual Procedure Side Surgeon p Repeat Section, Cerclage Removal Jez Swartz MD <Jez Swartz MD - Last Filed: 07/18/25 08:21> complications: none <Jez Swartz MD - Last Filed: 07/18/25 08:21> Status at Discharge Functional status at discharge: independent ambulation <Jez Swartz MD - Last Filed: 07/18/25 08:21> Time Spent with Patient Time attestation: Total time spent providing and/or coordinating discharge services: <Jez Swartz MD - Last Filed: 07/18/25 08:21> Exam Const: General: cooperative <Jez Swartz MD - Last Filed: 07/18/25 08:21> Orientation/consciousness: oriented to person, oriented to place and oriented to time <Jez Swartz MD - Last Filed: 07/18/25 08:21> HENMT: Face/Nose/Sinus: Normal external nose present <Jez Swartz MD - Last Filed: 07/18/25 08:21> Eyes: General: appearance normal, both eyes and all related structures <Jez Swartz MD - Last Filed: 07/18/25 08:21> Resp: Effort & Inspection: normal respiratory effort <Jez Swartz MD - Last Filed: 07/18/25 08:21> GI: Inspection: normal to inspection <Jez Swartz MD - Last Filed: 07/18/25 08:21> Other: fundus below umbilicus, firm, dressing intact <Jez Swartz MD - Last Filed: 07/18/25 08:21> Skin: General skin exam: normal color <Jez Swartz MD - Last Filed: 07/18/25 08:21> Neuro: General: oriented to person, oriented to place and oriented to time <Jez Swartz MD - Last Filed: 07/18/25 08:21> Extrem: General: normal to inspection and no calf tenderness <Jez Swartz MD - Last Filed: 07/18/25 08:21> Psych: Appearance: grossly normal <Jez Swartz MD - Last Filed: 07/18/25 08:21> Mental Status: mental status grossly normal <Jez Swartz MD - Last Filed: 07/18/25 08:21> DS: Data Data Completed and Pending Pending studies at discharge: Pending at discharge 07/05/25 08:23 Surgical [PTH] Routine <Jez Swartz MD - Last Filed: 07/18/25 08:21> Labs on day of discharge: Labs from last 24 hours 07/06/25 04:05 WBC 10.6 H RBC 2.63 L Hgb 7.4 L D Hct 23.3 L MCV 88.6 MCH 28.1 MCHC 31.8 L RDW 13.7 Plt Count 162 MPV 11.4 H Immature Gran % (Auto) 0.5 Neut % (Auto) 70.8 Lymph % (Auto) 22.3 [place] % (Auto) 5.3 Eos % (Auto) 0.9 Baso % (Auto) 0.2 Lymph # (Auto) 2.37 [place] # (Auto) 0.6 Eos # (Auto) 0.1 Baso # (Auto) 0.0 Abs Immat Gran (auto) 0.05 H Absolute Neuts (auto) 7.5 H Absolute Nucleated RBC 0.000 Nucleated RBC % 0.0 <Jez Swartz MD - Last Filed: 07/18/25 08:21> Discharge Plan Discharge Attending physician on discharge: Jez Swartz <Jez Swartz MD - Last Filed: 07/18/25 08:21> Jez Swartz <Wendy Arroyo APRN - Last Filed: 07/08/25 08:03> Consulting providers: Ernesto Tapia; Rosario Avilez; Wendy Arroyo <Jez Swartz MD - Last Filed: 07/18/25 08:21> Discharging Clinician: Wendy Arroyo <Jez Swartz MD - Last Filed: 07/18/25 08:21> Wendy Arroyo <Wendy Arroyo APRN - Last Filed: 07/08/25 08:03> Patient Disposition: Home <Jez Swartz MD - Last Filed: 07/18/25 08:21> Activity: may shower, no straining, no driving and pelvic rest <Jez Swartz MD - Last Filed: 07/18/25 08:21> may shower, no straining, no driving and pelvic rest <Wendy Arroyo APRN - Last Filed: 07/08/25 08:03> Diet: regular <Jez Swartz MD - Last Filed: 07/18/25 08:21> regular <Wendy Arroyo APRN - Last Filed: 07/08/25 08:03> Discharge Instructions: Education: Mom and Baby Guide Given to: Mother Follow-Up: Call your delivering provider's office for an appointment to be seen in: 1 Week Mom and baby should come to the [facility] for the follow-up appointment. Appointment Date/Time: July 11, 2025 at 10:00 am What to expect at your follow-up visit: Physical Assessment Call [phone] if you are unable to keep your appointment time. BREAST CARE: * Wear a snug supportive bra. * For engorgement discomfort: Breast Feeding: * Apply warm moist washcloths * Express milk as needed to relieve engorgement * Wear loose clothing * For sore nipples: * Identify correct latch-on * Apply warm moist washcloths before and after nursing * Air dry nipples after nursing * May apply Lansinoh cream to nipples ABDOMINAL INCISION: (if applicable) * Allow incision to air dry * Do NOT use lotions for powders on your incision * When showering, allow soap and water to run over the incision, but do not wash incision EPISIOTOMY/PERINEAL CARE: * Until bleeding stops, use your jeana bottle after urinating * Change your pad frequently throughout the day * No tub baths until seen by your physician - You may shower ACTIVITY: * Rest as much as possible. * Do not exercise or lift anything heavier than your baby (such as laundry or other children.) * Avoid stairs or driving as much as possible. * Do not put anything into the vagina. No douching, tampons, or sexual activity until seen by physician. NOTIFY PHYSICIAN IF YOU HAVE ANY QUESTIONS OR IF ANY OF THE FOLLOWING SYMPTOMS OCCUR: * If your incision becomes red, swollen, or more painful than what you have experienced in the hospital. * If your vaginal bleeding becomes foul smelling. * If your vaginal bleeding becomes more heavy than a period or if your bleeding changes from pink to bright red. However, you may pass an occasional walnut-sized clot once or twice for the first week . * If you experience a sharp, shooting pain in you calves. * If you discover a hard, reddened area on your breast or if you experience flu-like symptoms. DIET: * Eat regular, well-balanced meals. * Drink plenty of fluids daily. If , drink to thirst. <Jez Swartz MD - Last Filed: 07/18/25 08:21> Patient Language: Vietnamese <Jez Swartz MD - Last Filed: 07/18/25 08:21> Stand Alone Forms: General Discharge Information <Jez Swartz MD - Last Filed: 07/18/25 08:21> Follow-up/Referrals: Jez Swartz MD [Physician] - 1 Week (Call for appointment) <Jez Swartz MD - Last Filed: 07/18/25 08:21> Discharge Medications: New polysaccharide iron complex 150 mg iron Capsule 150 mg PO BIDWM 60 Days Qty: 120 0RF docusate sodium 100 mg Capsule 100 mg PO BID Qty: 60 0RF ibuprofen 600 mg Tablet 600 mg PO Q6HR Qty: 30 0RF oxycodone 5 mg Tablet 5 mg PO Q4H PRN (Reason: Pain Rated 4-6) Qty: 20 0RF Continued acetaminophen [Tylenol Extra Strength] 500 mg tablet 1,000 mg PO Q6H PRN (Reason: pain) Qty: 50 0RF PNV [id number] 30 mg iron-10 mg iron-1 mg capsule 1 cap PO DAILY Qty: 30 3RF Discontinued insulin lispro 100 unit/mL insulin pen 6 unit subcut QPM Humulin N NPH Insulin KwikPen 100 unit/mL (3 mL) insulin pen 10 unit subcut QPM Qty: 15 0RF No Action (DME) blood-glucose meter [Contour Plus Blue Meter] Misc See Rx Instructions .Route Qty: 1 0RF Rx Instructions: QID: fasting and 1 hr after breakfast, lunch, and dinner. (DME) FreeStyle Ashley 3 Plus Sensor Device See Rx Instructions .ROUTE .MEDSUPPLY Qty: 1 Rx Instructions: As directed (DME) pen needle, diabetic [Con[place] Pen Needle] 32 gauge x 5/32 needle See Rx Instructions .MEDSUPPLY Qty: 100 0RF Rx Instructions: As directed (DME) lancets 33 gauge misc See Rx Instructions .ROUTE .MEDSUPPLY Qty: 100 3RF Rx Instructions: QID: fasting and 1 hr after breakfast, lunch, and dinner. (DME) Contour Plus Test Strip Strip See Rx Instructions .Route Qty: 50 3RF Rx Instructions: QID: fasting and 1 hr after breakfast, lunch, and dinner. <Jez Swarzt MD - Last Filed: 07/18/25 08:21> Date of admission: 07/05/25 04:53 <Jez Swartz MD - Last Filed: 07/18/25 08:21> Primary Care Provider: PHYSICIAN,LAND SURVEYING MANAGER <Jez Swartz MD - Last Filed: 07/18/25 08:21> Admitting Provider: Jez Swartz <Jez Swartz MD - Last Filed: 07/18/25 08:21> Attending physician on admission: Jez Swartz <Jez Swartz MD - Last Filed: 07/18/25 08:21> Condition: Stable <Jez Swartz MD - Last Filed: 07/18/25 08:21>
--- NOTE | 2025-07-06 16:14 | PC.NURSE ---
1600. Introductions were made, then consulted with patient to assess needs related to . Discussed with mother her plans to feed her and the experience so far. Mom states she has been drinking a lot of water but does not seem to be producing a lot of colostrum when she pumps. We reviewed how the process works, and reviewed that moms full volume milk will come in around day 3-5. Mom was encouraged to call out for support the next feeding has if she is unable to get to latch. Resources provided for inpatient and outpatient services with the feeding sheet, mom/baby guide and name written on the communication board. Mother voiced understanding of information and will call if there is a request for assistance. Reported to the Primary RN.?
[2025-07-06 18:52] VITALS: BP 117/78; PULSE 80; RESP 16; TEMP 36.9; O2SAT 100
[2025-07-06 19:50] VITALS: PULSE 80; RESP 16; O2SAT 100
[2025-07-07 04:21] LABS: Hematocrit 25.0 % (37.0-47.0); Hemoglobin 7.9 g/dL (12.0-15.0); Mean Corpuscular HGB Conc 31.6 g/dl (32-36); Mean Corpuscular Hemoglobin 27.7 pg (26-34); Mean Corpuscular Volume 87.7 fl (80-100); Platelet Count Result 201 k/mm3 (150-375); Red Blood Count 2.85 M/mm3 (4.2-5.4); White Blood Count 11.6 K/mm3 (4.5-10.0)
[2025-07-07] MEDS: IBUPROFEN 600 MG TABLET PO ×3 (05:42→21:06)
[2025-07-07] MEDS: ACETAMINOPHEN 500 MG TABLET 1000 MG PO ×3 (05:43→21:06)
[2025-07-07] MEDS: MULTIVIT/MIN/PREN/FOL AC/IRON TABLET 1 TAB PO (08:27)
[2025-07-07] MEDS: SIMETHICONE 80 MG TAB.CHEW PO ×3 (08:27→16:40)
[2025-07-07] MEDS: DOCUSATE SODIUM 100 MG CAPSULE PO ×2 (08:28→16:40)
[2025-07-07 08:45] VITALS: BP 106/62; PULSE 91; RESP 16; TEMP 37.3; O2SAT 99
--- NOTE | 2025-07-07 15:36 | PC.NURSE ---
Introductions were made, then consulted with patient to assess needs related to . Mother led the conversation with her?plans to feed?her infant and the?experience so far. Mother plans to pump and feed infant along with giving formula supplementation. Instructions given on cleaning, care, usage, that there should be no pain, pumping schedule for milk production, collection, and storage of human milk. Mother voiced understanding of the education shared along with mom/baby guide and the pump measurement, flange fit handout for additional resource information. Reported to the Primary RN.
[2025-07-07 19:25] VITALS: BP 106/67; PULSE 105; RESP 19; TEMP 36.9; O2SAT 98
--- NOTE | 2025-07-08 05:14 | P.PNOB_ITS ---
OB - PN: Subj Subjective Date/time seen: 07/07/25 1145 Interval history: She states she has been ambulating without problems, no lightheadedness or dizziness, no leg pain, minimal lochia. OB - PN: Obj Data Labs 07/07/25 03:58 OB - PN A/P Assessment and Plan (1) Delivery by section: Status: Acute Assessment and Plan: POD2. Doing well. Asymptomatic anemia. Continue oral iron. H/H increased from yesterday. Anticipate discharge tomorrow. Time Spent With Patient Time: Total time spent is greater than 50% in coordination of care (as documented) at patient's floor/unit and/or counseling patient: Exam 2 Const: General: comfortable and no acute distress Resp: Effort & Inspection: normal respiratory effort Auscultation: clear to auscultation bilaterally Cardio: Rate: regular rate GI: Other: dressing intact, <1cm area of soiling on mid dressing unchanged from yesterday fundus firm below umbilicus Psych: Mental Status: mental status grossly normal Affect: normal affect
[2025-07-08 07:35] VITALS: BP 108/75; PULSE 103; RESP 18; TEMP 37.4; O2SAT 99
--- NOTE | 2025-07-08 07:57 | P.PNOB_ITS ---
OB - PN: Subj Subjective Date/time seen: 07/08/25 07:57 Interval history: She states she has been ambulating without problems, no lightheadedness or dizziness, no leg pain, minimal lochia. BM yesterday. Patient comments: no complaints, pain well controlled, tolerating diet and flatus present baby status: doing well and nursing well feeding status: exclusively breast feeding OB - PN: Obj Data Labs 07/07/25 03:58 OB - PN A/P Assessment and Plan (1) Delivery by elective section: Code(s): O82 - Encounter for delivery without indication Status: Acute Plan POD3. Doing well. Asymptomatic anemia. Continue oral iron. Plan day: 3 Comments: routine post op care. pt doing well. plans to go home today. Time Spent With Patient Time: Total time spent is greater than 50% in coordination of care (as documented) at patient's floor/unit and/or counseling patient: Review of Systems 2 Constitutional: Constitutional: Denies fever(s) ENT: Denies dizziness and Denies headache(s) Cardiovascular: Cardiovascular: Denies chest pain, Denies leg edema and Denies dyspnea Respiratory: Respiratory: Denies dyspnea Gastrointestinal: Gastrointestinal: Denies abdominal pain Musculoskeletal: Musculoskeletal: Reports no additional musculoskeletal complaints and Denies abnormal gait Integumentary/Breasts: Skin/Breast: Reports system reviewed and no additional complaints, except as docu, Denies breast pain and Denies breast mass Neurologic: Denies abnormal gait, Denies dizziness and Denies headache(s) Psychiatric: Psychiatric: Denies homicidal ideation and Denies suicidal ideation Endocrine: Endocrine: Reports no additional endocrine complaints Hematologic/Lymphatic: Hematologic/Lymphatic: Reports no additional hematologic/lymphatic complaints Allergic/Immunologic: Allergic/Immunologic: Reports no additional allergic/immunologic complaints Exam 2 Const: General: comfortable and no acute distress O rientation/consciousness: oriented to person, oriented to place and oriented to time Resp: Effort & Inspection: normal respiratory effort Auscultation: clear to auscultation bilaterally Cardio: Rate: regular rate Rhythm: regular rhythm GI: Auscultation: normal bowel sounds Other: incision clean, dry and intact : Other: fundus 1-2 below umbilicus Skin: General skin exam: normal color Neuro: General: oriented to person, oriented to place and oriented to time Extrem: General: normal to inspection, capillary refill normal and no calf tenderness Psych: Mental Status: mental status grossly normal Affect: normal affect
[2025-07-08] MEDS: SIMETHICONE 80 MG TAB.CHEW PO (08:42)
[2025-07-08] MEDS: IBUPROFEN 600 MG TABLET PO (08:43)
[2025-07-08] MEDS: MULTIVIT/MIN/PREN/FOL AC/IRON TABLET 1 TAB PO (08:43)
[2025-07-08] MEDS: DOCUSATE SODIUM 100 MG CAPSULE PO (08:43)
[2025-07-08] MEDS: ACETAMINOPHEN 500 MG TABLET 1000 MG PO (08:44)
[2025-07-08] MEDS: MEASLES,MUMPS,RUBELLA VACCINE 0.5 ML VIAL SUB-Q (11:11)
[2025-07-11 10:36] VITALS: BP 116/84; PULSE 93; RESP 18; TEMP 37.2; O2SAT 100
== END 2025-07-08 13:57 | disposition home or self-care (01) | DRG 540 ==
LOC: ANHLDR 04:57 → ANHOB2 12:27
PROVIDERS: Admitting Provider Obstetrics & Gynecology; Visit Provider Obstetrics & Gynecology
PROC: 10D00Z1 Extraction of Products of Conception, Low, Open Approach (ICD-10-PCS; CPT 59514; principal; 2025-07-05 07:30)
DX: O34.219 Maternal care for unspecified type scar from previous cesarean delivery (principal); O24.424 Gestational diabetes mellitus in childbirth, insulin controlled; O36.63X0 Maternal care for excessive fetal growth, third trimester, not applicable or unspecified; O69.81X0 Labor and delivery complicated by cord around neck, without compression, not applicable or unspecified; O99.02 Anemia complicating childbirth; Z3A.39 39 weeks gestation of pregnancy; Z37.0 Single live birth; Z95.2 Presence of prosthetic heart valve; Z90.49 Acquired absence of other specified parts of digestive tract
CPT/HCPCS: 36415; 82948; 85025; 85027; 86593; 86850; 86900; 86901; 88307; 90710; 90715; J0690; A9270; J1756; J1885; J2274; J2371; J2405; J2590; J7050; J7120

== ENCOUNTER 2025-08-17 12:46 | Outpatient (CLI) | payer OTHER, SELFPAY ==
--- OUTSIDE RECORDS SUMMARY | 2025-08-17 12:54 | XMS_ITS | Clinical Summary ---
Author Organization [facility] Address [address] [place] [phone] Phone Care Team Providers Care Assistant Corporate Controller Name Role Phone Karla Godfrey NP Primary [...] on 05/06/2025 FreeStyle Ashley 3 Plus Sensor DeviceIndicatio ns:Insulin controlled gestational diabetes mellitus (GDM) during , antepartum Use to monitor glucose continuously. Replace sensor every 15 days. 2 Each 5 5 Active Contour Plus Test Strip StripIndication s:Insulin controlled gestational diabetes mellitus (GDM) during , antepartum Use to test blood sugar 4 times daily as directed 150 Strip 4 5 Active insulin lispro (HumaLOG KwikPen Insulin) 100 unit/mL pen syringeIndicati ons:Insulin controlled gestational diabetes mellitus (GDM) in third trimester Inject 6 Units by subcutaneous injection daily with supper. Max dose of 50U/day 15 mL 1 Active TRUEplus Pen Needle 31 gauge x 02/13 NeedleIndicatio ns:Insulin controlled gestational diabetes mellitus (GDM) in third trimester Use to administer insulin as directed 100 Each 5 5 Active Active Problems Problem Noted Date Diagnosed [...] Encounters Date Type Department Care Team Description 07/06/2025 External Device Data [facility] ABSTRACTION Provider, Abstract 07/05/2025 External Device Data STL ABSTRACTION Provider, Abstract 07/04/2025 1:10 PM CDT - 07/04/2025 11:59 PM CDT Hospital Encounter [facility] Maternal and Ground Floor [address] [place] [address] [facility] [place] [address] Capri Perez MD Discharge Disposition: Home or Self Care 06/27/2025 1:15 PM CDT - 06/27/2025 11:59 PM CDT Hospital Encounter [facility] Maternal and Ground Floor [address] [place] [address] [place] [address] Capri Perez MD Discharge Disposition: Home or Self Care 06/23/2025 1:15 PM CDT - 06/23/2025 11:59 PM CDT [facility] [address] [place] [address] [place] [address] Capri Perez MD Discharge Disposition: Home or Self Care 06/20/2025 1:15 PM CDT - 06/20/2025 11:59 PM CDT [facility] [address] [place] [address] Capri Perez MD Discharge Disposition: Home or Self Care 06/13/2025 9:30 AM CDT - 06/13/2025 11:59 PM CDT [facility] [address] [place] [address] Leslie Winters NP Discharge Disposition: Home or Self Care 06/13/2025 9:15 AM CDT - 06/13/2025 11:59 PM CDT [facility] [address] [place] [address] Leslie Winters NP Discharge Disposition: Home or Self Care 06/09/2025 2:30 PM CDT Video Visit [facility] Maternal and Medicine - Medical [place] [address] [facility] [address] [place] [address] Danay Butler NP Insulin controlled gestational diabetes mellitus (GDM) in third trimester (Primary Dx); Macrosomia of fetus affecting management of mother in third trimester, single or unspecified fetus; Bicuspid aortic valve; Cervical cerclage suture present in third trimester; 35 weeks gestation of 06/09/2025 9:15 AM CDT - 06/09/2025 11:59 PM CDT Hospital [facility] Ground [facility] [address] [place] [address] Leslie Winters NP Discharge Disposition: Home or Self Care 06/06/2025 9:15 AM CDT - 06/06/2025 11:59 PM CDT Hospital [facility] [address] [place] [address] Leslie Winters NP Discharge Disposition: Home or Self Care 06/02/2025 9:11 AM CDT - 06/02/2025 11:59 PM CDT Hospital Encounter [facility] Maternal and Ground Floor [address] [place] [address] [place] [address] Leslie Winters NP Discharge Disposition: Home or Self Care 05/31/2025 External Device Data [facility]L ABSTRACTION Provider, Abstract 05/30/2025 9:15 AM CDT - 05/30/2025 11:59 PM CDT [facility] [address] [place] [address] [place] [address] Leslie Winters NP Discharge Disposition: Home or Self Care 05/26/2025 9:15 AM CDT - 05/26/2025 11:59 PM CDT Hospital [facility] [address] [place] [address] [place] [address] Leslie Winters NP Discharge Disposition: Home or Self Care 05/24/2025 Telephone [facility] Maternal and Medicine - Medical [place] [address] [facility] [place] [address] Diabetes 05/23/2025 9:00 AM CDT - 05/23/2025 11:59 PM CDT Hospital Encounter [facility] Maternal and Ground Floor [address] [place] [address] [place] [address] Leslie Winters NP Discharge Disposition: Home or Self Care 05/19/2025 8:00 AM CDT - 05/19/2025 11:59 PM CDT [facility] [address] [place] [address] [place] [address] Leslie Winters NP Discharge Disposition: Home or Self Care from Last 3 Months Family History Medical [...] on file Legal Sex Female 10:53 AM GIFT 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 Anatomical Region Laterality Modality Pelvis Ultrasound 07/04/2025 1:52 PM CDT Narrative 07/04/2025 2:53 PM CDT MODIFIED [facility] STUDY ----- Pat. Name: NAYELI KRAUSE Study Date: 07/04/2025 1:52pm Pat. NO: [id number] Referring MD: ABRAM ALVAREZ MD Site: [facility] Customer Care Consultant: : 1995 Age: 29 ----- INDICATION ----- [...] O34.33: Maternal care for cervical incompetence Procedures 85148: NST/ monitoring 12658: Limited 1 or more - ANDRE, FHR, [...] Pat. Name:Anushka KRAUSE Date:07/04/2025 1:52pm Pat. NO: [id number] MD:ABRAM ALVAREZ [facility]1995Age:29 ----- INDICATION ----- Maternal Obesity (BMI<40) Complicating Cervical Shortening, Confirmed Gestational Diabetes, Insulin Controlled Maternal Cardiac Disease, Congenital, Specify Condition Cervix, Incompetent with or without Cerclage CODING ----- Diagnoses Z3A.39: Weeks of gestation O99.213: Obesity complicating O26.873: Cervical shortening O99.413: Diseases of the circulatory systemcomplicating O24.414: Gestational diabetes mellitus inpregnancy, insulin controlled O34.33: Maternal care for cervical incompetence Procedures 64365: NST/ monitoring 11183: Limited 1 or more - ANDRE, FHR, [...] d SUNDAY by LMP:06/21/2025 [place] by prior [id number] w + 1 d SUNDAY by prior [...] US MONITORING NST (06/13/2025 10:55 AM CDT) Anatomical Region Laterality Modality Ultrasound 06/13/2025 10:4 6 AM CDT Narrative 06/13/2025 10:[address] [facility] NST ----- Pat. Name: NAYELI KRAUSE Study Date: 06/13/2025 10:46am Pat. NO: [id number] Referring MD: ABRAM ALVAREZ MD Site: [facility] Customer Care Consultant: : 1995 Age: 29 ----- INDICATION ----- [...] O34.33: Maternal care for cervical incompetence Procedures 51798: NST/ monitoring HISTORY ----- OB History 6. [...] Procedure Note Capri Perez MD - 06/13/2025 [facility] NST ----- Pat. Name:Anushka KRAUSE Date:06/13/2025 10:46am Pat. NO: [id number] :ABRAM ALVAREZ MD [facility]1995Age:29 ----- INDICATION ----- Maternal Obesity [...] O34.33: Maternal care for cervical incompetence Procedures 61832: NST/ monitoring HISTORY ----- OB History 6. [...] d SUNDAY by LMP:06/21/2025 [place] by prior [id number] w + 1 d SUNDAY by prior [...] UP PER FETUS (06/13/2025 10:04 AM CDT) Anatomical Region Laterality Modality Pelvis Ultrasound 06/13/2025 9:41 AM CDT Narrative 06/13/2025 10:24 AM CDT [facility] FOLLOW UP ----- Pat. Name: NAYELI KRAUSE Study Date: 06/13/2025 9:41am Pat. NO: [id number] Referring MD: ABRAM ALVAREZ MD Site: [facility] Customer Care Consultant: Radha Espinoza RDMS : 1995 Age: 29 [...] O34.33: Maternal care for cervical incompetence Procedures 08646: Ultrasound, uterus, real time with image documentation, [...] 9 lb 2 oz EFW by Hadlock ([id number]) Extremities / Bony Struc Biometry: FL / [...] and date of were verified by the lockstitch back maker prior to the exam IMPRESSION ----- Impression: [...] Procedure Note Capri Perez MD - 06/13/2025 [facility] FOLLOW UP ----- Pat. Name:Anushka KRAUSE Date:06/13/2025 9:41am Pat. NO: [id number] MD:ABRAM ALVAREZ MD [facility]Radha Espinoza RDMS :1995Age:29 ----- INDICATION ----- Maternal Obesity (BMI<40) Complicating Cervical Shortening, Confirmed Gestational Diabetes, Insulin Controlled Maternal Cardiac Disease, Congenital, Specify Condition Cervix, Incompetent with or without Cerclage CODING ----- Diagnoses Z3A.36: Weeks of gestation O99.213: Obesity complicating O26.873: Cervical shortening O99.413: Diseases of the circulatory systemcomplicating O24.414: Gestational diabetes mellitus inpregnancy, insulin controlled O34.33: Maternal care for cervical incompetence Procedures 04393: Ultrasound, uterus, real time withimage documentation, follow [...] GA by [id number] w + 6 d SUNADY by LMP:06/21/2025 [place] by prior w + 1 d SUNDAY by prior [...] 9 lb 2 oz EFW by Hadlock ([id number]) Extremities / Bony Struc Biometry: FL / [...] and date of were verified by the lockstitch back maker prior tothe exam IMPRESSION ----- Impression: - [...] Advance Directives For more information, please contact: [phone] * Full Code (Latest Code Status on File) Date Activated Date Inactivated Comments 03/10/2025 12:14 PM 03/11/2025 5:19 PM Care Teams Assistant Corporate Controller Relationship Specialty Start Date End Date Karla Godfrey NP [address] [place] [address] PCP - General NURSE PRACTITIONER 02/09/15
--- OUTSIDE RECORDS SUMMARY | 2025-08-17 12:54 | XMS_ITS | Clinical Summary ---
Author Organization [facility] Address [address] [place] [address] Care Team Providers Care Creative Project Manager Name Role Phone Nikole Godinez Primary Care Provider [phone] Allergies No known active allergies Medications HYDROcodone-acet [...] Comments Blood Pressure 115/73 11/22/2024 9:19 PM FOOD VENDOR Pulse 63 11/22/2024 9:19 PM FOOD VENDOR Temperature 36.9 C (98.4 F) 11/22/2024 7:30 PM FOOD VENDOR Respiratory Rate 18 11/22/2024 9:19 PM FOOD VENDOR Oxygen Saturation 100% 11/22/2024 9:19 PM FOOD VENDOR Inhaled Oxygen Concentration - - Weight 81.2 kg (179 lb 0.2 oz) 11/22/2024 5:09 P M FOOD VENDOR Height 154.9 cm (5' 1) 11/22/2024 5:09 PM FOOD VENDOR Body Mass Index 33.82 11/22/2024 5:09 PM FOOD VENDOR Plan of Treatment Health Maintenance Due Date Last Done Comments Annual Physical 1999 Hepatitis C 2014 COVID-19 Vaccine ( season) 2025 Cervical Cancer Screening Pap Smear (Age 22 [...] [facility] Care Teams Creative Project Manager Relationship Specialty Start Date End Date Nikole Godinez PA [address] [place] [address] PCP - General PHYSICIAN MIXING MACHINE TENDER CORK GASKET 04/15/23
--- OUTSIDE RECORDS SUMMARY | 2025-08-17 12:54 | XMS_ITS | Clinical Summary ---
Author Organization [facility] [address] Address [address] [place] [address] Care Team Providers Care Stain Wiper Name Role Phone Jez Swartz MD Primary Care Provider [phone] Allergies No known active allergies Medications metroNIDAZOLE (FLAGYL) 500 mg tablet Take 1 tablet (500 mg total) by mouth every 12 (twelve) hours for 7 days 05/15/2023 Active PNV with [id number] 27 mg iron- 1 mg tablet Take [...] on file Legal Sex Female 7:59 PM RADIO FREQUENCY ENGINEER Gender Identity Not on file Sexual Orientation Not on file Obstetrics History Last Filed Vital Signs Vital Sign Reading Time Taken Comments Blood Pressure 114/69 11/20/2023 1:55 PM RADIO FREQUENCY ENGINEER Pulse 64 11/20/2023 2:00 PM RADIO FREQUENCY ENGINEER Temperature 36.9 C (98.4 F) 11/20/2023 11:01 AM RADIO FREQUENCY ENGINEER Respiratory Rate 20 11/20/2023 11:01 AM RADIO FREQUENCY ENGINEER Oxygen Saturation 100% 11/20/2023 2:00 PM RADIO FREQUENCY ENGINEER Inhaled Oxygen Concentration - - Weight 78.2 kg (172 lb 8 oz) 11/20/2023 11:01 AM RADIO FREQUENCY ENGINEER Height 154.9 cm (5' 1) 11/20/2023 11:01 AM RADIO FREQUENCY ENGINEER Body Mass Index 32.59 11/20/2023 11:01 AM RADIO FREQUENCY ENGINEER Plan of Treatment Health Maintenance Due [...] HPV Vaccines Completed 03/17/2008, 10/31, 09/09/[address] [place] [address] [facility] Care Teams Stain Wiper Relationship Specialty Start Date End Date Jez Swartz MD [address] [facility] [address] [place] [address] PCP - General Obstetrics and Gynecology 04/23/23
[2025-08-17 14:04] LABS: Hematocrit 36.7 % (37.0-47.0); Hemoglobin 11.6 g/dL (12.0-15.0); Mean Corpuscular HGB Conc 31.6 g/dl (32-36); Mean Corpuscular Hemoglobin 26.6 pg (26-34); Mean Corpuscular Volume 84.2 fl (80-100); Platelet Count Result 391 k/mm3 (150-375); Red Blood Count 4.36 M/mm3 (4.2-5.4); White Blood Count 7.8 K/mm3 (4.5-10.0)
== END 2025-08-17 12:47 | disposition home or self-care (01) ==
LOC: ANHLAB 12:47
PROVIDERS: PCP Nurse Practitioner Family; Visit Provider Obstetrics & Gynecology
DX: D64.9 Anemia, unspecified (principal)
CPT/HCPCS: 36415; 85027

== ENCOUNTER 2025-10-04 13:48 | Outpatient (CLI) | payer OTHER, SELFPAY ==
--- NOTE | 2025-10-04 13:59 | ECHO_ITS ---
Patient Info Name: Alexandrea Krause Age: 30 years : 1995 Gender: Female Ht: 61 in Wt: 178 lbs BSA: 1.90 m2 HR: 60 bpm BP: 108 / 72 mmHg Heart Rhythm: Sinus Rhythm Technical Quality: Fair Exam Date: 10/04/2025 2:01 PM Patient Status: O Admit Date: 10/04/2025 Exam Type: CA echo doppler color flow Complete two-dimensional, color flow and Doppler transthoracic echocardiogram is performed. Swedish Masseuse: Zenaida Espinosa Attending Provider: Pramod Jones DO Summary 1. Complete two-dimensional, color flow and Doppler transthoracic echocardiogram is performed. 2. Left ventricular chamber dimension is normal. 3. Left ventricular systolic function is normal, estimated at 60-65. 4. The left ventricular diastolic function is normal. 5. E/e' 8 is minimally elevated. 6. The aortic valve is not well visualized. Cannot determine number of aortic valve leaflets. Possibly bicuspid. 7. There is mild aortic valve sclerosis. 8. There is severe aortic valve stenosis based on a peak velocity of 375 cm/s, mean gradient of 30 mmHg, and aortic valve area of 0.7 cm2. There is turbulent flow. Consider RUBY if clinically indicated. 9. There is trace tricuspid valve regurgitation. 10. No pulmonary hypertension, estimated pulmonary arterial systolic pressure is 39 mmHg. 11. There is trace pulmonic regurgitation. Left Ventricle E/e' 8 is minimally elevated. Left ventricular chamber dimension is normal. Left ventricular systolic function is normal, estimated at 60-65. The left ventricular diastolic function is normal. Right Ventricle Right ventricular chamber dimension is normal. Right ventricular systolic function is normal and with normal TAPSE 2.0 cm. Left Atria Left atrial chamber dimension is normal. Right Atria Right atrial chamber dimension is normal. Aortic Valve The aortic valve is not well visualized. Cannot determine number of aortic valve leaflets. Possibly bicuspid. There is mild aortic valve sclerosis. There is severe aortic valve stenosis based on a peak velocity of 375 cm/s, mean gradient of 30 mmHg, and aortic valve area of 0.7 cm2. There is turbulent flow. Consider RUBY if clinically indicated. There is no aortic valve regurgitation. Pulmonic Valve There is trace pulmonic regurgitation. Mitral Valve There is no mitral valve stenosis. There is no mitral valve regurgitation. Tricuspid Valve There is trace tricuspid valve regurgitation. No pulmonary hypertension, estimated pulmonary arterial systolic pressure is 39 mmHg. Pericardium/Pleural There is no pericardial effusion. Inferior Vena Cava Normal inferior vena cava with >50% collapse upon inspiration consistent with normal right atrial pressure, 5 mmHg. Aorta The aortic root size at the sinus of Valsalva is normal. Left Ventricular Outflow Tract Name Value Normal LVOT 2D LVOT Diameter 2.0 cm LVOT Doppler LVOT Peak Velocity 86 cm/s LVOT Peak Gradient 3 mmHg LVOT Mean Gradient 2 mmHg LVOT VTI 22 cm LVOT VTI/AV VTI Ratio 0.2 LVOT Stroke Volume 70 ml LVOT CO 3.6 l/min LVOT CI 1.9 l/min/m2 Pulmonic Valve Name Value Normal RVOT Doppler RVOT Peak Velocity 93 cm/s RVOT Peak Gradient 3 mmHg PV Doppler PV Peak Velocity 163 cm/s PV Peak Gradient 11 mmHg Mitral Valve Name Value Normal MV Doppler MV Peak Gradient 7 mmHg MV Mean Gradient 3 mmHg MV Area (Cont Eq VTI) 2.3 cm2 MV Diastolic Function MV E Peak Velocity 124 cm/s MV A Peak Velocity 50 cm/s MV E/A 2.5 MV Decel Time (PW) 274 ms MV Annular TDI MV E/e' (Septal) 9.6 MV E/e' (Lateral) 8.0 MV E/e' (Average) 8.8 Tricuspid Valve Name Value Normal TV Regurgitation Doppler TR Peak Velocity 290 cm/s TR Peak Gradient 24 mmHg Estimated PAP/RSVP RA Pressure 5 mmHg <=5 PA Systolic Pressure 39 mmHg <36 RV Systolic Pressure 39 mmHg <36 TV Annular TDI TV Lateral Natalie s' Velocity 17.4 cm/s >=9.5 Aorta Name Value Normal Ascending Aorta Ao Root Diameter (MM) 2.1 cm Ao Root Diam Index (MM) 1.1 cm/m2 Aortic Valve Name Value Normal AV Doppler AV Peak Velocity 375 cm/s AV Peak Gradient 56 mmHg AV Mean Gradient 30 mmHg AV VTI 94 cm AV Area (Cont Eq VTI) 0.7 cm2 >=3.0 AV Area (Cont Eq Marcos) 0.7 cm2 AV DI (Marcos) 0.23 AV Regurgitation 2D LVOT Area 3.2 cm2 Ventricles Name Value Normal LV Dimensions 2D/MM IVS Diastolic Thickness (2D) 0.7 cm 0.6-1.0 LVID Diastole (2D) 5.2 cm 3.8-5.2 LVIW Diastolic Thickness (2D) 0.7 cm 0.6-0.9 LVID Systole (2D) 3.1 cm 2.2-3.5 LVOT Diameter 2.0 cm LV Mass (2D Cubed) 114.74 g 67.00-162.00 LV Mass Index (2D Cubed) 60 g/m2 43-95 Relative Wall Thickness (2D) 0.25 <=0.42 LV Fractional Shortening/Ejection Fraction 2D/MM LV Fractional Shortening (2D) 40 % 27-45 LV EF (2D Teichholz) 70 % LV Diastolic Volume (4C MOD) 81 ml LV EF (4C MOD) 71 % LV Diastolic Volume (2C MOD) 81 ml LV EF (2C MOD) 71 % LV Diastolic Volume (BP MOD) 85 ml 46-106 LV Diastolic Volume Index (BP MOD) 45 ml/m2 29-61 LV Systolic Volume (BP MOD) 25 ml 14-42 LV Systolic Volume Index (BP MOD) 13 ml/m2 8-24 LV EF (BP MOD) 71 % 54-74 LV Diastolic Length (4C) 7.5 cm LV Systolic Length (4C) 5.7 cm LV Stroke Volume (4C MOD) 58 ml Atria Name Value Normal LA Dimensions LA Dimension (MM) 4.0 cm 2.7-3.8 LA Volume (4C A-L) 38 ml LA Volume (BP A-L) 45 ml RA Dimensions RA Area (4C) 14.1 cm2 <=18.0 Report Signatures
--- OUTSIDE RECORDS SUMMARY | 2025-10-04 15:28 | XMS_ITS | Clinical Summary ---
Author Organization [facility] Address [address] [place] [phone] Phone Care Team Providers Care Clinical Research Assistant Name Role Phone Karla Godfrey NP Primary [...] Max dose of 50U/day 15 mL 1 5 Active TRUEplus Pen Needle 31 gauge x [...] unspecified trimester 04/19/2014 Overview (04/14/2025): GBS: negative Encounters Date Type Department Care Team Description 07/06/2025 External Device Data [facility] ABSTRACTION Provider, Abstract 07/05/2025 External Device Data [facility] ABSTRACTION Provider, Abstract 07/04/2025 1:10 PM CDT - 07/04/2025 11:59 PM CDT Hospital Encounter [facility] Maternal and Ground Floor S [facility] [address] [facility] [place] [address] Capri Perez MD Discharge Disposition: Home or Self Care from [...] Recorded Patient needs follow up regardin 03/23/2025 Comments No Sex and Gender Information Value Date Recorded Sex Assigned at Not on file Legal Sex Female 10:53 AM EVENTS INTERN Gender Identity Not on file Sexual Orientation [...] (3 - Td or Tdap) 12/01/2026, 05/09/2014 Procedures Procedure Name Priority Date/Time Associated Diagnosis Comments US OB LIMITED + NST Routine 07/04/2025 3 :12 PM CDT Gestational diabetes mellitus (GDM) requiring insulin from Last 3 Months Results * US OB LIMITED + NST (07/04/2025 3:12 PM CDT) Anatomical Region Laterality Modality Pelvis Ultrasound 07/04/2025 1:52 PM CDT Narrative 07/04/2025 2:53 PM CDT MODIFIED [facility] STUDY ----- Pat. Name: NAYELI HERNANDEZ Study Date: 07/04/2025 1:52pm Pat. NO: [id number] Referring MD: ABRAM ALVAREZ MD Site: [facility] Medical Equipment Repair Technician: : 1995 Age: 29 ----- INDICATION ----- [...] O34.33: Maternal care for cervical incompetence Procedures 46198: NST/ monitoring 50983: Limited 1 or more - ANDRE, FHR, [...] Pat. Name:Anushka HERNANDEZ Date:07/04/2025 1:52pm Pat. NO: [id number] :ABRAM ALVAREZ MD [facility]1995Age:29 ----- INDICATION ----- Maternal Obesity (BMI<40) Complicating Cervical Shortening, Confirmed Gestational Diabetes, Insulin Controlled Maternal Cardiac Disease, Congenital, Specify Condition Cervix, Incompetent with or without Cerclage CODING ----- Diagnoses Z3A.39: Weeks of gestation O99.213: Obesity complicating O26.873: Cervical shortening O99.413: Diseases of the circulatory systemcomplicating O24.414: Gestational diabetes mellitus inpregnancy, insulin controlled O34.33: Maternal care for cervical incompetence Procedures 50151: NST/ monitoring 59661: Limited 1 or more - ANDRE, FHR, [...] d SUNDAY by LMP:06/21/2025 [place] by prior [id number] w + 1 d SUNDAY by prior [...] Capri Perez MD ORDERABLES Final R esult from Last 3 Months Insurance [employer] [employer] [place] RX [facility] [employer] [place] [employer] (INTERNAL) [facility] Internal Plans Advance Directives For more information, please contact: [phone] * Full Code (Latest Code Status on File) Date Activated Date Inactivated Comments 03/10/2025 12:14 PM 03/11/2025 5:19 PM Care Teams Clinical Research Assistant Relationship Specialty Start Date End Date Karla Godfrey NP [address] [place] [address] PCP - General NURSE PRACTITIONER 02/09/15
--- OUTSIDE RECORDS SUMMARY | 2025-10-04 15:28 | XMS_ITS | Data Portability ---
Author Organization [facility] [place] Address [address] [place] [address] [place] [address] Assessment No assessment recorded. Plan of Treatment Reminders Order Date Submit Date Provider Last Modified By Organization Details Last Modified Time Details Appointments None recorded . Lab pregnanc y test, urine 2021 varsha [place] [facility] [address], [place], [address], 11:01:29 urinalys is, dipstick 2021 [facility] [address], [place], [address], 17:14:20 pregnanc y test, urine 2021 [facility], [facility] [address], [place], [address], 17:14:19 Referral None recorded . Procedures None recorded . Surgeries None recorded . Imaging US, pelvis 2021 [email or web address], [address], [place], [address], 21:44:59 US, transvag inal 2021 [email or web address], [address], [place], [address], 21:44:59 US, pelvis, complete 2021 ROMMEL Osorio, [address], [address], [place], [address], 10:44:44 Medication Orders Slynd 4 mg (28) tablet 2021 llamay [id number], [address] [place], [address], 13:28:08 Macrobid 100 mg capsule 2021 vschroedter [facility][id number], [address] [place], [address], 10:50:11 Patient TargetsNo targets recorded. Patient InstructionsNo instructions recorded. Reason for Referral None Reported. Results Created Date Observation Date Name Description Value Unit Range Abnormal Flag Note LastModifiedBy Organization Detail LastModifiedTime 11/12/2011/12/2022 CT/GC AND TRICH OMONA S VAGIN KAYLEE (RRNA ), URINE chlamydia trachomatis, PCR Negati ve negati ve Not Available [facility] (Lab) [address], [place], [address], 11/15/2022 10:16:16 11/12/20 22 11/12/2022 CT/GC AND TRICH OMONA S VAGIN KAYLEE (RRNA ), URINE neisseria gonorrhoeae, PCR Negati ve negati ve Not Available [facility] (Lab) [address], [place], [address], 11/15/2022 10:16:16 11/12/20 22 11/12/2022 CT/GC AND TRICH OMONA S VAGIN KAYLEE (RRNA ), URINE trichomonas vaginalis ribosomal RNA (rrna) Negati ve negati ve Not Available [facility] (Lab) [address], [place], [address], 11/15/2022 10:16:16 11/12/20 22 11/12/2022 CULTU RE: URINE result report SEE RESULT S BELOW abnormal Test: Cultu re: Urine Speci men Sourc e: Urine - Clean Catch Speci men Type: Urine Speci men Date: 11/12 4:34 PM Resul t Date: 11/15 9:13 AM Resul t Statu s: Final resul t Abnor mal: Yes Resul barak Lab: [facility] [address] [facility] [address] Tel: CULTU RE ----- ----- ----- --- [...] <=2 ug/mL Susce ptibl e Not Available [facility] (Lab) [address], [place], [address], 11/15/2022 10:16:17 11/12/20 22 11/12/2022 urina lysis , dipst ick Leukocytes tr Not Available [facility] yumi [address], [place], [address], 11/12/2022 17:13:23 11/12/20 22 11/12/2022 urina lysis , dipst ick Nitrite + Not Available [place] [address], [place], [address], 11/12/2022 17:13:23 11/12/20 22 11/12/2022 urina lysis , dipst ick Urobilinogen neg Not Available [facility] [address], [place], [address], 11/12/2022 17:13:23 11/12/20 22 11/12/2022 urina lysis , dipst ick Protein neg Not Available [place] [address], [place], [address], 11/12/2022 17:13:23 11/12/20 22 11/12/2022 urina lysis , dipst ick pH 8 Not Available [place] [address], [place], [address], 11/12/2022 17:13:23 11/12/20 22 11/12/2022 urina lysis , dipst ick Blood +++ Not Available [place] [address], [place], [address], 11/12/2022 17:13:23 11/12/20 22 11/12/2022 urina lysis , dipst ick Specific [place] 1.015 Not Available Romina roque [address], [place], [address], 11/12/2022 17:13:23 11/12/20 22 11/12/2022 urina lysis , dipst ick Ketone neg Not Available [place] [address], [place], [address], 11/12/2022 17:13:23 11/12/20 22 11/12/2022 urina lysis , dipst ick Bilirubin neg Not Available Albert reyes [address], [place], [address], 11/12/2022 17:13:23 11/12/20 22 11/12/2022 urina lysis , dipst ick Glucose neg Not Available [place] [address], [place], [address], 11/12/2022 17:13:23 11/12/20 22 11/12/2022 urina lysis , dipst ick Appearance clear Not Available Layton eason [address], [place], [address], 11/12/2022 17:13:23 11/12/20 22 11/12/2022 urina lysis , dipst ick Color yellow Not Available [place] [address], [place], [address], 11/12/2022 17:13:23 11/12/20 22 11/12/2022 pregn katty test, urine HCG negati ve Not Available [place] [address], [place], [address], 11/12/2022 17:13:01 11/27/20 22 11/27/2022 pregn katty test, urine HCG negati ve Not Available [place] [address], [place], [address], 11/27/2022 11:01:23 11/20/20 22 11/20/2022 US, pelvi s, compl ete No observ ation record ed. [email or web address] [address], [place], [address], 11/21/2022 10:44:45 11/20/20 22 11/20/2022 US, pelvi s No observ ation record ed. [place] [address], [place], [address], 11/20/2022 13:50:09 11/20/20 22 11/20/2022 US, trans vagin al No observ ation record ed. [place] [address], [place], [address], 11/20/2022 13:50:00 Result Notes None recorded. Procedures Surgical History Date Name Laterality Status Provider Name and Address Organization Details Recorded Time IUD Removal completed CATHI Riddle [address], [place], [address], [facility] 11/27/2022 13:25:22 Caesarean Section completed Sheron Aguilar [facility] 11/12/2022 16:20:18 Imaging Results None recorded. [...] Updated DateTime 11/12/2022 154.94 cm 30.3 kg/m2 23571.5 g 118/76 mm[Hg] Sheron Mazariegosdarien [facility] 11/12/2022 16:19:59 Date Recorded Body height Body mass index (BMI) Body weight Systolic And Diastolic Provider Name and Address Organization Details Last Updated DateTime 11/27/2022 154.94 cm 30.3 kg/m2 56231.5 g 109/70 mm[Hg] Sheron Mazariegosdarien [facility] 11/27/2022 10:50:02 Social History Question Answer Notes LastModified by Organizat ion Details LastModified Time Tobacco Smoking Status Current Every Day Smoker Selene Blanchard [facility] 11/27/2022 10:40:38 How Many Years Have [...] Or The Highest Degree You Have Received? [id number] Information not available 11/12/2022 Are There Any [...] Have Difficulty Walking Or Climbing Stairs? No [email or web address] Information not available 11/27/2022 Sex: Unknown Functional Status Question Answer Note LastModified by Organizat ion Details LastModified Time Do you use any illicit or recreational drugs? No Information not available 11/12/2022 What is your level of alcohol consumption? None Information not available 11/12/2022 Are you able to walk independently without assistance or assistive devices? YESWOREST Information not available 11/12/2022 Are you able to care for yourself independently? Yes [email or web address] Information not available 11/27/2022 Do you have difficulty dressing, bathing, grooming, or toileting? No [email or web address] Information not available 11/27/2022 What is your exercise level? None Information not available 11/12/2022 Mental Status Question Answer Note LastModified by Organization D etails LastModified Time Do you feel stressed (tense, restless, nervous, or anxious, or unable to sleep at night)? [id number] Information not available 11/12/2022 Family History Relationship [...] Diagnosis SNOMED-CT Code Diagnosis ICD10 Code Diagnosis IMO Codes Diagnosis Note [id number] CATHI Riddle [place] [address] [address] 11/12/2022 16:00:33 11/13/2022 17:46:43 Contraception care management 080483956 Z30.9 Urinary symptoms 4157343 08 R39.9 Pain in pelvis 31018769 R10.2 Today we reviewed the various causes [...] plan of care. Venereal d isease screening 172884953 Z11.3 [id number] Gregorio Carreon MD [place] [address] [address] 11/20/2022 11:31:05 11/21/2022 14:19:17 Pain in pelvis 71919000 R10.2 [id number] Linda Covington [facility] [address] [address] 11/27/2022 10:40:30 11/27/2022 14:32:40 Screening procedure 70525979 Z13.9 Removal of intrauterine device 99090382 Z30.432 Today we reviewed recent pelvic u/s result - Malpositio n IUD, IUD seen in c/s lisaWe agreed to move forward with IUD removalUPT [...] 4 monthsDeni es hx of DVT/PE, HTN, Stroke/OR, cancer, or liver diseaseShe does have a hx of a heart murmur - has not seen cardiologi st recently due to moving, would like referral.R TC for med check in 3 months Time spent in visit is a total of 25 mins with at least 50% of visit consisting of counseling and review of plan of care. [facility] ion care management [id number] Z30.9 Health Concerns Section Related Observation LastModified by Organization Detai ls LastModified Time None Recorded Concern Status LastModified by Organization Details LastModified Time None Recorded Advance Directives Directive None Recorded Payers Insurance Date Sequence Insurance Name Policy Number Policy Maya Covered Member ID Maya Member ID Guarantor Name 11/26/2022 1 [facility] (MEDICAID HMO) [id number] Alexandrea Krause [id number] Alexandrea Krause Notes Date Note Type Note Provider Name and Address Organization Details Recorded Time 11/12/2022 text/html 27yo Presents for evaluation of pelvic painPain started yesterday, right [...] steady partner CATHI Riddle [address], [place], [address], [place] [facility] 11/12/2022 18:00:37 11/27/2022 text/html Patient presents for u/s f/uu/s done due to pelvic painCompleted antibiotic course for UTINo current symptoms today CATHI Riddle [address], [place], [address], [facility] 11/27/2022 13:29:05 OBGyn Episode Ob Episode Information Episode Created Date Number of Fetuses Patient Bloodtype Patient rh Status Prepregnancy Weight lbs Domestic Partner Domestic Partner Phone Father Name Kitchenhand Status 11/12/20 22 1 CLOSED Fetus Data First Name Last Name Admitted to NICU Weight (g) Sex Living Outcome Pediatric Complications Fetus ID Race Codes Race Delivery Type 3883.65 4704 M Full Term [id number] Lorenzo Calculation Initial Lorenzo Date Initial Exam [...] Domestic Partner Domestic Partner Phone Father Name Kitchenhand Status 11/12/20 22 1 CLOSED Fetus Data First Name Last Name Admitted to NICU Weight (g) Sex Living Outcome Pediatric Complications Fetus ID Race Codes Race Delivery Type 2891.64 9 F Full Term [id number] Lorenzo Calculation Initial Lorenzo Date Initial Exam [...] Domestic Partner Domestic Partner Phone Father Name Kitchenhand Status 11/12/20 22 1 CLOSED Fetus Data First Name Last Name Admitted to NICU Weight (g) Sex Living Outcome Pediatric Complications Fetus ID Race Codes Race Delivery Type , Spontane ous [id number] Lorenzo Calculation Initial Lorenzo Date Initial Exam [...]
--- OUTSIDE RECORDS SUMMARY | 2025-10-04 15:28 | XMS_ITS | Clinical Summary ---
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 CONTROLS ENGINEER Gender Identity Not on file Sexual Orientation Not on file Last Filed Vital Signs Vital Sign Reading Time Taken Comments Blood Pressure 114/69 11/20/2023 1:55 PM SOFTWARE CONTROLS ENGINEER Pulse 64 11/20/2023 2:00 PM SOFTWARE CONTROLS ENGINEER Temperature 36.9 C (98.4 F) 11/20/2023 11:01 AM SOFTWARE CONTROLS ENGINEER Respiratory Rate 20 11/20/2023 11:01 AM SOFTWARE CONTROLS ENGINEER Oxygen Saturation 100% 11/20/2023 2:00 PM SOFTWARE CONTROLS ENGINEER Inhaled Oxygen Concentration - - Weight 78.2 kg (172 lb 8 oz) 11/20/2023 11:01 AM SOFTWARE CONTROLS ENGINEER Height 154.9 cm (5' 1) 11/20/2023 11:01 AM SOFTWARE CONTROLS ENGINEER Body Mass Index 32.59 11/20/2023 11:01 AM SOFTWARE CONTROLS ENGINEER Plan of Treatment Health Maintenance Due [...] HPV Vaccines Completed 03/17/2008, 10/31, 09/09/[address] CYNTHIA Carbone [address] [facility] Care Teams Barkeeper Relationship Specialty Start Date End Date Jez Swartz MD [address] [place] [address] PCP - General Obstetrics and Gynecology 04/23/23
--- OUTSIDE RECORDS SUMMARY | 2025-10-04 15:28 | XMS_ITS | Clinical Summary ---
Author Organization [facility] Address [address] [place] [address] Care Team Providers Care Yoga Instructor Name Role Phone Nikole Godinez Primary Care Provider [phone] Allergies No known active allergies Medications HYDROcodone-acet [...] Comments Blood Pressure 115/73 11/22/2024 9:19 PM PAYING TELLER Pulse 63 11/22/2024 9:19 PM PAYING TELLER Temperature 36.9 C (98.4 F) 11/22/2024 7:30 PM PAYING TELLER Respiratory Rate 18 11/22/2024 9:19 PM PAYING TELLER Oxygen Saturation 100% 11/22/2024 9:19 PM PAYING TELLER Inhaled Oxygen Concentration - - Weight 81.2 kg (179 lb 0.2 oz) 11/22/2024 5:09 P M PAYING TELLER Height 154.9 cm (5' 1) 11/22/2024 5:09 PM PAYING TELLER Body Mass Index 33.82 11/22/2024 5:09 PM PAYING TELLER Plan of Treatment Health Maintenance Due Date Last Done Comments Annual Physical 1999 Hepatitis C 2014 COVID-19 Vaccine ( season) 2025 Influenza Adult (#1) 2025 09/04/2011 Cervical Cancer Screening Pap Smear (Age [...] topic HPV Vaccines Completed 03/17/2008, 10/31, 09/09/2007 Hepatitis A Vaccines Completed 03/11/2012, 09/04/20 11 Meningococcal B Vaccine Aged Out No l [...] to complete this topic Insurance [employer] Care Teams Yoga Instructor Relationship Specialty Start Date End Date Nikole Godinez PA [address] [place] [address] PCP - General PHYSICIAN STEAM LOCOMOTIVE FIRER/FIREMAN 04/15/23
== END 2025-10-04 13:49 | disposition home or self-care (01) ==
LOC: ANHCARD 13:49
PROVIDERS: PCP Nurse Practitioner Family; Visit Provider Internal Medicine Cardiovascular Disease
DX: R93.1 Abnormal findings on diagnostic imaging of heart and coronary circulation (principal); Z87.74 Personal history of (corrected) congenital malformations of heart and circulatory system
CPT/HCPCS: 93306